=== PATIENT | female | born 1950 | race Caucasian/White ===

== ENCOUNTER → 2017-12-21 08:10 | Outpatient (CLI) | payer MEDICARE, OTHER, SELFPAY ==
[2017-12-21 09:55] LABS: AST(SGOT) 25 U/L (15-37); Alanine Aminotransfer ALT/SGPT 34 U/L (13-56); Albumin, Serum 3.7 g/dL (3.2-5.0); Alkaline Phosphatase 72 U/L (45-117); Bilirubin, Direct 0.11 mg/dL (0.00-0.30); Cholesterol 189 mg/dL (200); Globulin 3.1 g/dL (2.2-4.2); High Density Lipoprotein 68 mg/dL; Protein, Total 6.8 g/dL (6.4-8.2); Triglycerides 77 mg/dL; Very Low Density Lipoprotein 15 mg/dL (5-40)
== END ==
PROVIDERS: Family Provider Nurse Practitioner; PCP Nurse Practitioner; Visit Provider Internal Medicine Cardiovascular Disease
DX: Q23.1 Congenital insufficiency of aortic valve (principal); Z95.2 Presence of prosthetic heart valve; I35.0 Nonrheumatic aortic (valve) stenosis; E78.5 Hyperlipidemia, unspecified
CPT/HCPCS: 36415; 80061; 80076

== ENCOUNTER → 2018-08-23 07:54 | Outpatient (CLI) | payer MEDICARE, OTHER, SELFPAY ==
[2018-08-23 09:09] LABS: AST(SGOT) 26 U/L (15-37); Alanine Aminotransfer ALT/SGPT 40 U/L (13-56); Albumin, Serum 3.7 g/dL (3.2-5.0); Alkaline Phosphatase 84 U/L (45-117); Bilirubin, Direct 0.14 mg/dL (0.00-0.30); Cholesterol 215 mg/dL (200); Globulin 3.4 g/dL (2.2-4.2); High Density Lipoprotein 72 mg/dL; Protein, Total 7.1 g/dL (6.4-8.2); Triglycerides 87 mg/dL; Very Low Density Lipoprotein 17 mg/dL (5-40)
== END ==
PROVIDERS: Family Provider Nurse Practitioner; PCP Nurse Practitioner; Referring Provider Internal Medicine Cardiovascular Disease; Visit Provider Internal Medicine Cardiovascular Disease
DX: I34.0 Nonrheumatic mitral (valve) insufficiency (principal); Z95.3 Presence of xenogenic heart valve; E78.2 Mixed hyperlipidemia
CPT/HCPCS: 36415; 80061; 80076

== ENCOUNTER → 2018-08-28 14:50 | Outpatient (CLI) | payer MEDICARE, OTHER, SELFPAY ==
--- NOTE | 2018-08-28 14:52 | ECHOD_ITS ---
Reason For Study: Aortic valve replacement Procedure This was a 2D Doppler, Color Flow transthoracic echocardiogram. The exam was of adequate technical quality. Exam performed in department. Left Ventricle Normal LV size. Left ventricular systolic function is normal. The estimated ejection fraction is 65 %. Diastolic function is indeterminate. No regional wall motion abnormalities noted. Right Ventricle Normal RV size. Normal systolic function. Atria The left atrium is mildly enlarged. The right atrium is mildly enlarged. No doppler evidence for ASD. Mitral Valve There is mild mitral annular calcification. Mild diffuse mitral valve thickening. Mild focal mitral valve calcification of the anterior leaflet. Mild (1+) mitral valve insufficiency. Tricuspid Valve Normal tricuspid valve. Moderate (2+) tricuspid valve insufficiency. Right ventricular systolic pressure estimated to be 41 mmHg. Aortic Valve Moderate aortic stenosis. Stable appearing bioprosthetic aortic valve apparatus. Trivial transvalvular insufficiency of the aortic valve. Pulmonic Valve The pulmonic valve is not well visualized. Great Vessels Normal sized aortic root. Pericardium/Pleural No pericardial effusion. MMode/2D Measurements & Calculations LVIDd: 3.5 cm IVSd: 1.1 cm LVOT diam: 1.8 cm LVIDs: 1.7 cm LVPWd: 1.2 cm LVOT area: 2.7 cm2 RVDd: 3.5 cm FS: 51.6 % Ao root diam: 3.0 cm LAV(MOD-bp): 51.5 ml LA A4 area: 16.1 cm2 LAV(MOD-bp) Indexed: 32.8 ml/m2 LAV(MOD-sp2): 62.1 ml LAV(MOD-sp4): 40.8 ml LA dimension(2D): 3.4 cm RA A4 area: 20.1 cm2 Time Measurements MV dec time: 0.24 sec Doppler Measurements & Calculations MV E max shailesh: 65.3 cm/sec Lat Peak E' Shailesh: 7.2 cm/sec Med Peak E' Shailesh: 7.4 cm/sec MV A max shailesh: 85.3 cm/sec E/E' lat: 9.0 E/E' med: 8.8 MV E/A: 0.77 Ao V2 max: 343.0 cm/sec LV V1 max: 113.7 cm/sec SV(LVOT): 65.3 ml Ao max P.2 mmHg LV V1 max P.2 mmHg Ao V2 mean: 256.7 cm/sec LV V1 mean P.1 mmHg Ao mean P.9 mmHg LV V1 mean: 83.9 cm/sec Ao V2 VTI: 70.4 cm LV V1 VTI: 24.3 cm TONI(I,D): 0.93 cm2 TONI(V,D): 0.89 cm2 PA V2 max: 101.2 cm/sec TR max shailseh: 286.0 cm/sec TR max P.8 mmHg Interpretation Summary Left ventricular systolic function is normal. The estimated ejection fraction is 65 %. The left atrium is mildly enlarged. The right atrium is mildly enlarged. There is mild mitral annular calcification. Mild diffuse mitral valve thickening. Mild focal mitral valve calcification of the anterior leaflet. Mild (1+) mitral valve insufficiency. Moderate (2+) tricuspid valve insufficiency. Stable appearing bioprosthetic aortic valve apparatus. Moderate aortic stenosis. Trivial transvalvular insufficiency of the aortic valve. Right ventricular systolic pressure estimated to be 41 mmHg. Diastolic function is indeterminate. Ordering Physician: Jose Luis Donahue Referring Physician: Jose Luis Donahue Performed By: Namrata Warner, MC, RVT
== END ==
PROVIDERS: Family Provider Nurse Practitioner; PCP Nurse Practitioner; Referring Provider Internal Medicine Cardiovascular Disease; Visit Provider Internal Medicine Cardiovascular Disease
DX: I34.0 Nonrheumatic mitral (valve) insufficiency (principal); Z95.3 Presence of xenogenic heart valve
CPT/HCPCS: 93306

== ENCOUNTER → 2019-10-31 08:00 | Outpatient (CLI) | payer MEDICARE, OTHER, SELFPAY ==
[2019-08-21 15:45] VITALS: BMI 21.9
[2019-10-31 08:36] LABS: AST(SGOT) 26 U/L (15-37); Alanine Aminotransfer ALT/SGPT 41 U/L (13-56); Albumin, Serum 3.6 g/dL (3.2-5.0); Alkaline Phosphatase 93 U/L (45-117); Bilirubin, Direct 0.15 mg/dL (0.00-0.30); Cholesterol 197 mg/dL (200); Globulin 3.4 g/dL (2.2-4.2); High Density Lipoprotein 59 mg/dL; Triglycerides 106 mg/dL; Very Low Density Lipoprotein 21 mg/dL (5-40)
== END ==
PROVIDERS: PCP Nurse Practitioner; Referring Provider Internal Medicine Cardiovascular Disease; Visit Provider Internal Medicine Cardiovascular Disease
DX: E78.5 Hyperlipidemia, unspecified (principal); E78.00 Pure hypercholesterolemia, unspecified
CPT/HCPCS: 36415; 80061; 80076

== ENCOUNTER → 2020-09-01 13:49 | Outpatient (CLI) | payer MEDICARE, OTHER, SELFPAY ==
[2020-08-19 15:12] VITALS: BMI 21.9
--- NOTE | 2020-09-01 13:50 | ECHOD_ITS ---
Reason For Study: Valve Replacement eval Procedure This was a 2D Doppler, Color Flow transthoracic echocardiogram. The study was technically difficult. Exam performed in department. Left Ventricle Normal LV size. Left ventricular systolic function is normal. The estimated ejection fraction is 65 %. No evidence for diastolic dysfunction. No regional wall motion abnormalities noted. Right Ventricle Normal RV size. Normal systolic function. Atria The left atrium is mildly enlarged. The right atrium is mildly enlarged. No doppler evidence for ASD. Mitral Valve There is mild mitral annular calcification. Mild diffuse mitral valve thickening. Mild (1+) mitral valve insufficiency. Tricuspid Valve Normal tricuspid valve. Moderate (2+) tricuspid valve insufficiency. Right ventricular systolic pressure estimated to be 29 mmHg. Aortic Valve Moderate aortic stenosis. Stable appearing bioprosthetic aortic valve apparatus. Trivial transvalvular insufficiency of the aortic valve. Pulmonic Valve The pulmonic valve is not well visualized. Great Vessels Normal sized aortic root. Pericardium/Pleural No pericardial effusion. MMode/2D Measurements & Calculations LVIDd: 3.2 cm IVSd: 1.1 cm LVOT diam: 1.7 cm LVIDs: 2.0 cm LVPWd: 1.3 cm LVOT area: 2.4 cm2 RVDd: 3.3 cm FS: 38.1 % Ao root diam: 3.8 cm LAV(MOD-bp): 46.9 ml LA A4 area: 14.9 cm2 LA dimension: 3.6 cm LAV(MOD-bp) Indexed: 29.8 ml/m2 LAV(MOD-sp2): 59.8 ml LAV(MOD-sp4): 36.2 ml RA A4 area: 14.9 cm2 Time Measurements MV dec time: 0.31 sec Doppler Measurements & Calculations MV E max shailesh: 61.5 cm/sec Lat Peak E' Shailesh: 7.3 cm/sec Med Peak E' Shailesh: 6.3 cm/sec MV A max shailesh: 80.6 cm/sec E/E' lat: 8.4 E/E' med: 9.8 MV E/A: 0.76 MV V2 max: 104.2 cm/sec MV P1/2t max shailesh: 68.6 cm/sec Ao V2 max: 302.0 cm/sec MV max P.3 mmHg MV P1/2t: 80.1 msec Ao max P.5 mmHg MV V2 mean: 51.3 cm/sec MV dec slope: 250.9 cm/sec2 Ao V2 mean: 190.4 cm/sec MV mean P.2 mmHg Ao mean P.9 mmHg MV V2 VTI: 26.2 cm MVA(P1/2t): 2.7 cm2 Ao V2 VTI: 54.7 cm MVA(VTI): 2.1 cm2 TONI(I,D): 0.99 cm2 TONI(V,D): 0.91 cm2 LV V1 max: 115.9 cm/sec MR max shailesh: 491.1 cm/sec SV(LVOT): 54.0 ml LV V1 max P.4 mmHg MR max P.5 mmHg LV V1 mean P.9 mmHg LV V1 mean: 78.1 cm/sec LV V1 VTI: 22.8 cm PA V2 max: 111.7 cm/sec TR max shailesh: 255.4 cm/sec TR max P.1 mmHg Interpretation Summary The study was technically difficult. Left ventricular systolic function is normal. The estimated ejection fraction is 65 %. The left atrium is mildly enlarged. The right atrium is mildly enlarged. There is mild mitral annular calcification. Mild diffuse mitral valve thickening. Mild (1+) mitral valve insufficiency. Moderate (2+) tricuspid valve insufficiency. Stable appearing bioprosthetic aortic valve apparatus. Moderate aortic stenosis. Trivial transvalvular insufficiency of the aortic valve. Right ventricular systolic pressure estimated to be 29 mmHg. No evidence for diastolic dysfunction. Ordering Physician: Jose Luis Donahue Referring Physician: Nata Welsh Performed By: Maxime Juarez RCS
== END ==
PROVIDERS: PCP Nurse Practitioner; Referring Provider Internal Medicine Cardiovascular Disease; Visit Provider Internal Medicine Cardiovascular Disease
DX: I34.1 Nonrheumatic mitral (valve) prolapse (principal); E78.2 Mixed hyperlipidemia; I34.0 Nonrheumatic mitral (valve) insufficiency; Z95.3 Presence of xenogenic heart valve
CPT/HCPCS: 93306

== ENCOUNTER → 2021-06-28 14:02 | Outpatient (CLI) | payer MEDICARE, OTHER, SELFPAY ==
--- NOTE | 2021-06-28 14:12 | BI_ITS ---
MAMMOGRAPHY - UNILATERAL DIAGNOSTIC: LEFT BREAST REASON FOR EXAM: Female, 70 years old. Abnormal screening mammogram. PERTINENT HISTORY: Architectural distortion as seen on the mediolateral oblique view. TECHNIQUE: Compression spot views of the left breast were obtained in the mediolateral oblique view. CAD: Full Field Digital Mammography with Computer Added Detection was performed. COMPARISON: Comparison is made with prior outside examination dated 05/27/2021. FINDINGS: Breast Composition: There are scattered areas of fibroglandular density. There are no dominant masses or suspicious calcifications. No other significant abnormalities are identified. BI/DIAG MAMM W/CAD, UNILAT IMPRESSION: Negative unilateral diagnostic mammogram. Correlation with ultrasound is recommended. ASSESSMENT CATEGORY: BIRADS Category 0: Incomplete. Need additional imaging evaluation. A letter regarding these results will be sent to the patient by the facility within 30 days. Approximately 10% of breast cancers are not detected by mammography. A normal mammogram should not delay biopsy of a clinically suspicious abnormality. Electronically Signed: Rodger Blount MD at 15:12 EDT , Service support ,
--- NOTE | 2021-06-28 14:12 | US_ITS ---
STUDY: ULTRASOUND BREAST - LEFT REASON FOR EXAM: Female, 70 years old. Abnormal screening mammogram. TECHNIQUE: Axial and longitudinal images of the LEFT breast were performed with a high resolution ultrasound transducer. # OF IMAGES: 36 COMPARISON: Comparison is made with prior diagnostic mammogram done earlier today. FINDINGS: LEFT Breast: The lateral half of the left breast was examined by ultrasound. No sonographic abnormality is seen. US/Breast Limited Unilateral IMPRESSION: No sonographic abnormality is seen. ASSESSMENT CATEGORY: BIRADS Category 1: Negative. A letter regarding these results will be sent to the patient by the facility within 30 days. Electronically Signed: Rodger Blount MD at 15:48 EDT , Service support ,
== END ==
PROVIDERS: PCP Nurse Practitioner; Referring Provider Nurse Practitioner; Visit Provider Nurse Practitioner
DX: R92.8 Other abnormal and inconclusive findings on diagnostic imaging of breast (principal)
CPT/HCPCS: 76642; 77065

== ENCOUNTER → 2021-08-31 13:53 | Outpatient (CLI) | payer MEDICARE, OTHER, SELFPAY ==
--- NOTE | 2021-08-31 13:57 | ECHOD_ITS ---
Reason For Study: AVR Procedure This was a 2D Doppler, Color Flow transthoracic echocardiogram. The exam was of adequate technical quality. Exam performed in department. Left Ventricle Normal LV size. Left ventricular systolic function is normal. The estimated ejection fraction is 65 %. Diastolic function is indeterminate. No regional wall motion abnormalities noted. Right Ventricle Normal RV size. Normal systolic function. Atria Normal left atrium. Normal right atrium. No doppler evidence for ASD. Mitral Valve There is mild to moderate mitral annular calcification. Extension of the mitral annular calcification onto the base of the posterior mitral valve leaflet. Mild (1+) mitral valve insufficiency. Tricuspid Valve Normal tricuspid valve. Moderate (2+) tricuspid valve insufficiency. Right ventricular systolic pressure estimated to be 41 mmHg. Aortic Valve Mild focal aortic valve calcification. Mild to moderate aortic stenosis. Stable appearing bioprosthetic aortic valve apparatus. Trivial transvalvular insufficiency of the aortic valve. Pulmonic Valve The pulmonic valve is not well visualized. Great Vessels Normal sized aortic root. Pericardium/Pleural No pericardial effusion. MMode/2D Measurements & Calculations LVIDd: 3.5 cm IVSd: 1.1 cm LVOT diam: 1.7 cm LVIDs: 2.0 cm LVPWd: 1.1 cm LVOT area: 2.2 cm2 RVDd: 2.8 cm FS: 43.4 % Ao root diam: 3.8 cm LAV(MOD-bp): 45.0 ml LVAd ap4: 22.3 cm2 LAV(MOD-bp) Indexed: 28.8 ml/m2 LVLd ap4: 7.3 cm LAV(MOD-sp2): 48.0 ml EDV(MOD-sp4): 56.1 ml LAV(MOD-sp4): 37.5 ml EDV(sp4-el): 58.0 ml LVAs ap4: 12.1 cm2 LVLs ap4: 6.4 cm ESV(MOD-sp4): 20.1 ml ESV(sp4-el): 19.6 ml EF(MOD-sp4): 64.2 % EF(sp4-el): 66.3 % LVAd ap2: 25.0 cm2 SV(MOD-sp4): 36.0 ml SV(MOD-sp2): 44.3 ml LVLd ap2: 7.6 cm EDV(MOD-sp2): 68.4 ml EDV(sp2-el): 69.7 ml LVAs ap2: 13.8 cm2 LVLs ap2: 6.8 cm ESV(MOD-sp2): 24.1 ml ESV(sp2-el): 23.8 ml EF(MOD-sp2): 64.8 % SV(sp4-el): 38.5 ml LA dimension(2D): 4.0 cm LA A4 area: 15.5 cm2 RA A4 area: 13.5 cm2 Doppler Measurements & Calculations MV E max shailesh: 58.2 cm/sec Lat Peak E' Shailesh: 7.0 cm/sec Med Peak E' Shailesh: 7.0 cm/sec MV A max shailesh: 86.9 cm/sec E/E' lat: 8.3 E/E' med: 8.3 MV E/A: 0.67 Ao V2 max: 304.2 cm/sec AI max shailesh: 472.8 cm/sec LV V1 max: 185.2 cm/sec Ao max P.0 mmHg AI max P.4 mmHg LV V1 max P.7 mmHg Ao V2 mean: 202.3 cm/sec AI dec slope: 247.2 cm/sec2 LV V1 mean P.3 mmHg Ao mean P.5 mmHg AI P1/2t: 560.2 msec LV V1 mean: 127.0 cm/sec Ao V2 VTI: 53.8 cm LV V1 VTI: 34.4 cm TONI(I,D): 1.4 cm2 TONI(V,D): 1.3 cm2 SV(LVOT): 74.7 ml PA V2 max: 122.7 cm/sec TR max shailesh: 306.1 cm/sec TR max P.8 mmHg ECHO/Echo Complete Interpretation Summary Left ventricular systolic function is normal. The estimated ejection fraction is 65 %. There is mild to moderate mitral annular calcification. Extension of the mitral annular calcification onto the base of the posterior mi tral valve leaflet. Mild (1+) mitral valve insufficiency. Moderate (2+) tricuspid valve insufficiency. Stable appearing bioprosthetic aortic valve apparatus. Mild to moderate aortic stenosis. Trivial transvalvular insufficiency of the aortic valve. Right ventricular systolic pressure estimated to be 41 mmHg. Diastolic function is indeterminate. Ordering Physician: Jose Luis Donahue Referring Physician: Nata Welsh Performed By: Luisana iRvas, [facility]
== END ==
PROVIDERS: PCP Nurse Practitioner; Referring Provider Internal Medicine Cardiovascular Disease; Visit Provider Internal Medicine Cardiovascular Disease
DX: R07.9 Chest pain, unspecified (principal); E78.2 Mixed hyperlipidemia; I34.0 Nonrheumatic mitral (valve) insufficiency; I34.1 Nonrheumatic mitral (valve) prolapse; Z95.3 Presence of xenogenic heart valve
CPT/HCPCS: 93306

== ENCOUNTER → 2022-04-12 | Outpatient (CLI) | payer MEDICARE, OTHER, SELFPAY ==
[2022-04-12 10:16] LABS: Erythrocyte Sedimentation Rate 11 mm/hr (0-30)
[2022-04-12 10:18] LABS: Hematocrit 44.6 % (37-47); Hemoglobin 14.7 g/dL (12.0-15.0); Mean Corpuscular Hgb 30.3 pg (27.0-32.0); Mean Platelet Vol. 9.6 fl (6.2-12.0); Platelet Count 325 K/mm3 (150-450); RBC Distribution Width CV 12.6 % (11.6-14.6); RBC Distribution Width SD 42.8 fl (35.1-43.9); Red Blood Count 4.85 M/mm3 (4.2-5.4); White Blood Count 8.2 K/mm3 (4.4-11.0)
[2022-04-12 10:44] LABS: Vitamin B12 523 pg/mL (211-911)
[2022-04-12 11:07] LABS: ALB/GLOB Ratio 1.1 RATIO (0.9-2.4); AST(SGOT) 28 U/L (15-37); Alanine Aminotransfer ALT/SGPT 48 U/L (13-56); Albumin, Serum 3.6 g/dL (3.2-5.0); Alkaline Phosphatase 84 U/L (45-117); Anion Gap 8 (5-15); BUN 16 mg/dL (7-18); BUN/Creat Ratio 22.3 RATIO (10-20); Calcium,Total 9.3 mg/dL (8.5-10.1); Chloride 106 mmol/L (98-107); Creatinine, Serum 0.72 mg/dL (0.55-1.02); EST Glomerular Filtration Rate 85 mL/min (>60); Est Glom Filt Rate - Afr Amer 103 mL/min (>60); Globulin 3.2 g/dL (2.2-4.2); Glucose 91 mg/dL (74-106); Potassium 4.1 mmol/L (3.5-5.1); Protein, Total 6.8 g/dL (6.4-8.2); Sodium Level 141 mmol/L (136-145); Thyroid Stim Hormone (TSH) 2.55 uIU/mL (0.358-3.74)
[2022-04-22 10:11] LABS: Free Kappa Light Chains 14.5 mg/L (3.3-19.4); Free Lambda Light Chains 6.7 mg/L (5.7-26.3)
[2022-04-22 12:06] LABS: Vitamin B1, Thiamine 159.1 nmol/L (66.5-200.0)
== END | disposition home or self-care (01) ==
PROVIDERS: PCP Nurse Practitioner; Referring Provider Psychiatry & Neurology Neurology; Visit Provider Psychiatry & Neurology Neurology
DX: G62.9 Polyneuropathy, unspecified (principal); G95.9 Disease of spinal cord, unspecified; R26.9 Unspecified abnormalities of gait and mobility; E78.2 Mixed hyperlipidemia
CPT/HCPCS: 36415; 80053; 82607; 82746; 83883; 84425; 84443; 85027; 85652

== ENCOUNTER → 2022-04-22 | Outpatient (CLI) | payer MEDICARE, OTHER, SELFPAY ==
--- NOTE | 2022-04-22 13:12 | MRI_ITS ---
EXAM: MR CERVICAL SPINE WITHOUT INTRAVENOUS CONTRAST CLINICAL INDICATION: Abnormality of gait; possible cervical myelopathy -- PATIENT DENIED HAVING CONTRAST Technologist Notes Other, NUMBNESS IN HANDS AND FEET SINCE HAVING COVID IN NOVEMBER 2021. NUMBNESS LEFT HAND AND RIGHT ARM AND HAND. NO PREVIOUS. TECHNIQUE: Multiplanar and multisequence MR images of the cervical spine without intravenous contrast were performed. This report was created using [employer] report generation technology. COMPARISON: None. FINDINGS: VERTEBRAE: See below. SPINAL CORD: Unremarkable in signal and morphology. SOFT TISSUES: Unremarkable. No prevertebral soft tissue swelling. LYMPH NODES: Unremarkable. There is no cervical adenopathy. DISCS/SPINAL CANAL/NEURAL FORAMINA: C2-C3: C2-3: Normal endplates. Normal disc height and morphology. Normal central canal and intervertebral neuroforamina. C3-C4: C3-4: Loss of intervertebral disc height. There is endplate spondylosis of the vertebral body. Normal central canal and intervertebral neuroforamina. There is bilateral facet arthropathy. C4-C5: C4-5: There is bilateral facet arthropathy. Loss of intervertebral disc height. There is endplate spondylosis of the vertebral body. Discogenic endplate changes. Grade 1 anterolisthesis of C4 on C5. Distance measures 2.6 mm. Severe bilateral neural foraminal stenosis. Compression of exiting nerve roots. Severe spinal stenosis. Increased T2 signal in the spinal cord suggesting myelomalacia. C5-C6: C5-6: There is bilateral facet arthropathy. Loss of intervertebral disc height. There is endplate spondylosis of the vertebral body. Discogenic endplate changes. Severe bilateral neural foraminal stenosis. Compression of exiting nerve roots. Moderate spinal stenosis. Posterior disc bulge osteophyte complex. C6-C7: C6-7: There is bilateral facet arthropathy. Loss of intervertebral disc height. There is endplate spondylosis of the vertebral body. Discogenic endplate changes. Severe bilateral neural foraminal stenosis. Compression of exiting nerve roots. Moderate spinal stenosis. Posterior disc bulge osteophyte complex. C7-T1: Loss of intervertebral disc height. There is endplate spondylosis of the vertebral body. Normal central canal and intervertebral neuroforamina. There is bilateral facet arthropathy. MRI/Spine Cervical (Routine) IMPRESSION: 1. C4-5: There is bilateral facet arthropathy. Loss of intervertebral disc height. There is endplate spondylosis of the vertebral body. Discogenic endplate changes. Grade 1 anterolisthesis of C4 on C5. Distance measures 2.6 mm. Severe bilateral neural foraminal stenosis. Compression of exiting nerve roots. Severe spinal stenosis. Increased T2 signal in the spinal cord suggesting myelomalacia. 2. C5-6: There is bilateral facet arthropathy. Loss of intervertebral disc height. There is endplate spondylosis of the vertebral body. Discogenic endplate changes. Severe bilateral neural foraminal stenosis. Compression of exiting nerve roots. Moderate spinal stenosis. Posterior disc bulge osteophyte complex. 3. C6-7: There is bilateral facet arthropathy. Loss of intervertebral disc height. There is endplate spondylosis of the vertebral body. Discogenic endplate changes. Severe bilateral neural foraminal stenosis. Compression of exiting nerve roots. Moderate spinal stenosis. Posterior disc bulge osteophyte complex. 4. Multilevel degenerative changes, as described above. Electronically Signed: Joaquin Cintron MD at 15:48 EDT ,
== END | disposition home or self-care (01) ==
PROVIDERS: PCP Internal Medicine; Referring Provider Psychiatry & Neurology Neurology; Visit Provider Psychiatry & Neurology Neurology
DX: G95.9 Disease of spinal cord, unspecified (principal)
CPT/HCPCS: 72141

== ENCOUNTER → 2022-05-25 | Outpatient (CLI) | payer MEDICARE, OTHER, SELFPAY ==
--- NOTE | 2022-05-25 10:49 | NEURO ---
NCS and/or EMG Patient Report Ordering Doctor: Bigg Culver DATE OF SERVICE: 05/25/22 Jasmin presents for electrodiagnostic testing of the upper limbs. She reports numbness and tingling in both hands, worse over the past several months. Electrodiagnostic findings: Median motor nerve demonstrates prolonged distal latency bilaterally with normal amplitudes and conduction velocities. Normal ulnar motor response, including conduction across the elbow bilaterally. Normal median and ulnar F waves. Prolonged median sensory latency at the wrist bilaterally. Normal ulnar and radial sensory responses. On needle EMG, all muscles tested in the upper limbs showed no evidence of denervation with normal motor unit action potentials. Electrodiagnostic assessment: This is an abnormal study in the upper limbs 1. Electrodiagnostic findings demonstrate bilateral median mononeuropathy. This is consistent with a mild bilateral carpal tunnel syndrome.
== END | disposition home or self-care (01) ==
LOC: PSN 08:38
PROVIDERS: PCP Internal Medicine; Referring Provider Psychiatry & Neurology Neurology; Visit Provider Psychiatry & Neurology Neurology
DX: G62.9 Polyneuropathy, unspecified (principal); R20.2 Paresthesia of skin
CPT/HCPCS: 95886; 95913

== ENCOUNTER → 2022-06-22 | Outpatient (CLI) | payer MEDICARE, OTHER, SELFPAY ==
--- NOTE | 2022-06-22 10:28 | NEURO_ITS ---
NCS and/or EMG Patient Report Ordering Doctor: Bigg Culver DATE OF SERVICE: 06/22/22 Jasmin presents for electrodiagnostic testing of the lower limbs. She reports numbness and tingling in both feet since she contracted COVID in November. She reports symptoms are slowly resolving. She does report walking 2 miles per day. Electrodiagnostic findings: Peroneal motor nerve demonstrates normal distal latency, amplitude and conduction velocity bilaterally. Normal tibial motor response bilaterally. Normal peroneal and tibial F waves. H reflex borderline prolonged bilaterally. Sensory responses are within normal limits. On needle EMG, all muscles tested in the lower limbs showed no evidence of denervation with normal motor unit action potentials. Electrodiagnostic impression: This is a normal electrodiagnostic study in the lower limbs. There is no electrodiagnostic evidence for peripheral polyneuro kimber or lumbosacral radiculopathy.
== END | disposition home or self-care (01) ==
LOC: PSN 08:40
PROVIDERS: PCP Internal Medicine; Referring Provider Psychiatry & Neurology Neurology; Visit Provider Psychiatry & Neurology Neurology
DX: G62.9 Polyneuropathy, unspecified (principal); R26.9 Unspecified abnormalities of gait and mobility; R20.2 Paresthesia of skin
CPT/HCPCS: 95886; 95913

== ENCOUNTER 2022-10-21 06:31 | Emergency (ER) | payer MEDICARE, OTHER, SELFPAY ==
[2022-10-21 06:35] VITALS: BP 150/71; PULSE 71; RESP 18; TEMP 36.2; O2SAT 98; BMI 22.5
--- NOTE | 2022-10-21 06:59 | CT_ITS ---
STUDY: CT BRAIN WITHOUT CONTRAST REASON FOR EXAM: Female, 71 years old. Vertigo. Prior cervical fusion. RADIATION DOSAGE (If Supplied By Facility): CTDIvol = ( 44.99 ) mGy, DLP = ( 829.85 ) mGycm TECHNIQUE: Transaxial CT imaging of the brain was performed without administration of intravenous contrast material. Individualized dose optimization techniques were used for this CT. COMPARISON: No relevant priors. FINDINGS: Normal soft tissue structures. Normal calvarium. There is mild cerebral atrophy with widening of the extra-axial spaces and ventricular dilatation. Normal white matter tracts of the cerebral hemispheres. Normal basal ganglia and thalami. Normal brainstem. Normal cerebellum. There is no intracranial hemorrhage. There are no findings of an acute ischemic infarction. Normal visualized paranasal sinuses. CT/Brain/Head without Contrast IMPRESSION: Chronic involutional changes of the brain. Electronically Signed: Rodger Blount MD at 8:28 EST ,
--- NOTE | 2022-10-21 07:04 | EDS_ITS ---
HPI History of Present Illness Chief Complaint: Dizziness Narrative Narrative: Patient is a 71-year-old female with past medical history of hyperlipidemia and mitral insufficiency as well as cervical myelopathy. She states that she went to bed feeling normal last night and then awoke this morning and when she tried to get out of bed had onset of dizziness which she describes as more of a sense of motion. She states that with the dizziness she feels nauseous. However she denies any vomiting. She states that if she closes her eyes and lies still that the symptoms improved but did not completely resolve. She states each time she tried to move the symptoms returned and as she cannot get out of bed called EMS and she was brought in for evaluation. [facility] Medical History Anemia Aortic stenosis Bicuspid aortic valve Chest pain Headache, migraine History of left heart catheterization Mixed hyperlipidemia Neuropathy Nonrheumatic mitral (valve) insufficiency Nonrheumatic mitral (valve) prolapse Osteopenia Home Medications calcium carb-Ca gluc 500 mg calcium-magnesium ox-Mg gluc 250 mg tablet 1 ea PO BID 04/27/16 [History Last Taken 04/28/16] cholecalciferol (vitamin D3) 25 mcg (1,000 unit) tablet 400 unit PO DAILY 04/27/16 [History Last Taken 04/28/16] coenzyme Q10 100 mg capsule 100 mg PO DAILY 04/27/16 [History Last Taken 04/28/16] multivitamin with folic acid 400 mcg tablet 1 tab PO DAILY 04/27/16 [History Last Taken 04/28/16] omega-3 fatty acids 1,000 mg capsule 1,000 mg PO DAILY 04/27/16 [History Last Taken 04/28/16] aspirin 81 mg tablet,delayed release (Adult Aspirin Regimen) 81 mg PO QDAY 10/04/17 [History Last Taken Unknown] metoprolol tartrate 25 mg tablet 25 mg PO BID #180 tabs 02/22/22 [Rx Last Taken Unknown] atorvastatin 40 mg tablet 40 mg PO QHS #90 tabs 03/08/22 [Rx Last Taken Unknown] magnesium 30 mg tablet 30 mg PO DAILY 03/08/22 [History Last Taken Unknown] Allergy/AdvReac Type Severity Reaction Status Date / Time morphine Allergy Nausea Verified 10/21/22 06:34 Family History Mother CAD (coronary artery disease) Sister History of open heart surgery Surgical History H/O aortic valve replacement (~06/17/16) H/O neck surgery History of aortic valve replacement with bioprosthetic valve (~06/17/16) Social History Smoking Status: Never smoker alcohol intake: never substance use type: does not use caffeine: Yes Type: coffee what type of physical activity do you participate in: walking and aerobics frequency: daily duration: 30-45 minutes/day seatbelt use: sometimes do you feel safe at home: Yes ROS ROS ED Constitutional Constitutional ED: Denies chills or fever(s) Eyes Eyes: Denies change in vision ENT ENT ED: Reports other Details: Negative tinnitus ; Denies sore throat Cardiovascular Cardiovascular: Denies chest pain or palpitations Respiratory/Chest Respiratory/Chest: Denies cough or dyspnea Gastrointestinal Gastrointestinal: Reports nausea; Denies abdominal pain, diarrhea or vomiting Genitourinary Genitourinary ED: Denies dysuria Musculoskeletal Musculoskeletal: Denies myalgias Integumentary Denies rash Neurologic Neurologic: Reports other Details: Positive dizziness ; Denies headache(s) Psychiatric Psychiatric: Denies anxiety Hematologic/Lymphatic Hematologic/Lymphatic: Denies easy bleeding or easy bruising EXAM Physical Exam Const Vital Signs: 10/21/22 06:35 10/21/22 06:37 Temperature 97.1 F L Temperature Source Temporal Pulse Rate 71 Respiratory Rate 18 Respiratory Effort Normal Respiratory Pattern Normal Blood Pressure 150/71 H Blood Pressure Mean 97 Pulse Ox 98 Oxygen Delivery Method Room Air Positive well nourished and well developed General Appearance ED: well developed HEENT Reports dry mucous membranes Mouth ED: Yes dry mucous membranes Mouth: dry mucous membranes Eyes PERRL and EOMs intact bilaterally Neck supple Neck Narrative: No carotid bruit noted Resp normal respiratory effort and clear to auscultation bilaterally Cardio regular rate and regular rhythm Rate: other Other Details: Radial pulses are plus 2 out of 4 bilaterally are equal and symmetric GI normal to inspection, nondistended, normoactive bowel sounds, non-tender and non-distended GI Narrative: Saw not tender nondistended with normoactive bowel sounds no voluntary guarding or rigidity no pulsatile mass Auscultation: normoactive bowel sounds Palpation: soft Extremity normal to inspection Neuro oriented x3 and CN's II-XII intact bilaterally Neuro Narrative: Cranial nerves II through XII are grossly intact there are no focal neurologic deficits. No pronator drift or dysmetria. No truncal ataxia. Patient does have mild nystagmus noted and positive [place] exam on right. NIH stroke scale score of 0 Patient does have chronic weakness of her right arm from her cervical myelopathy this is unchanged from previous. Sensorium / Orientation: alert Psych Psych Narrative: Patient has a nervous/anxious affect Skin no rashes or lesions noted MDM MDM MDM Narrative Medical decision making narrative: Patient presented to the ER with stable vitals and a nonfocal neuro exam that is most consistent with peripheral vertigo. As she is not had this before I will start a basic work-up looking at laboratory values as well as a head CT. Patient be treated with IV fluids and oral Valium. If work-up is negative and she has improvement of symptoms then she will be safe for discharge however if they persist then the day physician Dr. Tito Tafoya can continue work-up as needed Discharge Plan Triage Chief Complaint: Dizziness ED Provider: Amor Eisenberg Dx/Rx/DC Orders Clinical Impression: Peripheral vertigo Prescriptions: No Action aspirin [Adult Aspirin Regimen] 81 mg tablet,delayed release (DR/EC) 81 mg PO QDAY magnesium 30 mg tablet 30 mg PO DAILY atorvastatin 40 mg tablet 40 mg PO QHS Qty: 90 3RF omega-3 fatty acids 1,000 MG capsule 1,000 mg PO DAILY Label Comments: DIETARY SUPPLEMENT coenzyme Q10 100 MG capsule 100 mg PO DAILY Label Comments: DIETARY SUPPLEMENT cholecalciferol (vitamin D3) 1,000 UNIT tablet 400 unit PO DAILY Label Comments: SUPPLEMENT multivitamin with folic acid 1 TABLET tablet 1 tab PO DAILY Label Comments: DIETARY SUPPLEMENT Ca carb-Ca gluc-Mg ox-Mg gluco 1 EACH tablet 1 ea PO BID Label Comments: DIETARY SUPPLEMENT metoprolol tartrate 25 mg tablet 25 mg PO BID Qty: 180 4RF Primary Care Provider: Charla Marroquin Referrals: Charla Marroquin MD [Primary Care Provider] -
[2022-10-21] MEDS: Ondansetron 4 MG/2 ML Vial IV (07:15)
[2022-10-21] MEDS: diazePAM 5 MG Tablet 2.5 MG PO (07:17)
[2022-10-21 07:53] LABS: Absolute Lymphocyte Count 1.78 X10^3/uL (0.83-4.51); Basophil# 0.08 X10^3/uL; Basophil% 0.9 % (0-1); Eosinophil# 0.27 X10^3/uL; Eosinophils% 3.1 % (0-5); Hematocrit 43.3 % (37-47); Hemoglobin 14.1 g/dL (12.0-15.0); Lymphocyte # 1.78 X10^3/ul (0.83-4.51); Lymphocyte % 20.3 % (19-41); Mean Corp Hgb Conc 32.6 g/dL (32-36); Mean Corpuscular Hgb 30.2 pg (27.0-32.0); Mean Corpuscular Volume 92.7 fL (81-99); Mean Platelet Vol. 9.4 fl (6.2-12.0); Monocyte# 0.66 X10^3/uL; Monocyte% 7.5 % (0-10); NRBC Flagged by Analyzer 0 % (0-5); Neutrophil # 5.96 X10^3/uL (2.7-7.7); Neutrophil % 67.9 % (47-70); Platelet Count 293 K/mm3 (150-450); RBC Distribution Width CV 12.5 % (11.6-14.6); RBC Distribution Width SD 42.3 fl (35.1-43.9); Red Blood Count 4.67 M/mm3 (4.2-5.4); White Blood Count 8.8 K/mm3 (4.4-11.0)
[2022-10-21 08:03] LABS: Anion Gap 4 (5-15); BUN 13 mg/dL (7-18); BUN/Creat Ratio 19.2 RATIO (10-20); Calcium,Total 8.9 mg/dL (8.5-10.1); Chloride 112 mmol/L (98-107); Creatinine, Serum 0.68 mg/dL (0.55-1.02); EST Glomerular Filtration Rate 91 mL/min (>60); Est Glom Filt Rate - Afr Amer 110 mL/min (>60); Estimated Creatinine Clearance 43.92 ml/min; Glucose 92 mg/dL (74-106); Magnesium 2.3 mg/dL (1.6-2.6); Potassium 3.8 mmol/L (3.5-5.1); Sodium Level 142 mmol/L (136-145)
[2022-10-21 08:31] VITALS: BP 139/72; PULSE 82; RESP 18; O2SAT 100
[2022-10-21 10:00] VITALS: BP 122/59; PULSE 80; RESP 16; O2SAT 98
[2022-10-21 11:20] VITALS: BP 125/65
== END 2022-10-21 11:21 | disposition home or self-care (01) ==
PROVIDERS: Emergency Medicine; Emergency Provider Emergency Medicine; PCP Internal Medicine; Visit Provider Emergency Medicine
DX: H81.399 Other peripheral vertigo, unspecified ear (principal)
CPT/HCPCS: 70450; 80048; 83735; 85025; 96374; 99284; J7040; A4216; J2405

== ENCOUNTER → 2023-03-21 | Outpatient (CLI) | payer MEDICARE, OTHER, SELFPAY ==
--- NOTE | 2023-03-21 13:54 | ECHOD_ITS ---
Reason For Study: Chest pain, new AI murmur Procedure This was a 2D Doppler, Color Flow transthoracic echocardiogram. Exam performed in department. Left Ventricle Normal LV size. Left ventricular systolic function is normal. The estimated ejection fraction is 65 %. Stage 1 diastolic dysfunction. No regional wall motion abnormalities noted. Right Ventricle Normal RV size. Normal systolic function. Atria Normal left atrium. Normal right atrium. Mitral Valve There is mild mitral annular calcification. Mild (1+) eccentric mitral valve insufficiency. Tricuspid Valve Normal tricuspid valve. Mild (1+) tricuspid valve insufficiency. Pulmonary artery systolic pressure is 30 mmHg. Aortic Valve Peak aortic valve gradient 37 mmHg. Mean aortic valve gradient 20 mmHg. Mild (1+) aortic valve insufficiency. Bioprosthetic aortic valve. Pulmonic Valve Normal pulmonic valve. Great Vessels Normal aortic root. The pulmonary artery is normal size. Normal inferior vena cava. Pericardium/Pleural No pericardial effusion. MMode/2D Measurements & Calculations LVIDd: 4.1 cm IVSd: 1.3 cm LVOT diam: 1.7 cm LVIDs: 2.9 cm LVPWd: 0.81 cm LVOT area: 2.2 cm2 RVDd: 3.2 cm FS: 29.0 % Ao root diam: 3.8 cm LAV(MOD-bp): 48.7 ml LVAd ap4: 25.2 cm2 LAV(MOD-bp) Indexed: 31.1 ml/m2 LVLd ap4: 7.4 cm LAV(MOD-sp2): 52.6 ml EDV(MOD-sp4): 69.6 ml LAV(MOD-sp4): 44.8 ml EDV(sp4-el): 72.9 ml LVAs ap4: 14.1 cm2 LVLs ap4: 6.2 cm ESV(MOD-sp4): 26.6 ml ESV(sp4-el): 27.0 ml EF(MOD-sp4): 61.8 % EF(sp4-el): 63.0 % LVAd ap2: 21.1 cm2 SV(MOD-sp4): 43.0 ml SV(MOD-sp2): 27.9 ml LVLd ap2: 7.4 cm EDV(MOD-sp2): 49.7 ml EDV(sp2-el): 51.1 ml LVAs ap2: 13.0 cm2 LVLs ap2: 6.5 cm ESV(MOD-sp2): 21.7 ml ESV(sp2-el): 22.0 ml EF(MOD-sp2): 56.2 % SV(sp4-el): 45.9 ml LA dimension(2D): 3.9 cm LA A4 area: 16.8 cm2 RA A4 area: 17.4 cm2 TAPSE: 2.1 cm Time Measurements MV dec time: 0.19 sec Doppler Measurements & Calculations MV E max shailesh: 66.7 cm/sec Lat Peak E' Shailesh: 7.5 cm/sec Med Peak E' Shailesh: 8.6 cm/sec MV A max shailesh: 79.7 cm/sec E/E' lat: 8.9 E/E' med: 7.7 MV E/A: 0.84 Ao V2 max: 304.7 cm/sec AI max shailesh: 476.1 cm/sec MV dec slope: 349.0 cm/sec2 Ao max P.2 mmHg AI max P.7 mmHg Ao V2 mean: 208.4 cm/sec Ao mean P.0 mmHg AI dec slope: 277.1 cm/sec2 Ao V2 VTI: 64.5 cm AI P1/2t: 503.2 msec AV (velocity ratio): 0.56 TONI(I,D): 1.3 cm2 TONI(V,D): 1.3 cm2 LV V1 max: 178.5 cm/sec SV(LVOT): 80.7 ml PA V2 max: 93.3 cm/sec LV V1 max P.7 mmHg PA V2 mean: 65.8 cm/sec LV V1 mean P.7 mmHg LV V1 mean: 121.8 cm/sec LV V1 VTI: 36.1 cm TR max shailesh: 259.9 cm/sec TR max P.0 mmHg ECHO/Echo Complete Interpretation Summary Normal LV size. Left ventricular systolic function is normal. The estimated ejection fraction is 65 %. Bioprosthetic aortic valve. Mean aortic valve gradient 20 mmHg. Mild (1+) aortic valve insufficiency. Stage 1 diastolic dysfunction. Ordering Physician: Charla Marroquin Referring Physician: Charla Marroquin Performed By: Luisana Rivas RDCS
[2023-03-21 14:18] LABS: Absolute Lymphocyte Count 2.62 X10^3/uL (0.83-4.51); Absolute Neutrophil Count 5.7 X10^3/uL (2.0-7.7); Basophil# 0.08 X10^3/uL; Basophil% 0.8 % (0-1); Eosinophil# 0.27 X10^3/uL; Eosinophils% 2.9 % (0-5); Hematocrit 43.8 % (37-47); Hemoglobin 14.1 g/dL (12.0-15.0); Lymphocyte # 2.62 X10^3/ul (0.83-4.51); Lymphocyte % 27.7 % (19-41); Mean Corp Hgb Conc 32.2 g/dL (32-36); Mean Corpuscular Hgb 29.6 pg (27.0-32.0); Mean Corpuscular Volume 91.8 fL (81-99); Mean Platelet Vol. 9.4 fl (6.2-12.0); Monocyte# 0.77 X10^3/uL; Monocyte% 8.1 % (0-10); NRBC Flagged by Analyzer 0 % (0-5); Neutrophil % 60.3 % (47-70); Platelet Count 324 K/mm3 (150-450); RBC Distribution Width CV 12.9 % (11.6-14.6); RBC Distribution Width SD 42.8 fl (35.1-43.9); Red Blood Count 4.77 M/mm3 (4.2-5.4); White Blood Count 9.5 K/mm3 (4.4-11.0)
[2023-03-21 14:49] LABS: Vitamin D,25 Hydroxy 51.8 ng/mL
[2023-03-21 14:57] LABS: ALB/GLOB Ratio 1.2 RATIO (0.9-2.4); AST(SGOT) 26 U/L (15-37); Alanine Aminotransfer ALT/SGPT 34 U/L (13-56); Albumin, Serum 3.9 g/dL (3.2-5.0); Alkaline Phosphatase 86 U/L (45-117); Anion Gap 5 (5-15); BUN 17 mg/dL (7-18); BUN/Creat Ratio 23.2 RATIO (10-20); Calcium,Total 9.1 mg/dL (8.5-10.1); Chloride 108 mmol/L (98-107); Creatinine, Serum 0.73 mg/dL (0.55-1.02); EST Glomerular Filtration Rate 83 mL/min (>60); Est Glom Filt Rate - Afr Amer 101 mL/min (>60); Globulin 3.3 g/dL (2.2-4.2); Glucose 85 mg/dL (74-106); Potassium 3.8 mmol/L (3.5-5.1); Protein, Total 7.2 g/dL (6.4-8.2); Sodium Level 138 mmol/L (136-145); Thyroid Stim Hormone (TSH) 3.36 uIU/mL (0.358-3.74)
--- NOTE | 2023-03-21 15:00 | BI_ITS ---
MAMMOGRAPHY - BILATERAL SCREENING REASON FOR EXAM: Female, 72 years old. Routine annual screening examination. PERTINENT HISTORY: Non-contributory. TECHNIQUE: Digital bilateral breast delma (3D mammographic acquisition) in the CC and MLO projections. 2-D mediolateral oblique (MLO) and craniocaudad (CC) views of both breasts were obtained. CAD: Full Field Digital Mammography with Computer Added Detection was performed. COMPARISON: Comparison is made with prior study dated June 28, 2021. FINDINGS: Breast Composition: The breasts are heterogeneously dense, which may obscure small masses. There are no dominant masses or suspicious calcifications. No other significant abnormalities are identified. There has been no significant change since the prior study. BI/SCRN MAMM (CAD)W/DELMA BILAT IMPRESSION: Stable bilateral screening mammogram. Yearly follow-up mammogram recommended. (A) ASSESSMENT CATEGORY: BIRADS Category 1: Negative. A letter regarding these results will be sent to the patient by the facility within 30 days. Approximately 10% of breast cancers are not detected by mammography. A normal mammogram should not delay biopsy of a clinically suspicious abnormality. [id number] Electronically Signed: Rodger Blount MD at 15:40 EDT ,
== END | disposition home or self-care (01) ==
LOC: OPBI 13:40
PROVIDERS: PCP Internal Medicine; Referring Provider Internal Medicine; Visit Provider Internal Medicine
DX: Z12.31 Encounter for screening mammogram for malignant neoplasm of breast (principal); R07.9 Chest pain, unspecified; E55.9 Vitamin D deficiency, unspecified; D64.9 Anemia, unspecified; I35.0 Nonrheumatic aortic (valve) stenosis; E78.2 Mixed hyperlipidemia; G62.9 Polyneuropathy, unspecified
CPT/HCPCS: 36415; 77063; 77067; 80053; 82306; 84443; 85025; 93306

== ENCOUNTER → 2023-05-22 | Outpatient (CLI) | payer MEDICARE, OTHER, SELFPAY ==
--- NOTE | 2023-05-22 13:56 | RAD_ITS ---
INDICATION: Right knee pain, OA bilateral knees EXAMINATION/TECHNIQUE: X-RAY - RIGHT XR Knee 3 Views COMPARISON: None. FINDINGS: SOFT TISSUES: Unremarkable. BONES/JOINTS: No fracture or dislocation. Moderate degenerative changes of the medial compartment. Mild degenerative changes of the patellofemoral joint. 9 mm ossific density posterior to the tibial plateau. No erosive changes. RAD/Knee 3 Views IMPRESSION: 1. Degenerative changes. 2. 9 mm ossific density posterior to the tibial plateau possibly representing a loose body. Electronically Signed: Flako Clark DO at 5:07 EDT ,
--- NOTE | 2023-05-22 14:03 | RAD_ITS ---
EXAM: XR BILATERAL KNEES, 1 OR 2 VIEWS CLINICAL INDICATION: Bilateral knee OA TECHNIQUE: Frontal and/or lateral views of the bilateral knees. COMPARISON: No relevant prior studies available. FINDINGS: BONES/JOINTS: Mild narrowing of the medial knee joint compartment noted bilaterally associated with minor osteophytosis. No acute fracture or subluxation. SOFT TISSUES: Normal. No soft tissue swelling or gas. No radiopaque foreign body. RAD/Knees Standing AP Bilateral IMPRESSION: Mild DJD. Electronically Signed: Tony Macedo MD at 8:21 EDT ,
== END | disposition home or self-care (01) ==
LOC: RAD 13:54
PROVIDERS: PCP Internal Medicine; Referring Provider Internal Medicine; Visit Provider Internal Medicine
DX: M17.0 Bilateral primary osteoarthritis of knee (principal); M25.561 Pain in right knee
CPT/HCPCS: 73562; 73565

== ENCOUNTER → 2023-08-24 | Outpatient (CLI) | payer MEDICARE, OTHER, SELFPAY ==
[2023-08-24 10:30] LABS: Mucous, Urine 0 SEEN /hpf (<or=2+); Red Blood Cells-Urine 0 SEEN /hpf (0-5); Squamous Epithelial Cells - UA 0 SEEN /hpf (5-10)
[2023-08-24 10:59] LABS: Color, Urine Yellow (Yellow); Glucose, Dipstick Normal (Normal); Ketone-Dipstick Negative (Negative); Leukocyte Esterase-Dipstick 500 /ul (Negative); Nitrite-Dipstick Negative (Negative); Occult Blood-Urine 10 /ul (Negative); Protein-Dipstick 15 mg/dl (Negative); Specific Gravity, Urine 1.015 (1.002-1.030); Urine Bilirubin Dipstick Negative (Negative); Urine Clarity Clear (Clear); Urine Urobilinogen Normal (Normal)
[2023-08-24 11:12] LABS: Bacteria 1+ /hpf (None Seen); White Blood Cells 50-100 SEEN /hpf (0-5)
== END | disposition home or self-care (01) ==
PROVIDERS: PCP Internal Medicine; Referring Provider Internal Medicine; Visit Provider Internal Medicine
DX: R30.0 Dysuria (principal)
CPT/HCPCS: 81001; 87086; 87088; 87186

== ENCOUNTER → 2023-11-30 | Outpatient (CLI) | payer MEDICARE, SELFPAY ==
--- NOTE | 2023-11-30 09:46 | ECHOD_ITS ---
Reason For Study: Chest Pain Procedure This was a 2D Doppler, Color Flow transthoracic echocardiogram. Exam performed in department. Left Ventricle Normal LV size. Left ventricular systolic function is normal. The estimated ejection fraction is 65 %. Stage 1 diastolic dysfunction. No regional wall motion abnormalities noted. Right Ventricle Normal RV size. Normal systolic function. Atria Normal left atrium. Normal right atrium. Mitral Valve Bileaflet diffuse mitral valve thickening. Mild (1+) eccentric mitral valve insufficiency. Tricuspid Valve Normal tricuspid valve. Mild (1+) tricuspid valve insufficiency. Pulmonary artery systolic pressure is 34 mmHg. Aortic Valve Peak aortic valve gradient 40 mmHg. Mean aortic valve gradient 19 mmHg. Mild (1+) eccentric aortic valve insufficiency. Bioprosthetic aortic valve. Pulmonic Valve Normal pulmonic valve. Mild (1+) pulmonic valve insufficiency. Great Vessels The aortic root is not well visualized. The pulmonary artery is normal size. Normal inferior vena cava. Pericardium/Pleural No pericardial effusion. MMode/2D Measurements & Calculations LVIDd: 4.2 cm IVSd: 1.5 cm LVOT diam: 1.7 cm LVIDs: 3.1 cm LVPWd: 0.89 cm LVOT area: 2.3 cm2 FS: 24.9 % Ao root diam: 3.5 cm LAV(MOD-bp): 63.8 ml LVAd ap4: 28.4 cm2 ACS: 1.4 cm LAV(MOD-bp) Indexed: 40.7 ml/m2 LVLd ap4: 7.4 cm LA dimension: 4.4 cm LAV(MOD-sp2): 69.8 ml EDV(MOD-sp4): 88.0 ml LAV(MOD-sp4): 54.1 ml EDV(sp4-el): 92.9 ml LVAs ap4: 15.5 cm2 LVLs ap4: 6.3 cm ESV(MOD-sp4): 31.7 ml ESV(sp4-el): 32.5 ml EF(MOD-sp4): 64.0 % EF(sp4-el): 65.0 % SV(MOD-sp4): 56.3 ml SV(sp4-el): 60.4 ml LA A4 area: 19.0 cm2 RA A4 area: 19.9 cm2 TAPSE: 1.9 cm Time Measurements MV dec time: 0.17 sec Doppler Measurements & Calculations MV E max shailesh: 60.3 cm/sec Lat Peak E' Shailesh: 9.4 cm/sec Med Peak E' Shailesh: 8.8 cm/sec MV A max shailesh: 79.3 cm/sec E/E' lat: 6.4 E/E' med: 6.9 MV E/A: 0.76 MV V2 max: 90.5 cm/sec MV P1/2t max shailesh: 79.0 cm/sec Ao V2 max: 317.6 cm/sec MV max P.3 mmHg MV P1/2t: 72.3 msec Ao max P.5 mmHg MV V2 mean: 48.7 cm/sec Ao V2 mean: 196.4 cm/sec MV mean P.1 mmHg MV dec slope: 320.0 cm/sec2 Ao mean P.5 mmHg MV V2 VTI: 32.1 cm MVA(P1/2t): 3.0 cm2 Ao V2 VTI: 69.1 cm AV (velocity ratio): 0.36 MVA(VTI): 1.8 cm2 TONI(I,D): 0.82 cm2 TONI(V,D): 0.78 cm2 AI max shailesh: 516.4 cm/sec LV V1 max: 109.7 cm/sec MR max shailesh: 534.6 cm/sec AI max P.0 mmHg LV V1 max P.8 mmHg MR max P.3 mmHg LV V1 mean P.7 mmHg AI dec slope: 401.7 cm/sec2 LV V1 mean: 76.9 cm/sec AI P1/2t: 376.6 msec LV V1 VTI: 25.1 cm SV(LVOT): 56.6 ml PA V2 max: 78.7 cm/sec TR max shailesh: 276.9 cm/sec TR max P.7 mmHg ECHO/Echo Complete Interpretation Summary Normal LV size. Left ventricular systolic function is normal. The estimated ejection fraction is 65 %. Bioprosthetic aortic valve. Mean aortic valve gradient 19 mmHg. Mild (1+) eccentric aortic valve insufficiency. Stage 1 diastolic dysfunction. Compared to previous study, the left ventricular systolic function is the same. . Ordering Physician: Yonas Woods Referring Physician: Charla Marroquin M.D. Performed By: Maxime Juarez RCS
== END | disposition home or self-care (01) ==
PROVIDERS: PCP Internal Medicine; Referring Provider Internal Medicine Cardiovascular Disease; Visit Provider Internal Medicine Cardiovascular Disease
DX: R07.9 Chest pain, unspecified (principal)
CPT/HCPCS: 93306

== ENCOUNTER → 2024-04-09 | Outpatient (CLI) | payer MEDICARE, OTHER, SELFPAY ==
--- NOTE | 2024-04-09 13:16 | BI_ITS ---
MAMMOGRAPHY - BILATERAL SCREENING REASON FOR EXAM: Female, 73 years old. Routine annual screening examination. PERTINENT HISTORY: Non-contributory. TECHNIQUE: Digital bilateral breast delma (3D mammographic acquisition) in the CC and MLO projections. 2-D mediolateral oblique (MLO) and craniocaudad (CC) views of both breasts were obtained. CAD: Full Field Digital Mammography with Computer Added Detection was performed. COMPARISON: Comparison is made with prior study dated March 21, 2023 and June 28, 2021. FINDINGS: Breast Composition: The breasts are heterogeneously dense, which may obscure small masses. There are no dominant masses or suspicious calcifications. No other significant abnormalities are identified. There has been no significant change since the prior study. BI/SCRN MAMM (CAD)W/DELMA BILAT IMPRESSION: Stable bilateral screening mammogram. Yearly follow-up mammogram recommended. (A) ASSESSMENT CATEGORY: BIRADS Category 1: Negative. A letter regarding these results will be sent to the patient by the facility within 30 days. Approximately 10% of breast cancers are not detected by mammography. A normal mammogram should not delay biopsy of a clinically suspicious abnormality. [id number] Electronically Signed: Rodger Blount MD at 8:11 EDT ,
== END | disposition home or self-care (01) ==
LOC: OPBI 13:16
PROVIDERS: PCP Internal Medicine; Referring Provider Internal Medicine; Visit Provider Internal Medicine
DX: Z12.31 Encounter for screening mammogram for malignant neoplasm of breast (principal)
CPT/HCPCS: 77063; 77067

== ENCOUNTER → 2025-01-03 | Outpatient (CLI) | payer MEDICARE, OTHER, SELFPAY ==
[2025-01-03 08:38] LABS: Absolute Lymphocyte Count 2.39 X10^3/uL (0.83-4.51); Absolute Neutrophil Count 4.9 X10^3/uL (2.0-7.7); Basophil# 0.07 X10^3/uL; Basophil% 0.8 % (0-1); Eosinophil# 0.47 X10^3/uL; Eosinophils% 5.5 % (0-5); Hematocrit 42.2 % (37-47); Hemoglobin 14.2 g/dL (12.0-15.0); Lymphocyte # 2.39 X10^3/ul (0.83-4.51); Lymphocyte % 28.1 % (19-41); Mean Corp Hgb Conc 33.6 g/dL (32-36); Mean Corpuscular Hgb 30.7 pg (27.0-32.0); Mean Corpuscular Volume 91.3 fL (81-99); Mean Platelet Vol. 9.6 fl (6.2-12.0); Monocyte% 8.2 % (0-10); NRBC Flagged by Analyzer 0 % (0-5); Neutrophil # 4.87 X10^3/uL (2.7-7.7); Neutrophil % 57.2 % (47-70); Platelet Count 286 K/mm3 (150-450); RBC Distribution Width CV 12.7 % (11.6-14.6); RBC Distribution Width SD 41.8 fl (35.1-43.9); Red Blood Count 4.62 M/mm3 (4.2-5.4); White Blood Count 8.5 K/mm3 (4.4-11.0)
[2025-01-03 09:11] LABS: ALB/GLOB Ratio 1.7 RATIO (0.9-2.4); AST(SGOT) 27 U/L (<=31); Alanine Aminotransfer ALT/SGPT 24 U/L (<=34); Albumin, Serum 4.3 g/dL (3.4-4.8); Alkaline Phosphatase 76 U/L (35-104); Anion Gap 11 (5-15); BUN 18 mg/dL (4-19); Calcium,Total 9.5 mg/dL (7.6-11.0); Carbon Dioxide 24.2 mmol/L (21.0-32.0); Chloride 104 mmol/L (98-108); Cholesterol 283 mg/dL (<=200); Creatinine, Serum 0.75 mg/dL (0.70-1.20); EST Glomerular Filtration Rate 85 (>60); Globulin 2.5 g/dL (2.2-4.2); Glucose 91 mg/dL (70-99); High Density Lipoprotein 62 mg/dL; Low Density Lipoprotein Calc. 196 mg/dL; Potassium 4.3 mmol/L (3.3-5.1); Protein, Total 6.8 g/dL (5.9-8.4); Sodium Level 139 mmol/L (133-145); Total Bilirubin 0.51 mg/dL (0.00-1.30); Triglycerides 128 mg/dL; Very Low Density Lipoprotein 26 mg/dL (5-40); cholesterol:hdl ratio screen 4.57
== END | disposition home or self-care (01) ==
LOC: LAB 08:09
PROVIDERS: PCP Internal Medicine; Referring Provider Nurse Practitioner Family; Visit Provider Nurse Practitioner Family
DX: Z95.3 Presence of xenogenic heart valve (principal); E78.2 Mixed hyperlipidemia; I34.1 Nonrheumatic mitral (valve) prolapse
CPT/HCPCS: 36415; 80053; 80061; 85025

== ENCOUNTER → 2025-01-13 | Outpatient (CLI) | payer MEDICARE, OTHER, SELFPAY ==
--- NOTE | 2025-01-13 13:46 | ECHOD_ITS ---
Reason For Study Reason For Study: EVALUATE AORTIC VALVE REPLACEMENT Procedure This was a 2D Doppler, Color Flow transthoracic echocardiogram. Exam performed in department. Left Ventricle Normal LV size. Left ventricular systolic function is normal. The left ventricular ejection fraction is 65 %. No regional wall motion abnormalities noted. Right Ventricle Normal RV size. Normal systolic function. Atria Normal left atrium. Normal right atrium. Mitral Valve Normal mitral valve. Tricuspid Valve Normal tricuspid valve. Mild (1+) tricuspid valve insufficiency. Pulmonary artery systolic pressure is 38 mmHg. Aortic Valve Peak aortic valve gradient 56 mmHg. Mean aortic valve gradient 30 mmHg. Mild (1+) aortic valve insufficiency. Bioprosthetic aortic valve. Pulmonic Valve Normal pulmonic valve. Great Vessels Normal aortic root. The pulmonary artery is normal size. Inferior vena cava collapse with respiration. Pericardium/Pleural No pericardial effusion. MMode/2D Measurements & Calculations LVIDd: 5.0 cm IVSd: 0.92 cm LVOT diam: 1.7 cm LVIDs: 3.2 cm LVPWd: 0.91 cm LVOT area: 2.4 cm2 RVDd: 3.6 cm FS: 36.7 % Ao root diam: 2.8 cm LAV(MOD-bp): 51.8 ml LVAd ap4: 31.0 cm2 LAV(MOD-bp) Indexed: 32.8 ml/m2 LVLd ap4: 7.9 cm LAV(MOD-sp2): 51.1 ml EDV(MOD-sp4): 97.5 ml LAV(MOD-sp4): 50.9 ml EDV(sp4-el): 102.8 ml LVAs ap4: 16.8 cm2 LVLs ap4: 6.6 cm ESV(MOD-sp4): 35.5 ml ESV(sp4-el): 36.2 ml EF(MOD-sp4): 63.6 % EF(sp4-el): 64.8 % SV(MOD-sp4): 62.0 ml SV(sp4-el): 66.6 ml LA A4 area: 17.6 cm2 SI(MOD-sp4): 39.3 ml/m2 LA dimension(2D): 3.6 cm RA A4 area: 17.0 cm2 TAPSE: 1.7 cm Time Measurements MV dec time: 0.25 sec Doppler Measurements & Calculations MV E max shailesh: 69.9 cm/sec Lat Peak E' Shailesh: 9.9 cm/sec Med Peak E' Shailesh: 8.4 cm/sec MV A max shailesh: 96.0 cm/sec E/E' lat: 7.1 E/E' med: 8.4 MV E/A: 0.73 Ao V2 max: 374.4 cm/sec AI max shailesh: 457.9 cm/sec LV V1 max: 185.2 cm/sec Ao max P.1 mmHg AI max P.9 mmHg LV V1 max P.8 mmHg Ao V2 mean: 256.8 cm/sec LV V1 mean P.1 mmHg Ao mean P.6 mmHg AI dec slope: 414.5 cm/sec2 LV V1 mean: 136.0 cm/sec Ao V2 VTI: 76.2 cm AI P1/2t: 323.5 msec LV V1 VTI: 41.8 cm AV (velocity ratio): 0.55 TONI(I,D): 1.3 cm2 TONI(V,D): 1.2 cm2 SV(LVOT): 99.6 ml PA V2 max: 93.3 cm/sec TR max shailesh: 293.2 cm/sec TR max P.4 mmHg ECHO/Echo Complete Interpretation Summary Normal LV size. Left ventricular systolic function is normal. The left ventricular ejection fraction is 65 %. Bioprosthetic aortic valve. Mean aortic valve gradient 30 mmHg. Compared to the previous the gradients are increased. However it is still not i n the severe range. Ordering Physician: Sal Orellana Referring Physician: NINA RAMOS Performed By: Flora Slater RDCS
== END | disposition home or self-care (01) ==
LOC: CVS 13:46
PROVIDERS: PCP Internal Medicine; Referring Provider Nurse Practitioner Family; Visit Provider Nurse Practitioner Family
DX: Z95.3 Presence of xenogenic heart valve (principal)
CPT/HCPCS: 93306

== ENCOUNTER → 2025-05-12 | Outpatient (CLI) | payer MEDICARE, OTHER, SELFPAY ==
--- NOTE | 2025-05-12 16:00 | BI_ITS ---
EXAM: SCRN MAMM (CAD)W/DELMA BILAT DATE: 05/12/2025 CLINICAL HISTORY: F, Age 74 y/o , BREAST CANCER SCREENING No family history. TECHNIQUE: SCRN MAMM (CAD)W/DELMA BILAT COMPARISON: Prior exam(s) dated April 09, 2024.. FINDINGS: TISSUE DENSITY: The breasts are heterogeneously dense, which may obscure small masses. Bilateral Breast Mammographic Findings: No significant masses, calcifications or other abnormalities are identified. No suspicious masses, areas of developing architectural distortion, or suspicious calcifications. There has been no significant interval change. BI/SCRN MAMM (CAD)W/DELMA BILAT IMPRESSION: Stable examination. OVERALL FINAL ASSESSMENT BI-RADS 1: NEGATIVE. RECOMMENDATION: Routine annual follow-up in 1 Year A letter with findings and recommendations will be mailed to the patient. Reading Location: [id number]
--- OUTSIDE RECORDS SUMMARY | 2025-05-12 23:17 | XMS RPT_ITS | CCD ---
Author Organization [facility] CliniSyfl Care Team Providers Care Manager Money Name Role Phone Mariah Anthony RN Unavailable Unavailable Anitha Nata Unavailable Chuck YUAN, Yonas Lloyd Unavailable Dr. Ted Sage Unavailable Esperanza Moulton LPN Unavailable Unavailable Tomas Gayle LPN Unavailable Unavailable Unavailable Unavailable Ciesa COMMISSARY ASSISTANT, COMMISSARY ASSISTANT-C [facility] Primary Care Provider Ciesa COMMISSARY ASSISTANT, COMMISSARY ASSISTANT-C [facility] Referring Provider [phone] Dr. Nina Marroquin Attending Provider Dr. Bigg Culver Attending Provider Dr. Nina Marroquin Attending Provider [phone] Nata Welsh CNP Primary Care Provider Anitha Nata Unavailable Jose Luis Donahue Unavailable Nata Welsh Attending Unavailable Anitha Nata Referring Unavailable Bhargavisterling [employer]ata Consulting Unavailable Claudette Peña CNP Unavailable Nina Marroquin MD Primary Care Provider [phone] Pat YUAN, Vaa Unavailable Jose Luis Donahue Unavailable Nina Marroquin MD Primary Care Provider [phone] Pat YUAN, Enyinna Unavailable Dr. Nina Marroquin Primary Care Provider Dr. Nina Marroquin Attending Provider [phone] Ciroro COMMISSARY ASSISTANT, COMMISSARY ASSISTANT-C Nata Referring Provider Noble COMMISSARY ASSISTANT, COMMISSARY ASSISTANT-C Helen Attending Provider NWACHUKU, ENYINNA Attending Unavailable NWACHUKU, ENYINNA Referring Unavailable NINA MARROQUIN M Primary Care Unavailable LUGO, MALENA Referring Unavailable LOPEZ, NINA M Primary Care Unavailable NWACHUKU, ENYINNA Referring Unavailable NINA MARROQUIN M Primary Care Unavailable NWACHUKU, ENYINNA Referring Unavailable LOPEZ, NINA M Primary Care Unavailable NWACHUKU, ENYINNA Referring Unavailable LOPEZ, NINA M Primary Care Unavailable NWACHUKU, ENYINNA Referring Unavailable LOPEZ, NINA M Primary Care Unavailable NWACHUKU, ENYINNA Attending Unavailable CIESA, GUNNER Primary Care Unavailable NWACHUKU, ENYINNA Attending Unavailable NWACHUKU, ENYINNA Referring Unavailable LOPEZ NINA M Primary Care Unavailable NWACHUKU, ENYINNA Admitting Unavailable NWACHUKU, ENYINNA Attending Unavailable NWACHUKU, ENYINNA Referring Unavailable CIESA, GUNNER Primary Care Unavailable Ciesa COMMISSARY ASSISTANT, COMMISSARY ASSISTANT-C [facility] Referring Provider [phone] Dr. Nina Marroquin Primary Care Provider Dr. Nina Marroquin Attending Provider [phone] Yonas Woods Attending Provider Jose Luis Donahue Unavailable Dr. Nina Marroquin Primary Care Provider Dr. Nina Marroquin Attending Provider [phone] Jose Luis Donahue MD Unavailable [phone] Dr. Nina Marroquin Primary Care Provider Dr. Nina Marroquin Referring Provider Dr. Yonas Woods Attending Provider Dr. Nina Marroquin MD Primary Care Provider [phone] Dr. Nina Marroquin MD Referring Provider Roof COMMISSARY ASSISTANT-C, Sal H Attending Provider Roof COMMISSARY ASSISTANT-C, Sal H Referring Provider [phone] Chuck YUAN, Dr. Branham Attending Provider Roof COMMISSARY ASSISTANT, Sal H Attending Unavailable Roof COMMISSARY ASSISTANT, Sal H Referring Unavailable Lopez, Nina Primary Care Unavailable Roof COMMISSARY ASSISTANT, Sal H Attending Unavailable Roof COMMISSARY ASSISTANT, Sal H Referring Unavailable Lopez, Nina Primary Care Unavailable Lopez, Nina Referring Unavailable Lopez, Nina Primary Care Unavailable Lopez, Nina Attending Unavailable Roof COMMISSARY ASSISTANT, Sal H Attending Unavailable Lopez, Nina Primary Care Unavailable Lopez, Nina Referring Unavailable Lopez, Nina Primary Care Unavailable Yonas Woods Attending Unavailable Godfrey YUAN, Jose Luis Ordaz Unavailable Nina Marroquin MD Primary Care Provider NINA MARROQUIN Primary Care Unavailable ALESIA DUONG Attending Unavailable Allergies Allergy Classification Reported Allergen(s) Allergy Type Date of Onset Reaction(s) Facility (20 sources) morphine; Translations: [MORPHINE] Drug Allergy 6 Vomiting, Unknown [facility] Work Phone: (2 sources) NKDA; Translations: [NKDA] allergy to substance 6 [facility] Work Phone: (20 sources) predniSONE; Translations: [PREDNISONE] Drug Allergy 3 GI Upset [facility] Work Phone: Medications Current Medications Medication Drug Class(es) Dates Sig (Normalized) Sig (Original) acetaminophen 325 mg / oxyCODONE hydrochloride 5 mg oral tablet (2 sources) Opioid Agonist Start: 08-23-2022 End: 08-26-2022 take 1 tablet by mouth every six hours as needed for pain oxyCODONE-acetam inophen (PERCOCET) 5-325 mg tablet Indications: Cervical stenosis of spinal canal , Acute post-operative pain Take 1 tablet by mouth every 6 hours as needed (acute post operative pain) for up to 3 days. 12 tablet 0 08/23/2022 08/26/2022 Active Comment on above: Take 1 tablet by amy th every 6 hours as needed (acute post operative pain) for up to 3 days. aspirin 81 mg delayed release oral tablet (20 sources) Nonsteroidal Anti-inflammatory Drug Start: 10-04-2017 take 1 tablet by mouth once daily Aspirin (Adult Aspirin Regimen) 81 mg tablet,delayed release (DR/EC) Active 81 mg PO daily October 04, 2017 1:00am Start: 07-11-2016 take 1 tablet by amy th once daily ASPIRIN EC 81 MG TBEC One tablet by mouth daily ASPIRIN [id number] Jose Luis Donahue MD take 1 tablet by amy th once daily aspirin 81 mg chewable tablet Take 81 mg by mouth once daily. 0 Suspended Comment on above: Take 81 mg by mouth once daily. bisacodyl 10 mg rectal suppository (3 sources) Stimulant Laxative Start: 2 End: 2 bisacodyl (DULCOLAX) 10 mg supp 1 Suppository by RECTAL route as needed for constipation for up to 7 days. 7 Suppository 0 08/23/2022 08/30/2022 Active Comment on above: 1 Suppository by REC SIA route as needed for constipation for up to 7 days. Ca Carb-Ca Gluc-Mg Ox-Mg Gluco (7 sources) Start: 6 take 1 mg by mouth twice daily Ca Carb-Ca Gluc-Mg Ox-Mg Gluco Active 1 EACH PO TWICE A DAY April 26, 2016 11:00pm Start: 04-27-2016 take 1 mg by mouth twice daily Ca Carb-Ca Gluc-Mg Ox-Mg Gluco Active 1 EACH PO TWICE A DAY April 27, 2016 12:00am Calcium Carb,Gluc-Mag Gluc,Ox 1 EACH tablet (2 sources) Start: 04-27-2016 take 1 tablet by mouth twice daily Calcium Carb,Gluc-Mag Gluc,Ox 1 EACH tablet Active 1 NMA PO TWICE A DAY April 27, 2016 12:00am calcium carbonate 1500 mg oral tablet (20 sources) Start: 12-29-2005 CALCIUM 600 1,500 MG TAB Take one(1) tablet two(2) times daily. 0 12/29/2005 Active Comment on above: Take one(1) tablet t wo(2) times daily. cholecalciferol 0.025 mg oral tablet (14 sources) Vitamin D Start: 04-27-2016 Cholecalciferol (Vitamin D3) 1,000 UNIT tablet Active 400 U PO DAILY April 27, 2016 12:00am Start: 04-27-2016 take 400 [IU] by amy th once daily Cholecalciferol (Vitamin D3) Active 400 UNIT PO DAILY April 26, 2016 11:00pm Start: 03-10-2016 take 1 tablet by amy once daily Vitamin D-400 400 UNIT Oral Tablet 1 (one) Tablet Tablet daily for 0 days Quantity: 30 {Tablet} Refills: 0 Ordered: 09-Aug-2016 Ntaa Weslh Mary Start : 09-Aug-2016 Active ubidecarenone 100 mg oral capsule (20 sources) Start: 04-27-2016 take 10 capsules by mouth once daily Coenzyme Q10 100 MG capsule Active 100 mg PO DAILY April 27, 2016 12:00am Start: 03-10-2016 take 1 capsule by mo ut once daily CO Q-10 100 MG CAPS One capsule by mouth daily COENZYME Q10 [id number] Radha Vera RN Start: 02-12-2016 End: 06-01-2021 take 1 capsule by mouth once daily CoQ10 100 MG Oral Capsule 1 (one) Capsule Capsule daily for 30 days Quantity: 30 {Capsule} Refills: 0 Ordered: 01-Jun-2021 Heather Frederick CMA Start : 12-Feb-2016 End : 01-Jun-2021 Inactive take 1 capsule by mo uth twice daily ubidecarenone Q-10 10 mg cap Take by mouth twice daily. Active take 1 mg by mouth once daily Co Q10 10 MG Oral Capsule daily (10 MG) Active Comment on above: Take by mouth twice daily. docusate sodium 100 mg oral capsule (3 sources) Start: 2 End: 2 take 1 capsule by mouth twice daily docusate sodium (COLACE) 100 mg capsule Take 1 capsule by mouth twice daily for 7 days. 14 capsule 0 08/23/2022 08/30/2022 Active Comment on above: Take 1 capsule by mo uth twice daily for 7 days. Ergocalciferol (20 sources) Provitamin D2 Compound Start: 9 ergocalciferol(VIT BUITRAGO D 400 UNIT CAP) 2000iu per day 0 02/03/2009 Suspended Start: 02-03-2009 ergocalciferol (VITAMIN D 400 UNIT CAP) 2000iu per day 0 02/03/2009 Active Comment on above: 2000iu per day magnesium gluconate 550 mg oral tablet (9 sources) Start: 2 take 1 tablet by mouth once daily Magnesium 30 mg tablet Active 30 mg PO DAILY March 08, 2022 12:00am methocarbamol 750 mg oral tablet (3 sources) Muscle Relaxant Start: 2 End: 2 take 1 tablet by mouth three times daily methocarbamol (ROBAXIN) 750 mg tablet Take 1 tablet by mouth three times daily for 7 days. 21 tablet 0 08/23/2022 08/30/2022 Active Comment on above: Take 1 tablet by amy three times daily for 7 days. 24 hr metoprolol succinate 50 mg extended release oral tablet (20 sources) beta-Adrenergic Beti Start: 2 End: 2 take 1 tablet by mouth twice daily metoprolol succinate ER (TOPROL XL) 50 mg 24 hr tablet Take 1 tablet by mouth twice daily. 60 tablet 08/23/2022 Active Start: 08-09-2016 End: 08-15-2024 take 1 tablet by mouth twice daily Metoprolol Tartrate 25 mg tablet Discontinued 25 mg PO TWICE A DAY 180 February 28, 2023 10:26am August 15, 2024 12:58pm Start: 07-11-2016 take 0.5 tablet by [facility] twice daily LOPRESSOR 50 MG TABS 1/2 tablet by mouth twice daily METOPROLOL TARTRATE [id number] Jose Luis Donahue MD Start: 07-11-2016 take 1 tablet by amy th once daily LOPRESSOR 50 MG TABS One half tablet by mouth daily METOPROLOL TARTRATE [id number] Jennifer Tenorio RN Start: 07-11-2016 take 1 tablet by amy th twice daily LOPRESSOR 50 MG TABS One tablet by mouth twice daily METOPROLOL TARTRATE [id number] Jose Luis Donahue MD Start: 07-11-2016 take 2 tablets by mo [facility] twice daily LOPRESSOR 50 MG TABS Two tablets by mouth twice daily METOPROLOL TARTRATE [id number] Jennifer Tenorio RN take 1 tablet by amy th twice daily metoprolol succinate ER (TOPROL XL) 25 mg 24 hr tablet Take 25 mg by mouth twice daily. 0 Suspended Comment on above: Take 25 mg by mouth twice daily. Take 1 tablet by amy th twice daily. MULTIVITAMIN TAB (20 sources) Start: 12-29-2005 MULTIVITAMIN TAB Take one(1) tablet daily. 0 12/29/2005 Suspended Start: 12-29-2005 MULTIVITAMIN T AB Take one(1) tablet daily. 0 12/29/2005 Active Comment on above: Take one(1) tablet d aily. Multivitamin With Folic Acid (7 sources) Start: 04-27-2016 take 1 tablet by mouth once daily Multivitamin With Folic Acid Active 1 TABLET PO DAILY April 26, 2016 11:00pm Start: 04-27-2016 take 1 tablet by amy th once daily Multivitamin With Folic Acid Active 1 TABLET PO DAILY April 27, 2016 12:00am Multivitamin With Folic Acid 1 TABLET tablet (2 sources) Start: 04-27-2016 take 1 tablet by mouth once daily Multivitamin With Folic Acid 1 TABLET tablet Active 1 {tbl} PO DAILY April 27, 2016 12:00am Anthony-3 Fatty Acids (7 sources) Start: 04-27-2016 take 1000 mg by mouth once daily Anthony-3 Fatty Acids Active 1000 MG PO DAILY April 26, 2016 11:00pm Start: 04-27-2016 take 1000 mg by mouth once joselito ly Anthony-3 Fatty Acids Active 1000 MG PO DAILY April 27, 2016 12:00am Anthony-3 Fatty Acids 1,000 MG capsule (2 sources) Start: 04-27-2016 take 1 capsule by mouth once daily Anthony-3 Fatty Acids 1,000 MG capsule Active 1000 mg PO DAILY April 27, 2016 12:00am ondansetron 4 mg oral tablet (2 sources) Serotonin-3 Receptor Antagonist Start: 08-23-2022 End: 08-26-2022 take 1 tablet by mouth every eight hours as needed ondansetron (ZOFRAN) 4 mg tablet Take 1 tablet by mouth every 8 hours as needed for nausea/vomiting for up to 3 days. 9 tablet 0 08/23/2022 08/26/2022 Active Comment on above: Take 1 tablet by amy th every 8 hours as needed for nausea/vomiting for up to 3 days. polyethylene glycol 3350 41414 mg powder for oral solution (3 sources) Osmotic Laxative Start: 08-24-2022 End: 08-31-2022 polyethylene glycol 3350 (MIRALAX, GLYCOLAX) 17 gram packet Take 1 Packet by mouth once daily for 7 days. Dissolve dose in 4 - 8 ounces of liquid and take as directed. 7 Packet 0 08/24/2022 08/31/2022 Active Comment on above: Take 1 Packet by amy th once daily for 7 days. Dissolve dose in 4 - 8 ounces of liquid and take as directed. Completed/Discontinued Medications Medication Drug Class(es) Dates Sig (Normalized) Sig (Original) amoxicillin 500 mg oral tablet (20 sources) Penicillin-class Antibacterial Start: 08-14-2018 End: 09-16-2021 take 4 tablets by mouth every hour Amoxicillin 500 mg tablet Discontinued 2000 mg PO .COMPLEX 4 June 25, 2019 3:18pm September 16, 2021 9:43am 2,000 mg PO 1HR prior to dental procedure; Start: 08-14-2018 End: 09-16-2021 take 2000 mg by mouth every hour Amoxicillin Discontin ued 2000 MG PO .COMPLEX 4 June 25, 2019 2:18pm September 16, 2021 8:43am 2,000 mg PO 1HR prior to dental procedure; Start: 10-04-2017 End: 08-14-2018 take 4 capsules by mouth every hour Amoxicillin 500 mg capsule Discontinued 500 mg PO ONCE 4 October 04, 2017 1:00am August 14, 2018 11:07am 4 capsules one hour prior to dental procedure atorvastatin 40 mg oral tablet (20 sources) HMG-CoA Reductase Inhibitor Start: 09-16-2021 End: 10-27-2023 take 1 tablet by mouth at bedtime Atorvastatin 40 mg tablet Discontinued 40 mg PO AT BEDTIME February 22, 2022 4:19pm March 08, 2022 2:21pm Start: 06-01-2021 take 1 tablet by amy once daily Atorvastatin Calcium 10 MG Oral Tablet 1 (one) Tablet daily for 0 days Quantity: 90 {Tablet} Refills: 3 Ordered: 01-Jun-2021 Nata Welsh Mary Start : 01-Jun-2021 Active Start: 12-19-2017 End: 09-16-2021 take 1 tablet by mouth once daily Atorvastatin 20 mg tablet Discontinued 20 mg PO daily December 24, 2018 10:10am August 19, 2020 4:14pm Start: 04-27-2016 End: 12-19-2017 take 1 tablet by mouth at bedtime Atorvastatin 40 MG tablet Discontinued 40 mg PO AT BEDTIME April 27, 2016 12:00am December 19, 2017 4:52pm Start: 04-19-2016 End: 06-01-2021 take 1 tablet by mouth once daily at bedtime Atorvastatin Calcium 40 MG Oral Tablet 1 (one) Tablet Tablet qhs for 0 days Quantity: 30 {QS} Refills: 6 Ordered: 01-Jun-2021 Heather Frederick CMA Start : 19-Apr-2016 End : 01-Jun-2021 Inactive Comment on above: Take 20 mg by mouth once daily. biotin (2 sources) Start: 07-11-2016 End: 09-15-2016 take 1 tablet by mouth once daily BIOTIN FORTE TABS One tablet by mouth daily BIOTIN TABS [id number] Jennifer Garcia PA-C Start: 07-11-2016 take 1 tablet by amy once daily BIOTIN FORTE TABS One tablet by mouth daily BIOTIN TABS [id number] Jennifer Tenorio RN Calcium Magnesium 750 300-300 MG Oral Tablet (3 sources) Start: 02-12-2016 End: 06-01-2021 take 1 tablet by mouth twice daily Calcium Magnesium 750 300-300 MG Oral Tablet 1 (one) Tablet Tablet bid for 0 days Quantity: 60 {Tablet} Refills: 0 Ordered: 01-Jun-2021 Heather Frederick CMA Start : 12-Feb-2016 End : 01-Jun-2021 Inactive Comments: Srinivas robles Comment on above: Srinivas robles CALCIUM-MAGNESIUM TABS (1 source) Start: 03-10-2016 take 750-300 mg by mouth twice daily CALCIUM-MAGNESIUM TABS 750-300 mg One tablet by mouth twice daily CALCIUM-MAGNESIUM TABS Radha Vera RN Cholesterol Care (1 source) Cholesterol Care Active ciprofloxacin 250 mg oral tablet (3 sources) Quinolone Antimicrobial Start: 06-24-2016 End: 08-09-2016 take 1 tablet by mouth twice daily Cipro 250 MG Oral Tablet 1 (one) Tablet bid for 0 days Quantity: 20 {Tablet} Refills: 0 Ordered: 09-Aug-2016 Mara Pace LPN Start : 24-Jun-2016 End : 09-Aug-2016 Discontinued diazePAM 2 mg oral tablet (6 sources) Benzodiazepine Start: 10-21-2022 End: 12-13-2024 take 1 tablet by mouth three times daily as needed for dizziness Diazepam (Valium) 2 mg tablet Discontinued 2 mg PO THREE TIMES A DAY as needed for dizziness or vertigo October 21, 2022 1:00am December 13, 2024 2:22pm ibuprofen 400 mg oral tablet (14 sources) Nonsteroidal Anti-inflammatory Drug Start: 04-29-2016 End: 08-18-2021 take 1 tablet by mouth every eight hours as needed for pain Ibuprofen 400 MG tablet Discontinued 400 mg PO EVERY 8 HOURS NEEDED as needed for headache, chest pain April 29, 2016 1:01pm August 18, 2021 2:29pm MULTIPLE VITAMIN (1 source) Start: 03-10-2016 take 1 tablet by mouth once daily MULTIVITAMINS TABS One tablet by mouth daily MULTIPLE VITAMIN Jose Luis Donahue MD Multivitamin Adults 50+ Oral Tablet (3 sources) Start: 05-04-2016 End: 06-03-2016 take 1 tablet by mouth once daily Multivitamin Adults 50+ Oral Tablet 1 (one) Tablet daily for 30 days Refills: 0 Ordered: 04-May-2016 Nata Welsh Mary Start : 04-May-2016 End : 03-Jun-2016 Inactive OMEGA 3 550 MG CAP (10 sources) Start: 01-09-2007 OMEGA 3 550 MG CAP Take one(1) tablet daily. 0 01/09/2007 Suspended Start: 01-09-2007 OMEGA 3 550 MG CAP Take one(1) tablet daily. 0 01/09/2007 Active Comment on above: Take one(1) tablet d aily. OMEGA 3, 1200MG (Oral Capsule) (3 sources) Start: 016 End: 016 take 1 capsule by mouth once daily OMEGA 3, 1200MG (Oral Capsule) 1 (one) Capsule daily for 30 days Refills: 0 Ordered: 19-Apr-2016 Nata Welsh Mary Start : 02-Mar-2016 End : 01-Apr-2016 Inactive OMEGA-3 FATTY ACIDS CPDR (1 source) Start: take 1 tablet by mouth once daily OMEGA 3 CPDR One tablet by mouth daily OMEGA-3 FATTY ACIDS CPDR [id number] Jose Luis Donahue MD sulfamethoxazole 800 mg / trimethoprim 160 mg oral tablet (4 sources) Dihydrofolate Reductase Inhibitor Antibacterial, Sulfonamide Antimicrobial Start: 023 End: 024 Sulfamethoxazole-Tr imethoprim (Bactrim Ds) 800-160 mg tablet Discontinued 1 {tbl} PO TWICE A DAY August 24, 2023 1:00am October 27, 2023 2:40pm vitamin k 0.1 mg oral tablet (9 sources) Start: 016 End: Phytonadione (Vitamin K1) 100 MCG tablet Discontinued 100 ug PO DAILY April 27, 2016 12:00am October 04, 2017 3:32pm vitamin k2 0.1 mg oral capsule (5 sources) Start: 016 End: take 1 capsule by mouth once daily Vitamin K2 100 MCG Oral Capsule 1 (one) Capsule daily for 0 days Quantity: 30 {Capsule} Refills: 0 Ordered: 09-Aug-2016 Mara Pace LPN Start : 04-May-2016 End : 09-Aug-2016 Discontinued Start: 03-10-2016 End: 07-11-2016 take 1 tablet by mouth once daily VITAMIN K2 100 MCG CAPS One tablet by mouth daily MENAQUINONE-7 [id number] Jsoe Luis Donahue MD Start: 03-10-2016 take 1 tablet by amy th once daily VITAMIN K2 100 MCG CAPS One tablet by mouth daily MENAQUINONE-7 [id number] Jose Luis Donahue MD Problems Active Problems Problem Classification Problem Date Documented Da te Episodic/Chronic Administrative/social admission (3 sources) Persons encountering health services in other specified circumstances; Translations: [Other reasons for seeking consultation] Episodic Cardiac and circulatory congenital anomalies (20 sources) Bicuspid aortic valve; Translations: [Congenital insufficiency of aortic valve] Onset: 06-06-2013 06-10-2016 Chronic Conditions associated with dizziness or vertigo (15 sources) Lightheadedness; Translations: [Dizziness and giddiness] 10-04-2017 Episodic Deficiency and other anemia (9 sources) Anemia; Translations: [Anemia, unspecified] 03-08-2022 Episodic Disorders of lipid metabolism (20 sources) Hyperlipidemia; Translations: [Hypercholesterolemi a] Onset: 01-25-2006 03-10-2016 Chronic Comment on above: will start statin fo llow up 6 weeks, add liver and repeat lipid repeat lipidson ator vastatin 10mg since 05/2021 Essential hypertension (1 source) Essential (primary) hypertension; Translations: [Primary hypertension] Onset: 08-19-2022 Chronic Genitourinary symptoms and ill-defined conditions (12 sources) Dysuria; Translations: [Dysuria] Onset: 08-10-2022 09-06-2021 Episodic Headache; including migraine (9 sources) Migraine; Translations: [Migraine, unspecified, not intractable, without status migrainosus] 03-08-2022 Chronic Heart valve disorders (20 sources) Nonrheumatic aortic (valve) stenosis; Translations: [History of aortic valve replacement] Onset: 03-07-2016 Resolved: 06-24-2016 03-07-2016 Chronic Comment on above: pig valveOn 06-17-[address] [place] [address] De La Garza, following by Dr. 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] 05-18-2023 Chronic Other bone disease and musculoskeletal deformities (20 sources) Osteopenia; Translations: [Disorder of skeletal system] 09-06-2021 Episodic Other circulatory disease (1 source) History of aortic valve stenosis; Translations: [Personal history of other diseases of the circulatory system] Episodic Other connective tissue disease (1 source) H/O: arthrodesis; Translations: [Arthrodesis status] 08-24-2023 Episodic Other ear and sense organ disorders (6 sources) Bilateral hearing loss; Translations: [Bilateral hearing loss] 09-06-2021 Chronic Comment on above: suggest hearing test ing at some point Other ear and sense organ disorders (1 source) Impacted cerumen in right ear; Translations: [Impacted cerumen, right ear] 02-25-2025 Episodic Other ear and sense organ disorders (1 source) Impacted cerumen, right ear; Translations: [Impacted cerumen of right ear] Onset: 02-25-2025 Episodic Other injuries and conditions due to external causes (1 source) Traumatic AND/OR non-traumatic injury; Translations: [Injury, unspecified, initial encounter] Episodic Other liver diseases (8 sources) Elevated liver enzymes level; Translations: [Elevated liver enzymes] 09-06-2021 Episodic Other nervous system disorders (9 sources) Spinal cord disease; Translations: [Disease of spinal cord, unspecified] 04-11-2022 Chronic Other nervous system disorders (9 sources) Neuropathy; Translations: [Polyneuropathy, unspecified] 03-08-2022 Chronic Other nervous system disorders (9 sources) Polyneuropathy; Translations: [Polyneuropathy, unspecified] 04-11-2022 Chronic Other nervous system disorders (9 sources) Polyneuropathy, unspecified; Translations: [Mononeuritis of unspecified site] Chronic Other nervous system disorders (6 sources) Disease of spinal cord, unspecified; Translations: [Unspecified disease of spinal cord] Chronic Other nervous system disorders (9 sources) Cervical myelopathy; Translations: [Disease of spinal cord, unspecified] Onset: 03-02-2023 07-29-2022 Chronic Other nervous system disorders (2 sources) Carpal tunnel syndrome; Translations: [Carpal tunnel syndrome, bilateral upper limbs] 07-29-2022 Chronic Other nervous system disorders (6 sources) H/O: migraine; Translations: [History of migraine] 09-06-2021 Episodic Other nervous system disorders (9 sources) Abnormal gait; Translations: [Unspecified abnormalities of gait and mobility] 04-11-2022 Episodic Other nervous system disorders (3 sources) Unspecified abnormalities of gait and mobility; Translations: [Abnormality of gait] Episodic Other nervous system disorders (1 source) Postoperative pain ; Translations: [Other acute postprocedural pain] Episodic Other non-traumatic joint disorders (7 sources) Pain in right knee; Translations: [Right knee pain] 05-18-2023 Episodic Residual codes; unclassified (7 sources) Body mass index 20-24 - normal; Translations: [BMI 20.0-20.9, adult] 09-06-2021 Episodic Residual codes; unclassified (5 sources) Finding of body mass index; Translations: [BMI between 19-24,adult] 11-01-2019 Episodic Residual codes; unclassified (15 sources) Current non-smoker ; Translations: [Current non-smoker] 09-06-2021 Episodic Residual codes; unclassified (9 sources) Postmenopausal state; Translations: [Postmenopausal (Renamed from Post-menopausal)] 09-06-2021 Episodic Comment on above: suggest bone density in future takes D and calcium and exercises Residual codes; unclassified (1 source) Edema; Translations: [Edema, unspecified] Episodic Residual codes; unclassified (6 sources) Difficulty sleeping ; Translations: [Sleep disorder, unspecified] 08-31-2022 Episodic Residual codes; unclassified (1 source) Sleep disorder, unspecified; Translations: [Sleep disturbance, unspecified] Episodic Spondylosis; intervertebral disc disorders; other back problems (4 sources) Cervical spondylosis; Translations: [Spondylosis without myelopathy or radiculopathy, cervical region] Onset: 08-04-2022 Chronic Unclassified (1 source) Replacement of aortic valve ; Translations: [Presence of prosthetic heart valve] Onset: 07-11-2016 07-11-2016 Unclassified (20 sources) Unclassified (6 sources) Current non-smoker Unclassified (2 sources) BMI 20.0-20.9, adult Unclassified (2 sources) Elevated liver enzymes Unclassified (3 sources) S/P aortic valve replacement Unclassified (3 sources) Postmenopausal (Renamed from Post-menopausal) Unclassified (4 sources) Carpal tunnel syndrome, bilateral upper limbs 07-29-2022 Past or Other Problems Problem Classification Problem Date Documented Date Episodic/Chronic Cardiac and circulatory congenital anomalies (2 sources) H/O: cardiac anomaly; Translations: [Personal history of (corrected) congenital malformations of heart and circulatory system] Onset: 08-10-2022 Episodic Other circulatory disease (1 source) Personal history of other diseases of the circulatory system; Translations: [History of aortic stenosis] Onset: 08-10-2022 Episodic Other injuries and conditions due to external causes (1 source) Injury, unspecified, initial encounter; Translations: [Injury, unspecified, initial encounter] Onset: 08-10-2022 Episodic Other nervous system disorders (2 sources) Other acute postprocedural pain; Translations: [Post-operative pain] Onset: 08-19-2022 Episodic Other screening for suspected conditions (not mental disorders or infectious disease) (16 sources) Mammography abnormal; Translations: [Abnormal mammogram] Onset: 04-15-2024 09-06-2021 Episodic Residual codes; unclassified (1 source) Edema, unspecified; Translations: [Edema, unspecified type] Onset: 08-10-2022 Episodic Spondylosis; intervertebral disc disorders; other back problems (20 sources) Spinal stenosis in cervical region; Translations: [Spinal stenosis, cervical region] Onset: 08-04-2022 Resolved: 12-27-2022 Episodic Unclassified (1 source) Abnormal mammogram Unclassified (1 source) Breast cancer screening Unclassified (1 source) Encounter for gynecological examination without abnormal finding Unclassified (1 source) BMI between 19-24,adult Unclassified (1 source) Encounter for screening for malignant neoplasm of colon (Renamed from Special screening for malignant neoplasms, colon) Unclassified (3 sources) Severe aortic valve stenosis Unclassified (1 source) Encounter for routine adult medical exam with abnormal findings Results Test Name Value Interpretation Reference Range Facility [facility] 02-25-2025 [facility] Office Visit ([facility] ) JASMIN HUTCHINSON ([id number]) 1950 F Date Time Provider Department 02/25/25 1:45 PM ALESIA DUONG [facility] During your visit today, we recorded the following information about you: Temperature Pulse Respiration Blood pressure 97.2 degrees 82/minute 16/minute 106/62 Weight 54.8 kg Danika Tomas MA 02/25/2025 2:09 PM Signed Ambulatory Ear Lavage Pre-treatment: Warm water Treatment: Right ear Equipment and Irrigation solution and Volume used: Single use syringe with single use irrigation tip Water Return flow appearance: Brown Yellow Patient tolerated procedure: yes Tympanic membrane assessment: Tympanic membrane assessed by LIP pre and post procedure PRACHI Gusman Jessica, APRN.ECONOMIC RESEARCH ASSISTANT 02/25/2025 2:09 PM Signed [facility] Subjective Jasmin Hutchinson is a 74 year old female. Patient presents with: Ear Problem: right ear feels plugged x 1 day 74 year old female with PMH hyperlipidemia presents for ear complaints. Acute onset X 1 day Right ear +feeling of fullness Reduced hearing Denies accompanying URI sx Denies cough Denies SOB Denies abdominal pain Denies N/V/D She wears hearing aids Denies using homeopathic or OTC The history is provided by the patient. No language arts teacher was used. Ear Problem There is pain in the right ear. This is a new problem. The current episode started yesterday. The problem occurs constantly. The problem has been gradually worsening. There has been no fever. The pain is at a severity of 4/10. The pain is moderate. Pertinent negatives include no abdominal pain, coughing, diarrhea, ear discharge, headaches, hearing loss, neck pain, rash, rhinorrhea, sore throat or vomiting. She has tried nothing for the symptoms. The treatment provided no relief. There is no history of a chronic ear infection, hearing loss or a tympanostomy tube. PAST MEDICAL HISTORY Diagnosis Date Bicuspid aortic valve s/p aortic valve replacement 2015 Cervical spondylosis without myelopathy Disorder of thyroid pt denies Heart murmur Mixed hyperlipidemia Osteopenia PAST SURGICAL HISTORY Procedure Laterality Date COLONOSCOPY FLX DX W/COLLJ SPEC WHEN PFRMD 06/25/2018 Colonoscopy HEART VALVE REPLACEMENT 09/16/2016 aortic valve replacement- pig valve ALLERGIES Morphine and Prednisone MEDICATIONS metoprolol succinate ER (TOPROL XL) 50 mg 24 hr tablet Take 1 tablet by mouth twice daily. atorvastatin (LIPITOR) 20 mg tablet Take 20 mg by mouth once daily. ubidecarenone Q-10 10 mg cap Take by mouth twice daily. ergocalciferol(VITAMI N D 400 UNIT CAP) 2000iu per day MULTIVITAMIN TAB Take one(1) tablet daily. CALCIUM 600 1,500 MG TAB Take one(1) tablet two(2) times daily. FAMILY HISTORY Problem Relation Age of Onset Heart Mother IA Hypertension Mother Obese other (Lung Cancer) Father Heart Sister Open Heart Surgery Social History Tobacco Use Smoking status: Never Smokeless tobacco: Never Vaping Use Vaping status: Never Used Substance Use Topics Alcohol use: No Drug use: No Review of Systems Constitutional: Negative for activity change, appetite change, chills, fatigue and fever. HENT: Positive for ear pain. Negative for ear discharge, hearing loss, rhinorrhea and sore throat. Respiratory: Negative for cough. Cardiovascular: Negative for chest pain, palpitations and leg swelling. Gastrointestinal: Negative for abdominal pain, diarrhea and vomiting. Musculoskeletal: Negative for arthralgias, back pain, gait problem and neck pain. Skin: Negative for color change, pallor and rash. Allergic/Immunologic: Negative for environmental allergies, food allergies and immunocompromised state. Neurological: Negative for headaches. Hematological: Negative for adenopathy. Does not bruise/bleed easily. Psychiatric/Behaviora l: Negative for agitation and behavioral problems. Objective BP 106/62 Pulse 82 Temp 36.2 ?C (97.2 ?F) Resp 16 Wt 54.8 kg (120 lb 13 oz) SpO2 97% BMI 21.40 kg/m? Physical Exam Vitals and nursing note reviewed. Constitutional: General: She is not in acute distress. Appearance: Normal appearance. She is normal weight. She is not ill-appearing, toxic-appearing or diaphoretic. HENT: Head: Normocephalic and atraumatic. Right Ear: Ear canal and external ear normal. Ears: Comments: Bilateral hearing aids Right EAC with impacted cerumen Nursing staff irrigates , (See their note) Cerumen impaction resolved Declines examination of left EAC (declines removing hearing aid) Nose: Nose normal. No congestion or rhinorrhea. Mouth/Throat: Mouth: Mucous membranes are moist. Pharynx: No oropharyngeal exudate or posterior oropharyngeal erythema. Eyes: General: Right eye: No discharge. Left eye: No discharge. Extraocular Movements: Extraoc (more content not included)... Normal [facility] Complete 01-13-2025 [facility] Cardiovascular Services [address] [place] [address] Echo Complete 01/13/25 1412 MR#: [id number] Acct: [id number] Name: JASMIN HUTCHINSON Rep #: [id number] : 1950 74 From: Yonas Woods MD Attending Dr: Sal Orellana NP-C Status: REG CLI Ordering Dr: Sal Orellana NP COMMISSARY ASSISTANT-C Date: 01/13/25 Location: CVS Sex: F C Admitted: Reason For Study Reason For Study: EVALUATE AORTIC VALVE REPLACEMENT Procedure This was a 2D Doppler, Color Flow transthoracic echocardiogram. Exam performed in department. Left Ventricle Normal LV size. Left ventricular systolic function is normal. The left ventricular ejection fraction is 65 %. No regional wall motion abnormalities noted. Right Ventricle Normal RV size. Normal systolic function. Atria Normal left atrium. Normal right atrium. Mitral Valve Normal mitral valve. Tricuspid Valve Normal tricuspid valve. Mild (1+) tricuspid valve insufficiency. Pulmonary artery systolic pressure is 38 mmHg. Aortic Valve Peak aortic valve gradient 56 mmHg. Mean aortic valve gradient 30 mmHg. Mild (1+) aortic valve insufficiency. Bioprosthetic aortic valve. Pulmonic Valve Normal pulmonic valve. Great Vessels Normal aortic root. The pulmonary artery is normal size. Inferior vena cava collapse with respiration. Pericardium/Pleural No pericardial effusion. MMode/2D Measurements Calculations LVIDd: 5.0 cm IVSd: 0.92 cm LVOT diam: 1.7 cm LVIDs: 3.2 cm LVPWd: 0.91 cm LVOT area: 2.4 cm2 RVDd: 3.6 cm FS: 36.7 % Ao root diam: 2.8 cm LAV(MOD-bp): 51.8 ml LVAd ap4: 31.0 cm2 LAV(MOD-bp) Indexed: 32.8 ml/m2 LVLd ap4: 7.9 cm LAV(MOD-sp2): 51.1 ml EDV(MOD-sp4): 97.5 ml LAV(MOD-sp4): 50.9 ml EDV(sp4-el): 102.8 ml LVAs ap4: 16.8 cm2 LVLs ap4: 6.6 cm ESV(MOD-sp4): 35.5 ml ESV(sp4-el): 36.2 ml EF(MOD-sp4): 63.6 % EF(sp4-el): 64.8 % SV(MOD-sp4): 62.0 ml SV(sp4-el): 66.6 ml LA A4 area: 17.6 cm2 SI(MOD-sp4): 39.3 ml/m2 LA dimension(2D): 3.6 cm RA A4 area: 17.0 cm2 TAPSE: 1.7 cm Time Measurements MV dec time: 0.25 sec Doppler Measurements Calculations MV E max terry: 69.9 cm/sec Lat Peak E' Terry: 9.9 cm/sec Med Peak E' Terry: 8.4 cm/sec MV A max terry: 96.0 cm/sec E/E' lat: 7.1 E/E' med: 8.4 MV E/A: 0.73 Ao V2 max: 374.4 cm/sec AI max terry: 457.9 cm/sec LV V1 max: 185.2 cm/sec Ao max P.1 mmHg AI max P.9 mmHg LV V1 max P.8 mmHg Ao V2 mean: 256.8 cm/sec LV V1 mean P.1 mmHg Ao mean P.6 mmHg AI dec slope: 414.5 cm/sec2 LV V1 mean: 136.0 cm/sec Ao V2 VTI: 76.2 cm AI P1/2t: 323.5 msec LV V1 VTI: 41.8 cm AV (velocity ratio): 0.55 TONI(I,D): 1.3 cm2 TONI(V,D): 1.2 cm2 SV(LVOT): 99.6 ml PA V2 max: 93.3 cm/sec TR max terry: 293.2 cm/sec TR max P.4 mmHg ECHO/Echo Complete Interpretation Summary Normal LV size. Left ventricular systolic function is normal. The left ventricular ejection fraction is 65 %. Bioprosthetic aortic valve. Mean aortic valve gradient 30 mmHg. Compared to the previous the gradients are increased. However it is still not in the severe range. Ordering Physician: Sal Orellana Referring Physician: NINA MARROQUIN Performed By: Flora Slater RDCS 01/13/25 173 Date Yonas Woods MD CC: COMMISSARY ASSISTANT-C Sal Orellana; Dr. Nina Marroquin MD Date Dictated: 01/13/25 141 Date Transcribed: 01/13/251734 Case Monitor: Signed Normal [facility] Echocardiogram study reportO rdered By: Yonas Woods on 01-13-2025 Study report [facility] Cardi[facility] [address] [place] [address] Echo Complete 01/13/251411 MR#: [id number] Acct: [id number] Name: JASMIN HUTCHINSON Rep #:[id number] : 1950 74 From: Yonas Herrera Attending Dr: ILAN Pratt [facility] tus: REG CLI Ordering Dr: Sal Orellana NP Date: 01/13/25 Location: [facility] Sex: F C Admitted: Reason For Study Reason For Study: EVALUATE AORTIC VALVE REPLACEMENT Procedure This was a 2D Doppler, Color Flow transthoracic echocardiogram. Exam performed in department. Left Ventricle Normal LV size. Left ventricular systolic function is normal. The left ventricular ejection fraction is 65 %. No regional wall motion abnormalities noted. Right Ventricle Normal RV size. Normal systolic function. Atria Normal left atrium. Normal right atrium. Mitral Valve Normal mitral valve. Tricuspid Valve Normal tricuspid valve. Mild (1+) tricuspid valve insufficiency. Pulmonary artery systolic pressure is 38 mmHg. Aortic Valve Peak aortic valve gradient 56 mmHg. Mean aortic valve gradient 30 mmHg. Mild (1+) aortic valve insufficiency. Bioprosthetic aortic valve. Pulmonic Valve Normal pulmonic valve. Great Vessels Normal aortic root. The pulmonary artery is normal size. Inferior vena cava collapse with respiration. Pericardium/Pleural No pericardial effusion. MMode/2D Measurements & Calculations LVIDd: 5.0 cm IVSd: 0.92 cm LVOT diam: 1.7 cm LVIDs: 3.2 cm LVPWd: 0.91 cm LVOT area: 2.4 cm2 RVDd: 3.6 cm FS: 36.7 % Ao root diam: 2.8 cm LAV(MOD-bp): 51.8 ml LVAd ap4: 31.0 cm2 LAV(MOD-bp) Indexed: 32.8 ml/m2 LVLd ap4: 7.9 cm LAV(MOD-sp2): 51.1 ml EDV(MOD-sp4): 97.5 ml LAV(MOD-sp4): 50.9 ml EDV(sp4-el): 102.8 ml LVAs ap4: 16.8 cm2 LVLs ap4: 6.6 cm ESV(MOD-sp4): 35.5 ml ESV(sp4-el): 36.2 ml EF(MOD-sp4): 63.6 % EF(sp4-el): 64.8 % SV(MOD-sp4): 62.0 ml SV(sp4-el): 66.6 ml LA A4 area: 17.6 cm2 SI(MOD-sp4): 39.3 ml/m2 LA dimension(2D): 3.6 cm RA A4 area: 17.0 cm2 TAPSE: 1.7 cm Time Measurements MV dec time: 0.25 sec Doppler Measurements & Calculations MV E max terry: 69.9 cm/sec Lat Peak E' Terry: 9.9 cm/sec Med Peak E' Terry: 8.4 cm/sec MV A max terry: 96.0 cm/sec E/E' lat: 7.1 E/E' med: 8.4 MV E/A: 0.73 Ao V2 max: 374.4 cm/sec AI max terry: 457.9 cm/sec LV V1 max: 185.2 cm/sec Ao max P.1 mmHg AI max P.9 mmHg LV V1 max P.8 mmHg Ao V2 mean: 256.8 cm/sec LV V1 mean P.1 mmHg Ao mean P.6 mmHg AI dec slope: 414.5 cm/sec2 LV V1 mean: 136.0 cm/sec Ao V2 VTI: 76.2 cm AI P1/2t: 323.5 msec LV V1 VTI: 41.8 cm AV (velocity ratio): 0.55 TONI(I,D): 1.3 cm2 TONI(V,D): 1.2 cm2 SV(LVOT): 99.6 ml PA V2 max: 93.3 cm/sec TR max terry: 293.2 cm/sec TR max P.4 mmHg ECHO/Echo Complete Interpretation Summary Normal LV size. Left ventricular systolic function is normal. The left ventricular ejection fraction is 65 %. Bioprosthetic aortic valve. Mean aortic valve gradient 30 mmHg. Compared to the previous the gradients are increased. However it is still not inthe severe range. Ordering Physician: Sal Orellana Referring Physician: NINA MARROQUIN Performed By: Flora Slater RDCS 01/13/251734 Date _ Yonas Woods MD CC: COMMISSARY ASSISTANT-C Sal Orellana; Dr. Nina Marroquin MD ~ Date Dictated: 01/13/25 1412 Date Transcribed: 01/13/251734 Case Monitor: Signed [facility] Work Phone: Absolute neutrophil countOrd ered By: Sal Orellana on 01-03-2025 Neutrophils (Bld) [#/Vol] 4.9 10*3/uL 2.0-7.7 [facility] Anion gap in Serum or Plasma Ordered By: Sal Orellana on 01-03-2025 Anion gap [Moles/Vol] 11 mmol/L 5-15 [facility] BUN/creatinine ratioOrdered By: Sal Orellana on 01-03-2025 Urea nitrogen/Creatinine [Mass ratio] 24.0 mg/mg High 10-20 [facility] Basophil percentageOrdered B y: Sal Orellana on 01-03-2025 Basophils/100 WBC (Bld) 0.8 % 0-1 [facility] Bilirubin, totalOrdered By: Sal Orellana on 01-03-2025 Bilirubin [Mass/Vol] 0.51 mg/dL 0.00-1.30 [facility] CBC W/Diff, Automatedon 12-15 Absolute Lymph 2.39 X10 3/uL Normal 0.83-4.51 [facility] Comment on above: Performed By: #### L 500.4100, L500.4050, L100.0100 #### [facility] [address] [place], [address] Absolute Neut 4.9 X10 3/uL Normal 2.0-7.7 [facility] Comment on above: Performed By: #### L 500.4100, L500.4050, L100.0100 #### [facility] [address] [place], [address] Basophils/100 WBC (Bld) 0.8 % Normal 0-1 [facility] Comment on above: Performed By: #### L 500.4100, L500.4050, L100.0100 #### [facility] [address] [place], [address] Eosinophils/100 WBC (Bld) 5.5 % High 0-5 [facility] Comment on above: Performed By: #### L 500.4100, L500.4050, L100.0100 #### [facility] [address] [place], [address] Erythrocyte distribution width (RBC) [Ratio] 12.7 % Normal 11.6-14.6 [facility] Comment on above: Performed By: #### L 500.4100, L500.4050, L100.0100 #### [facility] [address] [place], [address] Hematocrit (Bld) [Volume fraction] 42.2 % Normal 37-47 [facility] Comment on above: Performed By: #### L 500.4100, L500.4050, L100.0100 #### [facility] [address] [place], [address] Hemoglobin (Bld) [Mass/Vol] 14.2 g/dL Normal 12.0-15.0 [facility] Comment on above: Performed By: #### L 500.4100, L500.4050, L100.0100 #### [facility] [address] [place], [address] IG% 0.200 Normal 0.0-0.9 [facility] Comment on above: Result Comment: IG% - Immature Granulocytes (promyelocytes, myelocytes and metamyelocytes) > 1% indicates that a LEFT SHIFT is Present. Performed By: #### L 500.4100, L500.4050, L100.0100 #### [facility] [address] [place], [address] Lymphocytes/100 WBC (Bld) 28.1 % Normal 19-41 [facility] Comment on above: Performed By: #### L 500.4100, L500.4050, L100.0100 #### [facility] [address] [place], [address] MCH (RBC) [Entitic mass] 30.7 pg Normal 27.0-32.0 [facility] Comment on above: Performed By: #### L 500.4100, L500.4050, L100.0100 #### [facility] [address] [place], [address] MCHC (RBC) [Mass/Vol] 33.6 g/dL Normal 32-36 [facility] Comment on above: Performed By: #### L 500.4100, L500.4050, L100.0100 #### [facility] [address] [place], [address] MCV (RBC) [Entitic vol] 91.3 fL Normal 81-99 [facility] Comment on above: Performed By: #### L 500.4100, L500.4050, L100.0100 #### [facility] [address] [place], [address] Monocytes/100 WBC (Bld) 8.2 % Normal 0-10 [facility] Comment on above: Performed By: #### L 500.4100, L500.4050, L100.0100 #### [facility] [address] [place], [address] Neutrophils/100 WBC (Bld) 57.2 % Normal 47-70 [facility] Comment on above: Performed By: #### L 500.4100, L500.4050, L100.0100 #### [facility] [address] [place], [address] Nucleated RBC (Bld) [#/Vol] 0 10*3/uL Normal 0-5 [facility] Comment on above: Performed By: #### L 500.4100, L500.4050, L100.0100 #### [facility] [address] [place], [address] Platelet mean volume (Bld) [Entitic vol] 9.6 fL Normal 6.2-12.0 [facility] Comment on above: Performed By: #### L 500.4100, L500.4050, L100.0100 #### [facility] [address] [place], [address] Platelets (Bld) [#/Vol] 286 10*3/uL Normal 150-450 [facility] Comment on above: Performed By: #### L 500.4100, L500.4050, L100.0100 #### [facility] [address] [place], [address] RBC (Bld) [#/Vol] 4.62 10*6/uL Normal 4.2-5.4 [facility] Comment on above: Performed By: #### L 500.4100, L500.4050, L100.0100 #### [facility] [address] [place], [address] RDW SD 41.8 fl Normal 35.1-43.9 [facility] Comment on above: Performed By: #### L 500.4100, L500.4050, L100.0100 #### [facility] [address] [place], [address] WBC (Bld) [#/Vol] 8.5 10*3/uL Normal 4.4-11.0 [facility] Comment on above: Performed By: #### L 500.4100, L500.4050, L100.0100 #### [facility] [address] [place], [address] Calculated very low density lipoprotein (VLDL) cholesterol measurementOrdered By: Sal Orellana on 01-03-2025 VLDL Cholesterol 26 mg/dL 5-40 [facility] Carbon dioxide, total [Moles /volume] in Central venous bloodOrdered By: Sal Orellana on 01-03-2025 CO2 [Moles/Vol] 24.2 mmol/L 21.0-32.0 [facility] Chloride assayOrdered By: Jerilyn Orellana on 01-03-2025 Chloride [Moles/Vol] 104 mmol/L 98-108 [facility] Comprehensive Metabolic Prof ilon 01-03-2025 Albumin [Mass/Vol] 4.3 g/dL Normal 3.4-4.8 [facility] Comment on above: Performed By: #### L 500.4100, L500.4050, L100.0100 #### [facility] [address] [place], [address] Albumin/Globulin [Mass ratio] 1.7 {ratio} Normal 0.9-2.4 [facility] Comment on above: Performed By: #### L 500.4100, L500.4050, L100.0100 #### [facility] [address] [place], [address] ALK PHOS 76 U/L Normal 35-104 [facility] Comment on above: Performed By: #### L 500.4100, L500.4050, L100.0100 #### [facility] [address] [place], [address] ALT [Catalytic activity/Vol] 24 U/L Normal <=34 [facility] Comment on above: Performed By: #### L 500.4100, L500.4050, L100.0100 #### [facility] [address] [place], [address] AST [Catalytic activity/Vol] 27 U/L Normal <=31 [facility] Comment on above: Performed By: #### L 500.4100, L500.4050, L100.0100 #### [facility] [address] [place], [address] Bilirubin [Mass/Vol] 0.51 mg/dL Normal 0.00-1.30 [facility] Comment on above: Performed By: #### L 500.4100, L500.4050, L100.0100 #### [facility] [address] [place], [address] BUN/CRE 24.0 RATIO High 10-20 [facility] Comment on above: Performed By: #### L 500.4100, L500.4050, L100.0100 #### [facility] [address] [place], [address] Calcium [Mass/Vol] 9.5 mg/dL Normal 7.6-11.0 [facility] Comment on above: Performed By: #### L 500.4100, L500.4050, L100.0100 #### [facility] [address] [place], [address] Chloride [Moles/Vol] 104 mmol/L Normal 98-108 [facility] Comment on above: Performed By: #### L 500.4100, L500.4050, L100.0100 #### [facility] [address] [place], [address] CO2 [Moles/Vol] 24.2 mmol/L Normal 21.0-32.0 [facility] Comment on above: Performed By: #### L 500.4100, L500.4050, L100.0100 #### [facility] [address] [place], [address] Creatinine [Mass/Vol] 0.75 mg/dL Normal 0.70-1.20 [facility] Comment on above: Performed By: #### L 500.4100, L500.4050, L100.0100 #### [facility] [address] [place], [address] GAP 11 Normal 5-15 [facility] Comment on above: Performed By: #### L 500.4100, L500.4050, L100.0100 #### [facility] [address] [place], [address] GFR/1.73 sq M.predicted among non-blacks MDRD (S/P/Bld) [Vol rate/Area] 85 mL/min/{1.73_m2} Normal >60 [facility] Comment on above: Result Comment: mL/m in/1.73m2 CKD-EPI Creatinine Equation (2020) Performed By: #### L 500.4100, L500.4050, L100.0100 #### [facility] [address] [place], [address] Globulin (S) [Mass/Vol] 2.5 g/dL Normal 2.2-4.2 [facility] Comment on above: Performed By: #### L 500.4100, L500.4050, L100.0100 #### [facility] [address] [place], [address] Glucose [Mass/Vol] 91 mg/dL Normal 70-99 [facility] Comment on above: Performed By: #### L 500.4100, L500.4050, L100.0100 #### [facility] [address] [place], [address] Potassium [Moles/Vol] 4.3 mmol/L Normal 3.3-5.1 [facility] Comment on above: Performed By: #### L 500.4100, L500.4050, L100.0100 #### [facility] [address] [place], [address] Sodium [Moles/Vol] 139 mmol/L Normal 133-145 [facility] Comment on above: Performed By: #### L 500.4100, L500.4050, L100.0100 #### [facility] [address] [place], [address] T PROT 6.8 g/dL Normal 5.9-8.4 [facility] Comment on above: Performed By: #### L 500.4100, L500.4050, L100.0100 #### [facility] [address] [place], [address] Urea nitrogen [Mass/Vol] 18 mg/dL Normal 4-19 [facility] Comment on above: Performed By: #### L 500.4100, L500.4050, L100.0100 #### [facility] [address] [place], [address] Eosinophil percentageOrdered By: Sal Orellana on 01-03-2025 Eosinophils/100 WBC (Bld) 5.5 % High 0-5 [facility] [facility] Erythrocyte distribution wid th ratioOrdered By: Sal Orellana on 01-03-2025 Erythrocyte distribution width (RBC) [Ratio] 12.7 % 11.6-14.6 [facility] Erythrocyte distribution wid th standard deviationOrdered By: Sal Orellana on 01-03-2025 Erythrocyte distribution width (RBC) [Entitic vol] 41.8 fL 35.1-43.9 [facility] GFR/1.73 sq M.predicted malvin g non-blacks MDRD (S/P/Bld) [Vol rate/Area]Ordered By: Sal Orellana on 01-03-2025 Estimated GFR (MDRD) Non-Af Amer 85 >60 [facility] Comment on above: mL/min/1.73m2 CKD-EP I Creatinine Equation (2020) Hematocrit Auto (Bld) [Volum e fraction]Ordered By: Sal Orellana on 01-03-2025 Hematocrit (Bld) [Volume fraction] 42.2 % 37-47 [facility] Hemoglobin measurementOrdere d By: Sal Orellana on 01-03-2025 Hemoglobin (Bld) [Mass/Vol] 14.2 g/dL 12.0-15.0 [facility] Immature granulocytes/100 WB C Auto (Bld)Ordered By: Sal Orellana on 01-03-2025 Immature granulocytes/100 WBC (Bld) 0.200 % 0.0-0.9 [facility] Comment on above: IG% - Immature Granu locytes (promyelocytes, myelocytes and metamyelocytes) > 1% indicates that a LEFT SHIFT is Present. LDL calc ser/plasOrdered By: Sal Orellana on 01-03-2025 LDL Cholesterol, Calculated 196 mg/dL [facility] Comment on above: Jxwcyfpqnt=726-119 m g/dL & Higher Huaj=516 mg/dL or greater Laboratory - Chemistry and C hemistry - challengeOrdered By: Sal Orellana on 01-03-2025 AST [Catalytic activity/Vol] 27 U/L <32 [facility] Lipid Profileon 01-03-2025 CHOL:HDL 4.57 Normal [facility] Comment on above: Performed By: #### L 500.4100, L500.4050, L100.0100 #### [facility] [address] [place], [address] Cholesterol [Mass/Vol] 283 mg/dL High <=200 [facility] Comment on above: Result Comment: Chol esterol level, Desirable <200 mg/dL Borderline high cholesterol 200-239 mg/dL High cholesterol >=240 mg/dL Recommendations of the NCEP Adult Treatment Panel for the following risk-cutoff thresholds for the [place] population. Performed By: #### L 500.4100, L500.4050, L100.0100 #### [facility] [address] [place], [address] Cholesterol in HDL [Mass/Vol] 62 mg/dL Normal [facility] Comment on above: Result Comment: Kathy onal Cholesterol Education Program (NCEP) guidelines: <40 mg/dL: Low HDL-cholesterol (major risk factor for CHD) >= 60 mg/dL: High HDL-cholesterol (negative risk factor for CHD) HDL-cholesterol is affected by a number of factors, e.g. smoking, exercise, hormones, sex and age. Performed By: #### L 500.4100, L500.4050, L100.0100 #### [facility] [address] [place], [address] Cholesterol in LDL [Mass/Vol] 196 mg/dL Normal [facility] Comment on above: Result Comment: Bord lyzncr=415-484 mg/dL Higher Oxsf=721 mg/dL or greater Performed By: #### L 500.4100, L500.4050, L100.0100 #### [facility] [address] [place], [address] Cholesterol in VLDL [Mass/Vol] 26 mg/dL Normal 5-40 [facility] Comment on above: Performed By: #### L 500.4100, L500.4050, L100.0100 #### [facility] [address] [place], [address] Triglyceride [Mass/Vol] 128 mg/dL Normal [facility] Comment on above: Result Comment: The drugs N-Acetylcysteine and Metamizole may falsely depress this assay. Normal range: <150 mg/dL Borderline High: 150-199 mg/dL High: 200-499 mg/dL Very High: >500 mg/dL Performed By: #### L 500.4100, L500.4050, L100.0100 #### [facility] [address] [place], [address] Lymphocytes Auto (Unsp spec) [#/Vol]Ordered By: Sal Orellana on 01-03-2025 Lymphocytes (Bld) [#/Vol] 2.39 10*3/uL 0.83-4.51 [facility] Lymphocytes/100 WBC Auto (Un sp spec)Ordered By: Sal Orellana on 01-03-2025 Lymphocytes/100 WBC (Bld) 28.1 % 19-41 [facility] MCV (mean corpuscular volume ) determinationOrdered By: Sal Orellana on 01-03-2025 MCV (RBC) [Entitic vol] 91.3 fL 81-99 [facility] Mean corpuscular hemoglobin (MCH) determinationOrdered By: Sal Orellana on 01-03-2025 MCH (RBC) [Entitic mass] 30.7 pg 27.0-32.0 [facility] Mean corpuscular hemoglobin concentration (MCHC) determinationOrdered By: Sal Orellana on 01-03-2025 MCHC (RBC) [Mass/Vol] 33.6 g/dL 32-36 [facility] Mean platelet volume determi nationOrdered By: Sal Orellana on 01-03-2025 Platelet mean volume (Bld) [Entitic vol] 9.6 fL 6.2-12.0 [facility] Monocyte percentageOrdered B y: Sal Orellana on 01-03-2025 Monocytes/100 WBC (Bld) 8.2 % 0-10 [facility] Neutrophil percentageOrdered By: Sal Orellana on 01-03-2025 Neutrophils/100 WBC (Bld) 57.2 % 47-70 [facility] Nucleated red blood cell per centageOrdered By: Sal Orellana on 01-03-2025 Nucleated RBC/100 WBC (Bld) [Ratio] 0 % 0-5 [facility] Platelet countOrdered By: Jerilyn Orellana on 01-03-2025 Platelets (Bld) [#/Vol] 286 10*3/uL 150-450 [facility] Potassium (Unsp spec) [Mass/ Vol]Ordered By: Sal Orellana on 01-03-2025 Potassium [Moles/Vol] 4.3 mmol/L 3.3-5.1 [facility] RBC Auto (Bld) [#/Vol]Ordere d By: Sal Orellana on 01-03-2025 RBC (Bld) [#/Vol] 4.62 10*6/uL 4.2-5.4 [facility] Screening total cholesterol/ high density lipoprotein (HDL) cholesterol ratioOrdered By: Sal Orellana on 01-03-2025 Cholesterol.total/Chol esterol in HDL [Mass ratio] 4.57 {ratio} [facility] Serum creatinine measurement (mass/volume)Ordered By: Sal Orellana on 01-03-2025 Creatinine [Mass/Vol] 0.75 mg/dL 0.70-1.20 [facility] Serum globulin measurementOr dered By: Sal Orellana on 01-03-2025 Globulin (S) [Mass/Vol] 2.5 g/dL 2.2-4.2 [facility] Serum glucose measurement (m ass/volume)Ordered By: Sal Orellana on 01-03-2025 Glucose [Mass/Vol] 91 mg/dL 70-99 [facility] Serum or plasma alanine buitrago otransferase (ALT) measurementOrdered By: Sal Orellana on 01-03-2025 ALT [Catalytic activity/Vol] 24 U/L <35 [facility] Serum or plasma albumin cathi urement (mass/volume)Ordered By: Sal Orellana on 01-03-2025 Albumin [Mass/Vol] 4.3 g/dL 3.4-4.8 [facility] Serum or plasma albumin/glob ulin mass ratioOrdered By: Sal Orellana on 01-03-2025 Albumin/Globulin [Mass ratio] 1.7 {ratio} 0.9-2.4 [facility] Serum or plasma alkaline pallavi sphatase measurementOrdered By: Sal Orellana on 01-03-2025 ALP [Catalytic activity/Vol] 76 U/L 35-104 [facility] Serum or plasma calcium cathi urement (mass/volume)Ordered By: Sal Orellana on 01-03-2025 Calcium [Mass/Vol] 9.5 mg/dL 7.6-11.0 [facility] Serum or plasma cholesterol in HDL measurement (mass/volume)Ordered By: Sal Orellana on 01-03-2025 Cholesterol in HDL [Mass/Vol] 62 mg/dL >40 [facility] Comment on above: National Cholesterol Education Program (NCEP) guidelines:<40 mg/dL: Low HDL-cholesterol (major risk factor for CHD)>= 60 mg/dL: High HDL-cholesterol (negative risk factor for CHD)HDL-cholesterol is affected by a number of factors, e.g. smoking, exercise, hormones, sex and age. Serum or plasma cholesterol measurement (mass/volume)Ordered By: Sal Orellana on 01-03-2025 Cholesterol [Mass/Vol] 283 mg/dL High <201 [facility] Comment on above: Cholesterol level, D esirable <200 mg/dLBorderline high cholesterol 200-239 mg/dLHigh cholesterol >=240 mg/dLRecommendations of the NCEP Adult Treatment Panel for the following risk-cutoff thresholds for the [place] population. Serum or plasma urea nitroge n measurement (mass/volume)Ordered By: Sal Orellana on 01-03-2025 Urea nitrogen [Mass/Vol] 18 mg/dL 4-19 [facility] Sodium levelOrdered By: Sal Orellana on 01-03-2025 Sodium [Moles/Vol] 139 mmol/L 133-145 [facility] Total proteinOrdered By: Garrett Orellana on 01-03-2025 Protein [Mass/Vol] 6.8 g/dL 5.9-8.4 [facility] Triglycerides measurementOrd ered By: Sal Orellana on 01-03-2025 Triglyceride [Mass/Vol] 128 mg/dL <199 [facility] Comment on above: The drugs N-Acetylcy steine and Metamizole may falsely depress this assay. Normal range: <150 mg/dLBorderline High: 150-199 mg/dLHigh: 200-499 mg/dLVery High: >500 mg/dL White blood cell (WBC) count Ordered By: Sal Orellana on 01-03-2025 WBC (Bld) [#/Vol] 8.5 10*3/uL 4.4-11.0 [facility] Cardiology Visit Reporton Cardiology Visit Report [facility] [address] [place] [address] OFFICE VISIT Date of Service: 12/13/24 MR#: [id number] Acct: [id number] Name: JASMIN HUTCHINSON Rep #: [id number] : 1950 Provider: ILAN ordaz Age/Sex: 74/F Location: [facility] Status: Signed HPI HPI History of Present Illness Details: This is a 74-year-old white female who presents today for preoperative clearance visit. She has a history of underlying aortic valve disorder with bicuspid aortic valve with aortic valve stenosis status post aortic valve replacement with a 21 mm Mitroflow pericardial valve (06-17-2016 at [place], [place]) mitral valve prolapse/MR, and hyperlipidemia. Since her visit of approximately 1 year ago she states overall she feels she is doing well. She denies chest, arm, jaw, or neck discomfort. She denies palpitations. She denies bilateral lower extremity edema. She denies claudication. She denies shortness of breath with activity, shortness of breath at rest, orthopnea, or PND. She denies chronic cough. She denies significant, sudden weight gain. She denies lightheadedness, dizziness, near-syncope, or syncope. She denies blood in urine, blood in stool, or epistaxis. He denies fever with chills. She denies myalgia. She denies fatigue. Her exercise level has remained stable. 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 [employer] Required: No Accompanied by: Self Is patient in pain?: No Allergies morphine Allergy (Verified 12/13/24 13:22) Nausea Medications ???Medication ???Instructions ???Recorded ???Confirmed ???Type calcium 500 mg 1 ea PO BID 04/27/16 12/13/24 Hist ory (carb,gluconate)-magn esium 250 mg (gluc,oxide) tablet cholecalciferol (vitamin D3) 25 400 unit PO DAILY 04/27/16 5 History mcg (1,000 unit) tablet coenzyme Q10 100 mg capsule 100 mg PO DAILY 04/27/16 12/13/24 History multivitamin with folic acid 400 1 tab PO DAILY 04/27/16 12/13/24 H istory mcg tablet omega-3 fatty acids 1,000 mg 1,000 mg PO DAILY 04/27/16 5 History capsule aspirin 81 mg tablet,delayed 81 mg PO QDAY 10/04/17 12/13/24 Hi story release (Adult Aspirin Regimen) magnesium 30 mg tablet 30 mg PO DAILY 03/08/22 12/13/24 H istory metoprolol tartrate 25 mg tablet 25 mg PO BID #180 TABLETS 08/15/24 12/13/24 Rx Have you fallen in the past year?: No PFSH Medical History Anemia Aortic stenosis Arthritis Bicuspid aortic valve Chest pain Headache, migraine History of left heart catheterization Mixed hyperlipidemia Neuropathy Nonrheumatic mitral (valve) insufficiency Nonrheumatic mitral (valve) prolapse Osteopenia Surgical History H/O aortic valve replacement ( 06/17/16) H/O neck surgery History of aortic valve replacement with bioprosthetic valve ( 06/17/16) Family History Mother CAD (coronary artery disease) Sister History of open heart surgery Social History Smoking Status: Never smoker alcohol intake: never substance use type: does not use caffeine: Yes Type: coffee what type of physical activity do you participate in: walking and aerobics frequency: daily duration: 30-45 minutes/day seatbelt use: sometimes do you feel safe at home: Yes ROS Const Const: Negative for fatigue, weakness, headache(s), daytime sleepiness or difficulty sleeping ENT ENT: Negative for headache(s), dizziness or Nosebleed/epistaxis Cardio Chest Pain: No Palpitations: No Edema: None Muscle aches with walking: None Resp Respiratory: Negative for SOB with activity, SOB at rest, SOB orthopnea SOB lying down or Cough GI GI: Negative nausea, vomiting or heartburn : Negative for hematuria or frequent nighttime urination/ nocturia Musc Musc: Negative for muscle aches/ myalgia Skin Skin: Negative non-healing lesions or rash Neuro Neuro: Negative for dizziness, lightheadedness, near syncope, headache(s) or weakness Endo Endo: Negative for fatigue Allergy Allergy/Immunology: Negative for rash Cardiology Exam Const Appearance: cooperative, healthy appearing, comfortable and no acute distress Nutritional Appearance: average body habitus and well nourished Orientation: alert, awake and oriented x3 Head Head: normal to inspection Ears: hearing grossly normal bilaterally Nose: external nose normal Face and (more content not included)... Normal [facility] SCRN MAMM (CAD)W/DELMA BILATo n 04-09-2024 SCRN MAMM (CAD)W/DELMA BILAT [facility] Imaging Services [address] [place] [id number] SCRN MAMM (CAD)W/DELMA BILAT MR#: [id number] Acct: [id number] Name: JASMIN HUTCHINSON Rep #: [id number] : 1950 F 73 From: Rodger patricio MD PCP: Dr. Nina Marroquin MD Status: [facility] Study: SCRN MAMM (CAD)W/DELMA BILAT Date of Exam: 03/17 03/08 Exam# [id number] Ordering Dr: Nina Marroquin MD [id number] MAMMOGRAPHY - BILATERAL SCREENING REASON FOR EXAM: Female, 73 years old. Routine annual screening examination. PERTINENT HISTORY: Non-contributory. TECHNIQUE: Digital bilateral breast delma (3D mammographic acquisition) in the CC and MLO projections. 2-D mediolateral oblique (MLO) and craniocaudad (CC) views of both breasts were obtained. CAD: Full Field Digital Mammography with Computer Added Detection was performed. COMPARISON: Comparison is made with prior study dated March 21, 2023 and June 28, 2021. FINDINGS: Breast Composition: The breasts are heterogeneously dense, which may obscure small masses. There are no dominant masses or suspicious calcifications. No other significant abnormalities are identified. There has been no significant change since the prior study. BI/SCRN MAMM (CAD)W/DELMA BILAT IMPRESSION: Stable bilateral screening mammogram. Yearly follow-up mammogram recommended. (A) ASSESSMENT CATEGORY: BIRADS Category 1: Negative. A letter regarding these results will be sent to the patient by the facility within 30 days. Approximately 10% of breast cancers are not detected by mammography. A normal mammogram should not delay biopsy of a clinically suspicious abnormality. [id number] Electronically Signed: Rodger Blount MD at 8:11 EDT , CC: Dr. Nina Marroquin MD Case Monitor: Signed Normal [facility] CT CERVICAL SPINE WO IVCONon 08-29-2023 [facility] XR CERV GENERAL 2V AP/LATon 08-29-2023 [facility] Basophil percentageOrdered B y: Nina Marroquin on 08-24-2023 Basophil percentage 50-100 SEEN /hpf 0-5 [facility] Bilirubin Test strip Ql (U)O rdered By: Nina Marroquin on 08-24-2023 Bilirubin Ql (U) Negative Negative [facility] Culture, urineOrdered By: Rebekah Marroquin on 08-24-2023 Bacteria identified Cx Nom (U) Presumptive E. coli [facility] Ketones Test strip Ql (U)Ord ered By: Nina Marroquin on 08-24-2023 Ketones Ql (U) Negative Negative [facility] Mucus LM Ql (Urine sed)Order ed By: Nina Marroquin on 08-24-2023 Mucus Ql (Urine sed) 0 SEEN /hpf [facility] Nitrite Test strip Ql (U)Ord ered By: Nina Marroquin on 08-24-2023 Nitrite Ql (U) Negative Negative [facility] Protein Test strip Ql (U)Ord ered By: Nina Marroquin on 08-24-2023 Protein Ql (U) 15 mg/dl Negative [facility] Squamous epithelial cells de tection in urine sediment by light microscopyOrdered By: iNna Marroquin on 08-24-2023 Epithelial cells.squamous LM Ql (Urine sed) 0 SEEN /hpf 5-10 [facility] Urine blood detectionOrdered By: Nina Marroquin on 08-24-2023 RBC Ql (U) 10 /ul Negative [facility] RBC Ql (U) 0 SEEN /hpf 0-5 [facility] Urine clarityOrdered By: Jaycee Marroquin on 08-24-2023 Clarity (U) Clear Clear [facility] Urine color determinationOrd ered By: Nina Marroquin on 08-24-2023 Color (U) Yellow Yellow [facility] Urine glucose detectionOrder ed By: Nina Marroquin on 08-24-2023 Glucose Ql (U) Normal mg/dl Normal [facility] Urine leukocyte esterase det ection by dipstickOrdered By: Nina Marroquin on 08-24-2023 Leukocyte esterase Test strip Ql (U) 500 /ul Negative [facility] Urine pHOrdered By: Nina sen on 08-24-2023 pH (U) 5.0 [pH] 5.0 - 8.0 [facility] Urine sediment bacteria coun t by microscopy (number/high power field)Ordered By: Nina Marroquin on 08-24-2023 Bacteria LM.HPF (Urine sed) [#/Area] 1 /[HPF] None Seen [facility] Urine specific gravity measu rementOrdered By: Nina Marroquin on 08-24-2023 Specific gravity (U) [Rel density] 1.015 1.002-1.030 [facility] Urobilinogen Auto test strip Ql (U)Ordered By: Nina Marroquin on 08-24-2023 Urobilinogen Ql (U) Normal mg/dl Normal [facility] Absolute lymphocyte countOrd ered By: Nina Marroquin on 03-21-2023 Lymphocytes Auto (Unsp spec) [#/Vol] 2.62 10*3/uL 0.83-4.51 [facility] Basophil percentageOrdered B y: Nina Marroquin on 03-21-2023 Basophils/100 WBC (Bld) 0.8 % 0-1 [facility] Bilirubin [Mass/Vol] 0.30 mg/dL 0.20-1.00 [facility] Comment on above: For patients on eltr ombopag therapy, use of Dimension [place] TBIL is not recommended. Chloride [Moles/Vol] 108 mmol/L 98-107 [facility] Eosinophils/100 WBC (Bld) 2.9 % 0-5 [facility] Glucose [Mass/Vol] 85 mg/dL 74-106 [facility] Neutrophils (Bld) [#/Vol] 5.7 10*3/uL 2.0-7.7 [facility] Neutrophils/100 WBC (Bld) 60.3 % 47-70 [facility] Potassium [Moles/Vol] 3.8 mmol/L 3.5-5.1 [facility] Protein [Mass/Vol] 7.2 g/dL 6.4-8.2 [facility] Sodium [Moles/Vol] 138 mmol/L 136-145 [facility] WBC (Bld) [#/Vol] 9.5 10*3/uL 4.4-11.0 [facility] Blood erythrocytes count (nu mber/volume)Ordered By: Nina Marroquin on 03-21-2023 RBC (Bld) [#/Vol] 4.77 10*6/uL 4.2-5.4 [facility] Blood hemoglobin measurement (mass/volume)Ordered By: Nina Marroquin on 03-21-2023 Hemoglobin (Bld) [Mass/Vol] 14.1 g/dL 12.0-15.0 [facility] Blood lymphocytes/100 leukoc ytesOrdered By: Nina Marroquin on 03-21-2023 Lymphocytes/100 WBC (Bld) 27.7 % 19-41 [facility] Blood monocytes/100 leukocyt esOrdered By: Nina Marroquin on 03-21-2023 Monocytes/100 WBC (Bld) 8.1 % 0-10 [facility] Blood platelet mean volumeOr dered By: Nina Marroquin on 03-21-2023 Platelet mean volume (Bld) [Entitic vol] 9.4 fL 6.2-12.0 [facility] Determination of erythrocyte mean corpuscular volume (MCV)Ordered By: Nina Marroquin on 03-21-2023 MCV (RBC) [Entitic vol] 91.8 fL 81-99 [facility] Hematocrit Auto (Bld) [Volum e fraction]Ordered By: Nina Marroquin on 03-21-2023 Hematocrit (Bld) [Volume fraction] 43.8 % 37-47 [facility] Laboratory - Chemistry and C hemistry - challengeOrdered By: Nina Marroquin on 03-21-2023 ALP [Catalytic activity/Vol] 86 U/L 45-117 [facility] ALT [Catalytic activity/Vol] 34 U/L 13-56 [facility] CO2 [Moles/Vol] 25.0 mmol/L 21.0-32.0 [facility] Globulin (S) [Mass/Vol] 3.3 g/dL 2.2-4.2 [facility] Urea nitrogen/Creatinine [Mass ratio] 23.2 mg/mg 10-20 [facility] - Hematology and Cell countsOrdered By: Nina Marroquin on 03-21-2023 Erythrocyte distribution width (RBC) [Entitic vol] 42.8 fL 35.1-43.9 [facility] Erythrocyte distribution width (RBC) [Ratio] 12.9 % 11.6-14.6 [facility] Immature granulocytes/100 WBC (Bld) 0.200 % 0.0-0.9 [facility] Comment on above: IG% - Immature Granu locytes (promyelocytes, myelocytes and metamyelocytes) > 1% indicates that a LEFT SHIFT is Present. MCH (RBC) [Entitic mass] 29.6 pg 27.0-32.0 [facility] Nucleated RBC/100 WBC (Bld) [Ratio] 0 % 0-5 [facility] Auto (RBC) [Mass/Vol]Or dered By: Nina Marroquin on 03-21-2023 MCHC (RBC) [Mass/Vol] 32.2 g/dL 32-36 [facility] No Panel InformationOrdered By: Nina Marroquin on 03-21-2023 Estimated GFR (MDRD) Amer 101 mL/min >60 [facility] Comment on above: GFR Calc Estimated GFR (MDRD) Non-Af Amer 83 mL/min >60 [facility] Comment on above: Non- GFR Calc Thyroid Stimulating Hormone (TSH) 3.36 uIU/mL 0.358-3.74 [facility] Vitamin D 25-Hydroxy 51.8 ng/mL [facility] Comment on above: Vitamin D 25(OH) Sta tus Range Deficiency <20 ng/mL (50nmol/L) Insufficiency 20 - 30 ng/mL (50 - 75 nmol/L) Sufficiency 30 - 100 ng/mL (75 - 250 nmol/L) Toxicity >100 ng/mL (>250 nmol/L) Platelets bldOrdered By: Jaycee Marroquin on 03-21-2023 Platelets (Bld) [#/Vol] 324 10*3/uL 150-450 [facility] Serum or plasma albumin cathi urement (mass/volume)Ordered By: Nina Marroquin on 03-21-2023 Albumin [Mass/Vol] 3.9 g/dL 3.2-5.0 [facility] Serum or plasma albumin/glob ulin mass ratioOrdered By: Nina Marroquin on 03-21-2023 Albumin/Globulin [Mass ratio] 1.2 {ratio} 0.9-2.4 [facility] Serum or plasma calcium cathi urement (mass/volume)Ordered By: Nina Marroquin on 03-21-2023 Calcium [Mass/Vol] 9.1 mg/dL 8.5-10.1 [facility] Serum or plasma creatinine m easurement (mass/volume)Ordered By: Nina Marroquin on 03-21-2023 Creatinine [Mass/Vol] 0.73 mg/dL 0.55-1.02 [facility] Comment on above: The validity of the calculated GFR & GFRAA in patients over 70 years has not been determined. Clinical correlation is essential. Serum or plasma urea nitroge n measurement (mass/volume)Ordered By: Nina Marroquin on 03-21-2023 Urea nitrogen [Mass/Vol] 17 mg/dL 7-18 [facility] Thin prep Papanicolaou smear with manual screeningOrdered By: Nina Marroquin on 03-21-2023 Thin prep Papanicolaou smear with manual screening 26 U/L 15 [facility] Thin prep Papanicolaou smear with manual screening 5 5- [facility] CNPNon 02-28-2023 CNPN Telephone (NEAGCLM) JASMIN HUTCHINSON ([id number]) 1950 F Date Time Provider Department 02/28/23 GURPREET STEWART NEAGCLM During your visit today, we recorded the following information about you: Linnea Martinez RN 02/28/2023 10:05 AM Signed Called patient and left VM to notify her that Dr. Stewart would like for her to have x-rays completed before her next office visit. Provided specific directions on where to have these done. Let them know that these could be done as a walk in appointment anytime between now and their appointment. Linnea Martinez RN Allergies As of Date: 02/28/2023 Noted Allergy Reaction MORPHINE 07/11/2016 11 - Vomiting 16 - Unknown PREDNISONE 06/04/2013 8 - GI Upset Date Reviewed: 10/27/2022 Reviewed by: Raine Daniels LPN - Fully Assessed Reason for Visit: Appointment [186] Orders [681] Prescriptions as of 02/28/2023 - metoprolol succinate ER (TOPROL XL) 50 mg 24 hr tablet Take 1 tablet by mouth twice daily. - atorvastatin (LIPITOR) 20 mg tablet Take 20 mg by mouth once daily. - ubidecarenone Q-10 10 mg cap Take by mouth twice daily. - ergocalciferol(VITAMI N D 400 UNIT CAP) 2000iu per day - MULTIVITAMIN TAB Take one(1) tablet daily. - CALCIUM 600 1,500 MG TAB Take one(1) tablet two(2) times daily. Problem List As Of Date 02/28/2023 Noted Resolved OSTEOPENIA [M89.9, M94.9] Other and unspecified hyperlipidemia [E78.5] 01/25/2006 Bicuspid aortic valve [Q23.1] 06/06/2013 Cervical stenosis of spinal canal [M48.02] 08/19/2022 Spinal stenosis of cervical region [M48.02] 09/12/2022 12/27/2022 Encounter Status:Closed by LINNEA MARTINEZ on 02/28/23 Normal [facility] CT CERVICAL SPINE WO IVCONon 02-27-2023 [facility] Absolute lymphocyte counton 10-21-2022 Lymphocytes Auto (Unsp spec) [#/Vol] 1.78 10*3/uL 0.83-4.51 [facility] Work Phone: Basophil percentageon 2022 Basophils/100 WBC (Bld) 0.9 % 0-1 [facility] Work Phone: Chloride [Moles/Vol] 112 mmol/L 98-107 [facility] Work Phone: Eosinophils/100 WBC (Bld) 3.1 % 0-5 [facility] Work Phone: Glucose [Mass/Vol] 92 mg/dL 74-106 [facility] Work Phone: Neutrophils (Bld) [#/Vol] 6.0 10*3/uL 2.0-7.7 [facility] Work Phone: Neutrophils/100 WBC (Bld) 67.9 % 47-70 [facility] Work Phone: Potassium [Moles/Vol] 3.8 mmol/L 3.5-5.1 [facility] Work Phone: Sodium [Moles/Vol] 142 mmol/L 136-145 [facility] Work Phone: WBC (Bld) [#/Vol] 8.8 10*3/uL 4.4-11.0 [facility] Work Phone: Blood erythrocytes count (nu mber/volume)on 10-21-2022 RBC (Bld) [#/Vol] 4.67 10*6/uL 4.2-5.4 [facility]: Blood hemoglobin measurement (mass/volume)on 10-21-2022 Hemoglobin (Bld) [Mass/Vol] 14.1 g/dL 12.0-15.0 [facility] Work Phone: Blood lymphocytes/100 leukoc yteson 10-21-2022 Lymphocytes/100 WBC (Bld) 20.3 % 19-41 [facility] Work Phone: Blood monocytes/100 leukocyt eson 10-21-2022 Monocytes/100 WBC (Bld) 7.5 % 0-10 [facility] Work Phone: Blood platelet mean volumeon 10-21-2022 Platelet mean volume (Bld) [Entitic vol] 9.4 fL 6.2-12.0 [facility] Work Phone: Determination of erythrocyte mean corpuscular volume (MCV)on 10-21-2022 MCV (RBC) [Entitic vol] 92.7 fL 81-99 [facility] Work Phone: Hematocrit Auto (Bld) [Volum e fraction]on 10-21-2022 Hematocrit (Bld) [Volume fraction] 43.3 % 37-47 [facility] Work Phone: Laboratory - Chemistry and C hemistry - challengeon 10-21-2022 CO2 [Moles/Vol] 26.0 mmol/L 21.0-32.0 [facility] Work Phone: Magnesium [Mass/Vol] 2.3 mg/dL 1.6-2.6 [facility] Work Phone: Urea nitrogen/Creatinine [Mass ratio] 19.2 mg/mg 10-20 [facility] Work Phone: Laboratory - Hematology and Cell countson 10-21-2022 Erythrocyte distribution width (RBC) [Entitic vol] 42.3 fL 35.1-43.9 [facility] Work Phone: Erythrocyte distribution width (RBC) [Ratio] 12.5 % 11.6-14.6 [facility] Work Phone: Immature granulocytes/100 WBC (Bld) 0.300 % 0.0-0.9 [facility] Work Phone: Comment on above: IG% - Immature Granu locytes (promyelocytes, myelocytes and metamyelocytes) > 1% indicates that a LEFT SHIFT is Present. MCH (RBC) [Entitic mass] 30.2 pg 27.0-32.0 [facility] Work Phone: Nucleated RBC/100 WBC (Bld) [Ratio] 0 % 0-5 [facility] Work Phone: MCHC Auto (RBC) [Mass/Vol]on 10-21-2022 MCHC (RBC) [Mass/Vol] 32.6 g/dL 32-36 [facility] Work Phone: No Panel Informationon 10-21 Estimated Creatinine Clearance Calc 43.92 ml/min [facility] Work Phone: Estimated GFR (MDRD) Amer 110 mL/min >60 [facility] Work Phone: Comment on above: GFR Calc Estimated GFR (MDRD) Non-Af Amer 91 mL/min >60 [facility] Work Phone: Comment on above: Non- GFR Calc Platelets bldon 10-21-2022 Platelets (Bld) [#/Vol] 293 10*3/uL 150-450 [facility] Work Phone: Serum or plasma calcium cathi urement (mass/volume)on 10-21-2022 Calcium [Mass/Vol] 8.9 mg/dL 8.5-10.1 [facility] Work Phone: Serum or plasma creatinine m easurement (mass/volume)on 10-21-2022 Creatinine [Mass/Vol] 0.68 mg/dL 0.55-1.02 [facility] Work Phone: Comment on above: The validity of the calculated GFR & GFRAA in patients over 70 years has not been determined. Clinical correlation is essential. Serum or plasma urea nitroge n measurement (mass/volume)on 10-21-2022 Urea nitrogen [Mass/Vol] 13 mg/dL 7-18 [facility] Work Phone: Thin prep Papanicolaou smear with manual screeningon 10-21-2022 Thin prep Papanicolaou smear with manual screening 4 - [facility] Work Phone: CNOVon 10-20-2022 CNOV Office Visit (NSAGAP ) JASPERJASMIN J ([id number]) 1950 F Date Time Provider Department 10/20/22 1:30 PM GURPREET STEWART During your visit today, we recorded the following information about you: Temperature Pulse Respiration Blood pressure 98.1 degrees 82/minute 20/minute 116/49 Gurpreet Stewart MD 10/20/2022 1:24 PM Signed NEUROSURGERY POST-OP NOTE Gurpreet Stewart MD Date of visit: October 20, 2021 Patient Name: Ms.Myra Elvie Hutchinson Date of : 1950 Current Age: [age] year old Sex: female MRN/E# [id number] Last Office Visit: 09/01/2022 Postoperative follow up: Chief Complaint: Patient presents with: Established Patient; 8 week PO from C2-T2 PCDF ASSESSMENT: Surgery Date: 08/19/2022 Surgery Type: C2-T2 PCDF Pre-operative symptoms: bilateral neck pain and weakness and numbness in her right deltoid and biceps HPI: Progress: The patient presented to the office 09/01/2022 with x-ray imaging. She stated she had been doing well since surgery. She stated that her pain was well controlled. She was taking Tylenol for pain control. She complained of general feelings of weakness, especially in her upper extremities. She stated that she still had numbness and tingling in her hands. She stated that, in general, she did not feel she was having issues with her balance. She did have one fall since surgery. Her incision was dry and intact. Some incisional redness was present. Her miguelito were removed at this visit. The patient was ordered physical therapy for range of motion, balance, and core body strengthening. She was asked to follow up in [address] imaging of her cervical spine. The patient presents today with CT imaging. She states that she has been doing well since her last visit. She has been working with physical therapy and feels that it has helped her weakness in her arms. She plans to continue working with them and doing home exercises to improve strength and ROM. She continues to have numbness and tingling in both hands. She denies issues with balance, incontinence, or recent falls. She states that she is no longer in any pain. Her incision looks clean dry and intact without redness. She presents today for image review, evaluation, and plan of care. Brace type: None. None Postop pain control?: Controlled Postop pain control medications?: Acetaminophen REVIEW OF SYSTEMS Review of Systems Constitutional: Negative for chills, diaphoresis and fever. HENT: Negative for sinus pressure, sinus pain and trouble swallowing. Eyes: Negative for pain, redness and visual disturbance. Respiratory: Negative for cough, shortness of breath and wheezing. Cardiovascular: Negative for chest pain, palpitations and leg swelling. Gastrointestinal: Negative for constipation, diarrhea and nausea. Endocrine: Negative for cold intolerance and heat intolerance. Genitourinary: Negative for difficulty urinating, frequency and urgency. Musculoskeletal: Negative for back pain, gait problem and neck pain. Skin: Negative for color change, pallor and rash. Allergic/Immunologic: Negative for environmental allergies, food allergies and immunocompromised state. Neurological: Positive for weakness and numbness. Negative for headaches. Hematological: Does not bruise/bleed easily. Psychiatric/Behaviora l: Negative for agitation, behavioral problems and confusion. PHYSICAL EXAM: Awake, Alert, Oriented x3 Cranial nerves grossly intact Follows commands in all extremities No drift Right-sided upper extremity proximal weakness 2 out of 5, distal right upper extremity full strength. The rest of her extremities is full strength Sensation intact to light touch Normal ambulation without assistance Incision: Dry and intact, without redness TESTING/IMAGING: CT CERVICAL SPINE performed on 10/11/2022. Findings were noted as: IMPRESSION: Extensive posterior decompression and instrumentation without complication. Now patent spinal canal and essentially patent neural foramina. PLAN: 1.) Activity: As tolerated 2.) Brace: None 3.) Scripts: Cervical CT and x-rays AP lateral Proper use and precautions discussed for prescribed medications. 4.) Follow up: 6 months 5.) Comments: Patient is doing quite well from her surgery. She still has residual proximal right arm weakness which is to be expected. It continues to slightly improved with physical therapy which she is going to continue. Her CT scan of her cervical spine shows no hardware abdomen abnormality and there is early signs of arthrodesis. I will see the patient back in 6 months with repeat x-rays and CT of the cervical spine. Attribution The following portions of the patient's history were reviewed, confirmed, and updated as necessary: allergies, current medications, past family history, past medical history, past social history, past (more content not included)... Normal [facility] CT CERVICAL SPINE WO IVCONon 10-11-2022 [facility] CNOVon 09-01-2022 CNOV Office Visit (NSAGAP ) JASMIN HUTCHINSON ([id number]) 1950 F Date Time Provider Department 09/01/22 1:30 PM GURPREET STEWART During your visit today, we recorded the following information about you: Temperature Pulse Respiration Blood pressure 98.4 degrees 80/minute 18/minute 108/86 Gurpreet Stewart MD 09/01/2022 1:54 PM Signed NEUROSURGERY POST-OP NOTE Gurpreet Stewart MD Date of visit: September 01, 2022 Patient Name: Ms.Myra Elvie Hutchinson Date of : 1950 Current Age: [age] year old Sex: female MRN/E# [id number] Last Office Visit: 08/04/2022 Postoperative follow up: Chief Complaint: Patient presents with: Established Patient; PO C2-T2 PCDF ASSESSMENT: Surgery Date: 08/19/2022 Surgery Type: C2-T2 PCDF Pre-operative symptoms: bilateral neck pain and weakness and numbness in her right deltoid and biceps HPI: Progress: The patient presents today with x-ray imaging. She states she has been doing well since surgery. She states that her pain is well controlled. She takes Tylenol for pain control. She did complain of general feelings of weakness, especially in her upper extremities. She stated that she still had numbness and tingling in her hands. She stated that, in general, she did not feel she was having issues with her balance. She did have one fall since surgery. Her incision was dry and intact. Some incisional redness was present. Her miguelito were removed at this visit. She presents today for image review, evaluation, and plan of care. Brace type: None. None Postop pain control?: Controlled Postop pain control medications?: Acetaminophen REVIEW OF SYSTEMS Review of Systems Constitutional: Negative for chills, diaphoresis and fever. HENT: Negative for sinus pressure, sinus pain and trouble swallowing. Eyes: Negative for pain, redness and visual disturbance. Respiratory: Negative for cough, shortness of breath and wheezing. Cardiovascular: Negative for chest pain, palpitations and leg swelling. Gastrointestinal: Negative for constipation, diarrhea and nausea. Endocrine: Negative for cold intolerance and heat intolerance. Genitourinary: Negative for difficulty urinating, frequency and urgency. Musculoskeletal: Positive for neck pain. Negative for back pain and gait problem. Skin: Negative for color change, pallor and rash. Allergic/Immunologic: Negative for environmental allergies, food allergies and immunocompromised state. Neurological: Positive for weakness and numbness. Negative for headaches. Hematological: Does not bruise/bleed easily. Psychiatric/Behaviora l: Negative for agitation, behavioral problems and confusion. PHYSICAL EXAM: The patient is at the bedside with her significant other She is awake alert oriented x3 She is able to follow commands in all extremities She still has right-sided deltoid and bicep weakness which was preoperatively around 3 out of 5 the rest of her motor groups are full strength Her sensation appears to be grossly intact Gait is normal Incision: Dry and intact, some erythema noted around incision TESTING/IMAGING: XR CERVICAL Lateral and AP Alignment: Stable. Hardware: Intact. No gross failure. Fusion status: No lali pseudoarthrosis PLAN: 1.) Activity: As tolerated and Avoid bending, lifting > 10 lbs 2.) None 3.) Scripts: None Proper use and precautions discussed for prescribed medications. 4.) Follow up: [address] of the cervical spine 5.) Comments: I would love the patient is to start engaging in physical therapy at this point in time for upper extremity range of motion, balance, and core body strengthening. Attribution The following portions of the patient's history were reviewed, confirmed, and updated as necessary: allergies, current medications, past family history, past medical history, past social history, past surgical history, problem list, HPI, and ROS obtained by others. Some elements may be copied from a previous office note and have been reviewed/updated where appropriate. All portions reflect current medical decision making from today. The clinical and radiographic findings as well as the risks, benefits and alternatives of treatment have been reviewed in detail with the patient. Advised to call the office if symptoms worsen or new symptoms develop.Patient expressed understanding and is in agreement with plan. Gurpreet Stewart MD Department of Neurosurgery [facility] This note was partially generated using [employer] voice recognition system, and there may be some incorrect words, spellings, and punctuation that were not noted in checking the note before saving. Referring Provider: GURPREET STEWART [[id number]] Allergies As of Date: 09/01/2022 Noted Allergy Reaction MORPHINE 07/11/2016 11 - Vomiting 16 - Unknown PREDNISONE 06/04/2013 8 - GI Upset Tayo (more content not included)... Normal [facility] XR CERVICAL 2V AP/LATon 11- XR CERVICAL 2V AP/LAT * * *Final Report* * * DATE OF EXAM: Sep 01 2022 12:31PM AKX [id number] - XR CERVICAL 2V AP/LAT / PROCEDURE REASON: Post-operative pain * * * * Physician Interpretation * * * * EXAM: CERVICAL SPINE, 2 VIEWS CLINICAL: 71-year-old female postfusion TECHNIQUE: AP, lateral, COMPARISON: 08/20/2022 RESULTS: Counting reference: Craniocervical junction.. Status post C2-T2 posterior fusion with pedicle screw and deb. Laminectomy at C3-C7. Skin miguelito are present IMPRESSION: C2-T2 POSTERIOR FUSION WITH LAMINECTOMY AT C3-C7 UNCHANGED COMPARED TO PREVIOUS EXAM Case Monitor: PSCB Transcribe Date/Time: Sep 03 2022 2:22P Dictated by : VIKTOR CASTREJON MD This examination was interpreted and the report reviewed and electronically signed by: VIKTOR CASTREJON MD on Sep 03 2022 2:23PM EST [id number] N [facility] JAS[facility] HUTCHINSON ([id number]) 1950 F Date Time Provider Department 08/24/22 GURPREET STEWART NEAGCLM During your visit today, we recorded the following information about you: Linnea Martinez RN 08/24/2022 10:26 AM Signed Left patient a VM regarding her upcoming appointment with Dr. Stewart. Patient will need to have her x-rays done prior to appointment 09/01/2022. Gave patient a number to reach back out to our office. Will attempt to contact patient again at a later time. Linnea Martinez RN Allergies As of Date: 08/24/2022 Noted Allergy Reaction MORPHINE 07/11/2016 11 - Vomiting 16 - Unknown PREDNISONE 06/04/2013 8 - GI Upset Date Reviewed: 08/22/2022 Reviewed by: Sara Hinkle RN - Fully Assessed Reason for Visit: Orders [681] Appointment [186] Prescriptions as of 08/24/2022 - oxyCODONE-acetaminoph en (PERCOCET) 5-325 mg tablet Take 1 tablet by mouth every 6 hours as needed (acute post operative pain) for up to 3 days. - methocarbamol (ROBAXIN) 750 mg tablet Take 1 tablet by mouth three times daily for 7 days. - ondansetron (ZOFRAN) 4 mg tablet Take 1 tablet by mouth every 8 hours as needed for nausea/vomiting for up to 3 days. - docusate sodium (COLACE) 100 mg capsule Take 1 capsule by mouth twice daily for 7 days. - polyethylene glycol 3350 (MIRALAX, GLYCOLAX) 17 gram packet Take 1 Packet by mouth once daily for 7 days. Dissolve dose in 4 - 8 ounces of liquid and take as directed. - bisacodyl (DULCOLAX) 10 mg supp 1 Suppository by RECTAL route as needed for constipation for up to 7 days. - metoprolol succinate ER (TOPROL XL) 50 mg 24 hr tablet Take 1 tablet by mouth twice daily. - atorvastatin (LIPITOR) 20 mg tablet Take 20 mg by mouth once daily. - ubidecarenone Q-10 10 mg cap Take by mouth twice daily. - ergocalciferol(VITAMI N D 400 UNIT CAP) 2000iu per day - MULTIVITAMIN TAB Take one(1) tablet daily. - CALCIUM 600 1,500 MG TAB Take one(1) tablet two(2) times daily. Problem List As Of Date 08/24/2022 Noted Resolved OSTEOPENIA [M89.9, M94.9] Other and unspecified hyperlipidemia [E78.5] 01/25/2006 Bicuspid aortic valve [Q23.1] 06/06/2013 Cervical stenosis of spinal canal [M48.02] 08/19/2022 Encounter Status:Closed by LINNEA MARTINEZ on 08/24/22 [facility] CNPN Telephone (NEAGCLM) JASMIN HUTCHINSON ([id number]) 1950 F Date Time Provider Department 08/24/22 GURPREET STEWART NEAGCLM During your visit today, we recorded the following information about you: Linnea Martinez RN 08/24/2022 4:18 PM Signed Spoke with patient's regarding xray orders to be completed prior to her upcoming appt. He stated that they could have these done before her appt. Let him know that these could be done at any outpatient [facility] Radiology center. Offered to give him the address to a [facility] radiology department close to their house. He asked if they could have the scans done the same day before her appointment at the hospital. Let him know that the x-rays could be completed with [facility] Radiology Department prior to the patient's appointment, but they would have to arrive 30-40 minutes before her appointment to have them done. Let him know that the information desk could direct them to radiology where these xrays could be completed. Patient's verbalized understanding. Encouraged him to call our office with any further questions or concerns. Linnea Martinez RN Allergies As of Date: 08/24/2022 Noted Allergy Reaction MORPHINE 07/11/2016 11 - Vomiting 16 - Unknown PREDNISONE 06/04/2013 8 - GI Upset Date Reviewed: 08/22/2022 Reviewed by: Sara Hinkle RN - Fully Assessed Reason for Visit: Orders [681] Appointment [186] Prescriptions as of 08/24/2022 - oxyCODONE-acetaminoph en (PERCOCET) 5-325 mg tablet Take 1 tablet by mouth every 6 hours as needed (acute post operative pain) for up to 3 days. - methocarbamol (ROBAXIN) 750 mg tablet Take 1 tablet by mouth three times daily for 7 days. - ondansetron (ZOFRAN) 4 mg tablet Take 1 tablet by mouth every 8 hours as needed for nausea/vomiting for up to 3 days. - docusate sodium (COLACE) 100 mg capsule Take 1 capsule by mouth twice daily for 7 days. - polyethylene glycol 3350 (MIRALAX, GLYCOLAX) 17 gram packet Take 1 Packet by mouth once daily for 7 days. Dissolve dose in 4 - 8 ounces of liquid and take as directed. - bisacodyl (DULCOLAX) 10 mg supp 1 Suppository by RECTAL route as needed for constipation for up to 7 days. - metoprolol succinate ER (TOPROL XL) 50 mg 24 hr tablet Take 1 tablet by mouth twice daily. - atorvastatin (LIPITOR) 20 mg tablet Take 20 mg by mouth once daily. - ubidecarenone Q-10 10 mg cap Take by mouth twice daily. - ergocalciferol(VITAMI N D 400 UNIT CAP) 2000iu per day - MULTIVITAMIN TAB Take one(1) tablet daily. - CALCIUM 600 1,500 MG TAB Take one(1) tablet two(2) times daily. Problem List As Of Date 08/24/2022 Noted Resolved OSTEOPENIA [M89.9, M94.9] Other and unspecified hyperlipidemia [E78.5] 01/25/2006 Bicuspid aortic valve [Q23.1] 06/06/2013 Cervical stenosis of spinal canal [M48.02] 08/19/2022 Encounter Status:Closed by LINNEA MARTINEZ on 08/24/22 [facility] 08-23-2022 [facility] HNO ID: [id number] Author: Malena Lugo PA-C Service: Neurosurgery Author Type: Physician Business Services Specialist Sales Type: Discharge Summary Filed: 08/23/2022 12:47 PM Note Text: Attestation signed by Gurpreet Stewart MD at 08/23/2022 5:06 PM I agree with the documentation below. DISCHARGE SUMMARY PATIENT NAME: Jasmin Hutchinson Code Status: Not on file ADMISSION DATE: 08/19/2022 DISCHARGE DATE: August 23, 2022 Highest Readmission Risk Score: 6 The 30 day readmissions risk score is derived from an internally validated risk model which evaluates patient level characteristics, utilization history, medication orders and lab results up until the day of discharge. Patients with a score of 40 or above are considered highest risk for readmission. Specific patient level drivers will be listed at the bottom of the summary. REASON FOR HOSPITALIZATION: elective spine surgery DIAGNOSIS: Principal Problem: Cervical stenosis of spinal canal POA: Yes Resolved Problems: * No resolved hospital problems. * HOSPITAL COURSE: you had surgery as planned without complication. You were then taken to recovery and ultimately to 9100 for excellent nursing care, pain control and therapy. You did very well with your recovery. Prior to discharge you were ambulating with therapy, voiding without issue and tolerating your diet. Your pain was well controlled and you were found to be stable for discharge home. CONSULTING TEAMS DURING HOSPITALIZATION: Anesthesia, hospital medicine, PT/OT PATIENT CONDITION AT DISCHARGE: Stable DISCHARGE DISPOSITION: Home with Relative PHYSICAL EXAM: GENERAL: No distress, Alert NEURO: oriented x 3, EOMI, makes eye contact, speech is fluent and clear, JENKINS, 5/5 in LUE, 4/5 in RUE, 5/5 in BLE. improved sensation in hands b/l HEENT: face symmetric, normocephalic, atraumatic NECK/BACK: wound is clean, dry, and intact. +miguelito present LUNGS: Unlabored breathing CARDIAC: Regular rate and rhythm as above EXTREMITIES: JENKINS, No deformities, No edema INFORMATION PROVIDED TO PATIENT: see D/C instructions ALLERGIES No Known Allergies DISCHARGE MEDICATION: Current Discharge Medication List START taking these medications oxyCODONE-acetaminoph en (PERCOCET) 1 tablet Take 1 tablet by mouth every 6 hours as needed (acute post operative pain). Qty: 12 tablet Refills: 0 Associated Diagnoses:Cervical stenosis of spinal canal; Acute post-operative pain methocarbamol (ROBAXIN) 750 mg Take 750 mg by mouth three times daily. Qty: 21 tablet Refills: 0 ondansetron (ZOFRAN) 4 mg Take 4 mg by mouth every 8 hours as needed for nausea/vomiting. Qty: 9 tablet Refills: 0 docusate sodium (COLACE) 100 mg Take 100 mg by mouth twice daily. Qty: 14 capsule Refills: 0 polyethylene glycol 3350 (MIRALAX, GLYCOLAX) 17 g Take 17 g by mouth once daily. class=HTML_[id number]> Dissolve dose in 4 - 8 ounces of liquid and take as directed. Qty: 7 Packet Refills: 0 bisacodyl (DULCOLAX) 10 mg 10 mg by RECTAL route as needed for constipation. Qty: 7 Suppository Refills: 0 CONTINUE these medications which have CHANGED metoprolol succinate ER (TOPROL XL) 50 mg Take 50 mg by mouth twice daily. Qty: 60 tablet Refills: 0 CONTINUE these medications which have NOT CHANGED atorvastatin (LIPITOR) 20 mg Take 20 mg by mouth once daily. ubidecarenone Q-10 10 mg cap Take by mouth twice daily. ergocalciferol(VITAMI N D 400 UNIT CAP) 2000iu per day Refills: 0 MULTIVITAMIN TAB Take one(1) tablet daily. Refills: 0 CALCIUM 600 1,500 MG TAB Take one(1) tablet two(2) times daily. Refills: 0 STOP taking these medications aspirin 81 mg Comments: Reason for Stopping: OMEGA 3 550 MG CAP Comments: Reason for Stopping: I evaluated the patient, and have reviewed their diagnosis and clinical course. They were evaluated for non-narcotic pain medications as the sole course of therapy, and were not a candidate. I find the opiate prescribed upon discharge, although greater than a 30 morphine equivalent dose and/or greater than a one week duration, is an appropriate dose for this patient. FUTURE APPOINTMENTS: Dr Stewart in 2 weeks at Physician Office Building (located at [facility]) [place] [address] [facility] [place] You can call to confirm appointment time or location at [phone] Follow-up with your PCP in 7 days to check your blood pressure TIME OF CARE: Discharge Management: I personally spent greater than 30 minutes involved in the discharge management of this patient. SIGNATURE: Malena Lugo PA-C PAGER/CONTACT #: [phone] DATE: August 23, 2022 TIME: 10:57 AM Normal [facility] THERAPY NTon 08-23-2022 THERAPY NT HNO ID: [id number] Author: Phil Arevalo PTA Service: Physical Therapy Author Type: Door To Door Selling Agent Type: Therapy (PT/OT/Speech/Resp) Filed: 08/23/2022 9:58 AM Note Text: Attestation signed by Edilson Francis PT at 08/23/2022 3:36 PM I reviewed and agree with the documentation corresponding to this therapy visit. SIGNATURE: Edilson Francis, PT DATE: August 23, 2022 TIME: 3:36 PM Physical Therapy Treatment SERVICE DATE: 08/23/2022 SERVICE TIME: 924 to 949 ROOM: [id number] Recommended Discharge Disposition: Home PT Recommended Discharge Disposition Comments: Anticipate with improved pain control patient will progress mobility to be able to return to home with family assistance as needed. Will continue to follow and update discharge recommendations as appropriate. Anticipated Discharge Needs: Physical Assist at Home Physical Assist at Home for: Laundry;Cleaning;Stai rs;Self Care;Shopping;Transpo rtation PT 6 Clicks Score: 20 Patient with improved gait distances this session, able to negotiate 4 steps with rails. Continues to require contact to minimal assist for safe mobility. Recommend 24 hour assist at home. continue to recommend home PT to improve strength, ROM, balance,endurance, normalize gait pattern and improved safety and performance in the home back to prior level of function. Precautions/Activity Restrictions: Bed/Chair Alarm;Spine Precaution/Activity Restriction Comments: does not require cervical collar due to posterior fusion, per [facility] Current Hospital Course: s/p C3-T1 Posterior Cervical Decompression and Fusion on 08/19 Reason for Hospital Admission: cervical spine surgery Relevant Past Medical History: cervical spondylosis, heart valve replacement 2015 Response to Therapy Interventions: Good participation in activities, Improved tolerance for activity, Notable progression with functional activities/skills, On-track to achieve discharge goals Continue skilled needs due to: Functional mobility/skill impairments, Safety concerns Physical Therapy Problem List: Education Deficit;Pain;Safety Deficits;Impaired Self Care;Decreased Activity Tolerance;Functional Mobility Impairment;Balance Impaired Treatment Interventions: Education;Self Care / Home Management;Strengthen ing;Functional Mobility Training;Balance Training;Neuromuscula r Re-education Plan for next visit: Bed mobility, Chair transfer training, Fall prevention, Gait training, Exercise instruction/handout, Sit to Stand Transfers, Stairs training, Standing Balance, Standing Tolerance Home Environment Patient Lives With: Spouse Assistance Available: 24-Hour Entry To Home: Stairs;With Rail Number Of Stairs Into Home: 3 Number Of Stairs To Bed/Bath: 0 Tub/Shower Type: tub shower and walk in shower Laundry: spouse can complete Equipment Owned: [place]-Shower;Wheeled Walker Prior Functional Level: Within Functional Limits Prior Functional Level Comments: patient reports independent without devices at home, denied recent falls Baseline Cognition: Oriented to place;Oriented to self;Oriented to time Patient Report: agreeable to PT session, slight dizziness/nausea CURRENT FUNCTIONAL STATUS: Most recent performance mobility performed during session in bold, other mobility completed during prior session and may no longer be correct or appropriate to complete. Current Functional Mobility Assist Level Additional Information Rolling Supervision Supine to Sit Verbal Cues Only Sit to Supine Contact Guard Assistance Scooting Sit to Stand Contact Guard Assistance Stand to Sit Contact Guard Assistance Bed to Chair Minimal Assistance Toilet/Commode Gait Minimal Assistance Gait Device: Wheeled Walker Gait Distance (feet): 60'x2 Stairs Minimal Assistance;Additional Information Stairs Device: Rail (bilateral) Number of Stairs: 4 cuing for step to pattern, proper foot placement, patient however performed with reciprocal pattern Curb Step Car Transfer Blank young indicate activity not attempted General Deviations/Observatio ns: Yazmin decreased;Non-functio nal gait speed;Step length decreased Balance: Static Sitting;Dynamic Sitting;Static Standing;Dynamic Standing Static Sitting Balance: Good Patient able to maintain balance without handhold support, limited postural sway Dynamic Sitting Balance: Good Patient accepts moderate challenge, able to maintain balance while picking up object off floor Static Standing Balance: Fair Patient able to maintain balance with handhold support, may require occasional minimal assistance Dynamic Standing Balance: Fair Patient accepts minimal challenge, able to maintain balance while turning head/trunk -HLM: 7: Walk 25 feet or more Learning/Education (more content not included)... Normal [facility] Basic metabolic 2000 panelon 08-22-2022 Anion gap [Moles/Vol] 12 mmol/L Normal 9-18 [facility] Comment on above: Order Comment: Speci men Type: BLOOD SPECIMENOrdering Facility: [facility] Address: [address] [place] [address] Performed By: #### 2 4321-2 ####[facility] LABORATORYCLIA [id number] [place] [address] [place] Calcium [Mass/Vol] 9.1 mg/dL Normal 8.5-10.2 [facility] Comment on above: Order Comment: Speci men Type: BLOOD SPECIMENOrdering Facility: [facility] Address: [address] [place] [address] Performed By: #### 2 4321-2 ####[facility] LABORATORYCLIA [id number] [place] [address] [place] Chloride [Moles/Vol] 101 mmol/L Normal 97-105 [facility] Comment on above: Order Comment: Speci men Type: BLOOD SPECIMENOrdering Facility: [facility] Address: [address] [place] [address] Performed By: #### 2 4321-2 ####[facility] LABORATORYCLIA [id number] [place] [address] [place] CO2 [Moles/Vol] 25 mmol/L Normal 22-30 [facility] Comment on above: Order Comment: Speci men Type: BLOOD SPECIMENOrdering Facility: [facility] Address: [address] [place] [address] Performed By: #### 2 4321-2 ####[facility] LABORATORYCLIA [id number] [place] [address] [place] Creatinine [Mass/Vol] 0.53 mg/dL Low 0.58-0.96 [facility] Comment on above: Order Comment: Speci men Type: BLOOD SPECIMENOrdering Facility: [facility] Address: [address] [place] [address] Performed By: #### 2 4321-2 ####[facility] [id number] [place] [id number] [place] ESTIMATED GLOMERULAR FILTRATION RATE 100 mL/min/1.73m??? Normal >=60 [facility] Comment on above: Order Comment: Kevyn basurto Type: BLOOD SPECIMENOrdering Facility: [facility] Address: [address] [place] [address] Result Comment: Ramila mated Glomerular Filtration Rate (eGFR) is calculated using the 2020 CKD-EPI creatinine equation. This equation utilizes serum creatinine, sex, and age as parameters. The creatinine assay has traceable calibration to isotope dilution-mass spectrometry. Refer to KDIGO guidelines for clinical interpretation. In patients with unstable renal function, e.g. those with acute kidney injury, the eGFR may not accurately reflect actual GFR. Performed By: #### 2 4321-2 ####[facility] [id number] [place] [address] [place] Glucose [Mass/Vol] 95 mg/dL Normal 74-99 [facility] Comment on above: Order Comment: Kevyn basurto Type: BLOOD SPECIMENOrdering Facility: [facility] Address: [address] [place] [address] Result Comment: The [place] [employer] (ADA) provides guidance for cutoff values for fasting glucose and random glucose. The ADA defines fasting as no caloric intake for at least 8 hours. Fasting plasma glucose results between 100 to 125 mg/dL indicate increased risk for diabetes (prediabetes). Fasting plasma glucose results greater than or equal to 126 mg/dL meet the criteria for diagnosis of diabetes. In the absence of unequivocal hyperglycemia, results should be confirmed by repeat testing. In a patient with classic symptoms of hyperglycemia or hyperglycemic crisis, random plasma glucose results greater than or equal to 200 mg/dL meet the criteria for diagnosis of diabetes. Reference: Standards of Medical Care in Diabetes 2016, [place] [employer]. Diabetes Care. 2016.39(Suppl 1). Performed By: #### 2 4321-2 ####[facility] LABORATORYCLIA [id number] [place] [address] [place] Potassium [Moles/Vol] 3.7 mmol/L Normal 3.7-5.1 [facility] Comment on above: Order Comment: Speci men Type: BLOOD SPECIMENOrdering Facility: [facility] Address: [address] [place] [place] [address] Performed By: #### 2 4321-2 ####[facility] LABORATORYCLIA [id number] [place] [address] [place] Sodium [Moles/Vol] 138 mmol/L Normal 136-144 [facility] Comment on above: Order Comment: Speci men Type: BLOOD SPECIMENOrdering Facility: [facility] Address: [address] [place] [address] Performed By: #### 2 4321-2 ####[facility] LABORATORYCLIA [id number] [place] [address] [place] Urea nitrogen [Mass/Vol] 7 mg/dL Normal 7-21 [facility] Comment on above: Order Comment: Speci men Type: BLOOD SPECIMENOrdering Facility: [facility] Address: [address] [place] [address] Performed By: #### 2 4321-2 ####[facility] LABORATORYCLIA [id number] [place] [address] [place] CBC W Auto Differential pane l (Bld)on 08-22-2022 Basophils (Bld) [#/Vol] 0.05 10*3/uL Normal <0.11 [facility] Comment on above: Order Comment: Speci men Type: BLOOD SPECIMENOrdering Facility: [facility] Address: [address] [place] [address] Performed By: #### 5 7021-8 ####[facility] LABORATORYCLIA [id number] [address] [place] Basophils/100 WBC (Bld) 0.4 % Normal [facility] Comment on above: Order Comment: Speci men Type: BLOOD SPECIMENOrdering Facility: [facility] Address: [address] [place], [place] [id number] Performed By: #### 5 7021-8 ####[facility]ATORYCLIA [id number] [address] Differential cell count method Nom (Bld) Auto Normal [facility] Comment on above: Order Comment: Speci men Type: BLOOD SPECIMENOrdering Facility: [facility] Address: [address] [place] [address] Performed By: #### 5 7021-8 ####[facility]ORATORYCLIA [id number] [address] Eosinophils (Bld) [#/Vol] 0.22 10*3/uL Normal <0.46 [facility] Comment on above: Order Comment: Speci men Type: BLOOD SPECIMENOrdering Facility: [facility] Address: [address] [place] [address] Performed By: #### 5 7021-8 ####[facility] LABORATORYCLIA [id number] [address] Eosinophils/100 WBC (Bld) 2.0 % Normal [facility] Comment on above: Order Comment: Speci men Type: BLOOD SPECIMENOrdering Facility: [facility] Address: [address] [place] [address] Performed By: #### 5 7021-8 ####[facility] LABORATORYCLIA [id number] [address] Erythrocyte distribution width (RBC) [Ratio] 12.7 % Normal 11.5-15.0 [facility] Comment on above: Order Comment: Speci men Type: BLOOD SPECIMENOrdering Facility: [facility] Address: [address] [place] [address] Performed By: #### 5 7021-8 ####[facility]ORATORYCLIA [id number] [address] [place] Hematocrit (Bld) [Volume fraction] 37.3 % Normal 36.0-46.0 [facility] Comment on above: Order Comment: Speci men Type: BLOOD SPECIMENOrdering Facility: [facility] Address: [address] [place] [address] Performed By: #### 5 7021-8 ####[facility] LABORATORYCLIA [id number] [address] [place] Hemoglobin (Bld) [Mass/Vol] 12.5 g/dL Normal 11.5-15.5 [facility] Comment on above: Order Comment: Speci men Type: BLOOD SPECIMENOrdering Facility: [facility] Address: [address] [place] [address] Performed By: #### 5 7021-8 ####[facility] LABORATORYCLIA [id number] [address] [place] Immature granulocytes (Bld) [#/Vol] 0.06 10*3/uL Normal <0.10 [facility] Comment on above: Order Comment: Speci men Type: BLOOD SPECIMENOrdering Facility: [facility] Address: [address] [place] [address] Performed By: #### 5 7021-8 ####[facility] LABORATORYCLIA [id number] [address] Immature granulocytes/100 WBC (Bld) 0.5 % Normal [facility] Comment on above: Order Comment: Speci men Type: BLOOD SPECIMENOrdering Facility: [facility] Address: [address] [place] [address] Performed By: #### 5 7021-8 ####[facility] LABORATORYCLIA [id number] [address] [place] Lymphocytes (Bld) [#/Vol] 1.52 10*3/uL Normal 1.00-4.00 [facility] Comment on above: Order Comment: Speci men Type: BLOOD SPECIMENOrdering Facility: [facility] Address: [address] [place] [address] Performed By: #### 5 7021-8 ####[facility]ORATORYCLIA [id number] [address] [place] Lymphocytes/100 WBC (Bld) 13.7 % Normal [facility] Comment on above: Order Comment: Speci men Type: BLOOD SPECIMENOrdering Facility: [facility] Address: [address] [place] [address] Performed By: #### 5 7021-8 ####[facility] LABORATORYCLIA [id number] [address] STATES [facility] MCH (RBC) [Entitic mass] 30.0 pg Normal 26.0-34.0 [facility] Comment on above: Order Comment: Speci men Type: BLOOD SPECIMENOrdering Facility: [facility] Address: [address] [place] [address] Performed By: #### 5 7021-8 ####[facility] LABORATORYCLIA [id number] [address] STATES OF [facility] MCHC (RBC) [Mass/Vol] 33.5 g/dL Normal 30.5-36.0 [facility] Comment on above: Order Comment: Speci men Type: BLOOD SPECIMENOrdering Facility: [facility] Address: [address] [place] [address] Performed By: #### 5 7021-8 ####[facility]ORATORYCLIA [id number] [address] MCV (RBC) [Entitic vol] 89.7 fL Normal 80.0-100.0 [facility] Comment on above: Order Comment: Speci men Type: BLOOD SPECIMENOrdering Facility: [facility] Address: [address] [place] [address] Performed By: #### 5 7021-8 ####[facility]ORATORYCLIA [id number] [address] Monocytes (Bld) [#/Vol] 1.01 10*3/uL High <0.87 [facility] Comment on above: Order Comment: Speci men Type: BLOOD SPECIMENOrdering Facility: [facility] Address: [address] [place] [address] Performed By: #### 5 7021-8 ####[facility]ORATORYCLIA [id number] [address] [place] Monocytes/100 WBC (Bld) 9.1 % Normal [facility] Comment on above: Order Comment: Speci men Type: BLOOD SPECIMENOrdering Facility: [facility] Address: [address] [place] [address] Performed By: #### 5 7021-8 ####[facility]ATORYCLIA [id number] [address] [place] Neutrophils (Bld) [#/Vol] 8.27 10*3/uL High 1.45-7.50 [facility] Comment on above: Order Comment: Speci men Type: BLOOD SPECIMENOrdering Facility: [facility] Address: [address] [place] [address] Performed By: #### 5 7021-8 ####[facility]ORYCLIA [id number] [address] Neutrophils/100 WBC (Bld) 74.3 % Normal [facility] Comment on above: Order Comment: Speci men Type: BLOOD SPECIMENOrdering Facility: [facility] Address: [address] [place] [address] Performed By: #### 5 7021-8 ####[facility]ORATORYCLIA [id number] [address] [place] Nucleated RBC (Bld) [#/Vol] 10*3/uL Normal <0.01 [facility] Comment on above: Order Comment: Speci men Type: BLOOD SPECIMENOrdering Facility: [facility] Address: [address] [place] [address] Performed By: #### 5 7021-8 ####[facility]ATORYCLIA [id number] [address] [place] Nucleated RBC/100 WBC (Bld) [Ratio] 0.0 /100 WBC Normal [facility] Comment on above: Order Comment: Speci men Type: BLOOD SPECIMENOrdering Facility: [facility] Address: [address] Performed By: #### 5 7021-8 ####[facility] LABORATORYCLIA [id number] [address] STATES [facility] Platelet mean volume (Bld) [Entitic vol] 9.4 fL Normal 9.0-12.7 [facility] Comment on above: Order Comment: Speci men Type: BLOOD SPECIMENOrdering Facility: [facility] Address: [address] [place] [address] Performed By: #### 5 7021-8 ####[facility]ORATORYCLIA [id number] [address] OF [facility] Platelets (Bld) [#/Vol] 213 10*3/uL Normal 150-400 [facility] Comment on above: Order Comment: Speci men Type: BLOOD SPECIMENOrdering Facility: [facility] Address: [address] [place] [address] Performed By: #### 5 7021-8 ####[facility]ORATORYCLIA [id number] [address] [place] RBC (Bld) [#/Vol] 4.16 10*6/uL Normal 3.90-5.20 [facility] Comment on above: Order Comment: Speci men Type: BLOOD SPECIMENOrdering Facility: [facility] Address: [address] [place] [address] Performed By: #### 5 7021-8 ####[facility]ORATORYCLIA [id number] [address] [place] WBC (Bld) [#/Vol] 11.13 10*3/uL High 3.70-11.00 [facility] Comment on above: Order Comment: Speci men Type: BLOOD SPECIMENOrdering Facility: [facility] Address: [address] [place] [address] Performed By: #### 5 7021-8 ####[facility] LABORATORYCLIA [id number] [place] [address] [place] Basic metabolic 2000 panelon 08-21-2022 Anion gap [Moles/Vol] 10 mmol/L Normal 9-18 [facility] Comment on above: Order Comment: Speci men Type: BLOOD SPECIMENOrdering Facility: [facility] Address: [address] [place] [address] Performed By: #### 2 4321-2 ####[facility] LABORATORYCLIA [id number] [place] [address] [place] Calcium [Mass/Vol] 8.6 mg/dL Normal 8.5-10.2 [facility] Comment on above: Order Comment: Speci men Type: BLOOD SPECIMENOrdering Facility: [facility] Address: [address] [place] [address] Performed By: #### 2 4321-2 ####[facility]ATORYCLIA [id number] [place] [address] [place] Chloride [Moles/Vol] 105 mmol/L Normal 97-105 [facility] Comment on above: Order Comment: Speci men Type: BLOOD SPECIMENOrdering Facility: [facility] Address: [address] [place] [address] Performed By: #### 2 4321-2 ####[facility]ATORYCLIA [id number] [place] [address] [place] CO2 [Moles/Vol] 23 mmol/L Normal 22-30 [facility] Comment on above: Order Comment: Speci men Type: BLOOD SPECIMENOrdering Facility: [facility] Address: [address] [place] [address] Performed By: #### 2 4321-2 ####[facility] LABORATORYCLIA [id number] [place] [address] [place] Creatinine [Mass/Vol] 0.59 mg/dL Normal 0.58-0.96 [facility] Comment on above: Order Comment: Speci men Type: BLOOD SPECIMENOrdering Facility: [facility] Address: [address] [place] [address] Performed By: #### 2 4321-2 ####[facility] LABORATORYCLIA [id number] [place] [address] [place] ESTIMATED GLOMERULAR FILTRATION RATE 98 mL/min/1.73m??? Normal >=60 [facility] Comment on above: Order Comment: Kevyn basurto Type: BLOOD SPECIMENOrdering Facility: [facility] Address: [address] [place] [address] Result Comment: Ramila mated Glomerular Filtration Rate (eGFR) is calculated using the 2020 CKD-EPI creatinine equation. This equation utilizes serum creatinine, sex, and age as parameters. The creatinine assay has traceable calibration to isotope dilution-mass spectrometry. Refer to KDIGO guidelines for clinical interpretation. In patients with unstable renal function, e.g. those with acute kidney injury, the eGFR may not accurately reflect actual GFR. Performed By: #### 2 4321-2 ####[facility] [id number] [place] [address] [place] Glucose [Mass/Vol] 99 mg/dL Normal 74-99 [facility] Comment on above: Order Comment: Specenrique basurto Type: BLOOD SPECIMENOrdering Facility: [facility] Address: [address] [place] [address] Result Comment: The [place] [employer] (ADA) provides guidance for cutoff values for fasting glucose and random glucose. The ADA defines fasting as no caloric intake for at least 8 hours. Fasting plasma glucose results between 100 to 125 mg/dL indicate increased risk for diabetes (prediabetes). Fasting plasma glucose results greater than or equal to 126 mg/dL meet the criteria for diagnosis of diabetes. In the absence of unequivocal hyperglycemia, results should be confirmed by repeat testing. In a patient with classic symptoms of hyperglycemia or hyperglycemic crisis, random plasma glucose results greater than or equal to 200 mg/dL meet the criteria for diagnosis of diabetes. Reference: Standards of Medical Care in Diabetes 2016, [place] [employer]. Diabetes Care. 2016.39(Suppl 1). Performed By: #### 2 4321-2 ####[facility] LABORATORYCLIA [id number] [place] [address] [place] Potassium [Moles/Vol] 4.2 mmol/L Normal 3.7-5.1 [facility] Comment on above: Order Comment: Speci men Type: BLOOD SPECIMENOrdering Facility: [facility] Address: [address] [place] [address] Performed By: #### 2 4321-2 ####[facility]ORATORYCLIA [id number] [place] [address] [place] Sodium [Moles/Vol] 138 mmol/L Normal 136-144 [facility] Comment on above: Order Comment: Speci men Type: BLOOD SPECIMENOrdering Facility: [facility] Address: [address] [place] [address] Performed By: #### 2 4321-2 ####[facility]ORATORYCLIA [id number] [address] [place] Urea nitrogen [Mass/Vol] 10 mg/dL Normal 7-21 [facility] Comment on above: Order Comment: Speci men Type: BLOOD SPECIMENOrdering Facility: [facility] Address: [address] [place] [address] Performed By: #### 2 4321-2 ####[facility]ORATORYCLIA [id number] [address] [place] CBC W Auto Differential pane l (Bld)on 08-21-2022 Basophils (Bld) [#/Vol] 0.03 10*3/uL Normal <0.11 [facility] Comment on above: Order Comment: Speci men Type: BLOOD SPECIMENOrdering Facility: [facility] Address: [address] [place] [address] Performed By: #### 5 7021-8 ####[facility]ORATORYCLIA [id number] [address] [place] Basophils/100 WBC (Bld) 0.2 % Normal [facility] Comment on above: Order Comment: Speci men Type: BLOOD SPECIMENOrdering Facility: [facility] Address: [address] [place] [address] Performed By: #### 5 7021-8 ####[facility]ORATORYCLIA [id number] [address] OF [facility] Differential cell count method Nom (Bld) Auto Normal [facility] Comment on above: Order Comment: Speci men Type: BLOOD SPECIMENOrdering Facility: [facility] Address: [address] [place] [address] Performed By: #### 5 7021-8 ####[facility]ORATORYCLIA [id number] [address] [place] Eosinophils (Bld) [#/Vol] 10*3/uL Normal <0.46 [facility] Comment on above: Order Comment: Speci men Type: BLOOD SPECIMENOrdering Facility: [facility] Address: [address] [place] [address] Performed By: #### 5 7021-8 ####[facility] LABORATORYCLIA [id number] [address] Eosinophils/100 WBC (Bld) 0.1 % Normal [facility] Comment on above: Order Comment: Speci men Type: BLOOD SPECIMENOrdering Facility: [facility] Address: [address] [place] [address] Performed By: #### 5 7021-8 ####[facility] LABORATORYCLIA [id number] [address] Erythrocyte distribution width (RBC) [Ratio] 12.8 % Normal 11.5-15.0 [facility] Comment on above: Order Comment: Speci men Type: BLOOD SPECIMENOrdering Facility: [facility] Address: [address] [place] [address] Performed By: #### 5 7021-8 ####[facility] LABORATORYCLIA [id number] [address] Hematocrit (Bld) [Volume fraction] 38.6 % Normal 36.0-46.0 [facility] Comment on above: Order Comment: Speci men Type: BLOOD SPECIMENOrdering Facility: [facility] Address: [address] [place] [address] Performed By: #### 5 7021-8 ####[facility] LABORATORYCLIA [id number] [place] [address] [place] Hemoglobin (Bld) [Mass/Vol] 13.0 g/dL Normal 11.5-15.5 [facility] Comment on above: Order Comment: Speci men Type: BLOOD SPECIMENOrdering Facility: [facility] Address: [address] [place] [address] Performed By: #### 5 7021-8 ####[facility] LABORATORYCLIA [id number] [place] [address] [place] Immature granulocytes (Bld) [#/Vol] 0.06 10*3/uL Normal <0.10 [facility] Comment on above: Order Comment: Speci men Type: BLOOD SPECIMENOrdering Facility: [facility] Address: [address] [place] [address] Performed By: #### 5 7021-8 ####[facility] LABORATORYCLIA [id number] [address] [place] Immature granulocytes/100 WBC (Bld) 0.4 % Normal [facility] Comment on above: Order Comment: Speci men Type: BLOOD SPECIMENOrdering Facility: [facility] Address: [address] [place] [address] Performed By: #### 5 7021-8 ####[facility] LABORATORYCLIA [id number] [place] [address] [place] Lymphocytes (Bld) [#/Vol] 2.02 10*3/uL Normal 1.00-4.00 [facility] Comment on above: Order Comment: Speci men Type: BLOOD SPECIMENOrdering Facility: [facility] Address: [address] [place] [address] Performed By: #### 5 7021-8 ####[facility]ORATORYCLIA [id number] [address] [place] Lymphocytes/100 WBC (Bld) 15.1 % Normal [facility] Comment on above: Order Comment: Speci men Type: BLOOD SPECIMENOrdering Facility: [facility] Address: [address] [address] Performed By: #### 5 7021-8 ####[facility]ORATORYCLIA [id number] [address] MCH (RBC) [Entitic mass] 30.2 pg Normal 26.0-34.0 [facility] Comment on above: Order Comment: Speci men Type: BLOOD SPECIMENOrdering Facility: [facility] Address: [address] [place] [address] Performed By: #### 5 7021-8 ####[facility]ORATORYCLIA [id number] [address] MCHC (RBC) [Mass/Vol] 33.7 g/dL Normal 30.5-36.0 [facility] Comment on above: Order Comment: Speci men Type: BLOOD SPECIMENOrdering Facility: [facility] Address: [address] [place] [address] Performed By: #### 5 7021-8 ####[facility] LABORATORYCLIA [id number] [address] STATES OF [facility] MCV (RBC) [Entitic vol] 89.6 fL Normal 80.0-100.0 [facility] Comment on above: Order Comment: Speci men Type: BLOOD SPECIMENOrdering Facility: [facility] Address: [address] [place] [address] Performed By: #### 5 7021-8 ####[facility]ATORYCLIA [id number] [address] Monocytes (Bld) [#/Vol] 1.10 10*3/uL High <0.87 [facility] Comment on above: Order Comment: Speci men Type: BLOOD SPECIMENOrdering Facility: [facility] Address: [address] [place] [address] Performed By: #### 5 7021-8 ####[facility]ATORYCLIA [id number] [address] Monocytes/100 WBC (Bld) 8.2 % Normal [facility] Comment on above: Order Comment: Speci men Type: BLOOD SPECIMENOrdering Facility: [facility] Address: [address] [place] [address] Performed By: #### 5 7021-8 ####[facility]ATORYCLIA [id number] [place] [address] [place] Neutrophils (Bld) [#/Vol] 10.18 10*3/uL High 1.45-7.50 [facility] Comment on above: Order Comment: Speci men Type: BLOOD SPECIMENOrdering Facility: [facility] Address: [address] [place] [address] Performed By: #### 5 7021-8 ####[facility]ATORYCLIA [id number] [place] [address] [place] Neutrophils/100 WBC (Bld) 76.0 % Normal [facility] Comment on above: Order Comment: Speci men Type: BLOOD SPECIMENOrdering Facility: [facility] Address: [address] [place] [address] Performed By: #### 5 7021-8 ####[facility]ATORYCLIA [id number] [place] [address] [place] Nucleated RBC (Bld) [#/Vol] 10*3/uL Normal <0.01 [facility] Comment on above: Order Comment: Speci men Type: BLOOD SPECIMENOrdering Facility: [facility] Address: [address] [place] [address] Performed By: #### 5 7021-8 ####[facility]ATORYCLIA [id number] [place] [address] [place] Nucleated RBC/100 WBC (Bld) [Ratio] 0.0 /100 WBC Normal [facility] Comment on above: Order Comment: Speci men Type: BLOOD SPECIMENOrdering Facility: [facility] Address: [address] [place] [address] Performed By: #### 5 7021-8 ####[facility]ATORYCLIA [id number] [address] [place] Platelet mean volume (Bld) [Entitic vol] 9.4 fL Normal 9.0-12.7 [facility] Comment on above: Order Comment: Speci men Type: BLOOD SPECIMENOrdering Facility: [facility] Address: [address] [place] [address] Performed By: #### 5 7021-8 ####[facility]ORATORYCLIA [id number] [address] OF [facility] Platelets (Bld) [#/Vol] 224 10*3/uL Normal 150-400 [facility] Comment on above: Order Comment: Speci men Type: BLOOD SPECIMENOrdering Facility: [facility] Address: [address] [place] [address] Performed By: #### 5 7021-8 ####[facility]ORATORYCLIA [id number] [address] RBC (Bld) [#/Vol] 4.31 10*6/uL Normal 3.90-5.20 [facility] Comment on above: Order Comment: Speci men Type: BLOOD SPECIMENOrdering Facility: [facility] Address: [address] [place] [address] Performed By: #### 5 7021-8 ####[facility] LABORATORYCLIA [id number] [address] [place] WBC (Bld) [#/Vol] 13.41 10*3/uL High 3.70-11.00 [facility] Comment on above: Order Comment: Speci men Type: BLOOD SPECIMENOrdering Facility: [facility] Address: [address] [place] [address] Performed By: #### 5 7021-8 ####[facility]ORATORYCLIA [id number] [address] THERAPY NTon 08-21-2022 THERAPY NT HNO ID: [id number] Author: Susan Shah PT Service: Physical Therapy Author Type: Physical Therapist Type: Therapy (PT/OT/Speech/Resp) Filed: 08/21/2022 12:26 PM Note Text: Physical Therapy Treatment SERVICE DATE: 08/21/2022 SERVICE TIME: 832 ROOM: [id number] Recommended Discharge Disposition: Home PT Recommended Discharge Disposition Comments: Anticipate with improved pain control patient will progress mobility to be able to return to home with family assistance as needed. Will continue to follow and update discharge recommendations as appropriate. Anticipated Discharge Needs: Physical Assist at Home Physical Assist at Home for: Laundry;Cleaning;Stai rs;Self Care;Shopping;Transpo rtation PT 6 Clicks Score: 16 Patient significantly limited by nausea at this time, demonstrating good functional strength when rolling in bed for change of linens due to urinary incontinence however further mobility deferred at this time due to nausea. Bedside RN aware. Continue to anticipate that once patient improves medically, so will her mobility with goal remaining for discharge to home. Will continue to follow to progress mobility and update discharge recommendations as appropriate. Additional personnel present: Lynne Hannon Precautions/Activity Restrictions: Bed/Chair Alarm;Spine Precaution/Activity Restriction Comments: does not require cervical collar due to posterior fusion, per Neuro[facility] Current Hospital Course: s/p C3-T1 Posterior Cervical Decompression and Fusion on 08/19 Reason for Hospital Admission: cervical spine surgery Relevant Past Medical History: cervical spondylosis, heart valve replacement 2015 Response to Therapy Interventions: (nausea) Continue skilled needs due to: Functional mobility/skill impairments, Safety concerns Physical Therapy Problem List: Education Deficit;Pain;Safety Deficits;Impaired Self Care;Decreased Activity Tolerance;Functional Mobility Impairment;Balance Impaired Treatment Interventions: Education;Self Care / Home Management;Strengthen ing;Functional Mobility Training;Balance Training;Neuromuscula r Re-education Plan for next visit: Bed mobility, Exercise instruction/handout, Gait training, Sit to Stand Transfers, Standing Tolerance, Chair transfer training Home Environment Patient Lives With: Spouse Assistance Available: 24-Hour Entry To Home: Stairs;With Rail Number Of Stairs Into Home: 3 Number Of Stairs To Bed/Bath: 0 Tub/Shower Type: tub shower and walk in shower Laundry: spouse can complete Equipment Owned: Grab Bars-Shower;Wheeled Walker Prior Functional Level: Within Functional Limits Prior Functional Level Comments: patient reports independent without devices at home, denied recent falls Baseline Cognition: Oriented to place;Oriented to self;Oriented to time Patient Report: pleasant, noted feeling very nauseated and not up to getting up CURRENT FUNCTIONAL STATUS: Most recent performance, mobility performed during session in bold, other mobility completed during prior session and may no longer be correct or appropriate to complete. Current Functional Mobility Assist Level Additional Information Rolling Supervision;Additiona l Information patient's bed linens soiled with urine, cues for rolling side to side for change of whole bed linens. cues for patient to push through BLEs to boost herself up in bed Supine to Sit Minimal Assistance;Additional Information Sit to Supine Contact Guard Assistance Scooting Sit to Stand (deferred due to dizziness) Stand to Sit Bed to Chair Toilet/Commode Gait Stairs Curb Step Car Transfer Blank young indicate activity not attempted Balance: Static Sitting Static Sitting Balance: Good Patient able to maintain balance without handhold support, limited postural sway Activity Tolerance: Sitting Activity Sitting Activity: edge of bed Sitting Activity Tolerance (in minutes): 2 JH-HLM: 2: Bed activities / dependent transfer Learning/Educational Needs: Discharge Plan;Disease Process;Equipment;Fam milton Education/Training;Fu nctional Activities/Mobility;P ain Management;Plan of Care;Precautions;PT In-Hospital Exercise Program;Rehabilitatio n Techniques and Procedures;Safety Goals for Plan of Care: Patient /Caregiver Goals: Go Home;Care For Self Rolling with: Independent Transfer supine to/from sit with: Supervision Transfer sit to/from stand with: Independent Ambulate with: Supervision Distance: 150 Device: Wheeled Walker;No Device Ambulate up and down steps with: Contact Guard Assistance Number of steps: 3 Device: Rail Transfer: Patient will stand-pivot transfer with independence Goal: Patient will teach back 3/3 spinal precautions Progress Toward Goals: Progressing as expected Rehab Potential: Good Patient will be discontinued from Physical Therapy when no further skilled needs are identified in this setting. PLAN: PT Frequency: 6 (more content not included)... Normal [facility] ALLIED HEALTHon 08-20-2022 ALLIED HEALTH HNO ID: [id number] Author: Clayton Roberts RT(R) Service: Radiology Author Type: Technologist Type: Allied Health Filed: 08/20/2022 10:37 AM Note Text: Radiology Service Progress Note PATIENT NAME: Jasmin Hutchinson DATE OF SERVICE: August 20, 2022 TIME: 10:36 AM PATIENT IDENTITY VERIFICATION COMPLETED USING TWO (2) IDENTIFIERS: Name and Date of confirmed by identification band. FALL SCREENING: Has the patient had 2 falls in the last year or 1 fall with injury or currently using an Ambulatory Assistive Device (Walker, Cane, Wheelchair, Crutches, etc.)? Inpatient: Screened on floor PATIENT GENDER DATA: Female. status: : No status: NO. PATIENT RELEVANT IMPLANT DATA REVIEWED: Not Applicable RADIOLOGY DEPARTMENT: General X-ray: Exam(s) Completed: Spine X-Ray(s): Cervical AP / LAT PERIPHERAL IV DATA: Not applicable SIGNED BY: RT Lorenzo(R) August 20, 2022 10:36 AM Normal [facility] Bacteria Ur Culton 2 Bacteria identified Cx Nom (U) CULTURE, URINE: No growth (<1,000 CFU/ml) Normal [facility] Comment on above: Performed By: #### 6 30-4 #### [facility] CLIA [id number] [address] [place] [address] [place] Basic metabolic 2000 panelon 08-20-2022 Anion gap [Moles/Vol] 13 mmol/L Normal 9-18 [facility] Comment on above: Order Comment: Speci men Type: BLOOD SPECIMENOrdering Facility: [facility] Address: [address] [place] [address] Performed By: #### 2 4321-2 ####[facility]ATORYCLIA [id number] [place] [address] [place] Calcium [Mass/Vol] 8.9 mg/dL Normal 8.5-10.2 [facility] Comment on above: Order Comment: Speci men Type: BLOOD SPECIMENOrdering Facility: [facility] Address: [address] [place] [address] Performed By: #### 2 4321-2 ####[facility]ATORYCLIA [id number] [place] [address] [place] Chloride [Moles/Vol] 98 mmol/L Normal 97-105 [facility] Comment on above: Order Comment: Speci men Type: BLOOD SPECIMENOrdering Facility: [facility] Address: [address] [place] [address] Performed By: #### 2 4321-2 ####[facility]ATORYCLIA [id number] [place] [address] [place] CO2 [Moles/Vol] 23 mmol/L Normal 22-30 [facility] Comment on above: Order Comment: Speci men Type: BLOOD SPECIMENOrdering Facility: [facility] Address: [address] [place] [address] Performed By: #### 2 4321-2 ####[facility]ATORYCLIA [id number] [address] [place] Creatinine [Mass/Vol] 0.58 mg/dL Normal 0.58-0.96 [facility] Comment on above: Order Comment: Speci men Type: BLOOD SPECIMENOrdering Facility: [facility] Address: [address] [place] [address] Performed By: #### 2 4321-2 ####[facility]ORATORYCLIA [id number] [address] OF [facility] ESTIMATED GLOMERULAR FILTRATION RATE 98 mL/min/1.73m??? Normal >=60 [facility] Comment on above: Order Comment: Speci men Type: BLOOD SPECIMENOrdering Facility: [facility] Address: [address] [place] [address] Result Comment: Ramila mated Glomerular Filtration Rate (eGFR) is calculated using the 2020 CKD-EPI creatinine equation. This equation utilizes serum creatinine, sex, and age as parameters. The creatinine assay has traceable calibration to isotope dilution-mass spectrometry. Refer to KDIGO guidelines for clinical interpretation. In patients with unstable renal function, e.g. those with acute kidney injury, the eGFR may not accurately reflect actual GFR. Performed By: #### 2 4321-2 ####[facility]ATORYCLIA [id number] [address] [place] Glucose [Mass/Vol] 129 mg/dL High 74-99 [facility] Comment on above: Order Comment: Kevyn basurto Type: BLOOD SPECIMENOrdering Facility: [facility] Address: [address] [place] [address] Result Comment: The [place] [employer] (ADA) provides guidance for cutoff values for fasting glucose and random glucose. The ADA defines fasting as no caloric intake for at least 8 hours. Fasting plasma glucose results between 100 to 125 mg/dL indicate increased risk for diabetes (prediabetes). Fasting plasma glucose results greater than or equal to 126 mg/dL meet the criteria for diagnosis of diabetes. In the absence of unequivocal hyperglycemia, results should be confirmed by repeat testing. In a patient with classic symptoms of hyperglycemia or hyperglycemic crisis, random plasma glucose results greater than or equal to 200 mg/dL meet the criteria for diagnosis of diabetes. Reference: Standards of Medical Care in Diabetes 2016, [place] [employer]. Diabetes Care. 2016.39(Suppl 1). Performed By: #### 2 4321-2 ####[facility]ORATORYCLIA [id number] [place] [address] [place] Potassium [Moles/Vol] 4.4 mmol/L Normal 3.7-5.1 [facility] Comment on above: Order Comment: Kevyn sherine Type: BLOOD SPECIMENOrdering Facility: [facility] Address: [address] [place] [address] Performed By: #### 2 4321-2 ####[facility]ORATORYCLIA [id number] [place] [address] [place] Sodium [Moles/Vol] 134 mmol/L Low 136-144 [facility] Comment on above: Order Comment: Kevyn men Type: BLOOD SPECIMENOrdering Facility: [facility] Address: [address] [place] [address] Performed By: #### 2 4321-2 ####[facility]ORATORYCLIA [id number] [place] [address] [place] Urea nitrogen [Mass/Vol] 11 mg/dL Normal 7-21 [facility] Comment on above: Order Comment: Kevyn sherine Type: BLOOD SPECIMENOrdering Facility: [facility] Address: [address] [place] [address] Performed By: #### 2 4321-2 ####[facility]ORATORYCLIA [id number] [address] CBC panel Auto (Bld)on 08-20 Erythrocyte distribution width (RBC) [Ratio] 12.6 % Normal 11.5-15.0 [facility] Comment on above: Order Comment: Speci men Type: BLOOD SPECIMENOrdering Facility: [facility] Address: [address] [place] [address] Performed By: #### 5 8410-2 ####[facility]ORATORYCLIA [id number] [address] Hematocrit (Bld) [Volume fraction] 37.2 % Normal 36.0-46.0 [facility] Comment on above: Order Comment: Speci men Type: BLOOD SPECIMENOrdering Facility: [facility] Address: [address] [place] [address] Performed By: #### 5 8410-2 ####[facility]ATORYCLIA [id number] [address] Hemoglobin (Bld) [Mass/Vol] 12.8 g/dL Normal 11.5-15.5 [facility] Comment on above: Order Comment: Speci men Type: BLOOD SPECIMENOrdering Facility: [facility] Address: [address] [place] [address] Performed By: #### 5 8410-2 ####[facility]ORATORYCLIA [id number] [address] MCH (RBC) [Entitic mass] 30.7 pg Normal 26.0-34.0 [facility] Comment on above: Order Comment: Speci men Type: BLOOD SPECIMENOrdering Facility: [facility] Address: [address] [place] [address] Performed By: #### 5 8410-2 ####[facility]ATORYCLIA [id number] [address] MCHC (RBC) [Mass/Vol] 34.4 g/dL Normal 30.5-36.0 [facility] Comment on above: Order Comment: Speci men Type: BLOOD SPECIMENOrdering Facility: [facility] Address: [address] [place] [address] Performed By: #### 5 8410-2 ####[facility]ATORYCLIA [id number] [address] MCV (RBC) [Entitic vol] 89.2 fL Normal 80.0-100.0 [facility] Comment on above: Order Comment: Speci men Type: BLOOD SPECIMENOrdering Facility: [facility] Address: [address] [place] [address] Performed By: #### 5 8410-2 ####[facility]ORATORYCLIA [id number] [address] OF [facility] Nucleated RBC (Bld) [#/Vol] 10*3/uL Normal <0.01 [facility] Comment on above: Order Comment: Speci men Type: BLOOD SPECIMENOrdering Facility: [facility] Address: [address] [address] Performed By: #### 5 8410-2 ####[facility]ATORYCLIA [id number] [address] Platelet mean volume (Bld) [Entitic vol] 9.3 fL Normal 9.0-12.7 [facility] Comment on above: Order Comment: Speci men Type: BLOOD SPECIMENOrdering Facility: [facility] Address: [address] [address] Performed By: #### 5 8410-2 ####[facility]ATORYCLIA [id number] [address] Platelets (Bld) [#/Vol] 263 10*3/uL Normal 150-400 [facility] Comment on above: Order Comment: Speci men Type: BLOOD SPECIMENOrdering Facility: [facility] Address: [address] [address] Performed By: #### 5 8410-2 ####[facility]ATORYCLIA [id number] [address] [place] RBC (Bld) [#/Vol] 4.17 10*6/uL Normal 3.90-5.20 [facility] Comment on above: Order Comment: Speci men Type: BLOOD SPECIMENOrdering Facility: [facility] Address: [address] [place] [address] Performed By: #### 5 8410-2 ####[facility]ATORYCLIA [id number] [address] WBC (Bld) [#/Vol] 19.68 10*3/uL High 3.70-11.00 [facility] Comment on above: Order Comment: Speci men Type: BLOOD SPECIMENOrdering Facility: [facility] Address: [address] [place] [address] Performed By: #### 5 8410-2 ####[facility]ATORYCLIA [id number] [address] CONSULTon 08-20-2022 CONSULT HNO ID: [id number] Author: Luis M Corrales DO Service: Hospital Medicine Author Type: Physician Type: Consults Filed: 08/20/2022 2:01 PM Note Text: DEPARTMENT OF HOSPITAL MEDICINE INITIAL CONSULT SERVICE DATE: 08/20/2022 SERVICE TIME: 999 Primary Care Physician: Nina Marroquin MD NIGHT AND WEEKEND COVERAGE: From 7am - 7pm, please call SOUND After 7pm, please call cross cover pager #[phone] REQUESTING PHYSICIAN: Dr. Stewart REASON FOR CONSULT: Hyponatremia, leukocytosis, HTN, HLD Subjective CHIEF COMPLAINT: neck pain HPI: This is a 71 year old female with PMH below presented with shoulder pain and R deltoid weakness for elective cervical decompression and fusion. She is POD#1 s/p C3-C7 decompression and fusion. She complains of some cervical pain but overall states i'm doing Ok. She is slightly confused but denies any CP, SOB, NVD, headache, fever/chills or abdominal pain. She is trying to eat breakfast, but not has much of an appetite and little oral intake. She has leukocytosis on CBC today. Denies diarrhea, fever, chills, cough, SOB, or chest pain. PAST MEDICAL HISTORY Diagnosis Date Bicuspid aortic valve s/p aortic valve replacement 2015 Cervical spondylosis without myelopathy Disorder of thyroid pt denies Heart murmur Mixed hyperlipidemia Osteopenia PAST SURGICAL HISTORY Procedure Laterality Date COLONOSCOPY FLX DX W/COLLJ SPEC WHEN PFRMD 06/25/2018 Colonoscopy HEART VALVE REPLACEMENT 09/16/2016 aortic valve replacement- pig valve FAMILY HISTORY Problem Relation Age of Onset Heart Mother [place] Hypertension Mother Obese other (Lung Cancer) Father Heart Sister Open Heart Surgery Social History Tobacco Use Smoking status: Never Smokeless tobacco: Never Vaping Use Vaping Use: Never used Substance Use Topics Alcohol use: No Drug use: No HOME MEDICATIONS: aspirin 81 mg chewable tablet, Take 81 mg by mouth once daily., Disp: , Rfl: , Past Week metoprolol succinate ER (TOPROL XL) 25 mg 24 hr tablet, Take 25 mg by mouth twice daily. , Disp: , Rfl: , 08/19/2022 at 0500 atorvastatin (LIPITOR) 20 mg tablet, Take 20 mg by mouth once daily., Disp: , Rfl: , 08/18/2022 ubidecarenone Q-10 10 mg cap, Take by mouth twice daily., Disp: , Rfl: , 08/18/2022 ergocalciferol(VITAMI N D 400 UNIT CAP), 2000iu per day, Disp: , Rfl: 0, 08/18/2022 OMEGA 3 550 MG CAP, Take one(1) tablet daily., Disp: , Rfl: 0, 08/18/2022 MULTIVITAMIN TAB, Take one(1) tablet daily., Disp: , Rfl: 0, 08/18/2022 CALCIUM 600 1,500 MG TAB, Take one(1) tablet two(2) times daily. , Disp: , Rfl: 0, 08/18/2022 Current Facility-Administered Medications Medication Dose Route Frequency atorvastatin 20 mg tab(s) (LIPITOR) 20 mg ORAL DAILY metoprolol succinate ER 25 mg tab(s) (TOPROL XL) 25 mg ORAL BID sodium chloride 0.9 % (flush) 3-5 mL (BD POSIFLUSH) 3-5 mL INTRAVENOUS q 12 H NaCl 0.9% iv flush bag 20 mL INTRAVENOUS PRN NaCl 0.45% iv infusion 100 mL/hr INTRAVENOUS CONTINUOUS oxyCODONE-acetaminoph en 5-325 mg 1-2 tablet (PERCOCET) 1-2 tablet ORAL q 4 H PRN ondansetron 4 mg tab(s) (ZOFRAN) 4 mg ORAL q 6 H PRN Or ondansetron (PF) 4 mg injection (ZOFRAN) 4 mg INTRAVENOUS q 6 H PRN docusate sodium 100 mg cap(s) (COLACE) 100 mg ORAL BID polyethylene glycol 3350 17 g packet (MIRALAX, GLYCOLAX) 17 g ORAL DAILY bisacodyl 10 mg suppository (DULCOLAX) 10 mg RECTAL DAILY PRN acetaminophen 325-650 mg tab(s) (TYLENOL) 325-650 mg ORAL q 4 H PRN methocarbamol 750 mg tab(s) (ROBAXIN) 750 mg ORAL TID HYDROmorphone VISITING NURSE 0.5 mg/mL in NaCl 0.9% 100 mL INTRAVENOUS CONTINUOUS ALLERGIES Allergen Reactions Morphine Vomiting, Unknown Prednisone GI Upset REVIEW OF SYSTEM: All ROS are negative except those noted in HPI Objective PHYSICAL EXAM: BP 147/90 Pulse 82 Temp (Src) 99.1 (Oral) Resp 18 Ht 5' 3 (1.60m) Wt 124 lb 1.9 oz (56.3kg) SpO2 97% BMI 21.99 kg/(m2). O2 Therapy: Room Air GENERAL: AANDOx2, NAD SKIN: Warm, dry intact, no open lesions, no rashs HEAD/SINUSES: Normocephalic, atraumatic, oral mucosa moist EYES: PERRLA, EOMI NECK: No jugulovenous distention, Supple, no adenopathy LUNGS: no wheezes, ronchi, or rales CARDIAC: RRR, S1 and S2; no rubs, murmurs, or gallops ABDOMEN: Abdomen soft, non-tender, BS normal, No masses or organomegaly EXTREMITIES: no clubbing, cyanosis or edema NEURO: Sensation grossly intact, Cranial nerves II-XII intact, moves all 4 extremities, speech was clear and coherent - no chronic casas DATA: Diagnostic tests reviewed for today's visit: Most recent labs and imaging results. CBC: Recent Labs 08/20/22 0340 WBC 19.68* RBC 4.17 HB 12.8 HCT 37.2 PLT 263 MCV 89.2 MCH 30.7 MPV 9.3 Coags: No results for input(s): PT, INR, APTT in the last 24 hours. BMP: Recent Labs 08/20/22 0340 NA 134* K 4.4 CHLOR 98 CO2 23 BUN 11 CREAT 0.58 GLUC 129* CMP: Recent Labs 08/20/22 0340 (more content not included)... Normal [facility] NURSING PROGon 08-20-2022 NURSING PROG HNO ID: [id number] Author: Christine Collado, CASSANDRA Service: Nursing Author Type: Registered Nurse Type: Nursing Progress Note Filed: 08/21/2022 1:59 AM Note Text: Dilaudid VISITING NURSE pump was stopped at 1924 and 93.2 ml were wasted per protocol with Christine Collado, CASSANDRA and Tarsha Yates RN. Unable to document a miscellaneous waste per pharmacy's recommendation in the Pyxis. Kristian, nursing tnt line supervisor was notified, documentation was made under the MAR in [facility] and progress report has been completed. Normal [facility] NURSING PROG HNO ID: [id number] Author: Tonya Tavares RN Service: ? Author Type: Registered Nurse Type: Nursing Progress Note Filed: 08/19/2022 11:47 PM Note Text: Paged neurosurgery about pt having a stat xray of her cervical spine, but xray called and said it can't be done bedside because she is sitting upright d/t her surgery. Xay asked if she could be brought down for it, but I paged neurosurgery because I wasn't sure what to do. No response yet, but stat xray is still waiting to be done. Normal [facility] THERAPY NTon 08-20-2022 THERAPY NT HNO ID: [id number] Author: Susan Shah, PT Service: Physical Therapy Author Type: Physical Therapist Type: Therapy (PT/OT/Speech/Resp) Filed: 08/20/2022 3:06 PM Note Text: Physical Therapy Evaluation SERVICE DATE: 08/20/2022 SERVICE TIME: 1359 to 1419 ROOM: [place] [address] Recommended Discharge Disposition: Home PT Recommended Discharge Disposition Comments: Anticipate with improved pain control patient will progress mobility to be able to return to home with family assistance as needed. Will continue to follow and update discharge recommendations as appropriate. Anticipated Discharge Needs: Physical Assist at Home Physical Assist at Home for: Laundry;Cleaning;Stai rs;Self Care;Shopping;Transpo rtation PT 6 Clicks Score: 15 Limited mobility this session as patient limited by dizziness upon sitting and pain, blood pressure checked upon return to supine and 141/81 with improvement in dizziness. Will continue to follow to progress out of bed mobility and facilitate safe discharge plan. Precautions/Activity Restrictions: Bed/Chair Alarm;Spine Precaution/Activity Restriction Comments: does not require cervical collar due to posterior fusion, per Neurosx Current Hospital Course: s/p C3-T1 Posterior Cervical Decompression and Fusion on 08/19 Reason for Hospital Admission: cervical spine surgery Relevant Past Medical History: cervical spondylosis, heart valve replacement 2015 Response to Therapy Interventions: Low activity tolerance, Requires additional time to complete activities Continue skilled needs due to: Functional mobility/skill impairments, Safety concerns Physical Therapy Problem List: Education Deficit;Pain;Safety Deficits;Impaired Self Care;Decreased Activity Tolerance;Functional Mobility Impairment;Balance Impaired Treatment Interventions: Education;Self Care / Home Management;Strengthen ing;Functional Mobility Training;Balance Training;Neuromuscula r Re-education Plan for next visit: Bed mobility, Exercise instruction/handout, Gait training, Sit to Stand Transfers, Standing Tolerance, Chair transfer training Home Environment Patient Lives With: Spouse Assistance Available: 24-Hour Entry To Home: Stairs;With Rail Number Of Stairs Into Home: 3 Number Of Stairs To Bed/Bath: 0 Tub/Shower Type: tub shower and walk in shower Laundry: spouse can complete Equipment Owned: Grab Bars-Shower;Wheeled Walker Prior Functional Level: Within Functional Limits Prior Functional Level Comments: patient reports independent without devices at home, denied recent falls Baseline Cognition: Oriented to place;Oriented to self;Oriented to time Patient Report: agreeable to PT however noted feeling fatigued CURRENT FUNCTIONAL STATUS: Most recent performance Current Functional Mobility Assist Level Additional Information Rolling Supine to Sit Minimal Assistance;Additional Information cues for technique for spinal protection, will need further review. patient reported dizziness upon sitting, minimal improvement thus returned to supine Sit to Supine Contact Guard Assistance Scooting Sit to Stand (deferred due to dizziness) Stand to Sit Bed to Chair Toilet/Commode Gait Stairs Curb Step Car Transfer Blank young indicate activity not attempted Range of Motion: WFL Strength: Strength Limitation Comments Strength Limitation Comments: grossly WFL, limited assessment due to dizziness upon sitting Balance: Static Sitting Static Sitting Balance: Good Patient able to maintain balance without handhold support, limited postural sway Activity Tolerance: Sitting Activity Sitting Activity: edge of bed Sitting Activity Tolerance (in minutes): 2 JH-HLM: 3: Sit at edge of bed Learning/Educational Needs: Discharge Plan;Disease Process;Equipment;Fam milton Education/Training;Fu nctional Activities/Mobility;P ain Management;Plan of Care;Precautions;PT In-Hospital Exercise Program;Rehabilitatio n Techniques and Procedures;Safety Goals for Plan of Care: Patient /Caregiver Goals: Go Home;Care For Self Rolling with: Independent Transfer supine to/from sit with: Supervision Transfer sit to/from stand with: Independent Ambulate with: Supervision Distance: 150 Device: Wheeled Walker;No Device Ambulate up and down steps with: Contact Guard Assistance Number of steps: 3 Device: Rail Transfer: Patient will stand-pivot transfer with independence Goal: Patient will teach back 3/3 spinal precautions Rehab Potential: Good Patient will be discontinued from Physical Therapy when no further skilled needs are identified in this setting. PLAN: PT Frequency: 6 times per week (3-6) Plan of Care developed with: Patient TREATMENT INTERVENTIONS: Therapy Diagnosis: Difficulty walking-musculoskelet al;Reduced mobility-other Interventions Provided: Evaluation;Therapeuti c Activity (00375) $ Evaluation-Moderate (94494) Billed Units: 1 unit Educated on role of PT (more content not included)... Normal [facility] THERAPY NT HNO ID: [id number] Author: GEORGETTE Farias/Mayi Service: Occupational Therapy Author Type: Occupational Therapist Type: Therapy (PT/OT/Speech/Resp) Filed: 08/20/2022 10:29 AM Note Text: Occupational Therapy Evaluation SERVICE DATE: 08/20/2022 SERVICE TIME: 839 to 907 ROOM: [id number] Recommended Discharge Disposition: Home OT Recommended Discharge Disposition Comments: anticipate patient will make good progress while in hospital to return home with home OT and assist from spouse for iADLs Anticipated Discharge Needs: Physical Assist at Home Physical Assist at Home for: Laundry;Cleaning;Meal s;Shopping;Transporta tion Recommended Discharge Equipment: Wheeled Walker;Shower Chair OT 6 Clicks Score: 16 Precautions/Activity Restrictions: Bed/Chair Alarm;Spine Precaution/Activity Restriction Comments: does not require cervical collar due to posterior fusion, per Neurosx Current Hospital Course: s/p C3-T1 Posterior Cervical Decompression and Fusion Reason for Hospital Admission: cervical spine surgery Relevant Past Medical History: cervical spondylosis, heart valve replacement 2016 Response to Therapy Interventions: Good participation in activities Continue skilled needs due to: Functional impairment, Safety concerns Occupational Therapy Problem List: Safety Deficits;Impaired Self Care;Functional Mobility Impairment;Balance Impaired;Pain Cognition/Communicati on Deficits Responsiveness: Alert, Awake Follows Commands: 2-step Commands, Cueing Needed Cueing to Follow Commands: Minimum Executive Function Deficits: Safety Awareness, Insight to Deficits Insight to Deficits: Minimal impairment Safety Awareness Deficit: Minimal impairment Psychosocial Deficit: anxious Treatment Interventions: Education;Self Care / Home Management;Functional Mobility Training;Balance Training Plan for next visit: Bathing training, Dressing training Home Environment Patient Lives With: Spouse Assistance Available: 24-Hour Entry To Home: Stairs Number Of Stairs Into Home: 3 Number Of Stairs To Bed/Bath: 0 Tub/Shower Type: tub shower and walk in shower Laundry: spouse can complete Equipment Owned: (none) Prior Functional Level: Within Functional Limits Prior Functional Level Comments: patient reports independent without devices at home Baseline Cognition: Oriented to place;Oriented to self;Oriented to time Occupational Factors Life Roles: Spouse/Significant Other;Retired Identified Strengths: Good Support System;Access to Healthcare Identified Barriers: Difficulty with ADLs/IADLs;Access to Equipment/Resources Patient Report: pt pleasant and agreeable to OT, appears anxious, however motivated to get to chair CURRENT FUNCTIONAL STATUS: Most recent performance Current Activities of Daily Living Assist Level Additional Information Feeding Set Up Grooming Set Up Bathing Upper Body Minimal Assistance Bathing Lower Body Moderate Assistance Dressing Upper Body Minimal Assistance Dressing Lower Body Moderate Assistance Toileting Minimal Assistance Functional Mobility Assist Level Additional Information Rolling Supine to Sit Minimal Assistance Sit to Supine Scooting Sit to Stand Contact Guard Assistance Stand to Sit Contact Guard Assistance Bed to Chair Minimal Assistance Gait Belt Toilet/Commode Shower Functional Mobility Minimal Assistance Hand Held Assist Provided edu on spine precautions with teach back from patient. Provided patient with edu and min assist to perform log roll technique for bed mobility. Facilitated safe functional mobility with handheld assist within room from bed to chair. Patient would benefit from using wheeled walker for increased stability for mobility. Provided edu on how to perform LB dressing and car transfers safely. Provided setup for grooming ADLs in chair and for feeding activity. Blank young indicate activity not attempted Range of Motion: ROM Limitation Comments ROM Limitation Comments: not formally assessed due to cervical spine sx Strength: Strength Limitation Comments Strength Limitation Comments: not formally assessed due to cervical spine sx Balance: Dynamic Standing Dynamic Standing Balance: Fair Patient accepts minimal challenge, able to maintain balance while turning head/trunk Learning/Educational Needs: Discharge Plan;Plan of Care;Functional Activities/Mobility;E quipment;Precautions; Self Care;Safety Goals for Plan of Care: Patient/Caregiver Goals: Participate in meaningful activities Grooming with: Supervision Upper Body Bathing with: Supervision Upper Body Dressing with: Supervision Lower Body Bathing with: Stand By Assistance Lower Body Dressing with: Stand By Assistance Toilet Hygiene with: Supervision Chair Transfer with: Supervision Toilet Transfer with: Supervision Shower Transfer with: Stand By Assistance Car Transfer with: Stand By Assistance Demonstrate Competence W (more content not included)... Normal [facility] Urinalysis complete panel (U )on 08-20-2022 Bilirubin Ql (U) Negative Normal Negative [facility] Comment on above: Order Comment: Speci men Type: URINE SPECIMENOrdering Facility: [facility] Address: [address] [place] [address] Performed By: #### 2 4356-8 ####[facility] LABORATORYCLIA [id number] [address] [place] Clarity (Unsp spec) Clear Normal Clear [facility] Comment on above: Order Comment: Speci men Type: URINE SPECIMENOrdering Facility: [facility] Address: [address] [place] [address] Performed By: #### 2 4356-8 ####[facility] LABORATORYCLIA [id number] [address] [place] Color (U) Colorless Normal yellow [facility] Comment on above: Order Comment: Speci men Type: URINE SPECIMENOrdering Facility: [facility] Address: [address] [place] [address] Performed By: #### 2 4356-8 ####[facility] LABORATORYCLIA [id number] [address] Epithelial cells LM.HPF (Urine sed) [#/Area] Few Normal [facility] Comment on above: Order Comment: Speci men Type: URINE SPECIMENOrdering Facility: [facility] Address: [address] [place] [address] Result Comment: Few Performed By: #### 2 4356-8 ####[facility] LABORATORYCLIA [id number] [address] Glucose Test strip (U) [Mass/Vol] Negative Normal Negative [facility] Comment on above: Order Comment: Speci men Type: URINE SPECIMENOrdering Facility: [facility] Address: [address] [place] [address] Performed By: #### 2 4356-8 ####[facility] LABORATORYCLIA [id number] [address] Hemoglobin Ql (U) 1+ Abnormal Negative [facility] Comment on above: Order Comment: Speci men Type: URINE SPECIMENOrdering Facility: [facility] Address: [address] [place] [address] Performed By: #### 2 4356-8 ####[facility] LABORATORYCLIA [id number] [address] Ketones Ql (U) Trace Abnormal Negative [facility] Comment on above: Order Comment: Speci men Type: URINE SPECIMENOrdering Facility: [facility] Address: [address] [place] [address] Performed By: #### 2 4356-8 ####[facility]ATORYCLIA [id number] [address] Leukocyte esterase Test strip Ql (U) Negative Normal Negative [facility] Comment on above: Order Comment: Speci men Type: URINE SPECIMENOrdering Facility: [facility] Address: [address] [place] [address] Performed By: #### 2 4356-8 ####[facility] LABORATORYCLIA [id number] [address] [place] Nitrite Ql (U) Negative Normal Negative [facility] Comment on above: Order Comment: Speci men Type: URINE SPECIMENOrdering Facility: [facility] Address: [address] [place] [address] Performed By: #### 2 4356-8 ####[facility]ORATORYCLIA [id number] [address] [place] pH (U) 7.0 [pH] Normal 5.0-8.0 [facility] Comment on above: Order Comment: Speci men Type: URINE SPECIMENOrdering Facility: [facility] Address: [address] [place] [address] Performed By: #### 2 4356-8 ####[facility] WAY[facility]CLIA [id number] [address] Protein (U) [Mass/Vol] Negative Normal Negative [facility] Comment on above: Order Comment: Speci men Type: URINE SPECIMENOrdering Facility: [facility] Address: [address] [place] [address] Performed By: #### 2 4356-8 ####[facility]CLIA [id number] [address] [place] RBC LM.HPF (Urine sed) [#/Area] 11-25 /HPF Abnormal 0-3 /HPF [facility] Comment on above: Order Comment: Speci men Type: URINE SPECIMENOrdering Facility: [facility] Address: [address] [place] [address] Performed By: #### 2 4356-8 ####[facility] LABORATORYCLIA [id number] [address] Specific gravity (U) [Rel density] 1.006 Normal 1.005-1.030 [facility] Comment on above: Order Comment: Speci men Type: URINE SPECIMENOrdering Facility: [facility] Address: [address] [place] [address] Performed By: #### 2 4356-8 ####[facility] LABORATORYCLIA [id number] [address] Urobilinogen Ql (U) Normal Normal Negative [facility] Comment on above: Order Comment: Speci men Type: URINE SPECIMENOrdering Facility: [facility] Address: [address] [place] [address] Performed By: #### 2 4356-8 ####[facility]ORATORYCLIA [id number] [address] WBC LM.HPF (Urine sed) [#/Area] 0-5 /HPF Normal 0-5 /HPF [facility] Comment on above: Order Comment: Speci men Type: URINE SPECIMENOrdering Facility: [facility] Address: [address] [place] [address] Performed By: #### 2 4356-8 ####[facility] LABORATORYCLIA [id number] [address] XR CERVICAL 2V AP/LATon 11-0 XR CERVICAL 2V AP/LAT * * *Final Report* * * DATE OF EXAM: Aug 20 2022 10:41AM AKX [id number] - XR CERVICAL 2V AP/LAT / PROCEDURE REASON: Post-operative / post-procedure assessment, asymptomatic * * * * Physician Interpretation * * * * EXAM TITLE: XR CERVICAL 2V AP/LAT DATE: 08/20/2022 COMPARISON: Cervical spine CT 08/10/2022 CLINICAL INDICATION/HISTORY: Cervical spondylosis. Status post cervical fusion. TECHNIQUE: AP and lateral views of the cervical spine are presented. RESULT: Immediate postoperative changes following posterior fusion with bilateral facet screw fixation C2-C6. Bilateral pedicle screw fixation T1 and T2. Associated bridging vertical rods. Dorsal skin miguelito and soft tissue gas noted. Minimal C4-C5 anterolisthesis. Improved since preoperative exam. There is severe degenerative disc disease at C5-C6 and C6-C7. Posterior decompression C3-C6. Prevertebral soft tissues normal thickness. IMPRESSION: Immediate postoperative changes and degenerative changes of the cervical spine as noted. Intact surgical hardware. Case Monitor: [facility] Transcribe Date/Time: Aug 21 2022 8:19A Dictated by : PETER TRONCOSO MD This examination was interpreted and the report reviewed and electronically signed by: PETER TRONCOSO MD on Aug 21 2022 8:24AM EST [id number] Normal [facility] ALLIED HEALTHon 08-19-2022 ALLIED HEALTH HNO ID: [id number] Author: RT Jose(R) Service: Radiology Author Type: Technologist Type: Allied Health Filed: 08/19/2022 3:40 PM Note Text: Radiology Service Progress Note PATIENT NAME: Jasmin Hutchinson DATE OF SERVICE: August 19, 2022 TIME: 3:39 PM PATIENT IDENTITY VERIFICATION COMPLETED USING TWO (2) IDENTIFIERS: Name and Date of obtained from nurse in [facility].[place]. . FALL SCREENING: Has the patient had 2 falls in the last year or 1 fall with injury or currently using an Ambulatory Assistive Device (Walker, Cane, Wheelchair, Crutches, etc.)? Inpatient: Screened on floor PATIENT GENDER DATA: Female. status: : No status: NO. PATIENT RELEVANT IMPLANT DATA REVIEWED: Not Applicable RADIOLOGY DEPARTMENT: Surgical X-Ray: Intraoperative Cervical Spine 2V PERIPHERAL IV DATA: Not applicable SIGNED BY: RT Jose(R) August 19, 2022 3:39 PM Normal [facility] ANES POSTPROC EVALon 022 ANES POSTPROC EVAL HNO ID: [id number] Author: Xavier Yeager MD Service: Anesthesiology Author Type: Physician Type: Anesthesia Postprocedure Evaluation Filed: 08/19/2022 5:56 PM Note Text: POST ANESTHESIA EVALUATION NOTE : 1950 Procedure Summary Date: 08/19/22 Room / Location: [place] OR 08 / [place] OR Anesthesia Start: 957 Anesthesia Stop: 134 Procedures: C3-T1 Posterior Cervical Decompression and Fusion, possible adjacent levels (Spine Cervical) DECOMPRESSION LAMINECTOMY CERVICAL SPINAL OR LATERAL RECESS STENOSIS (Spine Cervical) DECOMPRESSION LAMINECTOMY 1ST ADD?L CERVICAL SEGMENT (Spine Cervical) DECOMPRESSION LAMINECTOMY 2ND ADD?L CERVICAL SEGMENT (Spine Cervical) DECOMPRESSION LAMINECTOMY 3RD ADD?L CERVICAL SEGMENT (Spine Cervical) FUSION CERVICAL, BELOW C2, SINGLE LEVEL (Spine Cervical) ARTHRODESIS CERVICAL BELOW C2, 2ND CERVICAL LEVEL (Spine Cervical) ARTHRODESIS CERVICAL BELOW C2, 3RD CERVICAL LEVEL (Spine Cervical) ARTHRODESIS CERVICAL BELOW C2, 4TH CERVICAL LEVEL (Spine Cervical) ARTHRODESIS CERVICAL BELOW C2, 5TH CERVICAL LEVEL (Spine Cervical) MIS INSERT SPINE FIXATION DEVICE 1 LEVEL (Spine Cervical) AUTOGRAFT FOR SPINE SURGERY ONLY, OBTAINED FROM SAME INCISION (Spine Cervical) ALLOGRAFT FOR SPINE SURGERY MORSELIZED (Spine Cervical) Diagnosis: Cervical spondylosis without myelopathy (Cervical spondylosis without myelopathy [M47.812]) Surgeons: Gurpreet Stewart MD Responsible Provider: Xavier Yeager MD Anesthesia Type: general ASA Status: 3 Anesthesia Type: general Airway Type: ETT Last Vitals Vitals Value Taken Time BP 150/75 08/19/22 1630 Temp 36.2 ?C (97.2 ?F) 08/19/22 1630 HR SpO2 74 08/19/22 1643 Resp 15 08/19/22 1643 SpO2 100 % 08/19/22 1643 Vitals shown include unvalidated device data. Post Anesthesia Patient Status Anticipated Disposition: inpatient floor planned admission. Neurological Status: aware and responsive. Pulmonary Status: breathing comfortably on room air Airway Control: returned to baseline unsupported. Cardiovascular Status: stable. Pain Management: clinically adequate Postoperative Hydration: acceptable. Intraoperative Events: no significant anesthesia events Post Operative Nausea/Vomiting Status: no significant post operative nausea or vomiting Anesthetic Observations: Recommendation: continue current plan of care and further care per PACU/ICU/floor team. Anesthesia Observations No Documentation SIGNATURE: Xavier Yeager MD PATIENT NAME: Jasmin Hutchinson DATE: August 19, 2022 TIME: 5:56 PM CSN: [id number] [facility] ANES PRE-OPon 08-19-2022 ANES PRE-OP HNO ID: [id number] Author: Dwight Yates DO Service: Anesthesiology Author Type: Physician Type: Anesthesia Preprocedure Evaluation Filed: 08/19/2022 9:07 AM Note Text: ANESTHESIOLOGY DAY OF SURGERY NOTE : 1950 Procedure Information Date/Time: 08/19/22 0940 Procedures: C3-T1 Posterior Cervical Decompression and Fusion, possible adjacent levels (Spine Cervical) DECOMPRESSION LAMINECTOMY CERVICAL SPINAL OR LATERAL RECESS STENOSIS (Spine Cervical) DECOMPRESSION LAMINECTOMY 1ST ADD?L CERVICAL SEGMENT (Spine Cervical) DECOMPRESSION LAMINECTOMY 2ND ADD?L CERVICAL SEGMENT (Spine Cervical) DECOMPRESSION LAMINECTOMY 3RD ADD?L CERVICAL SEGMENT (Spine Cervical) FUSION CERVICAL, BELOW C2, SINGLE LEVEL (Spine Cervical) ARTHRODESIS CERVICAL BELOW C2, 2ND CERVICAL LEVEL (Spine Cervical) ARTHRODESIS CERVICAL BELOW C2, 3RD CERVICAL LEVEL (Spine Cervical) ARTHRODESIS CERVICAL BELOW C2, 4TH CERVICAL LEVEL (Spine Cervical) ARTHRODESIS CERVICAL BELOW C2, 5TH CERVICAL LEVEL (Spine Cervical) MIS INSERT SPINE FIXATION DEVICE 1 LEVEL (Spine Cervical) AUTOGRAFT FOR SPINE SURGERY ONLY, OBTAINED FROM SAME INCISION (Spine Cervical) ALLOGRAFT FOR SPINE SURGERY MORSELIZED (Spine Cervical) Location: [place] [address] [place] [address] OR Surgeons: Gurpreet Stewart MD Estimated body mass index is 21.26 kg/m? as calculated from the following: Height as of 08/10/22: 160 cm (5' 3). Weight as of 08/10/22: 54.4 kg (120 lb). Most recent hematocrit and potassium results: Hematocrit 44.9 08/10/2022 Potassium 4.4 08/10/2022 Relevant Problems Cardiovascular (+) Bicuspid aortic valve I - PHYSICAL EVALUATION AIRWAY Patient intubated: No. Tracheostomy tube not present Mallampati: I. TM distance: >3 FB. Neck ROM: full ROM without neurological symptoms. Mouth opening: adequate. Short neck: no. Thick neck: no DENTAL Dental findings: teeth intact. Additional exam findings: yes. CARDIOVASCULAR Normal cardiovascular observations. PULMONARY Normal pulmonary observations. II - ANESTHESIA PLAN ASA Score: 3 Anesthetic Plan: general Airway type: ETT NPO Status: adequate Monitoring plan: standard ASA and invasive hemodynamic monitoring. Monitoring method: arterial Line Postoperative analgesic plan: parenteral or oral opioids and multimodal analgesia. Informed Consent Anesthetic risks, benefits, alternatives, personnel and consent discussed: yes. Patient / Responsible [employer] Party agrees to proceed: yes Patient / Surrogate agrees to blood products: Yes Significant changes in the patient condition since the History and Physical, not otherwise documented in primary service progress note: no. No vitals data found for the desired time range. Facility-Administered Medications as of 08/19/2022 Medication Dose Route Frequency - lactated ringers iv infusion 5-30 mL/hr INTRAVENOUS CONTINUOUS Outpatient Medications as of 08/19/2022 Medication Sig - metoprolol succinate ER (TOPROL XL) 25 mg 24 hr tablet Take 25 mg by mouth twice daily. - aspirin 81 mg chewable tablet Take 81 mg by mouth once daily. - atorvastatin (LIPITOR) 20 mg tablet Take 20 mg by mouth once daily. - ubidecarenone Q-10 10 mg cap Take by mouth twice daily. - ergocalciferol(VITAMI N D 400 UNIT CAP) 2000iu per day - OMEGA 3 550 MG CAP Take one(1) tablet daily. - MULTIVITAMIN TAB Take one(1) tablet daily. - CALCIUM 600 1,500 MG TAB Take one(1) tablet two(2) times daily. I have interviewed and examined the patient. I have reviewed the medical record and/or the pre-anesthesia evaluation, pertinent labs, and test results. This contains updated information obtained within 48 hours of Surgery/Procedure. SIGNATURE: Dwight Yates DO PATIENT NAME: Jasmin Hutchinson DATE: August 19, 2022 TIME: 9:07 AM CSN: [id number] Normal [facility] HISTORY PHYSICALon HISTORY PHYSICAL HNO ID: [id number] Author: Gurpreet Stewart MD Service: Neurosurgery Author Type: Physician Type: HANDP Filed: 08/19/2022 9:43 AM Note Text: HPI: In short, this is a 71-year-old female who presented to my clinic several weeks ago with several months of myeloradiculopathy. Her MRI of the cervical spine shows significant swan-neck deformity with stenosis at C4-5. She had right deltoid and bicep weakness. I counseled her on options including surgical management for which she agreed. Physical exam: She is awake alert oriented x3 Cranial nerves are grossly intact 3 out of 5 in the right deltoid, 4 out of 5 in the right bicep, full strength in all other extremities Positive left Dayday Able to ambulate without assistance Assessment and plan: Patient is to undergo a C3-T1 possible C2-T2 posterior cervical decompression and fusion. All the risk and benefits were explained. No guarantees were made. We will proceed with OR today. Normal [facility] NURSING PROGon 08-19-2022 NURSING PROG HNO ID: [id number] Author: Keily Serrato RN Service: Nursing Author Type: Registered Nurse Type: Nursing Progress Note Filed: 08/19/2022 4:24 PM Note Text: Other: Mariusz COMMISSARY ASSISTANT from Neurosurgery notified to clarify xray order. Per radiology not usually performed portable. Ok to send pt to the floor without xray complete. Normal [facility] OPERATIVE NOon 08-19-2022 OPERATIVE NO HNO ID: [id number] Author: Gurpreet Stewart MD Service: Neurosurgery Author Type: Physician Type: Operative Report Filed: 08/25/2022 9:12 AM Note Text: OPERATIVE/PROCEDURE REPORT LOG ID: [id number] SURGERY/PROCEDURE DATE: 08/19/2022 INCISION/PROCEDURE START TIME: 11:02 AM INCISION CLOSE/PROCEDURE END TIME: 1:18 PM SURGEON(S)/PROCEDURAL IST(S) AND MOBILITY DEVELOPER(S): Surgeon(s) and Role: * Gurpreet Stewart MD - Primary * Tarsha Alvarenga I, MD - Assisting No Additional Staff SURGERY/PROCEDURE(S): 1. C3 to C7 laminectomy, foraminotomies with decompression of spinal cord. 2. C3-C6 posterior lateral mass instrumentation with screws and rods 3. C2 pars instrumentation with screws and rods 4. T1-T2 pedicle instrumented fusion with screws and rods 5. C2-T2 posterior arthrodesis 6. Autograft and allograft morselized bone along with demineralized bone matrix putty 7. Fluoroscopic guidance for localization and instrumentation ANESTHESIA: General SURGERY/PROCEDURE DETAILS: Indications for the procedure: Ms. Hutchinson is a 71-year-old female who presented to outpatient clinic with signs and symptoms and radiographic evidence of myelopathy with bilateral neck pain and weakness in her right deltoid and biceps. Patient had exhausted conservative measures. Her MRI showed significant stenosis at C4-5 from anterolisthesis of C4 on C5 with cord signal change. The MRI of the cervical spine along with the CT of the cervical spine depicted a swan-neck deformity as well. Given the extent of her cervical deformity, the cord signal on the MRI, and her weakness in her extremities along with her other myelopathic symptoms we discussed proceeding with surgical intervention for correction of her deformity and decompression of her spinal cord. The patient and the family were well appraised of all the objectives, benefits, risks and potential complications of procedure, including but not limited to: Worsening of the current status, the need for further procedures, the risk of infection, headaches, CSF leak, possible spinal cord injury leading to paralysis, infection, hematoma, injury to major blood vessels causing hemorrhage, stroke, loss of language function, coma, and even . Description of the procedure: The patient was transferred to the operating room and perioperative prophylactic antibiotics were given. The patient was sedated and intubated without any difficulty by the anesthesia service. The eyes were taped shut after ointment was applied to prevent corneal abrasion. A [place] head clamp was applied. The patient was padded at all the pressure points. The patient was placed prone on a regular bed with gel rolls and secured in usual fashion. Important note that a Casas catheter and a buir hugger was placed as well. The hair around the suboccipital region was shaved with clippers. Operative technique: The patient alignment and incision were marked out using fluoroscopic guidance. After the incision was marked out from C2 down to T2 patient was prepped and draped in usual fashion. An appropriate timeout was executed. The incision was made with a 10 blade and deepened with a combination of a bipolar cautery and monopolar cautery. Once the muscle was reached self-retaining cerebellar retractors were placed. The midline raphae was followed down to the subperiosteal space. Once adequate exposure was obtained bipolar cautery was used for hemostasis and Gelpi retractors were placed. At this point in time it was thought that instrumentation would be ideal to begin. We began with placement of the T1 and T2 pedicle screws. High-speed drill was used to start the regional airline pilot hole and the trajectory was deepened with a hand-held gearshift down the 30. A feeler ball was used to inspect and make sure there was no breaches once this was confirmed 5.0 x 30 mm globus pedicle screws were placed bilaterally at T1 bilaterally at T2. We then turned our attention to placement of the lateral mass screws from C3 down to C6 skipping C7. Again the regional airline pilot holes were started with high-speed drill and deepened with a hand-held drill set to 14 mm. 3.5 mm x 14 mm globus lateral mass screws were placed bilaterally from C3 down to C6. We then placed our screws bilaterally at C2 both being 3.5 mm x 20 mm globus screws. Once adequate placement was confirmed with fluoroscopy, we turned our attention to decompression of the spinal cord from C3 down to C7. A combination of high-speed drill along with a 2 Kerrison rongeur was used to decompress the spinal cord from C3-C7. After adequate decompression and foraminotomies at each of those levels, Tono Adson was used to gently feel to ensure adequate nerve root decompression at each level from C3 down to C7, thus, ensuring adequate foraminotomies for each nerve root from C3-C7. This extensive decompression was to prevent cord drift and to allow for appropriate realignm (more content not included)... Normal [facility] TYPE + SCREENon 08-19-2022 ABO A Normal [facility] Comment on above: Order Comment: Speci men Type: BLOOD SPECIMEN [facility] Address: [address] [place] [address] Performed By: #### T SCR #### [facility] CLIA [id number] [address] [place] [address] HISTORICAL AB SCR STATUS Negative [facility] Comment on above: Order Comment: Speci men Type: BLOOD SPECIMEN Order[facility] Address: [address] [place] [address] Performed By: #### T SCR #### [facility] CLIA [id number] [address] [place] [address] Rh Nom (Bld) Positive [facility] Comment on above: Order Comment: Speci men Type: BLOOD SPECIMEN Order[facility] Address: [address] [place] [address] Performed By: #### T SCR #### [facility] CLIA [id number] TYPE AND SCREEN EXPIRATION 08/22/2022 23:59 [facility] Comment on above: Order Comment: Speci men Type: BLOOD SPECIMEN [facility] Address: [address] [place] [address] Performed By: #### T SCR #### [facility] CLIA [id number] [address] [place] [address] [place] XR CERVICAL 2V AP/LATon XR CERVICAL 2V AP/LAT * * *Final Report* * * DATE OF EXAM: Aug 19 2022 1:34PM DENISSE [id number] - XR CERVICAL 2V AP/LAT / PROCEDURE REASON: : C3-T1 Posterior Cervical Decompression and Fusion, possible adjacent levels * * * * Physician Interpretation * * * * EXAM TITLE: XR CERVICAL 2V AP/LAT DATE: 08/19/2022 COMPARISON: CT study 08/10/2022 CLINICAL INDICATION/HISTORY: Neck pain TECHNIQUE: Intraoperative fluoroscopy FINDINGS: 17 seconds of intraoperative fluoroscopy time utilized during cervical fusion. 3 intraoperative spot films of the cervical spine are submitted knee AP and lateral projections. Surgical retractors are in place. Multilevel transpedicular screws. No fracture. Mild spondylolisthesis at C4-5. Severe degenerative disc disease at C5-6. IMPRESSION: Intraoperative fluoroscopy provided during cervical fusion. Case Monitor: PSCB Transcribe Date/Time: Aug 30 2022 2:01P Dictated by : DELL KELLY MD This examination was interpreted and the report reviewed and electronically signed by: DELL KELLY MD on Aug 30 2022 2:07PM EST [id number] N [facility] JASMIN HUTCHINSON ([id number]) 1950 F Date Time Provider Department 08/16/22 GURPREET STEWART During your visit today, we recorded the following information about you: Linnea Martinez RN 08/16/2022 3:[address] Donahue's office (cardiology) and spoke with Ramon to request cardiac clearance be faxed over prior to patient's upcoming surgery 08/19/2022. Per Ramon, patient is cleared by their office and she has been trying to fax the clearance to us, but she does not think she has the correct fax number. Gave Ramon rosen fax number: [phone]. Ramon was appreciative. Requested my name and number in case she had any more questions or was not able to send fax. Information provided. Linnea Martinez RN Allergies As of Date: 08/16/2022 Noted Allergy Reaction MORPHINE 07/11/2016 11 - Vomiting 16 - Unknown PREDNISONE 06/04/2013 8 - GI Upset Date Reviewed: 08/10/2022 Reviewed by: Benny Saldivar APRN.ECONOMIC RESEARCH ASSISTANT - Fully Assessed Reason for Visit: Patient Update [1234] Prescriptions as of 08/16/2022 - aspirin 81 mg chewable tablet Take 81 mg by mouth once daily. - metoprolol succinate ER (TOPROL XL) 25 mg 24 hr tablet Take 25 mg by mouth twice daily. - atorvastatin (LIPITOR) 20 mg tablet Take 20 mg by mouth once daily. - ubidecarenone Q-10 10 mg cap Take by mouth twice daily. - ergocalciferol(VITAMI N D 400 UNIT CAP) 2000iu per day - OMEGA 3 550 MG CAP Take one(1) tablet daily. - MULTIVITAMIN TAB Take one(1) tablet daily. - CALCIUM 600 1,500 MG TAB Take one(1) tablet two(2) times daily. Problem List As Of Date 08/16/2022 Noted Resolved OSTEOPENIA [M89.9, M94.9] Other and unspecified hyperlipidemia [E78.5] 01/25/2006 Bicuspid aortic valve [Q23.1] 06/06/2013 Encounter Status:Closed by LINNEA MARTINEZ on 08/16/22 [facility] [place]itza 08-15-2022 [facility] Telephone ([facility]) JASMIN HUTCHINSON ([id number]) 1950 F Date Time Provider Department 08/15/22 GURPREET STEWART [facility] During your visit today, we recorded the following information about you: Linnea Martinez RN 08/15/2022 1:36 PM Signed Called patient regarding presurgical testing results. Patient UA showed some abnormal results, urine culture showed three or more urogenital jamil organisms. No predominating uropathogen. Let patient know that I did notify Talita Thao APRN, CNP of these results. After speaking with her, let patient know that the specimen was likely contaminated. WBCs were 8.64. Nitrites were negative on UA. Patient denied any fevers, chills, or other signs of infection. Let patient know that no further testing was indicated. Patient appreciated update. Patient did verify time of her surgery. Let patient know that surgery was scheduled for 0940 on Monday, August 19, 2022. She was to arrive at 0740. Patient appreciated update. Encouraged patient to notify our office with any questions or concerns. Linnea Martinez RN Allergies As of Date: 08/15/2022 Noted Allergy Reaction MORPHINE 07/11/2016 11 - Vomiting 16 - Unknown PREDNISONE 06/04/2013 8 - GI Upset Date Reviewed: 08/10/2022 Reviewed by: Benny Saldivar APRN.THANG - Fully Assessed Reason for Visit: Patient Update [1234] Prescriptions as of 08/15/2022 - aspirin 81 mg chewable tablet Take 81 mg by mouth once daily. - metoprolol succinate ER (TOPROL XL) 25 mg 24 hr tablet Take 25 mg by mouth twice daily. - atorvastatin (LIPITOR) 20 mg tablet Take 20 mg by mouth once daily. - ubidecarenone Q-10 10 mg cap Take by mouth twice daily. - ergocalciferol(VITAMI N D 400 UNIT CAP) 2000iu per day - OMEGA 3 550 MG CAP Take one(1) tablet daily. - MULTIVITAMIN TAB Take one(1) tablet daily. - CALCIUM 600 1,500 MG TAB Take one(1) tablet two(2) times daily. Problem List As Of Date 08/15/2022 Noted Resolved OSTEOPENIA [M89.9, M94.9] Other and unspecified hyperlipidemia [E78.5] 01/25/2006 Bicuspid aortic valve [Q23.1] 06/06/2013 Encounter Status:Closed by LINNEA MARTINEZ on 08/15/22 Normal [facility] Bacteria Ur Culton 2 Bacteria identified Cx Nom (U) CULTURE, URINE: Three or more urogenital jamil organisms. No predominating uropathogen. Recollect if clinically indicated. Normal [facility] Comment on above: Performed By: #### 6 30-4 ####[facility]ORY[facility]IA [id number] [address] OF [facility] CBC panel Auto (Bld)on 08-10 Erythrocyte distribution width (RBC) [Ratio] 12.7 % Normal 11.5-15.0 [facility] Comment on above: Order Comment: Speci men Type: BLOOD SPECIMENOrdering Facility: [facility] Address: [address] [place] [address] Performed By: #### 5 8410-2 ####[facility] LABORATORYCLIA [id number] [address] STATES OF [facility] Hematocrit (Bld) [Volume fraction] 44.9 % Normal 36.0-46.0 [facility] Comment on above: Order Comment: Speci men Type: BLOOD SPECIMENOrdering Facility: [facility] Address: [address] [place] [address] Performed By: #### 5 8410-2 ####[facility]ORATORYCLIA [id number] [address] [place] Hemoglobin (Bld) [Mass/Vol] 14.7 g/dL Normal 11.5-15.5 [facility] Comment on above: Order Comment: Speci men Type: BLOOD SPECIMENOrdering Facility: [facility] Address: [address] [place] [address] Performed By: #### 5 8410-2 ####[facility] LABORATORYCLIA [id number] [address] [place] MCH (RBC) [Entitic mass] 29.9 pg Normal 26.0-34.0 [facility] Comment on above: Order Comment: Speci men Type: BLOOD SPECIMENOrdering Facility: [facility] Address: [address] [place] [address] Performed By: #### 5 8410-2 ####[facility] LABORATORYCLIA [id number] [address] MCHC (RBC) [Mass/Vol] 32.7 g/dL Normal 30.5-36.0 [facility] Comment on above: Order Comment: Speci men Type: BLOOD SPECIMENOrdering Facility: [facility] Address: [address] [place] [address] Performed By: #### 5 8410-2 ####[facility] LABORATORYCLIA [id number] [address] [place] MCV (RBC) [Entitic vol] 91.4 fL Normal 80.0-100.0 [facility] Comment on above: Order Comment: Speci men Type: BLOOD SPECIMENOrdering Facility: [facility] Address: [address] [place] [address] Performed By: #### 5 8410-2 ####[facility] LABORATORYCLIA [id number] [address] Nucleated RBC (Bld) [#/Vol] 10*3/uL Normal <0.01 [facility] Comment on above: Order Comment: Speci men Type: BLOOD SPECIMENOrdering Facility: [facility] Address: [address] [place] [address] Performed By: #### 5 8410-2 ####[facility] LABORATORYCLIA [id number] [address] Platelet mean volume (Bld) [Entitic vol] 9.5 fL Normal 9.0-12.7 [facility] Comment on above: Order Comment: Speci men Type: BLOOD SPECIMENOrdering Facility: [facility] Address: [address] [place] [address] Performed By: #### 5 8410-2 ####[facility] LABORATORYCLIA [id number] [address] OF [facility] Platelets (Bld) [#/Vol] 336 10*3/uL Normal 150-400 [facility] Comment on above: Order Comment: Speci men Type: BLOOD SPECIMENOrdering Facility: [facility] Address: [address] [place] [address] Performed By: #### 5 8410-2 ####[facility] LABORATORYCLIA [id number] [address] [place] RBC (Bld) [#/Vol] 4.91 10*6/uL Normal 3.90-5.20 [facility] Comment on above: Order Comment: Speci men Type: BLOOD SPECIMENOrdering Facility: [facility] Address: [address] [place] [address] Performed By: #### 5 8410-2 ####[facility] LABORATORYCLIA [id number] [address] OF [facility] WBC (Bld) [#/Vol] 8.64 10*3/uL Normal 3.70-11.00 [facility] Comment on above: Order Comment: Speci men Type: BLOOD SPECIMENOrdering Facility: [facility] Address: [address] [place] [address] Performed By: #### 5 8410-2 ####[facility] LABORATORYCLIA [id number] [address] [place] BLOOD TYPEon 08-10-2 022 ABO A Normal [facility] Comment on above: Order Comment: Speci men Type: BLOOD SPECIMEN [facility] Address: [address] [place] [address] Performed By: #### C ONABO #### [facility] CLIA [id number] Rh Nom (Bld) Positive Normal [facility] Comment on above: Order Comment: Speci men Type: BLOOD SPECIMEN [facility] Address: [address] [place], [place] [id number] Performed By: #### C ONABO #### [facility] CLIA [id number] [place] [id number] [facility] CT CERVICAL SPINE WO IVCONon 08-10-2022 CT CERVICAL SPINE WO IVCON * * *Final Report* * * DATE OF EXAM: Aug 10 2022 11:29AM [facility] 0505 - CT CERVICAL SPINE WO IVCON / PROCEDURE REASON: Spinal stenosis in cervical region * * * * Physician Interpretation * * * * EXAMINATION: CT THORACIC SPINE WO IVCON, CT CERVICAL SPINE WO IVCON CLINICAL HISTORY: Pain, stenosis TECHNIQUE: Spiral, high resolution axial unenhanced images were obtained from the skull base to the thoracolumbar junction with sagittal and coronal planar reconstructions. MQ: [id number]_3 CT Radiation dose: Integrated Dose-Length Product (DLP) for this visit = 480.35 mGy*cm. CT Dose Reduction Employed: mAs-kVp adjusted based on patient size-age COMPARISON: None. RESULT: CERVICAL: Counting reference: Craniocervical junction. Anatomic Variants: None. Cane Cutter (topogram) images: No additional findings. Alignment: Mild dextrocurvature of the cervical spine. A 5.5 mm anterolisthesis at C4-5 due to facet arthropathy. Craniocervical junction: Craniocervical junction is normal. Bone marrow / fracture: No evidence of a lytic or blastic process in the visualized spine. No evidence of acute fracture. Severe disc space narrowing, endplate sclerosis and irregularity at C4-5 through C6-7. Cervical soft tissues: The paraspinal soft tissues planes are maintained. C2-C3: Canal and foramina are patent. C3-C4: Facet hypertrophy with mild left foraminal stenosis. Canal is patent. C4-C5: Anterolisthesis with mild to moderate canal stenosis and likely cord deformity. Facet hypertrophy contribute to moderate to severe right and severe left foraminal stenosis. C5-C6: Disc osteophyte complex with mild to moderate canal stenosis. Uncovertebral and facet hypertrophy with moderate bilateral foraminal stenosis. C6-C7: Disc osteophyte complex with mild canal stenosis. Uncovertebral facet hypertrophy with moderate bilateral foraminal stenosis. C7-T1: Canal and foramina are patent. THORACIC: Counting reference: Craniocervical junction. The more conventional piano accompanist that include the lumbosacral junction are not available for comparison. For the purposes of this report, Assume the first normal thoracic rib is at the T1 level. Cane Cutter (topogram) images: No additional findings. Alignment: Mild levocurvature of the upper thoracic spine. 1 mm anterolisthesis at T3-4. Bone marrow / fracture: No evidence of a lytic or blastic process in the visualized spine. No evidence of acute fracture. Multilevel disc space narrowing and endplate irregularities. Vacuum disc at T8-T9. Thoracic soft tissues: The paraspinal soft tissues planes are maintained. Canal and foramina: Disc herniation and facet hypertrophy with mild bony canal stenosis at T7-T8. Hypertrophy with mild bony foraminal stenosis at T10-T11. Facet hypertrophy with moderate bony foraminal stenosis at right T1-2 and T2-3. IMPRESSION: A 5.5 mm anterolisthesis at C4-5 due to facet arthropathy. No acute findings in the cervical spine. Cervical spondylosis most pronounced at C4-5, with possible cord deformity and bilateral high-grade foraminal stenosis. - No acute findings in the thoracic spine. Mild degenerative changes. Cervical Anatomic Variant: None. Assume 7 cervical vertebrae with counting from the craniocervical junction. Anatomic Thoracic/Lumbar Variant: Assume the first normal thoracic rib is at the T1 level. Case Monitor: IZABELA Transcribe Date/Time: Aug 12 2022 8:23A Dictated by : JOSEFINA KNOTT MD This examination was interpreted and the report reviewed and electronically signed by: JOSEFINA KNOTT MD on Aug 12 2022 8:34AM EST [id number] N Normal [facility] CT THORACIC SPINE WO IVCONon 08-10-2022 CT THORACIC SPINE WO IVCON * * *Final Report* * * DATE OF EXAM: Aug 10 2022 11:29AM [facility] 0514 - CT THORACIC SPINE WO IVCON / PROCEDURE REASON: Spinal stenosis of thoracic region * * * * Physician Interpretation * * * * EXAMINATION: CT THORACIC SPINE WO IVCON, CT CERVICAL SPINE WO IVCON CLINICAL HISTORY: Pain, stenosis TECHNIQUE: Spiral, high resolution axial unenhanced images were obtained from the skull base to the thoracolumbar junction with sagittal and coronal planar reconstructions. MQ: CTCTWO_3 CT Radiation dose: Integrated Dose-Length Product (DLP) for this visit = 480.35 mGy*cm. CT Dose Reduction Employed: mAs-kVp adjusted based on patient size-age COMPARISON: None. RESULT: CERVICAL: Counting reference: Craniocervical junction. Anatomic Variants: None. Cane Cutter (topogram) images: No additional findings. Alignment: Mild dextrocurvature of the cervical spine. A 5.5 mm anterolisthesis at C4-5 due to facet arthropathy. Craniocervical junction: Craniocervical junction is normal. Bone marrow / fracture: No evidence of a lytic or blastic process in the visualized spine. No evidence of acute fracture. Severe disc space narrowing, endplate sclerosis and irregularity at C4-5 through C6-7. Cervical soft tissues: The paraspinal soft tissues planes are maintained. C2-C3: Canal and foramina are patent. C3-C4: Facet hypertrophy with mild left foraminal stenosis. Canal is patent. C4-C5: Anterolisthesis with mild to moderate canal stenosis and likely cord deformity. Facet hypertrophy contribute to moderate to severe right and severe left foraminal stenosis. C5-C6: Disc osteophyte complex with mild to moderate canal stenosis. Uncovertebral and facet hypertrophy with moderate bilateral foraminal stenosis. C6-C7: Disc osteophyte complex with mild canal stenosis. Uncovertebral facet hypertrophy with moderate bilateral foraminal stenosis. C7-T1: Canal and foramina are patent. THORACIC: Counting reference: Craniocervical junction. The more conventional piano accompanist that include the lumbosacral junction are not available for comparison. For the purposes of this report, Assume the first normal thoracic rib is at the T1 level. Cane Cutter (topogram) images: No additional findings. Alignment: Mild levocurvature of the upper thoracic spine. 1 mm anterolisthesis at T3-4. Bone marrow / fracture: No evidence of a lytic or blastic process in the visualized spine. No evidence of acute fracture. Multilevel disc space narrowing and endplate irregularities. Vacuum disc at T8-T9. Thoracic soft tissues: The paraspinal soft tissues planes are maintained. Canal and foramina: Disc herniation and facet hypertrophy with mild bony canal stenosis at T7-T8. Hypertrophy with mild bony foraminal stenosis at T10-T11. Facet hypertrophy with moderate bony foraminal stenosis at right T1-2 and T2-3. IMPRESSION: A 5.5 mm anterolisthesis at C4-5 due to facet arthropathy. No acute findings in the cervical spine. Cervical spondylosis most pronounced at C4-5, with possible cord deformity and bilateral high-grade foraminal stenosis. - No acute findings in the thoracic spine. Mild degenerative changes. Cervical Anatomic Variant: None. Assume 7 cervical vertebrae with counting from the craniocervical junction. Anatomic Thoracic/Lumbar Variant: Assume the first normal thoracic rib is at the T1 level. Case Monitor: PSCB Transcribe Date/Time: Aug 12 2022 8:23A Dictated by : JOSEFINA KNOTT MD This examination was interpreted and the report reviewed and electronically signed by: JOSEFINA KNOTT MD on Aug 12 2022 8:34AM EST [id number] N Normal [facility] Comprehensive metabolic 2000 panelon 08-10-2022 Albumin [Mass/Vol] 4.5 g/dL Normal 3.9-4.9 [facility] Comment on above: Order Comment: Speci men Type: BLOOD SPECIMENOrdering Facility: [facility] Address: [address] [place] [address] Performed By: #### 2 4323-8 ####[facility] LABORATORYCLIA [id number] [place] [address] [place] [facility] ALP [Catalytic activity/Vol] 83 U/L Normal 34-123 [facility] Comment on above: Order Comment: Speci men Type: BLOOD SPECIMENOrdering Facility: [facility] Address: [address] [address] Performed By: #### 2 4323-8 ####[facility] LABORATORYCLIA [id number] [place] [address] [place] ALT With P-5'-P [Catalytic activity/Vol] 27 U/L Normal 7-38 [facility] Comment on above: Order Comment: Speci men Type: BLOOD SPECIMENOrdering Facility: [facility] Address: [address] [address] Performed By: #### 2 4323-8 ####[facility]ORATORYCLIA [id number] [place] [address] [place] Anion gap [Moles/Vol] 11 mmol/L Normal 9-18 [facility] Comment on above: Order Comment: Speci men Type: BLOOD SPECIMENOrdering Facility: [facility] Address: [address] [place] [address] Performed By: #### 2 4323-8 ####[facility]ORATORYCLIA [id number] [place] [address] [place] AST With P-5'-P [Catalytic activity/Vol] 25 U/L Normal 13-35 [facility] Comment on above: Order Comment: Speci men Type: BLOOD SPECIMENOrdering Facility: [facility] Address: [address] [place] [address] Performed By: #### 2 4323-8 ####[facility] LABORATORYCLIA [id number] [address] [place] Bilirubin [Mass/Vol] 0.2 mg/dL Normal 0.2-1.3 [facility] Comment on above: Order Comment: Speci men Type: BLOOD SPECIMENOrdering Facility: [facility] Address: [address] [place] [address] Performed By: #### 2 4323-8 ####[facility] LABORATORYCLIA [id number] [address] [place] Calcium [Mass/Vol] 9.8 mg/dL Normal 8.5-10.2 [facility] Comment on above: Order Comment: Speci men Type: BLOOD SPECIMENOrdering Facility: [facility] Address: [address] [place] [address] Performed By: #### 2 4323-8 ####[facility] LABORATORYCLIA [id number] [place] [address] [place] Chloride [Moles/Vol] 103 mmol/L Normal 97-105 [facility] Comment on above: Order Comment: Speci men Type: BLOOD SPECIMENOrdering Facility: [facility] Address: [address] [address] Performed By: #### 2 4323-8 ####[facility] LABORATORYCLIA [id number] [address] [place] CO2 [Moles/Vol] 28 mmol/L Normal 22-30 [facility] Comment on above: Order Comment: Speci men Type: BLOOD SPECIMENOrdering Facility: [facility] Address: [address] [place] [address] Performed By: #### 2 4323-8 ####[facility] WAYNECLIA [id number] [address] [place] Creatinine [Mass/Vol] 0.73 mg/dL Normal 0.58-0.96 [facility] Comment on above: Order Comment: Speci men Type: BLOOD SPECIMENOrdering Facility: [facility] Address: [address] [place] [address] Performed By: #### 2 4323-8 ####[facility] [id number] [address] ESTIMATED GLOMERULAR FILTRATION RATE 89 mL/min/1.73m??? Normal >=60 [facility] Comment on above: Order Comment: Speci men Type: BLOOD SPECIMENOrdering Facility: [facility] Address: [address] [place] [address] Result Comment: Ramila mated Glomerular Filtration Rate (eGFR) is calculated using the 2020 CKD-EPI creatinine equation. This equation utilizes serum creatinine, sex, and age as parameters. The creatinine assay has traceable calibration to isotope dilution-mass spectrometry. Refer to KDIGO guidelines for clinical interpretation. In patients with unstable renal function, e.g. those with acute kidney injury, the eGFR may not accurately reflect actual GFR. Performed By: #### 2 4323-8 ####[facility] LABORATORYCLIA [id number] [address] OF [facility] Glucose [Mass/Vol] 89 mg/dL Normal 74-99 [facility] Comment on above: Order Comment: Speci men Type: BLOOD SPECIMENOrdering Facility: [facility] Address: [address] [address] Result Comment: The [place] [employer] (ADA) provides guidance for cutoff values for fasting glucose and random glucose. The ADA defines fasting as no caloric intake for at least 8 hours. Fasting plasma glucose results between 100 to 125 mg/dL indicate increased risk for diabetes (prediabetes). Fasting plasma glucose results greater than or equal to 126 mg/dL meet the criteria for diagnosis of diabetes. In the absence of unequivocal hyperglycemia, results should be confirmed by repeat testing. In a patient with classic symptoms of hyperglycemia or hyperglycemic crisis, random plasma glucose results greater than or equal to 200 mg/dL meet the criteria for diagnosis of diabetes. Reference: Standards of Medical Care in Diabetes 2016, [place] [employer]. Diabetes Care. 2016.39(Suppl 1). Performed By: #### 2 4323-8 ####[facility] LABORATORYCLIA [id number] [place] [address] [place] Potassium [Moles/Vol] 4.4 mmol/L Normal 3.7-5.1 [facility] Comment on above: Order Comment: Speci men Type: BLOOD SPECIMENOrdering Facility: [facility] Address: [address] [address] Performed By: #### 2 4323-8 ####[facility] LABORATORYCLIA [id number] [place] [address] [place] Protein [Mass/Vol] 6.7 g/dL Normal 6.3-8.0 [facility] Comment on above: Order Comment: Speci men Type: BLOOD SPECIMENOrdering Facility: [facility] Address: [address] [address] Performed By: #### 2 4323-8 ####[facility] LABORATORYCLIA [id number] [place] [address] [place] Sodium [Moles/Vol] 142 mmol/L Normal 136-144 [facility] Comment on above: Order Comment: Speci men Type: BLOOD SPECIMENOrdering Facility: [facility] Address: [address] [address] Performed By: #### 2 4323-8 ####[facility] LABORATORYCLIA [id number] [place] [id number] [place] Urea nitrogen [Mass/Vol] 16 mg/dL Normal 7-21 [facility] Comment on above: Order Comment: Speci men Type: BLOOD SPECIMENOrdering Facility: [facility] Address: [address] [place], [place] [id number] Performed By: #### 2 4323-8 ####[facility] LABORATORYCLIA [id number] [place] [id number] [place] EKGon 08-10-2022 Atrial Rate 79 BPM [facility] Calculated P [place] 44 degrees [facility] Calculated R [place] 58 degrees [facility] Calculated T [place] 64 degrees [facility] P-R Interval 142 ms [facility] QRS Duration 124 ms [facility] QT Interval 404 ms [facility] QTC Calculation (Bazett) 463 ms [facility] Ventricular Rate 79 BPM [facility] Electrocardiogram Ventricular Rate : 7 9 BPM Atrial Rate : 79 BPM P-R Interval : 142 ms QRS Duration : 124 ms Q-T Interval : 404 ms QTC Calculation(Bazett) : 463 ms Calculated P [place] : 44 degrees Calculated R [place] : 58 degrees Calculated T [place] : 64 degrees NORMAL SINUS RHYTHM RIGHT ATRIAL ENLARGEMENT LEFT BUNDLE BRANCH BLOCK ANTEROSEPTAL INFARCT , AGE UNDETERMINED ABNORMAL ECG NO PREVIOUS ECGS AVAILABLE Confirmed by MD DURON KAMALESH ([id number]) on 08/10/2022 8:58:07 PM NAME : JASMIN HUTCHINSON PID : [id number] : 1950 Gender : Female Race : ORD : Procedure Date : Aug 10 2022 10:43:45 Edit Date : Aug 10 2022 20:58:09 Diagnosis: NORMAL SINUS RHYTHM RIGHT ATRIAL ENLARGEMENT LEFT BUNDLE BRANCH BLOCK ANTEROSEPTAL INFARCT , AGE UNDETERMINED ABNORMAL ECG NO PREVIOUS ECGS AVAILABLE Confirmed by MD DURON KAMALESH ([id number]) on 08/10/2022 8:58:07 PM Test Reason : Location : 180 : [facility] Overread By : MD DURON KAMALESH Edited By : MD DURON KAMALESH Referred By : GURPREET STEWART Acquired by : BENNY SALDIVAR [facility] HISTORY PHYSICALon HISTORY PHYSICAL HNO ID: [id number] Author: Benny Saldivar APRN.[email or web address] Service: ? Author Type: Nurse Practitioner Type: HANDP Filed: 08/10/2022 11:01 AM Note Text: HISTORY AND PHYSICAL EXAMINATION SERVICE DATE: 08/10/2022 SERVICE TIME: 1040 PRIMARY CARE PHYSICIAN: Nata Welsh CNP REASON FOR VISIT: Jasmin Hutchinson is a 71 year old female who is scheduled for * No surgery found * at the request of Dr. Gurpreet Stewart for. My final recommendation will be communicated back to the requesting physician by way of shared medical record or letter.Visit type: HANDP Subjective The patient has the following: ACTIVE PROBLEM LIST OSTEOPENIA Other and Unspecified Hyperlipidemia Bicuspid Aortic Valve COVID-19 Immunization Status Overdue - COVID-19 VACCINE (1) Overdue - never done No completion, postpone, frequency change, or communication history exists for this topic. CHIEF COMPLAINT: Right arm numbness and tingling HPI: 71 year old female presents with c/o right arm numbness and tingling which started in November 2021. She c/o right arm weakness. Pt also c/o left hand and bilateral feet numbness and tingling. She had an MRI in April. She is here for pre-surgical testing. She has been diagnosed with cervical spondylosis and plans to have surgical intervention with Dr. Stewart on 08/19/22. Pt is active. She walks her dog 2-3 miles daily. She only c/o bilateral hand numbness today, but denies pain today. Pt states her symptoms have actually improved a bit since November. She does not take medication for pain. REVIEW OF SYSTEMS: General: Negative for weight loss, malaise, or fevers Neurological: No neurological symptoms or problems; no hx of seizure or stroke Respiratory: Negative for current cough, wheezing, dyspnea or recent pneumonia; no hx of asthma, COPD or ARIE Cardiovascular: No hx of HTN, chest pain, palpitations, CHF, IA, cardiac surgery or stents Positive for: hyperlipidemia and murmur/valvular heart disease (s/p aortic valve replacement 2015) GI: Negative for nausea, vomiting, abdominal pain, diarrhea, constipation or bloody stool : Negative for dysuria, urinary frequency, urgency or incontinence, kidney stones, or CKD Endocrine: No hx of Diabetes or thyroid disease Hematology: No hx of bleeding or clotting disorder, no hx of hematological symptoms or problems Oncology: No history of oncological symptoms or problems Psych: No history of psychiatric symptoms or problems. Musculoskeletal: See HPI; +osteopenia Skin: Negative for lesions, rash or itching PAST MEDICAL HISTORY Diagnosis Date Bicuspid aortic valve s/p aortic valve replacement 2015 Cervical spondylosis without myelopathy Disorder of thyroid pt denies Heart murmur Mixed hyperlipidemia Osteopenia PAST SURGICAL HISTORY Procedure Laterality Date COLONOSCOPY FLX DX W/COLLJ SPEC WHEN PFRMD 06/25/2018 Colonoscopy HEART VALVE REPLACEMENT 09/16/2016 aortic valve replacement- pig valve FAMILY HISTORY Problem Relation Age of Onset Heart Mother IA Hypertension Mother Obese other (Lung Cancer) Father Heart Sister Open Heart Surgery Social History Tobacco Use Smoking status: Never Smokeless tobacco: Never Vaping Use Vaping Use: Never used Substance Use Topics Alcohol use: No Drug use: No Prior to Admission medications as of 08/10/22 1030 Medication Sig Last Dose Taking aspirin 81 mg chewable tablet Take 81 mg by mouth once daily. Yes metoprolol succinate ER (TOPROL XL) 25 mg 24 hr tablet Take 25 mg by mouth twice daily. Yes atorvastatin (LIPITOR) 20 mg tablet Take 20 mg by mouth once daily. Yes ubidecarenone Q-10 10 mg cap Take by mouth twice daily. Yes ergocalciferol(VITAMI N D 400 UNIT CAP) 2000iu per day Yes OMEGA 3 550 MG CAP Take one(1) tablet daily. Yes MULTIVITAMIN TAB Take one(1) tablet daily. Yes CALCIUM 600 1,500 MG TAB Take one(1) tablet two(2) times daily. Yes No medication comments found. ALLERGIES Allergen Reactions Morphine Vomiting, Unknown Prednisone GI Upset Objective PHYSICAL EXAM: General: alert and oriented and healthy appearance. No acute distress. Skin: normal color, no rash or lesions. HEENT: EOM intact. Normocephalic/atrauma tic; pharynx clear. Cardiovascular: RRR, +2-3/6 murmur . Respiratory: normal breath sounds, no wheezes or crackles. No chest wall deformity or tenderness. Abdomen: bowel sounds present and soft. Nontender, no masses or organomegaly . Extremities: no deformity, no edema or tenderness, no joint swelling or clubbing. 2+ pedal pulses bilaterally . Neurological: normal cognition and motor skills. Gait normal. No weakness or sensory deficit. PAIN ASSESSMENT: VITALS: BP 145/77 Pulse 88 Temp 99 Resp 18 Ht 5' 3 (1.60m) Wt 120 lb (54.4kg) SpO2 96[RA]% BMI 21.26 kg/(m2). Diagnostic tests reviewed for today's visit: Lab Value Units Date High Low HB No results within date range. HCT No resul (more content not included)... Normal [facility] PT panel Coag (PPP)on 2021 INR Coag (PPP) [Relative time] 1.0 {INR} Normal 0.9-1.3 [facility] Comment on above: Order Comment: Kevyn basurto Type: BLOOD SPECIMENOrdering Facility: [facility] Address: [address] [place] [phone] Result Comment: Stephenie min K Antagonist (VKA) Therapeutic Range: INR 2 to 3 (Target INR of 2.5) Note: For patients treated with VKA drugs, such as warfarin, the [place] [employer] 2012 Guideline recommends a therapeutic INR range of 2 to 3 (target INR of 2.5). This recommendation includes high-risk patients with antiphospholipid syndrome with previous arterial or venous thromboembolism, current-generation mechanical or bioprosthetic aortic heart valve replacement. Note: Patients with mechanical aortic valve replacement and additional risk factors for thromboembolic events (atrial fibrillation, previous thromboembolism, LV dysfunction, hypercoagulable conditions) or an older generation mechanical AVR (i.e., ball in-Cage) or any mechanical MVR should have a INR therapeutic range of 2.5 to 3.5 (target INR of 3). Jose GH, et al. Chest 2012, 141:7S-47S Jerome RA, et al. JACC 2017, 70: 252-289 Performed By: #### 3 4528-0, 80736-5 ####[facility] LABCLIA [id number] [place] [address] [place] PT Coag (PPP) [Time] 9.3 s Normal <13.1 [facility] Comment on above: Order Comment: Speci men Type: BLOOD SPECIMENOrdering Facility: [facility] Address: [address] [place] [address] Performed By: #### 3 4528-0, 23902-9 ####[facility] LABCLIA [id number] [place] [address] [place] STAPH AUREUS PCRon S. aureus and MRSA panel MIRZA+probe (Nose) Normal Negative [facility] Comment on above: Order Comment: Speci men Type: SWAB OF INTERNAL NOSEOrdering Facility: [facility] Address: [address] [place] [address] Result Comment: Nega tive for Staphylococcus aureus by PCR. Negative for MRSA by PCR Performed By: #### S APCR ####[facility]ORATORYCLIA [id number] [address] [place] TYPE AND SCREEN,30 DAYon ABO A Normal [facility] Comment on above: Order Comment: Speci men Type: BLOOD SPECIMEN [facility] Address: [address] [place] [address] Performed By: #### T SCR30 #### [facility] CLIA [id number] [address] HISTORICAL AB SCR STATUS Negative Normal [facility] Comment on above: Order Comment: Speci men Type: BLOOD SPECIMEN [facility] Address: [address] [place] [address] Performed By: #### T SCR30 #### [facility] CLIA [id number] [address] [place] Rh Nom (Bld) Positive Normal [facility] Comment on above: Order Comment: Speci men Type: BLOOD SPECIMEN [facility] Address: [address] [place] [address] Performed By: #### T SCR30 #### [facility] CLIA [id number] [address] [place] Urinalysis complete panel (U )on 08-10-2022 Bilirubin Ql (U) Negative Normal Negative [facility] Comment on above: Order Comment: Speci men Type: URINE SPECIMENOrdering Facility: [facility] Address: [address] [place] [address] Performed By: #### 2 4356-8 ####[facility] LABORATORYCLIA [id number] [address] CALCIUM OXALATE CRYSTALS (UA) Moderate Abnormal None Seen [facility] Comment on above: Order Comment: Speci men Type: URINE SPECIMENOrdering Facility: [facility] Address: [address] [place] [address] Performed By: #### 2 4356-8 ####[facility] LABORATORYCLIA [id number] [address] Clarity (Unsp spec) Turbid Abnormal Clear [facility] Comment on above: Order Comment: Speci men Type: URINE SPECIMENOrdering Facility: [facility] Address: [address] [place] [address] Performed By: #### 2 4356-8 ####[facility] LABORATORYCLIA [id number] [address] [place] Color (U) Yellow Normal yellow [facility] Comment on above: Order Comment: Speci men Type: URINE SPECIMENOrdering Facility: [facility] Address: [address] [place] [address] Performed By: #### 2 4356-8 ####[facility] LABORATORYCLIA [id number] [address] Epithelial cells LM.HPF (Urine sed) [#/Area] Few Normal [facility] Comment on above: Order Comment: Speci men Type: URINE SPECIMENOrdering Facility: [facility] Address: [address] [place] [address] Result Comment: Few Performed By: #### 2 4356-8 ####[facility] LABORATORYCLIA [id number] [address] Glucose Test strip (U) [Mass/Vol] Negative Normal Negative [facility] Comment on above: Order Comment: Speci men Type: URINE SPECIMENOrdering Facility: [facility] Address: [address] [place] [address] Performed By: #### 2 4356-8 ####[facility] LABORATORYCLIA [id number] [address] Hemoglobin Ql (U) Negative Normal Negative [facility] Comment on above: Order Comment: Speci men Type: URINE SPECIMENOrdering Facility: [facility] Address: [address] [place] [address] Performed By: #### 2 4356-8 ####[facility] LABORATORYCLIA [id number] [address] Hyaline casts (Urine sed) [#/Area] 1-3 /LPF Abnormal 0 /LPF [facility] Comment on above: Order Comment: Speci men Type: URINE SPECIMENOrdering Facility: [facility] Address: [address] [place] [address] Performed By: #### 2 4356-8 ####[facility] LABORATORYCLIA [id number] [address] Ketones Ql (U) Negative Normal Negative [facility] Comment on above: Order Comment: Speci men Type: URINE SPECIMENOrdering Facility: [facility] Address: [address] [place] [address] Performed By: #### 2 4356-8 ####[facility] LABORATORYCLIA [id number] [address] Leukocyte esterase Test strip Ql (U) 25 Candida/mL Abnormal Negative [facility] Comment on above: Order Comment: Speci men Type: URINE SPECIMENOrdering Facility: [facility] Address: [address] [place] [address] Performed By: #### 2 4356-8 ####[facility] LABORATORYCLIA [id number] [place] Nitrite Ql (U) Negative Normal Negative [facility] Comment on above: Order Comment: Speci men Type: URINE SPECIMENOrdering Facility: [facility] Address: [address] [place] [address] Performed By: #### 2 4356-8 ####[facility] LABORATORYCLIA [id number] [address] [place] pH (U) 7.0 [pH] Normal 5.0-8.0 [facility] Comment on above: Order Comment: Speci men Type: URINE SPECIMENOrdering Facility: [facility] Address: [address] [place] [address] Performed By: #### 2 4356-8 ####[facility] LABORATORYCLIA [id number] [address] STATES [facility] Protein (U) [Mass/Vol] Negative Normal Negative [facility] Comment on above: Order Comment: Speci men Type: URINE SPECIMENOrdering Facility: [facility] Address: [address] [place] [address] Performed By: #### 2 4356-8 ####[facility] LABORATORYCLIA [id number] [address] RBC LM.HPF (Urine sed) [#/Area] 0-3 /HPF Normal 0-3 /HPF [facility] Comment on above: Order Comment: Speci men Type: URINE SPECIMENOrdering Facility: [facility] Address: [address] [place] [address] Performed By: #### 2 4356-8 ####[facility] LABORATORYCLIA [id number] [address] OF [place] Specific gravity (U) [Rel density] 1.018 Normal 1.005-1.030 [facility] Comment on above: Order Comment: Speci men Type: URINE SPECIMENOrdering Facility: [facility] Address: [address] [place] [address] Performed By: #### 2 4356-8 ####[facility] LABORATORYCLIA [id number] [address] Urobilinogen Ql (U) Normal Normal Negative [facility] Comment on above: Order Comment: Speci men Type: URINE SPECIMENOrdering Facility: [facility] Address: [address] [place] [address] Performed By: #### 2 4356-8 ####[facility] LABORATORYCLIA [id number] [address] WBC LM.HPF (Urine sed) [#/Area] 0-5 /HPF Normal 0-5 /HPF [facility] Comment on above: Order Comment: Speci men Type: URINE SPECIMENOrdering Facility: [facility] Address: [address] [place] [address] Performed By: #### 2 4356-8 ####[facility] LABORATORYCLIA [id number] [address] OF [facility] XR CHEST 2V FRONTAL/LATon XR CHEST 2V FRONTAL/LAT * * *Final Report* * * DATE OF EXAM: Aug 10 2022 11:32AM GRX [id number] - XR CHEST 2V FRONTAL/LAT / PROCEDURE REASON: multiple diagnoses * * * * Physician Interpretation * * * * EXAMINATION: CHEST RADIOGRAPH (2 VIEW FRONTAL and LATERAL) CLINICAL HISTORY: Preoperative clearance Spinal stenosis of cervical region MQ: XC2_6 EXAM DATE/TIME: 08/10/2022 11:32 AM COMPARISON: No relevant prior studies available. RESULT: Lines, tubes, and devices: None. Lungs and pleura: No consolidation. No lung mass. No pleural effusion. No pneumothorax. Cardiomediastinal silhouette: Normal cardiomediastinal silhouette. Status post median sternotomy. Bones and soft tissues: Degenerative changes are present within the thoracic spine. IMPRESSION: No acute radiographic abnormality. Case Monitor: IZABELA Transcribe Date/Time: Aug 11 2022 4:44P Dictated by : ADELA GRANDA MD This examination was interpreted and the report reviewed and electronically signed by: ADELA GRANDA MD on Oct 27 2022 4:45PM EST [id number] Normal [facility] aPTT PPPon 08-10-2022 aPTT Coag (PPP) [Time] 24.7 s Normal 23.0-32.4 [facility] Comment on above: Order Comment: Speci men Type: BLOOD SPECIMENOrdering Facility: [facility] Address: [address] [place], [place] [id number] Performed By: #### 3 4528-0, 65976-3 ####[facility] LABCLIA [id number] [place] [id number] [place] CNCOon 08-09-2022 CNCO Letter Text Normal [facility] CNCOon 08-05-2022 CNCO Letter Text Letter Text Normal [facility] CNOVon 08-04-2022 CNOV Office Visit (NSAGAP ) JASPERJASMIN Elvie ([id number]) 1950 F Date Time Provider Department 08/04/22 2:30 PM GURPREET STEWART During your visit today, we recorded the following information about you: Pulse Blood pressure Weight Height 81/minute 140/69 55.3 kg 1.575 m Gurpreet Stewart MD 08/04/2022 2:45 PM Signed NEUROSURGERY CONSULT NOTE Gurpreet Stewart MD Date of visit: August 04, 2022 Patient Name: Ms.Myra Elvie Hutchinson Date of : 1950 Current Age: [age] year old Sex: female MRN/E# [id number] Chief Complaint: Bilateral hand numbness and right arm weakness HISTORY OF PRESENT ILLNESS : The patient is a 71 year old, female with a past medical history of osteopenia, HLD, aortic stenosis, and prosthetic aortic valve who is self referred for neurosurgical evaluation of her cervical spine. She presents to the office today with MRI and x-ray imaging. She states that she started having numbness and tingling in her entire right arm into her right hand. She also noticed numbness and tingling in her left hand and both feet. She denies any neck pain, incontinence, weakness, or recent falls. She denies issues with dexterity. On exam, she has bilateral positive De La Garza's signs. She is hyperreflexic in her bilateral upper extremities. She presents today for image review, evaluation and plan of care. Symptoms: right arm and hand numbness and tingling, left hand numbness and tingling, bilateral feet numbness and tingling. DERMATOMAL DISTRIBUTION: Nondermatomal PREVIOUS CONSERVATIVE TREATMENTS: ibuprofen PREVIOUS SURGERY: no previous spine surgery Surgical Risk Factors: Smoking Status: no Diabetic: no Antiplatelet/anticoag ulant: YES ASA 81MG Alcohol: no BMI: 22.31 PAIN EVALUATION 08/04/2022 1341 Pain Level: 2 Pain Location: Neck Description: Aching;Sore Duration Units: Months Frequency: Intermittent Intervention/Comfort measure: Medication PAST MEDICAL HISTORY Diagnosis Date Disorder of bone and cartilage, unspecified osteopenia Heart murmur PAST SURGICAL HISTORY Procedure Laterality Date COLONOSCOPY FLX DX W/COLLJ SPEC WHEN PFRMD 06/25/2018 Colonoscopy HEART VALVE REPLACEMENT 09/16/2016 pig valve FAMILY HISTORY Problem Relation Age of Onset Heart Mother IA Hypertension Mother Obese other (Lung Cancer) Father Heart Sister Open Heart Surgery ALLERGIES Allergen Reactions Morphine Vomiting, Unknown Prednisone GI Upset Current Outpatient Medications Medication Sig Dispense Refill aspirin 81 mg chewable tablet Take 81 mg by mouth once daily. metoprolol succinate ER (TOPROL XL) 25 mg 24 hr tablet Take 25 mg by mouth twice daily. atorvastatin (LIPITOR) 20 mg tablet Take 20 mg by mouth once daily. ubidecarenone Q-10 10 mg cap Take by mouth twice daily. ergocalciferol(VITAMI N D 400 UNIT CAP) 2000iu per day 0 OMEGA 3 550 MG CAP Take one(1) tablet daily. 0 MULTIVITAMIN TAB Take one(1) tablet daily. 0 CALCIUM 600 1,500 MG TAB Take one(1) tablet two(2) times daily. 0 No current facility-administered medications for this visit. REVIEW OF SYSTEMS Review of Systems OBJECTIVE: BP 140/69 Pulse 81 Ht 5' 2 (1.58m) Wt 122 lb (55.3kg) SpO2 97% BMI 22.31 kg/(m2). PHYSICAL EXAM: Patient is awake alert oriented x3 sitting at the bedside with her friend Cranials grossly intact Able to follow commands no extremities She is 3 out of 5 strength in her right deltoid, 4 out of 5 in her right biceps. She is full strength in all other extremities Positive left hand Dayady Normal gait Data Review IMAGING STUDIES: MRI CERVICAL performed in April 2022: Shows multilevel cervical spondylosis with severe stenosis at C4-5 with cord signal change. 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 ASSESSMENT/PLAN: Mrs. Hutchinson is a 71-year-old female with a past medical history of cardiac surgery with valve replacement currently on aspirin who presents with several month history of intermittent but recently progressing bilateral hand numbness. She states that her right arm is unable to lift over her head but she is not troubled by that. She still enjoys walking and exercising. Her MRI scan is worrisome for severe cervical spine stenosis at C4-5 with swan-neck deformity and cord signal change. I counseled the patient that she is at high risk of progressive loss of function of her upper extremities as well as her lower extremities and I recommended surgical intervention in the form of a C3 to T1 decompression and fusion possible other levels. The patient will need cardiology medical clearance in the interim. The risks of the surgery which include but not limited to bleeding, infection, spinal fluid leak, spinal cord or nerve root injury, hardware failure requiring reoperation, prolonged dependence on th (more content not included)... Normal [facility] Maritza 08-02-2022 CARINE Telephone (NEAGCLM) JASMIN HUTCHINSON Elvie ([id number]) 1950 F Date Time Provider Department 08/02/22 GURPREET STEWART NEKRISTY During your visit today, we recorded the following information about you: Linnea Martinez RN 08/02/2022 11:14 AM Addendum Called patient to see what imaging she had done that she would be bringing in to her appointment. Patient gave her the phone because she could not hear me and did not have her hearing aids in. Patient's states that she had an MRI done and they would bring her imaging to Dr. Stewart the day of surgery. Clarified with patient that they were not having surgery with Dr. Stewart on 08/04/2022. Patient's was confused and stated that the doctor they saw in [place] told them that her imaging looked bad and she would need surgery. He stated that he thought that she would be having surgery on 08/04/2022 and that was what the appointment was for. I let patient's know that this was just an appointment for us to evaluate his and review her imaging to come up with a plan going forward. We could not tell them if she would need surgery or not until we had seen her in the office. Let patient's know that x-rays were ordered to be completed prior to their visit. They could have these done in the radiology department at [facility] then come to the [facility] for their appointment. Reiterated to them that the patient would not be having surgery on 08/04/2022. Gave them the address to the P[facility] and directions to our office. Patient's appreciated the clarification. Told them to feel free to call our office with any further questions or concerns. Linnea Martinez RN Allergies As of Date: 08/02/2022 Noted Allergy Reaction PREDNISONE 06/04/2013 8 - GI Upset Date Reviewed: 06/11/2021 Reviewed by: Sobia Plummer LPN - Fully Assessed Reason for Visit: Orders [681] Prescriptions as of 08/02/2022 - aspirin 81 mg chewable tablet Take 81 mg by mouth once daily. - metoprolol succinate ER (TOPROL XL) 25 mg 24 hr tablet Take 25 mg by mouth twice daily. - atorvastatin (LIPITOR) 20 mg tablet Take 20 mg by mouth once daily. - ubidecarenone Q-10 10 mg cap Take by mouth twice daily. - ergocalciferol(VITAMI N D 400 UNIT CAP) 2000iu per day - OMEGA 3 550 MG CAP Take one(1) tablet daily. - MULTIVITAMIN TAB Take one(1) tablet daily. - CALCIUM 600 1,500 MG TAB Take one(1) tablet two(2) times daily. Problem List As Of Date 08/02/2022 Noted Resolved OSTEOPENIA [M89.9, M94.9] Other and unspecified hyperlipidemia [E78.5] 01/25/2006 Bicuspid aortic valve [Q23.1] 06/06/2013 Encounter Status:Closed by LINNEA MARTINEZ on 08/02/22 Normal [facility] Basophil percentageon 2021 Bilirubin [Mass/Vol] 0.50 mg/dL 0.20-1.00 [facility] Work Phone: Comment on above: For patients on eltr ombopag therapy, use of Dimension Merritt TBIL is not recommended. Chloride [Moles/Vol] 106 mmol/L 98-107 [facility] Work Phone: Glucose [Mass/Vol] 91 mg/dL 74-106 [facility] Work Phone: Potassium [Moles/Vol] 4.1 mmol/L 3.5-5.1 [facility] Work Phone: Protein [Mass/Vol] 6.8 g/dL 6.4-8.2 [facility] Work Phone: Sodium [Moles/Vol] 141 mmol/L 136-145 [facility] Work Phone: WBC (Bld) [#/Vol] 8.2 10*3/uL 4.4-11.0 [facility] Work Phone: Blood erythrocytes count (nu mber/volume)on 04-12-2022 RBC (Bld) [#/Vol] 4.85 10*6/uL 4.2-5.4 [facility] Work Phone: Blood hemoglobin measurement (mass/volume)on 04-12-2022 Hemoglobin (Bld) [Mass/Vol] 14.7 g/dL 12.0-15.0 [facility] Work Phone: Blood platelet mean volumeon 04-12-2022 Platelet mean volume (Bld) [Entitic vol] 9.6 fL 6.2-12.0 [facility] Work Phone: Determination of erythrocyte mean corpuscular volume (MCV)on 04-12-2022 MCV (RBC) [Entitic vol] 92.0 fL 81-99 [facility] Work Phone: Erythrocyte sedimentation ra damon 04-12-2022 ESR (Bld) [Velocity] 11 mm/h 0-30 [facility] Work Phone: Hematocrit Auto (Bld) [Volum e fraction]on 04-12-2022 Hematocrit (Bld) [Volume fraction] 44.6 % 37-47 [facility] Work Phone: Laboratory - Chemistry and C hemistry - challengeon 04-12-2022 ALP [Catalytic activity/Vol] 84 U/L 45-117 [facility] Work Phone: ALT [Catalytic activity/Vol] 48 U/L 13-56 [facility] Work Phone: CO2 [Moles/Vol] 27.0 mmol/L 21.0-32.0 [facility] Work Phone: Cobalamin (Vitamin B12) [Mass/Vol] 523 pg/mL 211-911 [facility] Work Phone: Globulin (S) [Mass/Vol] 3.2 g/dL 2.2-4.2 [facility] Work Phone: Urea nitrogen/Creatinine [Mass ratio] 22.3 mg/mg 10-20 [facility] Work Phone: Laboratory - Hematology and Cell countson 04-12-2022 Erythrocyte distribution width (RBC) [Entitic vol] 42.8 fL 35.1-43.9 [facility] Work Phone: Erythrocyte distribution width (RBC) [Ratio] 12.6 % 11.6-14.6 [facility] Work Phone: MCH (RBC) [Entitic mass] 30.3 pg 27.0-32.0 [facility] Work Phone: MCHC Auto (RBC) [Mass/Vol]on 04-12-2022 MCHC (RBC) [Mass/Vol] 33.0 g/dL 32-36 [facility] Work Phone: No Panel Informationon 04-12 Estimated GFR (MDRD) Amer 103 mL/min >60 [facility] Work Phone: Comment on above: GFR Calc Estimated GFR (MDRD) Non-Af Amer 85 mL/min >60 [facility] Work Phone: Comment on above: Non- GFR Calc Free Lambda Light Chains, Quant 6.7 mg/L 5.7-26.3 [facility] Work Phone: Miscellaneous Test See comment [facility] Work Phone: Comment on above: TEST RESULT LIMITSHT LV-I/II Antibodies, Qual Negative Negative __ TESTING PERFORMED AT [facility]. ORIGINAL REPORT ON FILE IN LAB CONTAINS ADDITIONAL TEST SITE INFORMATION. Thyroid Stimulating Hormone (TSH) 2.55 uIU/mL 0.358-3.74 [facility] Work Phone: Whole Blood Vitamin B1 Level 159.1 nmol/L 66.5-200.0 [facility] Work Phone: Comment on above: Performed at: [facility] hark[facility] [address] [id number] Director: Ted Cummings PhD, Phone: [phone] at: [address] [id number] Director: Kelsie Webber MD, Phone: [phone] Platelets bldon 04-12-2022 Platelets (Bld) [#/Vol] 325 10*3/uL 150-450 [facility] Work Phone: Serum immunoglobulin kappa l ight chains/immunoglobulin lambda light chains mass ratioon 04-12-2022 Immunoglobulin light chains.kappa/Immunoglo bulin light chains.lambda (S) [Mass ratio] 2.16 0.26-1.65 [facility] Work Phone: Serum or plasma albumin cathi urement (mass/volume)on 04-12-2022 Albumin [Mass/Vol] 3.6 g/dL 3.2-5.0 [facility] Work Phone: Serum or plasma albumin/glob ulin mass ratioon 04-12-2022 Albumin/Globulin [Mass ratio] 1.1 {ratio} 0.9-2.4 [facility] Work Phone: Serum or plasma calcium cathi urement (mass/volume)on 04-12-2022 Calcium [Mass/Vol] 9.3 mg/dL 8.5-10.1 [facility] Work Phone: Serum or plasma creatinine m easurement (mass/volume)on 04-12-2022 Creatinine [Mass/Vol] 0.72 mg/dL 0.55-1.02 [facility] Work Phone: Comment on above: The validity of the calculated GFR & GFRAA in patients over 70 years has not been determined. Clinical correlation is essential. Serum or plasma folate measu rement (mass/volume)on 04-12-2022 Folate [Mass/Vol] 34.70 ng/mL 3.1-55.4 [facility] Work Phone: Serum or plasma immunoglobul in kappa light chains measurement (mass/volume)on 04-12-2022 Immunoglobulin light chains.kappa [Mass/Vol] 14.5 mg/L 3.3-19.4 [facility] Work Phone: Serum or plasma urea nitroge n measurement (mass/volume)on 04-12-2022 Urea nitrogen [Mass/Vol] 16 mg/dL 7-18 [facility] Work Phone: Thin prep Papanicolaou smear with manual screeningon 04-12-2022 Thin prep Papanicolaou smear with manual screening 28 U/L 15-37 [facility] Work Phone: Thin prep Papanicolaou smear with manual screening 8 5-15 [facility] Work Phone: CBC, Platelets & Auto Diff ( [id number])Ordered By: Commercial Construction Estimator on 09-13-2021 Basophils (Bld) [#/Vol] 0.1 10*3/uL Normal 0.0-0.2 [facility]; [facility] Work Phone: Comment on above: Sep 13; PATIENT WAS FASTINGPERFORMED BY: DidLog70 [address] Antibe TherapeuticsNovant Health [id number] Basophils/100 WBC (Bld) 1 % Normal [facility]; [facility] Work Phone: Comment on above: Sep 13; PATIENT WAS FASTINGPERFORMED BY: Intern [place] LabAstoria Softwarerp [id number] Arce BioGenericsDublin [place] [id number] Eosinophils (Bld) [#/Vol] 0.4 10*3/uL Normal 0.0-0.4 [facility]; [facility] Work Phone: Comment on above: Sep 13; PATIENT WAS FASTINGPERFORMED BY: Intern [place] LabAstoria Softwarerp Rxefvx0100 Arce BioGenericsDublin [place] [id number] Eosinophils/100 WBC (Bld) 5 % Normal [facility]; [facility] Work Phone: Comment on above: Sep 13; PATIENT WAS FASTINGPERFORMED BY: Intern [place] LabAstoria Softwarerp [id number] [address] Antibe Therapeuticsblin [place] [id number] Erythrocyte distribution width (RBC) [Ratio] 12.4 % Normal 11.7-15.4 [facility]; [facility] Work Phone: Comment on above: Sep 13; PATIENT WAS FASTINGPERFORMED BY: Intern [place] LabOneCard6370 [address] Antibe TherapeuticsNovant Health [id number] Hematocrit (Bld) [Volume fraction] 45.5 % Normal 34.0-46.6 [facility]; [facility] Work Phone: Comment on above: Sep 13; PATIENT WAS FASTINGPERFORMED BY: [facility] health Cjavid4986 [facility] [id number] Hemoglobin (Bld) [Mass/Vol] 14.7 g/dL Normal 11.1-15.9 [facility]; [facility] Work Phone: Comment on above: Sep 13; PATIENT WAS FASTINGPERFORMED BY: LabMar[facility] [facility] [id number] Immature granulocytes (Bld) [#/Vol] 0.0 10*3/uL Normal 0.0-0.1 [facility]; [facility] Work Phone: Comment on above: Sep 13; PATIENT WAS FASTINGPERFORMED BY: LabDavid Ville [id number] [address] [facility] [id number] Immature granulocytes/100 WBC (Bld) 0 % Normal [facility]; [facility] Work Phone: Comment on above: Sep 13; PATIENT WAS FASTINGPERFORMED BY: LabMarlette [facility] Hospital6370 [facility] [id number] Lymphocytes (Bld) [#/Vol] 2.5 10*3/uL Normal 0.7-3.1 [facility]; [facility] Work Phone: Comment on above: Sep 13; PATIENT WAS FASTINGPERFORMED BY: LabMarlette [facility] Hospital6370 [facility] [id number] Lymphocytes/100 WBC (Bld) 32 % Normal [facility]; [facility] Work Phone: Comment on above: Sep 13; PATIENT WAS FASTINGPERFORMED BY: LabMar[facility]6370 [facility] [id number] MCH (RBC) [Entitic mass] 29.6 pg Normal 26.6-33.0 [facility]; [facility] Work Phone: Comment on above: Sep 13; PATIENT WAS FASTINGPERFORMED BY: CB [facility] Iwdkag5637 Arce RoadDublin [place] [id number] MCHC (RBC) [Mass/Vol] 32.3 g/dL Normal 31.5-35.7 [facility] prehensive Internal [facility]; [facility] Work Phone: Comment on above: Sep 13; PATIENT WAS FASTINGPERFORMED BY: CB [facility] Cqjvsb7421 Arce RoadDublin [place] [id number] MCV (RBC) [Entitic vol] 92 fL Normal 79-97 [facility]; [facility] Work Phone: Comment on above: Sep 13; PATIENT WAS FASTINGPERFORMED BY: CB [facility] Gslrde4683 Arce RoadDublin [place] [id number] Monocytes (Bld) [#/Vol] 0.6 10*3/uL Normal 0.1-0.9 [facility]; [facility] Work Phone: Comment on above: Sep 13; PATIENT WAS FASTINGPERFORMED BY: CB [facility] Ucylvh0095 Arce RoadDublin [place] [id number] Monocytes/100 WBC (Bld) 7 % Normal [facility]; [facility] Work Phone: Comment on above: Sep 13; PATIENT WAS FASTINGPERFORMED BY: CB [facility] Ydenwq4255 Arce RoadDublin [place] [id number] Neutrophils (Bld) [#/Vol] 4.3 10*3/uL Normal 1.4-7.0 [facility]; [facility] Work Phone: Comment on above: Sep 13; PATIENT WAS FASTINGPERFORMED BY: CB [facility] Iyginv8551 Arce RoadDublin [place] [id number] Neutrophils/100 WBC (Bld) 55 % Normal [facility]; [facility] Work Phone: Comment on above: Sep 13; PATIENT WAS FASTINGPERFORMED BY: CB [facility] Jbyqxx3689 Arce RoadDublin [place] [id number] Platelets (Bld) [#/Vol] 346 10*3/uL Normal 150-450 [facility]; [facility] Work Phone: Comment on above: Sep 13; PATIENT WAS FASTINGPERFORMED BY: [facility] Labcoisaac Ylmpnd9550 Arce Roadblin [place] [id number] RBC (Bld) [#/Vol] 4.96 10*6/uL Normal 3.77-5.28 [facility]; [facility] Work Phone: Comment on above: Sep 13; PATIENT WAS FASTINGPERFORMED BY: [facility] Xbjjtw2501 Ar[address] Roadblin [place] [id number] WBC (Bld) [#/Vol] 7.9 10*3/uL Normal 3.4-10.8 [facility]; [facility] Work Phone: Comment on above: Sep 13; PATIENT WAS FASTINGPERFORMED BY: [facility] Labcoisaac Ucetzp3734 Arce RoadCape Fear/Harnett Health [id number] LIPID PANEL ([id number])Ordered B y: Commercial Construction Estimator on 09-13-2021 Cholesterol [Mass/Vol] 223 mg/dL Abnormal 100-199 [facility]; [facility] Work Phone: Comment on above: Sep 13; PATIENT WAS FASTINGPERFORMED BY: [facility] Labcoisaac Bejqnm9299 [address] [facility] Centerin [place] [id number] Cholesterol in HDL [Mass/Vol] 57 mg/dL Normal [facility]; [facility] Work Phone: Comment on above: Sep 13; PATIENT WAS FASTINGPERFORMED BY: [facility] Qxblmz1879 [address] [facility] Centerin [place] [id number] Triglyceride [Mass/Vol] 128 mg/dL Normal 0-149 [facility]; [facility] Work Phone: Comment on above: Sep 13; PATIENT WAS FASTINGPERFORMED BY: [facility] Lphkpd2584 [address] [facility] Centerin [place] [id number] LIPID PANEL (18415) 23 mg/dL Normal 5-40 [facility]; [facility] Work Phone: Comment on above: Sep 13; PATIENT WAS FASTINGPERFORMED BY: [facility] Uqdyeh5898 Arce Roadblin [place] [id number] LIPID PANEL (39532) 143 mg/dL Abnormal 0-99 [facility]; [facility] Work Phone: Comment on above: Sep 13; PATIENT WAS FASTINGPERFORMED BY: CB [facility] Xrituw9881 Arce RoadDublin [place] [id number] LIPID PANEL (18768) 2.5 {ratio} Normal 0.0-3.2 [facility]; [facility] Work Phone: Comment on above: LDL/HDL Ratio Men Wo men 1/2 Avg.Risk 1.0 1.5 Avg.Risk 3.6 3.2 2X Avg.Risk 6.2 5.0 3X Avg.Risk 8.0 6.1 Sep 13; PATIENT WAS FASTINGPERFORMED BY: CB [facility] Wrignf3262 [address] RoadAtrium Health Huntersvillein [place] [id number] Metabolic Panel, Comprehensi ve ([id number])Ordered By: Commercial Construction Estimator on 09-13-2021 Albumin [Mass/Vol] 4.3 g/dL Normal 3.8-4.8 [facility]; [facility] Work Phone: Comment on above: Sep 13; PATIENT WAS FASTINGPERFORMED BY: CB [facility] Hzhsyd7405 [address] [facility]in [place] [id number] Albumin/Globulin [Mass ratio] 2.0 {ratio} Normal 1.2-2.2 [facility]; [facility] Work Phone: Comment on above: Sep 13; PATIENT WAS FASTINGPERFORMED BY: CB [facility] Krcjfj2186 [address] RoadDublin [place] [id number] ALP [Catalytic activity/Vol] 95 U/L Normal 44-121 [facility]; [facility] Work Phone: Comment on above: Please note refere nce interval change Sep 13; PATIENT WAS FASTINGPERFORMED BY: CB [facility] Hifday3640 [address] RoadDublin [place] [id number] ALT [Catalytic activity/Vol] 34 U/L Abnormal 0-32 [facility]; [facility] Work Phone: Comment on above: Sep 13; PATIENT WAS FASTINGPERFORMED BY: CB [facility] Jhlser0734 [address] RoadDublin [place] [id number] AST [Catalytic activity/Vol] 33 U/L Normal 0-40 [facility]; [facility] Work Phone: Comment on above: Sep 13; PATIENT WAS FASTINGPERFORMED BY: CB [facility] Wwwafh0350 [address] RoadDublin [place] [id number] Bilirubin [Mass/Vol] 0.4 mg/dL Normal 0.0-1.2 Comp rehensive Internal Medicine; [facility] Work Phone: Comment on above: Sep 13; PATIENT WAS FASTINGPERFORMED BY: CB [facility] Ovpooa1003 [address] RoadDublin [place] [id number] Calcium [Mass/Vol] 9.8 mg/dL Normal 8.7-10.3 [facility]; [facility] Work Phone: Comment on above: Sep 13; PATIENT WAS FASTINGPERFORMED BY: CB [facility] Wtvvbl4889 [address] RoadDublin [place] [id number] Chloride [Moles/Vol] 105 mmol/L Normal 96-106 Comp rehensive Internal Medicine; [facility] Work Phone: Comment on above: Sep 13; PATIENT WAS FASTINGPERFORMED BY: CB [facility] Jbctwy6326 [address] RoadDublin [place] [id number] CO2 [Moles/Vol] 24 mmol/L Normal 20-29 [facility]; [facility] Work Phone: Comment on above: Sep 13; PATIENT WAS FASTINGPERFORMED BY: CB [facility] Ewkouy6588 [address] RoadDublin [place] [id number] Creatinine [Mass/Vol] 0.74 mg/dL Normal 0.57-1.00 [facility]; [facility] Work Phone: Comment on above: Sep 13; PATIENT WAS FASTINGPERFORMED BY: CB [facility] Htsibw5805 [address] RoadDublin [place] [id number] GFR/1.73 sq M.predicted among blacks CKD-EPI (S/P/Bld) [Vol rate/Area] 96 mL/min/1.73 Normal [facility]; [facility] Work Phone: Comment on above: In accordance with recommendations from the NKF-ASN Task force, [facility] is in the process of updating its eGFR calculation to the 2020 CKD-EPI creatinine equation that estimates kidney function without a race variable. Sep 13; PATIENT WAS FASTINGPERFORMED BY: ZION Ahmadi6370 [facility] [id number] GFR/1.73 sq M.predicted among non-blacks CKD-EPI (S/P/Bld) [Vol rate/Area] 84 mL/min/1.73 Normal [facility] Internal Medicine; [facility] Work Phone: Comment on above: Sep 13; PATIENT WAS FASTINGPERFORMED BY: [facility] Ddmhxp5638 [facility] [id number] Globulin (S) [Mass/Vol] 2.2 g/dL Normal 1.5-4.5 [facility] Internal Medicine; [facility] Work Phone: Comment on above: Sep 13; PATIENT WAS FASTINGPERFORMED BY: [facility] Btalta1612 [facility] [id number] Glucose [Mass/Vol] 93 mg/dL Normal 65-99 [facility] Internal Medicine; [facility] Work Phone: Comment on above: Sep 13; PATIENT WAS FASTINGPERFORMED BY: [facility] Xqehlb8816 [facility] [id number] Potassium [Moles/Vol] 4.4 mmol/L Normal 3.5-5.2 [facility]; [facility] Work Phone: Comment on above: Sep 13; PATIENT WAS FASTINGPERFORMED BY: [facility]ian Yuobqa8620 [facility] [id number] Protein [Mass/Vol] 6.5 g/dL Normal 6.0-8.5 [facility] Internal Medicine; [facility] Work Phone: Comment on above: Sep 13; PATIENT WAS FASTINGPERFORMED BY: CB [facility] Crwsmb7007 [address] RoadDublin [place] [id number] Sodium [Moles/Vol] 143 mmol/L Normal 134-144 [facility] Internal Medicine; [facility] Work Phone: Comment on above: Sep 13; PATIENT WAS FASTINGPERFORMED BY: CB [facility] Snnlsw2924 [address] RoadDublin [place] [id number] Urea nitrogen [Mass/Vol] 12 mg/dL Normal - [facility]; [facility] Work Phone: Comment on above: Sep 13; PATIENT WAS FASTINGPERFORMED BY: CB [facility] Yhcudp9326 [address] RoadDublin [place] [id number] Urea nitrogen/Creatinine [Mass ratio] 16 mg/mg Normal 10-12 [facility]; [facility] Work Phone: Comment on above: Sep 13; PATIENT WAS FASTINGPERFORMED BY: CB [facility] Aekhhq9109 [address] RoadDublin [place] [id number] TSH ([id number])Ordered By: Avistae Chongqing [employer] Boat Tender on 09-13-2021 TSH Qn 4.080 {uIU/mL} Normal 0.450-4.500 [facility]; [facility] Work Phone: Comment on above: Sep 13; PATIENT WAS FASTINGPERFORMED BY: CB [facility] Xsmrok1477 [address] RoadDublin [place] [id number] Clinical Lists Update: Prelo neuropsychology director 08-30-2017 Left ventricular Ejection fraction 65 % Invalid Interpretation Code [facility] Work Phone: Office Visiton 03-06-2017 Documentation of current medications (procedure) Done Invalid Interpretation Code [facility] Work Phone: Fall risk assessment No Invalid Interpretation Code [facility] Work Phone: CBC, Platelets & Auto Diff ( [id number])Ordered By: Commercial Construction Estimator on 08-10-2016 Basophils (Bld) [#/Vol] 0.1 10*3/uL Normal 0.0-0.2 [facility]; [facility] Work Phone: Comment on above: PATIENT WAS FASTINGP ERFORMED BY: [facility] Elwidw6687 [address] RoadDublin [place] [id number] Basophils/100 WBC (Bld) 1 % Normal [facility]; [facility] Work Phone: Comment on above: PATIENT WAS FASTINGP ERFORMED BY: [facility] Pnqfnx7481 [address] RoadDublin [place] [id number] Eosinophils (Bld) [#/Vol] 0.5 10*3/uL Abnormal 0.0-0.4 [facility]; [facility] Work Phone: Comment on above: PATIENT WAS FASTINGP ERFORMED BY: [facility] Kzymui1003 [address] Roadblin [place] [id number] Eosinophils/100 WBC (Bld) 6 % Normal [facility]; [facility] Work Phone: Comment on above: PATIENT WAS FASTINGP ERFORMED BY: [facility] [facility] [id number] Erythrocyte distribution width (RBC) [Ratio] 12.9 % Normal 12.3-15.4 [facility]; [facility] Work Phone: Comment on above: PATIENT WAS FASTINGP ERFORMED BY: [facility] Yjuixx4319 [address] [facility]in [place] [id number] Hematocrit (Bld) [Volume fraction] 39.2 % Normal 34.0-46.6 [facility]; [facility] Work Phone: Comment on above: PATIENT WAS FASTINGP ERFORMED BY: LabSaint [facility] Ujfkpm7184 [address] RoadAtrium Health Hun[place]villein [place] [id number] Hemoglobin (Bld) [Mass/Vol] 13.0 g/dL Normal 11.1-15.9 [facility]; [facility] Work Phone: Comment on above: PATIENT WAS FASTINGP ERFORMED BY: [facility] Ktplhd6760 [address] RoadDublin [place] [id number] Immature granulocytes (Bld) [#/Vol] 0.0 10*3/uL Normal 0.0-0.1 [facility]; [facility] Work Phone: Comment on above: PATIENT WAS FASTINGP ERFORMED BY: [facility] Tnpaji6218 [address] [facility] Centerin [place] [id number] Immature granulocytes/100 WBC (Bld) 0 % Normal [facility]; [facility] Work Phone: Comment on above: PATIENT WAS FASTINGP ERFORMED BY: LabCoSelect at BellevillePachyh7857 [address] [facility] Centerin [place] [id number] Lymphocytes (Bld) [#/Vol] 2.0 10*3/uL Normal 0.7-3.1 [facility]; [facility] Work Phone: Comment on above: PATIENT WAS FASTINGP ERFORMED BY: Lab[facility] Jybvdb[address] [facility] [id number] Lymphocytes/100 WBC (Bld) 26 % Normal [facility]; [facility] Work Phone: Comment on above: PATIENT WAS FASTINGP ERFORMED BY: LabTr[facility]6370 [facility] [id number] MCH (RBC) [Entitic mass] 29.1 pg Normal 26.6-33.0 [facility]; [facility] Work Phone: Comment on above: PATIENT WAS FASTINGP ERFORMED BY: LabTr[facility]6370 [facility] [id number] MCHC (RBC) [Mass/Vol] 33.2 g/dL Normal 31.5-35.7 [facility] prehensive Internal Medicine; [facility] Work Phone: Comment on above: PATIENT WAS FASTINGP ERFORMED BY: LabCoSelect at BellevilleYhcyhm4793 [address] [facility] Centerin [place] [id number] MCV (RBC) [Entitic vol] 88 fL Normal 79-97 [facility]; [facility] Work Phone: Comment on above: PATIENT WAS FASTINGP ERFORMED BY: LabCoSelect at BellevilleTdzycp2912 [address] [facility] Centerin [place] [id number] Monocytes (Bld) [#/Vol] 0.5 10*3/uL Normal 0.1-0.9 [facility]; [facility] Work Phone: Comment on above: PATIENT WAS FASTINGP ERFORMED BY: ZION LabCoisaac Cuqnrz0966 [address] RoadDublin [place] [id number] Monocytes/100 WBC (Bld) 7 % Normal [facility]; [facility] Work Phone: Comment on above: PATIENT WAS FASTINGP ERFORMED BY: CB [facility] Uifbfa8253 [address] RoadDublin [place] [id number] Neutrophils (Bld) [#/Vol] 4.6 10*3/uL Normal 1.4-7.0 [facility]; [facility] Work Phone: Comment on above: PATIENT WAS FASTINGP ERFORMED BY: ZION LabCoisaac Inaijo9641 [address] RoadDublin [place] [id number] Neutrophils/100 WBC (Bld) 60 % Normal [facility]; [facility] Work Phone: Comment on above: PATIENT WAS FASTINGP ERFORMED BY: ZION [facility] Kbcpib9910 [address] RoadDublin [place] [id number] Platelets (Bld) [#/Vol] 323 10*3/uL Normal 150-379 [facility]; [facility] Work Phone: Comment on above: PATIENT WAS FASTINGP ERFORMED BY: ZION [facility] Qjalko6376 [address] RoadDublin [place] [id number] RBC (Bld) [#/Vol] 4.47 10*6/uL Normal 3.77-5.28 Compr ehensive Internal Medicine; [facility] Work Phone: Comment on above: PATIENT WAS FASTINGP ERFORMED BY: CB [facility] Vpgcxx9666 [address] RoadDublin [place] [id number] WBC (Bld) [#/Vol] 7.6 10*3/uL Normal 3.4-10.8 Compre hensive Internal Medicine; [facility] Work Phone: Comment on above: PATIENT WAS FASTINGP ERFORMED BY: CB [facility] Nbborj7064 [address] RoadDublin [place] [id number] Lipid Panel ([id number])Ordered B y: Commercial Construction Estimator on 08-10-2016 Cholesterol [Mass/Vol] 167 mg/dL Normal 100-199 [facility] Internal Medicine; [facility] Work Phone: Comment on above: PATIENT WAS FASTINGP ERFORMED BY: ZION Cristianisaac YoonZzdljk1175 [address] BioGenericsAtrium Health [place]villein [place] [id number] Cholesterol in HDL [Mass/Vol] 55 mg/dL Normal [facility]; [facility] Work Phone: Comment on above: According to ATP-III Guidelines, HDL-C >59 mg/dL is considered anegative risk factor for CHD. PATIENT WAS FASTINGP ERFORMED BY: ZION LabRobert YoonQjvwls5360 [address] BioGenericsCape Fear/[facility] [id number] Cholesterol in LDL [Mass/Vol] 94 mg/dL Normal 0-99 [facility]; [facility] Work Phone: Comment on above: PATIENT WAS FASTINGP ERFORMED BY: ZION LabCoisaac YoonYjbmkg0908 [facility] [id number] Cholesterol in LDL/Cholesterol in HDL [Mass ratio] 1.7 {ratio_units} Normal 0.0-3.2 [facility]; [facility] Work Phone: Comment on above: LDL/HDL Ratio Men Wo men 1/2 Avg.Risk 1.0 1.5 Avg.Risk 3.6 3.2 2X Avg.Risk 6.2 5.0 3X Avg.Risk 8.0 6.1 PATIENT WAS FASTINGP ERFORMED BY: ZION LabCoisaac Zdxnkb9265 [facility] [id number] Cholesterol in VLDL [Mass/Vol] 18 mg/dL Normal 5-40 [facility]; [facility] Work Phone: Comment on above: PATIENT WAS FASTINGP ERFORMED BY: ZION LabCoisaac Gsramp0007 [facility] [id number] Triglyceride [Mass/Vol] 92 mg/dL Normal 0-149 [facility]; [facility] Work Phone: Comment on above: PATIENT WAS FASTINGP ERFORMED BY: ZION Ahmadi6370 [address] [facility] Centerblin [place] [id number] Metabolic Panel, Comprehensi ve ([id number])Ordered By: Commercial Construction Estimator on 08-10-2016 Albumin [Mass/Vol] 4.0 g/dL Normal 3.6-4.8 [facility] Internal [facility]; [facility] Work Phone: Comment on above: PATIENT WAS FASTINGP ERFORMED BY: ZION LabCoisaac Zmqoqj6155 [address] Roadblin [place] [id number] Albumin/Globulin [Mass ratio] 1.9 {ratio} Normal 1.1-2.5 [facility]; [facility] Work Phone: Comment on above: PATIENT WAS FASTINGP ERFORMED BY: ZION LabRboert YoonVgwovg3389 [address] RoadAtrium Health Huntersvillein [place] [id number] ALP [Catalytic activity/Vol] 103 U/L Normal 39-117 [facility]; [facility] Work Phone: Comment on above: PATIENT WAS FASTINGP ERFORMED BY: ZION LabRobert YoonJooadx8444 [address] [facility]in [place] [id number] ALT [Catalytic activity/Vol] 40 U/L Abnormal 0-32 [facility]; [facility] Work Phone: Comment on above: PATIENT WAS FASTINGP ERFORMED BY: ZION LabRobert Onzdkj0973 [address] [facility] Centerbl[facility] [place] [id number] AST [Catalytic activity/Vol] 36 U/L Normal 0-40 [facility]; [facility] Work Phone: Comment on above: PATIENT WAS FASTINGP ERFORMED BY: ZION [facility] Oxguob8126 [address] Roadblin [place] [id number] Bilirubin [Mass/Vol] 0.3 mg/dL Normal 0.0-1.2 [facility] Internal Medicine; [facility] Work Phone: Comment on above: PATIENT WAS FASTINGP ERFORMED BY: ZION [facility] Hmezfz6807 [address] RoadDublin [place] [id number] Calcium [Mass/Vol] 9.4 mg/dL Normal 8.7-10.3 [facility] Internal [facility]; [facility] Work Phone: Comment on above: PATIENT WAS FASTINGP ERFORMED BY: CB [facility] Bbtrnf4910 [address] RoadDublin [place] [id number] Chloride [Moles/Vol] 103 mmol/L Normal 97-106 Comp rehensive Internal Medicine; [facility] Work Phone: Comment on above: Please note refere nce interval change PATIENT WAS FASTINGP ERFORMED BY: CB [facility] Umwswr0411 [address] RoadDuin [place] [id number] CO2 [Moles/Vol] 25 mmol/L Normal 18-29 [facility]; [facility] Work Phone: Comment on above: PATIENT WAS FASTINGP ERFORMED BY: CB [facility] Briuaf[address] [facility] [id number] Creatinine [Mass/Vol] 0.71 mg/dL Normal 0.57-1.00 [facility] prehensive Internal Medicine; [facility] Work Phone: Comment on above: PATIENT WAS FASTINGP ERFORMED BY: CB [facility] Fhjkup5534 [address] RoadAtrium Health Huntersvillein [place] [id number] GFR/1.73 sq M.predicted among blacks CKD-EPI (S/P/Bld) [Vol rate/Area] 105 mL/min/1.73 Normal [facility]; [facility] Work Phone: Comment on above: PATIENT WAS FASTINGP ERFORMED BY: CB [facility] Npoduq9747 [address] RoadAtrium Health Hun[facility]villein [place] [id number] GFR/1.73 sq M.predicted among non-blacks CKD-EPI (S/P/Bld) [Vol rate/Area] 91 mL/min/1.73 Normal [facility]; [facility] Work Phone: Comment on above: PATIENT WAS FASTINGP ERFORMED BY: CB [facility] Vmfjqu4620 [address] RoadAtrium Health Hun[place]villein [place] [id number] Globulin (S) [Mass/Vol] 2.1 g/dL Normal 1.5-4.5 [facility]; [facility] Work Phone: Comment on above: PATIENT WAS FASTINGP ERFORMED BY: CB [facility] Vywywe2844 [address] RoadDublin [place] [id number] Glucose [Mass/Vol] 81 mg/dL Normal 65-99 [facility] Internal Medicine; [facility] Work Phone: Comment on above: PATIENT WAS FASTINGP ERFORMED BY: CB [facility] Msixhu9128 [address] RoadDublin [place] [id number] Potassium [Moles/Vol] 4.8 mmol/L Normal 3.5-5.2 [facility] Internal Medicine; [facility] Work Phone: Comment on above: Please note refere nce interval change PATIENT WAS FASTINGP ERFORMED BY: CB [facility] Mcxjht7533 [address] RoadDublin [place] [id number] Protein [Mass/Vol] 6.1 g/dL Normal 6.0-8.5 [facility] Internal [facility]; [facility] Work Phone: Comment on above: PATIENT WAS FASTINGP ERFORMED BY: [facility] Rcclpn5590 [address] RoadDublin [place] [id number] Sodium [Moles/Vol] 144 mmol/L Normal 136-144 [facility] Internal Medicine; [facility] Work Phone: Comment on above: Please note refere nce interval change PATIENT WAS FASTINGP ERFORMED BY: [facility] Xnvpyi4140 [address] RoadDublin [place] [id number] Urea nitrogen [Mass/Vol] 11 mg/dL Normal 8-27 [facility] Internal Medicine; [facility] Work Phone: Comment on above: PATIENT WAS FASTINGP ERFORMED BY: CB [facility] Atgpjp5153 [address] RoadDublin [place] [id number] Urea nitrogen/Creatinine [Mass ratio] 15 mg/mg Normal 11-26 [facility] Internal Medicine; [facility] Work Phone: Comment on above: PATIENT WAS FASTINGP ERFORMED BY: CB [facility] Jwapwa3761 [address] RoadDublin [place] [id number] TSH ([id number])Ordered By: Shawn Isaacs on 08-10-2016 TSH Qn 4.170 {uIU/mL} Normal 0.450-4.500 [facility]; [facility] Work Phone: Comment on above: PATIENT WAS FASTINGP ERFORMED BY: [employer] Juzxka9146 [facility] [id number] Append: CR Refferalon 2015 Clinical consultation report (record artifact) [facility]-[id number]^ [id number] Invalid Interpretation Code [facility] Work Phone: Replaced Document: Juarez Ortizon 07-11-2016 BUN (urea nitrogen) Sinus Tachycardia -Left bundle branch block. -Combined atrial enlargement. ABNORMAL Invalid Interpretation Code [facility] Work Phone: EKG QRS axis -13 deg Invalid Interpretation Code [facility] Work Phone: P [place] 64 deg Invalid Interpretation Code [facility] Work Phone: HI Interval 162 ms Invalid Interpretation Code [facility] Work Phone: Pulse (Heart Rate) 103 /min Invalid Interpretation Code [facility] Work Phone: QRS Duration 140 ms Invalid Interpretation Code [facility] Work Phone: QT Interval new path ms Invalid Interpretation Code [facility] Work Phone: QTc [place] 455 ms Invalid Interpretation Code [facility] Work Phone: T [place] 64 deg Invalid Interpretation Code [facility] Work Phone: URINE CELENA CULTURE-IDENTIFICA TN ([id number])Ordered By: Commercial Construction Estimator on 06-24-2016 Bacteria identified Cx Nom (U) Final report Abnormal [facility]; [facility] Work Phone: Comment on above: PATIENT NOT FASTINGP ERFORMED BY: ZION Vigour.ioCoisaac Wfodlz6170 [facility] [id number] Information: SRC:UC Bacteria identified Cx Nom (U) Escherichia coli Abnormal [facility]; [facility] Work Phone: Comment on above: Greater than 100,000 colony forming units per mL PATIENT NOT FASTINGP ERFORMED BY: [facility] Orkjlu6582 Arce RoadTalking Layersin [place] [id number] Information: SRC:LYNNE Other Antibiotic [Susc] MIHEAD Normal [facility]; [facility] Work Phone: Comment on above: S = Susceptible; I = Intermediate; R = Resistant P = Positive; N = Negative MICS are expressed in micrograms per mL Antibiotic RSLT#1 RSLT#2 RSLT#3 RSLT#4Amoxicillin/Clavulanic Acid SAmpicillin SCefepime SCeftriaxone SCefuroxime SCephalothin SCiprofloxacin SErtapenem SGentamicin SImipenem SLevofloxacin SNitrofurantoin SPiperacillin STetracycline STobramycin STrimethoprim/Sulfa S PATIENT NOT FASTINGP ERFORMED BY: ZION LabLeadjini Nsjbpz7548 [address] [place] [id number] Information: SRC:LYNNE Urinalysis, Office ([id number])on 06-24-2016 Bilirubin Ql (U) Negative Normal Comprehe nsive Internal Medicine; [facility] Work Phone: Glucose Test strip (U) [Mass/Vol] Negative Normal [facility]; [facility] Work Phone: Hemoglobin Ql (U) Hemolyzed Small Normal Co mprehensive [facility]; [facility] Work Phone: Ketones Ql (U) Negative Normal Comprehens henny Internal Medicine; [facility] Work Phone: Leukocyte esterase Test strip Ql (U) Large Normal [facility]; [facility] Work Phone: Nitrite Ql (U) Negative Normal Comprehens henny [facility]; [facility] Work Phone: pH (U) 6.5 [pH] Normal [facility]; [facility] Work Phone: Protein Ql (U) Negative Normal Comprehens henny [facility]; [facility] Work Phone: Specific gravity (U) [Rel density] 1.010 1 Normal [facility]; [facility] Work Phone: Urobilinogen (24H U) [Mass/Time] Normal Normal [facility]; [facility] Work Phone: Clinical Lists Update: 06-20-2016 BUN/Creatinine Ratio 20.3 mg/mg Invalid Interpretation Code [employer] Work Phone: Calcium 8.5 mg/dL Invalid Interpretation Code [employer] Work Phone: Chloride 105 mmol/L Invalid Interpretation Code [employer] Work Phone: CO2 27 mmol/L Invalid Interpretation Code [employer] Work Phone: Creatinine 0.59 mg/dL Invalid Interpretation Code [employer] Work Phone: Glucose mass conc 98 mg/dL Invalid Interpretation Code [employer] Work Phone: Hematocrit (HCT) 31.5 % Invalid Interpretation Code [employer] Work Phone: Hemoglobin mass conc (Bld) 10.6 g/dL Invalid Interpretation Code [employer] Work Phone: Platelets 128 10*3/mm3 Invalid Interpretation Code [employer] Work Phone: Potassium molar conc 3.9 mmol/L Invalid Interpretation Code [employer] Work Phone: Sodium 138 mmol/L Invalid Interpretation Code [employer] Work Phone: Urea nitrogen 12 mg/dL Invalid Interpretation Code [employer] Work Phone: WBC (Leukocytes) 11.8 10*3/uL Invalid Interpretation Code [employer] Work Phone: Clinical Lists Update: 06-18-2016 Alanine aminotransferase (ALT) 32 U/L Invalid Interpretation Code [employer] [facility] Work Phone: Alkaline phosphatase (ALP) 41 U/L Invalid Interpretation Code [employer] [facility] Work Phone: Aspartate aminotransferase (AST) 34 U/L Invalid Interpretation Code [facility] Work Phone: Bilirubin (total) 0.8 mg/dL Invalid Interpretation Code [employer] [facility] Work Phone: Protein 5.6 g/dL Invalid Interpretation Code [facility] Work Phone: Lab Report: Blood Gas Specim en Typeon 04-27-2016 BLD GAS TYPE ART Invalid Interpretation Code [facility] Work Phone: Lab Report: PO2 I-Robert Oxygen in arterial blood 77 mm[Hg] Invalid Interpretation Code 75-100 [facility] Work Phone: Lab Report: SO2 ISTATon 07 O2 saturation 96 % Invalid Interpretation Code 95-99 [facility] Work Phone: Lab Report: VBG PO2 I-Robert 04-27-2016 VBG PO2 I-STAT 48 mm[Hg] High 25-40 [facility] Work Phone: Lab Report: VBG SO2 ISTATon 04-27-2016 VBG SO2 ISTAT 82 % High 50-70 [facility] Work Phone: Lab Report: Basic Metabolic Profile (BMP)on 04-25-2016 Anion gap 7 mmol/L Invalid Interpretation Code 5-15 [facility] Work Phone: eGFR (non-black) 108 mL/min/{1.73_m2} Invalid Interpretation Code >60 [facility] Work Phone: eGFR (non-black) 89 mL/min/{1.73_m2} Invalid Interpretation Code >60 [facility] Work Phone: Lab Report: CBC-Complete Blo od Cnt No Diffon 04-25-2016 Erythrocyte distribution width Auto Ratio (RBC) 13.4 % Invalid Interpretation Code 11.6-14.6 [facility] Work Phone: Erythrocytes (RBC) 4.53 10*6/uL Invalid Interpretation Code 4.2-5.4 [facility] Work Phone: MCH 30.7 pg Invalid Interpretation Code 27.0-32.0 [facility] Work Phone: MCHC mass conc (RBC) 33.6 G/GL Invalid Interpretation Code 32-36 [facility] Work Phone: MCV 91.4 fL Invalid Interpretation Code 81-99 [employer] [facility] Work Phone: PMV by Bonnie 9.7 fL Invalid Interpretation Code 6.2-12.0 [facility] Work Phone: RDW SD 43.9 fL Invalid Interpretation Code 35.1-43.9 [facility] Work Phone: Lab Report: Partial Thrombop last Timeon 04-25-2016 aPTT 30.4 s Invalid Interpretation Code 24.1-36.2 [facility] Work Phone: Lab Report: Prothrombin Time w/INRon 04-25-2016 INR Coag RelTime (PPP) 1.0 {INR} Invalid Interpretation Code [facility] Phone: Prothrombin time (PT) Coag time (PPP) 12.8 s Invalid Interpretation Code 11.7-14.9 [facility] Work Phone: Lab Report: T4 Total, Thyrox inon 03-10-2016 Thyroxine (T4) 9.8 ug/dL Invalid Interpretation Code 4.8-13.9 [facility] Work Phone: Lab Report: Thyroid Stim Hor simone (TSH)on 03-10-2016 Thyroid stimulating hormone (TSH) 2.71 u[iU]/mL Invalid Interpretation Code 0.358-3.74 [facility] Phone: Office Visiton 03-10-2016 Tobacco use [facility] Former smoker Invalid Interpretation Code [employer] [facility] Work Phone: Clinical Lists Update: Prelo neuropsychology director 02-16-2016 LDL to HDL Ratio 2.8 Invalid Interpretation Code [employer] [facility] Work Phone: very low density lipoproteins 18 mg/dL Invalid Interpretation Code [facility] Work Phone: Cholesterol 271 mg/dL Abnormal 100-199 [employer] [facility] Work Phone: Comment on above: PATIENT WAS FASTINGP ERFORMED BY: [facility] [id number] [facility] [id number] Information: [id number] HDL Cholesterol 66 mg/dL Normal [facility] Work Phone: Comment on above: According to ATP-III Guidelines, HDL-C >59 mg/dL is considered anegative risk factor for CHD. PATIENT WAS FASTINGP ERFORMED BY: [facility] [id number] [facility] [id number] Information: [id number] LDL Cholesterol 187 mg/dL Abnormal 0-99 [facility] Work Phone: Comment on above: PATIENT WAS FASTINGP ERFORMED BY: [facility] [id number] [facility] [id number] Information: [id number] Triglyceride 88 mg/dL Normal 0-149 [facility] Work Phone: Comment on above: PATIENT WAS FASTINGP ERFORMED BY: [facility] [id number] [facility] [id number] Information: [id number] Lipid Panel (12129)Ordered B y: [employer] Estimator on 02-16-2016 Cholesterol in LDL/Cholesterol in HDL [Mass ratio] 2.8 {ratio_units} Normal 0.0-3.2 [facility] Work Phone: Comment on above: LDL/HDL Ratio Men Wo men 1/2 Avg.Risk 1.0 1.5 Avg.Risk 3.6 3.2 2X Avg.Risk 6.2 5.0 3X Avg.Risk 8.0 6.1 PATIENT WAS FASTINGP ERFORMED BY: [facility] [id number] [facility] [id number] Information: [id number] Cholesterol in VLDL [Mass/Vol] 18 mg/dL Normal 5-40 [facility]; [facility] Work Phone: Comment on above: PATIENT WAS FASTINGP ERFORMED BY: [facility] [id number] [facility] [id number] Information: [id number] Vital Signs Date Time Vital Sign Value Performing Clinician Facility 02-25-2025 13:11-0400 Body mass index (BMI) [Ratio] 21.4 kg/m2 Alesia Duong SENSITOMETRIST.ECONOMIC RESEARCH ASSISTANT Work Phone: [facility] 02-25-2025 13:11-0400 Body temperature 97.2 [degF] Alesia Duong SENSITOMETRIST.ECONOMIC RESEARCH ASSISTANT Work Phone: [facility] 02-25-2025 13:11-0400 Body weight 54.8 kg Alesia Duong SENSITOMETRIST.ECONOMIC RESEARCH ASSISTANT Work Phone: [facility] 02-25-2025 13:11-0400 Diastolic blood pressure 62 mm[Hg] Alesia Duong SENSITOMETRIST.ECONOMIC RESEARCH ASSISTANT Work Phone: [facility] 02-25-2025 13:11-0400 Heart rate 82 /min Alesia Duong SENSITOMETRIST.ECONOMIC RESEARCH ASSISTANT Work Phone: [facility] 02-25-2025 13:11-0400 Respiratory rate 16 /min Alesia Duong SENSITOMETRIST.ECONOMIC RESEARCH ASSISTANT Work Phone: [facility] 02-25-2025 13:11-0400 SaO2% (BldA) [Mass fraction] 97 % Alesia Duong SENSITOMETRIST.ECONOMIC RESEARCH ASSISTANT Work Phone: [facility] 02-25-2025 13:11-0400 Systolic blood pressure 106 mm[Hg] Alesia Duong SENSITOMETRIST.ECONOMIC RESEARCH ASSISTANT Work Phone: [facility] 12-13-2024 13:19-0500 Body height 160.[address] Nina Marroquin MD Work Phone: [facility] 12-13-2024 13:19-0500 Body mass index (BMI) [Ratio] 21.9 kg/m2 Dr. Nina Marroquin MD Work Phone: [facility] 12-13-2024 13:19-0500 Body weight 56.[address] Nina Marroquin MD Work Phone: [facility] 12-13-2024 13:19-0500 Diastolic blood pressure 64 mm[Hg] Dr. Nina Marroquin MD Work Phone: [facility] 12-13-2024 13:19-0500 Heart rate 90 /min Dr. Nina Marroquin MD Work Phone: [facility] 12-13-2024 13:19-0500 Respiratory rate 16 /min Dr. Nina Marroquin MD Work Phone: [facility] 12-13-2024 13:19-0500 Systolic blood pressure 135 mm[Hg] Dr. Nina Marroquin MD Work Phone: [facility] 10-27-2023 13:35-0500 Body height 160.[address] Nina Marroquin Work Phone: [facility] 10-27-2023 13:35-0500 Body mass index (BMI) [Ratio] 22.1 kg/m2 Dr. Nina Marroquin Work Phone: [facility] 10-27-2023 13:35-0500 Body weight 56.[address] Nina Marroquin Work Phone: [facility] 10-27-2023 13:35-0500 Diastolic blood pressure 57 mm[Hg] Dr. Nina Marroquin Work Phone: [facility] 10-27-2023 13:35-0500 Heart rate 85 /min Dr. Nina Marroquin Work Phone: [facility] 10-27-2023 13:35-0500 Respiratory rate 16 /min Dr. Nina Marroquin Work Phone: [facility] 10-27-2023 13:35-0500 Systolic blood pressure 130 mm[Hg] Dr. Nina Marroquin Work Phone: [facility] 05-18-2023 08:24-0400 Body height 160.02 cm ILAN Welsh NP Work Phone: [facility] 05-18-2023 08:24-0400 Body mass index (BMI) [Ratio] 22 kg/m2 COMMISSARY ASSISTANT-C Nata Burka COMMISSARY ASSISTANT Work Phone: [facility] 05-18-2023 08:24-0400 Body temperature 97.5 [degF] COMMISSARY ASSISTANT-C Nata Burka COMMISSARY ASSISTANT Work Phone: [facility] 05-18-2023 08:24-0400 Body weight 56.47 kg COMMISSARY ASSISTANT-C Nata Burka COMMISSARY ASSISTANT Work Phone: [facility] 05-18-2023 08:24-0400 Diastolic blood pressure 80 mm[Hg] COMMISSARY ASSISTANT-C Nata Burka COMMISSARY ASSISTANT Work Phone: [facility] 05-18-2023 08:24-0400 Heart rate 84 /min COMMISSARY ASSISTANT-C Nata Burka COMMISSARY ASSISTANT Work Phone: [facility] 05-18-2023 08:24-0400 Respiratory rate 16 /min COMMISSARY ASSISTANT-C Nata Burka COMMISSARY ASSISTANT Work Phone: [facility] 05-18-2023 08:24-0400 SaO2% (BldA) [Mass fraction] 97 % COMMISSARY ASSISTANT-C Nata Burka COMMISSARY ASSISTANT Work Phone: [facility] 05-18-2023 08:24-0400 Systolic blood pressure 123 mm[Hg] COMMISSARY ASSISTANT-C Nata Burka COMMISSARY ASSISTANT Work Phone: [facility] 03-08-2023 13:05-0400 Body mass index (BMI) [Ratio] 21.7 kg/m2 COMMISSARY ASSISTANT-C Nata Burka COMMISSARY ASSISTANT Work Phone: [facility] 03-08-2023 13:05-0400 Body temperature 98.6 [degF] COMMISSARY ASSISTANT-C Nata Burka COMMISSARY ASSISTANT Work Phone: [facility] 03-08-2023 13:05-0400 Body weight 55.79 kg COMMISSARY ASSISTANT-C Nata Burka COMMISSARY ASSISTANT Work Phone: [facility] 03-08-2023 13:05-0400 Diastolic blood pressure 74 mm[Hg] COMMISSARY ASSISTANT-C Nata Burka COMMISSARY ASSISTANT Work Phone: [facility] 03-08-2023 13:05-0400 Heart rate 80 /min COMMISSARY ASSISTANT-C Nata Welsh COMMISSARY ASSISTANT Work Phone: [facility] 03-08-2023 13:05-0400 Respiratory rate 16 /min COMMISSARY ASSISTANT-C Nata Welsh COMMISSARY ASSISTANT Work Phone: [facility] 03-08-2023 13:05-0400 SaO2% (BldA) [Mass fraction] 96 % COMMISSARY ASSISTANT-C Nata Welsh COMMISSARY ASSISTANT Work Phone: [facility] 03-08-2023 13:05-0400 Systolic blood pressure 140 mm[Hg] COMMISSARY ASSISTANT-C Nata Welsh COMMISSARY ASSISTANT Work Phone: [facility] 10-27-2022 11:16-0500 Body temperature 97.7 [degF] Keily Garcia SENSITOMETRIST.ECONOMIC RESEARCH ASSISTANT Work Phone: [facility] 10-27-2022 11:16-0500 Body weight 54.98 kg Keily Garcia SENSITOMETRIST.ECONOMIC RESEARCH ASSISTANT Work Phone: [facility] 10-27-2022 11:16-0500 Diastolic blood pressure 74 mm[Hg] Keily Garcia SENSITOMETRIST.ECONOMIC RESEARCH ASSISTANT Work Phone: [facility] 10-27-2022 11:16-0500 Heart rate 92 /min Keily Garcia SENSITOMETRIST.ECONOMIC RESEARCH ASSISTANT Work Phone: [facility] 10-27-2022 11:16-0500 Respiratory rate 18 /min Keily Garcia SENSITOMETRIST.ECONOMIC RESEARCH ASSISTANT Work Phone: [facility] 10-27-2022 11:16-0500 SaO2% (BldA) [Mass fraction] 97 % Keily Garcia SENSITOMETRIST.ECONOMIC RESEARCH ASSISTANT Work Phone: [facility] 10-27-2022 11:16-0500 Systolic blood pressure 110 mm[Hg] Keily Garcia SENSITOMETRIST.ECONOMIC RESEARCH ASSISTANT Work Phone: [facility] 10-21-2022 11:20-0500 Diastolic blood pressure 65 mm[Hg] Dr. Nina Marroquin Work Phone: [facility] Work Phone: 10-21-2022 11:20-0500 Systolic blood pressure 125 mm[Hg] Dr. Nina Marroquin Work Phone: [facility] Work Phone: 10-21-2022 10:00-0500 Heart rate 80 /min Dr. Nina Marroquin Work Phone: [facility] Work Phone: 10-21-2022 10:00-0500 Respiratory rate 16 /min Dr. Nina Marroquin Work Phone: [facility] Work Phone: 10-21-2022 10:00-0500 SaO2% (BldA) [Mass fraction] 98 % Dr. Nina Marroquin Work Phone: [facility] Work Phone: 10-21-2022 06:35-0500 Body height 160.[address] Nina Marroquin Work Phone: [facility] Work Phone: 10-21-2022 06:35-0500 Body mass index (BMI) [Ratio] 22.5 kg/m2 Dr. Nina Marroquin Work Phone: [facility] Work Phone: 10-21-2022 06:35-0500 Body temperature 97.1 [degF] Dr. Nina Marroquin Work Phone: [facility] Work Phone: 10-21-2022 06:35-0500 Body weight 57.[address] Nina Marroquin Work Phone: [facility] Work Phone: 10-20-2022 13:17-0500 Body temperature 98.1 [degF] Gurpreet Stewart MD Work Phone: [facility] 10-20-2022 13:17-0500 Diastolic blood pressure 49 mm[Hg] Gurpreet Stewart MD Work Phone: [facility] 10-20-2022 13:17-0500 Heart rate 82 /min Gurpreet Stewart MD Work Phone: [facility] 10-20-2022 13:17-0500 Respiratory rate 20 /min Gurpreet Stewart MD Work Phone: [facility] 10-20-2022 13:17-0500 SaO2% (BldA) [Mass fraction] 96 % Gurpreet Stewart MD Work Phone: [facility] 10-20-2022 13:17-0500 Systolic blood pressure 116 mm[Hg] Gurpreet Stewart MD Work Phone: [facility] 09-01-2022 13:25-0500 Body temperature 98.4 [degF] Gurpreet Stewart MD Work Phone: [facility] 09-01-2022 13:25-0500 Diastolic blood pressure 86 mm[Hg] Gurpreet Stewart MD Work Phone: [facility] 09-01-2022 13:25-0500 Heart rate 80 /min Gurpreet Stewart MD Work Phone: [facility] 09-01-2022 13:25-0500 Respiratory rate 18 /min Gurpreet Stewart MD Work Phone: [facility] 09-01-2022 13:25-0500 SaO2% (BldA) [Mass fraction] 96 % Gurpreet Stewart MD Work Phone: [facility] 09-01-2022 13:25-0500 Systolic blood pressure 108 mm[Hg] Gurpreet Stewart MD Work Phone: [facility] 08-31-2022 11:44-0500 Body temperature 97.3 [degF] Dr. Nina Marroquin Work Phone: [facility] Work Phone: 08-31-2022 11:44-0500 Body weight 54.[address] Nina Marroquin Work Phone: [facility] Work Phone: 08-31-2022 11:44-0500 Diastolic blood pressure 82 mm[Hg] Dr. Nina Marroquin Work Phone: [facility] Work Phone: 08-31-2022 11:44-0500 Heart rate 101 /min Dr. Nina Marroquin Work Phone: [facility] Work Phone: 08-31-2022 11:44-0500 Respiratory rate 18 /min Dr. Nina Marroquin Work Phone: [facility] Work Phone: 08-31-2022 11:44-0500 SaO2% (BldA) [Mass fraction] 98 % Dr. Nina Marroquin Work Phone: [facility] Work Phone: 08-31-2022 11:44-0500 Systolic blood pressure 119 mm[Hg] Dr. Nina Marroquin Work Phone: [facility] Work Phone: 08-15-2022 09:20-0400 Body mass index (BMI) [Ratio] 26.4 kg/m2 Dr. Nina Marroquin Work Phone: [facility] Work Phone: 08-15-2022 09:20-0400 Body weight 67.[address] Nina Marroquin Work Phone: [facility] Work Phone: 08-15-2022 09:20-0400 Diastolic blood pressure 81 mm[Hg] Dr. Nina Marroquin Work Phone: [facility] Work Phone: 08-15-2022 09:20-0400 Heart rate 92 /min Dr. Nina Marroquin Work Phone: [facility] Work Phone: 08-15-2022 09:20-0400 Respiratory rate 18 /min Dr. Nina Marroquin Work Phone: [facility] Work Phone: 08-15-2022 09:20-0400 SaO2% (BldA) [Mass fraction] 98 % Dr. Nina Marroquin Work Phone: [facility] Work Phone: 08-15-2022 09:20-0400 Systolic blood pressure 128 mm[Hg] Dr. Nina Marroquin Work Phone: [facility] Work Phone: 08-10-2022 10:38-0400 Body height 160 cm Pst 1 [facility] 08-10-2022 10:38-0400 Body temperature 99 [degF] Pst 1 [facility] 08-10-2022 10:38-0400 Body weight 54.43 kg Pst 1 [facility] 08-10-2022 10:38-0400 Diastolic blood pressure 77 mm[Hg] Pst 1 [facility] 08-10-2022 10:38-0400 Heart rate 88 /min Pst 1 [facility] 08-10-2022 10:38-0400 Respiratory rate 18 /min Pst 1 [facility] 08-10-2022 10:38-0400 SaO2% (BldA) [Mass fraction] 96 % Pst 1 [facility] 08-10-2022 10:38-0400 Systolic blood pressure 145 mm[Hg] Pst 1 [facility] 08-08-2022 13:15-0400 Body temperature 97.8 [degF] Dr. Nina Marroquin Work Phone: [facility] Work Phone: 08-08-2022 13:15-0400 Body weight 55.[address] Nina Marroquin Work Phone: [facility] Work Phone: 08-08-2022 13:15-0400 Diastolic blood pressure 70 mm[Hg] Dr. Nina Marroquin Work Phone: [facility] Work Phone: 08-08-2022 13:15-0400 Heart rate 99 /min Dr. Nina Marroquin Work Phone: [facility] Work Phone: 08-08-2022 13:15-0400 Respiratory rate 16 /min Dr. Nina Marroquin Work Phone: [facility] Work Phone: 08-08-2022 13:15-0400 SaO2% (BldA) [Mass fraction] 98 % Dr. Nina Marroquin Work Phone: [facility] Work Phone: 08-08-2022 13:15-0400 Systolic blood pressure 128 mm[Hg] Dr. Nina Marroquin Work Phone: [facility] Work Phone: 08-04-2022 13:44-0400 Body height 157.5 cm Gurpreet Stewart MD Work Phone: [facility] 08-04-2022 13:44-0400 Body weight 55.34 kg Gurpreet Stewart MD Work Phone: [facility] 08-04-2022 13:44-0400 Diastolic blood pressure 69 mm[Hg] Gurpreet Stewart MD Work Phone: [facility] 08-04-2022 13:44-0400 Heart rate 81 /min Gurpreet Stewart MD Work Phone: [facility] 08-04-2022 13:44-0400 SaO2% (BldA) [Mass fraction] 97 % Gurpreet Stewart MD Work Phone: [facility] 08-04-2022 13:44-0400 Systolic blood pressure 140 mm[Hg] Gurpreet Stewart MD Work Phone: [facility] 04-11-2022 09:55-0400 Body height 160.02 cm COMMISSARY ASSISTANT-C Nata Burka COMMISSARY ASSISTANT Work Phone: [facility] Work Phone: 04-11-2022 09:55-0400 Body mass index (BMI) [Ratio] 21.3 kg/m2 COMMISSARY ASSISTANT-C Nata Burka COMMISSARY ASSISTANT Work Phone: [facility] Work Phone: 04-11-2022 09:55-0400 Body temperature 97.7 [degF] COMMISSARY ASSISTANT-C Nata Burka COMMISSARY ASSISTANT Work Phone: [facility] Work Phone: 04-11-2022 09:55-0400 Body weight 54.6 kg COMMISSARY ASSISTANT-C Ntaa Burka COMMISSARY ASSISTANT Work Phone: [facility] Work Phone: 04-11-2022 09:55-0400 Diastolic blood pressure 89 mm[Hg] COMMISSARY ASSISTANT-C Nata Burka COMMISSARY ASSISTANT Work Phone: [facility] Work Phone: 04-11-2022 09:55-0400 Heart rate 96 /min COMMISSARY ASSISTANT-C Nata Burka COMMISSARY ASSISTANT Work Phone: [facility] Work Phone: 04-11-2022 09:55-0400 Respiratory rate 16 /min COMMISSARY ASSISTANT-C Nata Burka COMMISSARY ASSISTANT Work Phone: [facility] Work Phone: 04-11-2022 09:55-0400 SaO2% (BldA) [Mass fraction] 97 % COMMISSARY ASSISTANT-C Nata Burka COMMISSARY ASSISTANT Work Phone: [facility] Work Phone: 04-11-2022 09:55-0400 Systolic blood pressure 128 mm[Hg] COMMISSARY ASSISTANT-C Nata Welsh COMMISSARY ASSISTANT Work Phone: [facility] Work Phone: 03-08-2022 13:34-0400 Body mass index (BMI) [Ratio] 21.4 kg/m2 COMMISSARY ASSISTANT-C Nata Welsh COMMISSARY ASSISTANT Work Phone: [facility] Work Phone: 03-08-2022 13:34-0400 Body temperature 98.8 [degF] COMMISSARY ASSISTANT-C Nata Welsh COMMISSARY ASSISTANT Work Phone: [facility] Work Phone: 03-08-2022 13:34-0400 Body weight 54.88 kg COMMISSARY ASSISTANT-C Nata Welsh COMMISSARY ASSISTANT Work Phone: [facility] Work Phone: 03-08-2022 13:34-0400 Diastolic blood pressure 88 mm[Hg] COMMISSARY ASSISTANT-C Nata Welsh COMMISSARY ASSISTANT Work Phone: [facility] Work Phone: 03-08-2022 13:34-0400 Heart rate 91 /min COMMISSARY ASSISTANT-C Nata Welsh COMMISSARY ASSISTANT Work Phone: [facility] Work Phone: 03-08-2022 13:34-0400 Respiratory rate 14 /min COMMISSARY ASSISTANT-C Nata Welsh COMMISSARY ASSISTANT Work Phone: [facility] Work Phone: 03-08-2022 13:34-0400 SaO2% (BldA) [Mass fraction] 98 % COMMISSARY ASSISTANT-C Nata Welsh COMMISSARY ASSISTANT Work Phone: [facility] Work Phone: 03-08-2022 13:34-0400 Systolic blood pressure 126 mm[Hg] COMMISSARY ASSISTANT-C Nata Welsh COMMISSARY ASSISTANT Work Phone: [facility] Work Phone: 09-06-2021 11:56-0500 Body height 162.56 cm Esperanza Moulton LPN [facility]; [facility] Work Phone: 09-06-2021 11:56-0500 Body mass index (BMI) [Ratio] 21.86 kg/m2 Esperanza Moulton LPN [facility]; [facility] Work Phone: 09-06-2021 11:56-0500 Body surface area Derived from formula 1.61 m2 Esperanza Moulton LPN [facility]; [facility] Work Phone: 09-06-2021 11:56-0500 Body temperature 97.8 [degF] Esperanza Moulton LPN [facility]; [facility] Work Phone: Comment on above: Method: Temporal 09-06-2021 11:56-0500 Body weight 57.78 kg Esperanza Moulton LPN [facility]; [facility] Work Phone: 09-06-2021 11:56-0500 Diastolic blood pressure 80 mm[Hg] Esperanza Moulton LPN [facility]; [facility] Work Phone: Comment on above: Patient Position: Sitting; Cuff Location : Left Arm; Cuff Size: Standard 09-06-2021 11:56-0500 Heart rate 87 /min Esperanza Moulton LPN [facility]; [facility] Work Phone: Comment on above: Pattern: Regular 09-06-2021 11:56-0500 Respiratory rate 16 /min Esperanza Moulton LPN [facility]; [facility] Work Phone: Comment on above: Pattern: Unlabored 09-06-2021 11:56-0500 SaO2% (BldA) [Mass fraction] 97 % Esperanza Moulton LPN [facility]; [facility] Work Phone: Comment on above: Room air 09-06-2021 11:56-0500 Systolic blood pressure 118 mm[Hg] Esperanza Moulton LPN [facility]; [facility] Work Phone: Comment on above: Patient Position: Sitting; Cuff Location : Left Arm; Cuff Size: Standard 06-01-2021 11:15-0400 Body height 162.56 cm Heather Frederick [facility] Work Phone: 06-01-2021 11:15-0400 Body mass index (BMI) [Ratio] 20.94 kg/m2 Heather Frederick [facility] Work Phone: 06-01-2021 11:15-0400 Body surface area Derived from formula 1.59 m2 Heather Frederick [facility] Work Phone: 06-01-2021 11:15-0400 Body temperature 97.1 [degF] Heather Frederick [facility]; [facility] Work Phone: Comment on above: Method: Thermal Scan 06-01-2021 11:15-0400 Body weight 55.34 kg Heather Frederick [facility] Work Phone: 06-01-2021 11:15-0400 Diastolic blood pressure 68 mm[Hg] [facility]; [facility] Work Phone: Comment on above: Patient Position: Sitting; Cuff Location : Left Arm; Cuff Size: Standard 06-01-2021 11:15-0400 Heart rate 68 /min Heather Frederick [facility] Work Phone: Comment on above: Pattern: Regular 06-01-2021 11:15-0400 Respiratory rate 16 /min Heather Frederick [facility] Work Phone: Comment on above: Pattern: Unlabored 06-01-2021 11:15-0400 SaO2% (BldA) [Mass fraction] 98 % [facility]; [facility] Work Phone: Comment on above: Room air 06-01-2021 11:15-0400 Systolic blood pressure 110 mm[Hg] Heather Frederick [facility]; [facility] Work Phone: Comment on above: Patient Position: Sitting; Cuff Location : Left Arm; Cuff Size: Standard 03-06-2017 09:29-0400 BMI (Body Mass Index) 21.43 kg/m2 Mariah Anthony RN [facility] Work Phone: 03-06-2017 09:29-0400 BP Diastolic 64 mm[Hg] Mariah Anthony RN [facility] Work Phone: 03-06-2017 09:29-0400 BP Systolic 118 mm[Hg] Mariah Anthony RN [facility] Work Phone: 03-06-2017 09:290400 Height 160.02 cm Mariah Anthony RN [facility] Work Phone: 03-06-2017 09:29-0400 Pulse (Heart Rate) 78 /min Mariah Anthony RN [facility] Work Phone: 03-06-2017 09:29-0400 Respiratory Rate 17 /min [facility] Work Phone: 03-06-2017 09:29-0400 Weight 54.89 kg Mariah Anthony RN [facility] Work Phone: 09-15-2016 08:24-0500 BSA (Body Surface Area) 1.56 m2 Mariah Anthony RN [facility] Work Phone: 09-13-2016 14:59-0500 Body height 162.56 cm Mara Pace LPN [facility] Work Phone: 09-13-2016 14:59-0500 Body mass index (BMI) [Ratio] 20.94 kg/m2 Mara Pace LPN [facility]; [facility] Work Phone: 09-13-2016 14:59-0500 Body surface area Derived from formula 1.59 m2 Mara Pace LPN [facility]; [facility] Work Phone: 09-13-2016 14:59-0500 Body temperature 98.4 [degF] Mara Pace LPN [facility]; [facility] Work Phone: 09-13-2016 14:59-0500 Body weight 55.34 kg Mara Slarb [employer]ER [facility]; [facility] Work Phone: 09-13-2016 14:59-0500 Diastolic blood pressure 82 mm[Hg] Mara Slarb [employer] P[employer] [facility]; [facility] Work Phone: Comment on above: Patient Position: Sitting; Cuff Location : Left Arm; Cuff Size: Standard 09-13-2016 14:59-0500 Heart rate 74 /min Mara Slarb [employer] [facility]; [facility] Work Phone: Comment on above: Pattern: Regular 09-13-2016 14:59-0500 Respiratory rate 16 /min Mara Slarb [employer] P[employer] [facility]; [facility] Work Phone: Comment on above: Pattern: Unlabored 09-13-2016 14:59-0500 SaO2% (BldA) [Mass fraction] 98 % Mara Slarb [employer] [facility]; [facility] Work Phone: Comment on above: Room air 09-13-2016 14:59-0500 Systolic blood pressure 122 mm[Hg] Mara Slarb [employer] [facility] Work Phone: Comment on above: Patient Position: Sitting; Cuff Location : Left Arm; Cuff Size: Standard 08-09-2016 13:55-0400 Body height 162.56 cm Mara Slarb BE[employer] P[employer]ER [facility] Work Phone: 08-09-2016 13:55-0400 Body mass index (BMI) [Ratio] 20.43 kg/m2 Mara Slarb [employer] P[employer]ER [facility]; [facility] Work Phone: 08-09-2016 13:55-0400 Body surface area Derived from formula 1.57 m2 Mara Slarb [employer] P[employer]ER [facility] Work Phone: 08-09-2016 13:55-0400 Body temperature 97.9 [degF] Mara Slarb [employer] P[employer]ER [facility] Work Phone: 08-09-2016 13:55-0400 Body weight 53.98 kg Mara Garciarb [employer] [facility] Work Phone: 08-09-2016 13:55-0400 Diastolic blood pressure 76 mm[Hg] Mara Slarb [employer] P[employer]ER [facility] Work Phone: Comment on above: Patient Position: Sitting; Cuff Location : Left Arm; Cuff Size: Standard 08-09-2016 13:55-0400 Heart rate 91 /min Mara Slarb [employer] [facility] Work Phone: Comment on above: Pattern: Regular 08-09-2016 13:55-0400 Respiratory rate 16 /min Mara Slarb [employer] [facility] Work Phone: Comment on above: Pattern: Unlabored 08-09-2016 13:55-0400 SaO2% (BldA) [Mass fraction] 98 % Mara Slarb [employer] P[employer]ER [facility] Work Phone: Comment on above: Room air 08-09-2016 13:55-0400 Systolic blood pressure 108 mm[Hg] Mara Slarb [employer] [facility]; [facility] Work Phone: Comment on above: Patient Position: Sitting; Cuff Location : Left Arm; Cuff Size: Standard 07-11-2016 14:52-0400 Body Temperature 99.8 [degF] Mariah Anthony RN [facility] Work Phone: 06-24-2016 10:30-0400 Body height 162.56 cm Helen Malik RN [facility]; [facility] Work Phone: 06-24-2016 10:30-0400 Body mass index (BMI) [Ratio] 20.43 kg/m2 Helen Malik RN [facility]; [facility] Work Phone: 06-24-2016 10:30-0400 Body surface area Derived from formula 1.57 m2 Helen Malik RN [facility]; [facility] Work Phone: 06-24-2016 10:30-0400 Body weight 53.98 kg Helen Messenger RN [facility]; [facility] Work Phone: 06-24-2016 10:30-0400 Diastolic blood pressure 68 mm[Hg] Helen Malik RN [facility]; [facility] Work Phone: Comment on above: Patient Position: Sitting; Cuff Location : Left Arm; Cuff Size: Standard 06-24-2016 10:30-0400 Heart rate 121 /min Helen Malik RN [facility]; [facility] Work Phone: Comment on above: Pattern: Regular 06-24-2016 10:30-0400 Respiratory rate 18 /min Helen Malik RN [facility]; [facility] Work Phone: Comment on above: Pattern: Unlabored 06-24-2016 10:30-0400 SaO2% (BldA) [Mass fraction] 94 % Helen Malik RN [facility]; [facility] Work Phone: Comment on above: Room air 06-24-2016 10:30-0400 Systolic blood pressure 118 mm[Hg] Helen Malik RN [facility]; [facility] Work Phone: Comment on above: Patient Position: Sitting; Cuff Location : Left Arm; Cuff Size: Standard 05-04-2016 09:59-0400 Body height 162.56 cm Mara Pace LPN [facility]; [facility] Work Phone: 05-04-2016 09:59-0400 Body mass index (BMI) [Ratio] 20.43 kg/m2 Mara Pace LPN [facility]; [facility] Work Phone: 05-04-2016 09:59-0400 Body surface area Derived from formula 1.57 m2 Mara Pace LPN [facility]; [facility] Work Phone: 05-04-2016 09:59-0400 Body temperature 97.2 [degF] Mara Pace LPN [facility]; [facility] Work Phone: 05-04-2016 09:59-0400 Body weight 53.98 kg Mara Pace LPN [facility]; [facility] Work Phone: 05-04-2016 09:59-0400 Diastolic blood pressure 76 mm[Hg] Mara Slarb [employer]ER [facility]; [facility] Work Phone: Comment on above: Patient Position: Sitting; Cuff Location : Left Arm; Cuff Size: Standard 05-04-2016 09:59-0400 Heart rate 101 /min Mara Slarb BE[employer] P[employer]ER [facility]; [facility] Work Phone: Comment on above: Pattern: Regular 05-04-2016 09:59-0400 Respiratory rate 16 /min Mara Slarb BE[employer] P[employer]ER [facility]; [facility] Work Phone: Comment on above: Pattern: Unlabored 05-04-2016 09:59-0400 SaO2% (BldA) [Mass fraction] 98 % Mara Slarb [employer]ER [facility]; [facility] Work Phone: Comment on above: Room air 05-04-2016 09:59-0400 Systolic blood pressure 122 mm[Hg] Mara Slarb [employer] P[employer]ER [facility]; [facility] Work Phone: Comment on above: Patient Position: Sitting; Cuff Location : Left Arm; Cuff Size: Standard 03-02-2016 14:40-0400 Body height 162.56 cm Mara Slarb BE[employer] P[employer]ER [facility]; [facility] Work Phone: 03-02-2016 14:40-0400 Body mass index (BMI) [Ratio] 20.43 kg/m2 Mara Slarb [employer] [facility]; [facility] Work Phone: 03-02-2016 14:40-0400 Body surface area Derived from formula 1.57 m2 Mara Slarb [employer] P[employer]ER [facility]; [facility] Work Phone: 03-02-2016 14:40-0400 Body temperature 97.6 [degF] Mara Slarb [employer] [facility]; [facility] Work Phone: 03-02-2016 14:40-0400 Body weight 53.98 kg Mara Slarb [employer] [facility]; [facility] Work Phone: 03-02-2016 14:40-0400 Diastolic blood pressure 82 mm[Hg] Mara Slarb [employer] [facility]; [facility] Work Phone: Comment on above: Patient Position: Sitting; Cuff Location : Left Arm; Cuff Size: Standard 03-02-2016 14:40-0400 Heart rate 101 /min Mara Slarb [employer] [facility]; [facility] Work Phone: Comment on above: Pattern: Regular 03-02-2016 14:40-0400 Respiratory rate 17 /min Mara Slarb [employer] [facility]; [facility] Work Phone: Comment on above: Pattern: Unlabored 03-02-2016 14:40-0400 SaO2% (BldA) [Mass fraction] 99 % Mara Slarb [employer] P[employer]ER [facility]; [facility] Work Phone: Comment on above: Room air 03-02-2016 14:40-0400 Systolic blood pressure 124 mm[Hg] Mara Slarb [employer] [facility]; [facility] Work Phone: Comment on above: Patient Position: Sitting; Cuff Location : Left Arm; Cuff Size: Standard 02-12-2016 08:15-0400 Body height 162.56 cm Mara Slarb [employer] [facility]; [facility] Work Phone: 02-12-2016 08:15-0400 Body mass index (BMI) [Ratio] 20.43 kg/m2 Mara Slarb [employer] [facility]; [facility] Work Phone: 02-12-2016 08:15-0400 Body surface area Derived from formula 1.57 m2 Mara Slarb [employer] P[employer]ER [facility]; [facility] Work Phone: 02-12-2016 08:15-0400 Body temperature 97 [degF] Mara Slarb BE[employer] P[employer]ER [facility]; [facility] Work Phone: 02-12-2016 08:15-0400 Body weight 53.98 kg Mara Slarb [employer]ER [facility]; [facility] Work Phone: 02-12-2016 08:15-0400 Diastolic blood pressure 74 mm[Hg] Mara Slarb [employer]ER [facility]; [facility] Work Phone: Comment on above: Patient Position: Sitting; Cuff Location : Left Arm; Cuff Size: Standard 02-12-2016 08:15-0400 Heart rate 98 /min Mara Joserb [employer] [facility]; [facility] Work Phone: Comment on above: Pattern: Regular 02-12-2016 08:15-0400 SaO2% (BldA) [Mass fraction] 98 % Mara Slarb [employer] [facility]; [facility] Work Phone: Comment on above: Room air 02-12-2016 08:15-0400 Systolic blood pressure 116 mm[Hg] Mara Slarb [employer]ER [facility]; [facility] Work Phone: Comment on above: Patient Position: Sitting; Cuff Location : Left Arm; Cuff Size: Standard Encounters Encounter Date Encounter Type Care Provider Facility Start: 02-25-2025 End: 02-25-2025 Patient encounter procedure Alesia Yanira LINK.ECONOMIC RESEARCH ASSISTANT Work Phone: [facility] Comment on above: Impacted cerumen of right ear (Primary Dx) Start: 02-25-2025 End: 02-25-2025 ambulatory NINA MARROQUIN Facility:[facility] Start: 01-13-2025 Non-patient / Non-visit [facility] Start: 01-13-2025 End: 01-13-[address] Nina Marroquin MD Work Phone: [facility] Work Phone: Start: 01-13-2025 End: 01-13-2025 Patient encounter procedure Sal Orellana COMMISSARY ASSISTANT-C -Cardiovascular Services Work Phone: Start: 01-13-2025 End: 01-13-2025 ambulatory Sal Orellana NP Facility:[facility] Start: 01-03-2025 End: 01-03-[address] Nina Marroquin MD Work Phone: [facility] Work Phone: Start: 01-03-2025 End: 01-03-2025 Patient encounter procedure Sal Jacey Orellana COMMISSARY ASSISTANT-C -Laboratory Work Phone: Start: 01-03-2025 End: 01-03-2025 ambulatory Sal Orellana COMMISSARY ASSISTANT Facility:[facility] Start: 12-13-2024 End: 12-13-2024 Patient encounter procedure Sal Jacey Orellana COMMISSARY ASSISTANT-C -[facility] Work Phone: Start: 12-13-2024 End: 12-13-2024 ambulatory Sal Orellana NP Facility[place] Start: 04-09-2024 End: 04-09-2024 ambulatory Nina Marroquin Facility:[facility] Start: 2023 Non-patient / Non-visit Dr. Rebekah Marroquin Work Phone: [facility] Start: 2023 End: [address] Nina Marroquin Work Phone: [facility] Work Phone: Start: 2023 End: [address] [facility] Start: 10-27-2023 End: 10-27-[address] Nina Marroquin Work Phone: [facility] Work Phone: Start: 08-29-2023 End: 08-29-2023 Subsequent hospital visit by physician [facility] W[facility] (I-Stat) Work Phone: [facility] Comment on above: Arthrodesis status [ Z98.1] Spinal stenosis of c ervical region [M48.02] Start: 08-24-2023 End: 08-24-[address] Nina Marroquin Work Phone: [facility] Work Phone: Start: 08-24-2023 End: 08-24-[address] Nina Marroquin Work Phone: [facility]-Laboratory Work Phone: Start: 05-22-2023 End: 05-22-2023 ambulatory COMMISSARY ASSISTANT-C Nata Welsh COMMISSARY ASSISTANT Work Phone: [facility] Work Phone: Start: 05-22-2023 End: 05-22-2023 Patient encounter procedure COMMISSARY ASSISTANT-C Nata Anitha COMMISSARY ASSISTANT Work Phone: [facility]-Radiology, [facility] Work Phone: Start: 05-18-2023 End: 05-18-2023 Patient encounter procedure COMMISSARY ASSISTANT-C Nata Burksterling COMMISSARY ASSISTANT Work Phone: [facility] [place] Work Phone: Start: 03-21-2023 Non-patient / Non-visit COMMISSARY ASSISTANT-C Mateo Welsh COMMISSARY ASSISTANT Work Phone: [facility] Start: 03-21-2023 End: 03-21-2023 Patient encounter procedure COMMISSARY ASSISTANT-C Nata Burksterling COMMISSARY ASSISTANT Work Phone: [facility]-Outpatient Breast Imaging Work Phone: Start: 03-08-2023 End: 03-08-2023 Patient encounter procedure COMMISSARY ASSISTANT-C Nata Burksterling COMMISSARY ASSISTANT Work Phone: [facility] Internal Medicine Work Phone: Start: 02-27-2023 End: 02-27-2023 Subsequent hospital visit by physician [facility] W[facility] (I-Stat) Work Phone: [facility] Comment on above: Spinal stenosis of c ervical region [M48.02] Start: 12-27-2022 End: 12-27-2022 ambulatory Karlene Mai PT Work Phone: [facility] Comment on above: Spinal stenosis of c ervical region (Primary Dx) Start: 11-29-2022 End: 11-29-2022 ambulatory Karlene Mai PT Work Phone: [facility] Comment on above: Spinal stenosis of c ervical region (Primary Dx) Start: 10-28-2022 Telephone encounter Santa Barry APRN.ECONOMIC RESEARCH ASSISTANT Work Phone: [facility] Comment on above: Results Start: 10-27-2022 End: 10-27-2022 Patient encounter procedure Keily Garcia APRN.ECONOMIC RESEARCH ASSISTANT Work Phone: [facility] Comment on above: Exposure to SARS-ass ociated coronavirus (Primary Dx) Start: 10-21-2022 End: 10-21-2022 Emergency department patient visit Dr. Nina Marroquin Work Phone: [facility]-Emergency Department Start: 10-20-2022 End: 10-20-2022 ambulatory GURPREET STEWART Facility:[facility] Start: 10-20-2022 End: 10-20-2022 Patient encounter procedure Gurpreet Stewart MD Work Phone: [facility] Comment on above: Spinal stenosis of c ervical region (Primary Dx) Start: 10-11-2022 End: 10-11-2022 ambulatory Karlene Mai PT Work Phone: [facility] Comment on above: Spinal stenosis of c ervical region (Primary Dx) Start: 10-11-2022 End: 10-11-2022 Subsequent hospital visit by physician [facility] W[facility] (I-Stat) Work Phone: [facility] Comment on above: Spinal stenosis of c ervical region [M48.02] Start: 10-04-2022 End: 10-04-2022 ambulatory Karlene Mai PT Work Phone: [facility] Comment on above: Spinal stenosis of c ervical region (Primary Dx) Start: 09-20-2022 End: 09-20-2022 ambulatory Karlene Mai PT Work Phone: [facility] Comment on above: Spinal stenosis of c ervical region (Primary Dx) Start: 09-12-2022 End: 09-12-2022 ambulatory Karlene Mai PT Work Phone: [facility] Comment on above: Spinal stenosis of c ervical region Start: 09-01-2022 End: 09-01-2022 ambulatory ENJESSEA JEFFRYU Facility:[facility] Start: 09-01-2022 End: 09-01-2022 Patient encounter procedure Gurpreet Stewart MD Work Phone: [facility] Comment on above: Spinal stenosis of c ervical region (Primary Dx) Start: 09-01-2022 End: 09-01-2022 Subsequent hospital visit by physician [facility] Comment on above: Post-operative pain [G89.18] Start: 08-31-2022 End: 08-31-[address] Nina Marroquin Work Phone: [facility] Start: 08-30-2022 Telephone encounter Howard LEES Comment on above: Follow Up (All Clear ) Start: 08-24-2022 Telephone encounter Gurpreet fonseca MD Work Phone: [facility] Comment on above: Orders; Appointment Start: 08-22-2022 Telephone encounter Christel Lloyd [facility] Comment on above: Home Care (Confirmat ion Call) Opened In Error Start: 08-19-2022 End: 08-23-2022 Evaluation and management of inpatient GURPREET STEWART Facility:[facility] Start: 08-16-2022 Telephone encounter Gurpreet fosneca MD Work Phone: [facility] Comment on above: Patient Update Start: 08-15-2022 Telephone encounter Gurpreet fonseca MD Work Phone: [facility] Comment on above: Patient Update Start: 08-15-[address] Mayi Marroquin Work Phone: [facility] Start: 08-15-2022 End: 08-15-2022 Admission to same day surgery center Dr. Nina Marroquin Work Phone: [facility] Start: 08-15-2022 End: 08-15-[address] Nina Marroquin Work Phone: [facility] Start: 08-10-2022 Preprocedural examin ation done Claudette Peña CNP Work Phone: [facility]; [facility] Work Phone: Start: 08-10-2022 Review Nata Welsh Work Phone: [facility] Start: 08-10-2022 Encounter for other preprocedural examination [facility] Start: 08-10-2022 End: 08-11-2022 ambulatory [facility] Facility:[facility] Start: 08-10-2022 End: 08-10-2022 Admission to [facility] [address] [facility] [place] [place] [facility] Start: 08-10-2022 End: 08-10-2022 ambulatory Pst 1 Pre Surgical Testing Comment on above: Preop testing (Prima ry Dx); Spinal stenosis of cervical region [M48.02 (ICD-10-CM)]; Other hyperlipidemia [E78.49 (ICD-10-CM)]; H/O bicuspid aortic valve [Z87.74 (ICD-10-CM)]; History of aortic stenosis [Z86.79 (ICD-10-CM)] Start: 08-10-2022 End: 08-10-2022 Patient encounter status Pst 1 Pre Surgical Te sting Start: 08-10-2022 End: 08-10-2022 Subsequent hospital visit by physician [facility] Comment on above: Spinal stenosis in c ervical region [M48.02] Start: 08-09-2022 ambulatory Nata Welsh [facility] Internal Med Start: 08-08-[address] Mayi Marroquin Work Phone: [facility] Start: 08-08-2022 End: 08-08-2022 Emergency department patient visit Dr. Nina Marroquin Work Phone: [facility] [place] Start: 08-08-2022 End: 08-08-[address] Nina Marroquin Work Phone: [facility] Start: 08-05-2022 Orders Only Gurpreet reno MD Work Phone: [facility] Comment on above: Cervical spondylosis without myelopathy (Primary Dx) Preoperative clearan ce (Primary Dx); Spinal stenosis in cervical region; Spinal stenosis of cervical region; Cervical spondylosis; Other abnormal findings in urine ; Edema, unspecified type ; Injury, unspecified, initial encounter Start: 08-05-2022 Preoperative state Gurpreet candelario MD Work Phone: [facility] Start: 08-04-2022 End: 08-04-2022 ambulatory GURPREET STEWART Facility:[facility] Start: 08-04-2022 End: 08-04-2022 Patient encounter procedure Gurpreet Stewart MD Work Phone: [facility] Comment on above: Cervical spondylosis (Primary Dx); Spinal stenosis in cervical region; Spinal stenosis of cervical region; Spinal stenosis of thoracic region Start: 08-02-2022 Telephone encounter Gurpreet fonseca MD Work Phone: [facility] Comment on above: Orders Start: 05-25-2022 End: 05-25-2022 Patient encounter procedure COMMISSARY ASSISTANT-Luis Welsh COMMISSARY ASSISTANT Work Phone: [facility]-Pulmonary Services/Neurology Start: 04-22-2022 End: 04-22-2022 Patient encounter procedure COMMISSARY ASSISTANT-Luis Welsh COMMISSARY ASSISTANT Work Phone: [facility] Start: 04-12-2022 End: 04-12-2022 Patient encounter procedure COMMISSARY ASSISTANT-C Nata Welsh COMMISSARY ASSISTANT Work Phone: [facility] Start: 04-11-2022 End: 04-11-2022 Patient encounter procedure COMMISSARY ASSISTANT-C Nata Welsh COMMISSARY ASSISTANT Work Phone: [facility] Neurology Start: 03-08-2022 End: 03-08-2022 Patient encounter procedure COMMISSARY ASSISTANT-C Nata Burka COMMISSARY ASSISTANT Work Phone: [facility] Internal Medicine Start: 09-06-2021 End: 09-06-2021 Office outpatient visit 15 minutes Nata Welsh Work Phone: [facility] Start: 06-29-2021 End: 06-29-2021 Annotation/Addendum Nata Burka Work Phone: [facility] Start: 06-01-2021 End: 06-01-2021 Office outpatient visit 15 minutes Nata Welsh Work Phone: [facility] Start: 05-20-2021 End: 05-20-2021 Annotation/Addendum Nata Burka Work Phone: [facility] Start: 07-04-2018 End: 07-04-2018 Annotation/Addendum Nata Burka Work Phone: [facility] Start: 09-13-2016 End: 09-13-2016 Initial preventive medicine new patient 40-64yrs Nata Welsh Work Phone: [facility] Start: 09-13-2016 End: 09-13-2016 Patient encounter status Nata Welsh Work Phone: [facility] Start: 08-12-2016 End: 08-12-2016 Phone Encounter Nata Welsh Work Phone: [facility] Start: 08-09-2016 End: 08-09-2016 Office outpatient visit 25 minutes Nata Burka Work Phone: [facility] Start: 06-24-2016 End: 06-24-2016 Office outpatient visit 15 minutes Nata Welsh Work Phone: [facility] Start: 05-04-2016 End: 05-04-2016 Office outpatient visit 15 minutes Nata Welsh Work Phone: [facility] Start: 03-18-2016 End: 03-18-2016 Lab Order Nata Welsh Work Phone: [facility] Start: 03-18-2016 End: 03-18-2016 Annotation/Addendum Nata Welsh Work Phone: [facility] Start: 03-02-2016 End: 03-02-2016 Office outpatient visit 15 minutes Nata Welsh Work Phone: [facility] Start: 02-12-2016 End: 02-12-2016 Initial inpatient consult new/estab pt 40 min Nata Welsh Work Phone: [facility] Start: 02-12-2016 End: 02-12-2016 Patient encounter status Nata Welsh Work Phone: [facility] Patient encounter status Esperanza Sagie THORNE N [facility]; [facility] Work Phone: Procedures Date Procedure Procedure Detail Performing Clinician Start: 08-29-2023 Ct cervical spine w/o contrast material Gurpreet Stewart MD Work Phone: Start: 08-29-2023 Radex spine cervical 2 or 3 views Gurpreet Stewart MD Work Phone: Start: 08-24-2023 Urine culture Dr. Nina Marroquin Work Phone: Start: 05-22-2023 X-ray of both knees COMMISSARY ASSISTANT-C Nata Welsh COMMISSARY ASSISTANT Work Phone: Start: 05-22-2023 Radiologic examination of knee COMMISSARY ASSISTANT-C Nata Welsh COMMISSARY ASSISTANT Work Phone: Start: 03-21-2023 Screening mammography COMMISSARY ASSISTANT-C Nata Welsh COMMISSARY ASSISTANT Work Phone: Start: 02-27-2023 Ct cervical spine w/o contrast material Gurpreet Stewart MD Work Phone: Start: 10-21-2022 CT of head without contrast Dr. Nina Marroquin Work Phone: Start: 10-11-2022 Ct cervical spine w/o contrast material Gurpreet Stewart MD Work Phone: Start: 08-19-2022 Antibody screen GURPREET STEWART Comment on above: Order Comment: Specimen Type: BLOOD SPEC IMEN Ordering Facility: [facility] Address: [address] [address] Performed By: #### T SCR #### [facility] CLIA [id number] [address] Start: 08-10-2022 Antibody screen GURPREET STEWART Comment on above: Order Comment: Specimen Type: BLOOD SPEC IMEN Ordering Facility: [facility] Address: [address] [address] Result Comment: Exte nded expiration for TSCR30 disqualified. Outpatient questionairre incomplete. Performed By: #### T [id number] #### [facility] CLIA [id number] [address] Start: 08-10-2022 Ecg routine ecg w/least 12 lds trcg only w/o i&r [facility]cf Provider Start: 04-22-2022 MRI of cervical spine COMMISSARY ASSISTANT-C Nata Welsh NP Work Phone: Start: 04-11-2022 End: 07-29-2022 Neurology Visit Report Procedure Note: See Note; NOTES: [facility] [address] [place] [address], [address] [place] [address] OFFICE VISIT Date of Service: 04/11/22 MR#: [id number] Acct: [id number] Name: JASMIN HUTCHINSON Rep #: [id number] : 1950 Provider: Dr. Bigg cid MD Age/Sex: 71/F Location[place] [facility] [place] Status: Signed with Addenda ADDENDUM by Dr. Bigg Culver MD on 07/29/22 at 1623 Addendum Addendum (07/29/22): CBC, CMP, HTLV-I/II, ESR, thiamine, B12, folate, TSH, serum free light chains (04/12/22): kappa/lambda ration 2.16 (elevated) Cervical spine MRI (04/22/22): FINDINGS: VERTEBRAE:??? See below. SPINAL CORD:??? Unremarkable in signal and morphology. SOFT TISSUES:??? Unremarkable.??? No prevertebral soft tissue swelling. LYMPH NODES:??? Unremarkable.??? There is no cervical adenopathy. DISCS/SPINAL CANAL/NEURAL FORAMINA: C2-C3:??? C2-3:??? Normal endplates.??? Normal disc height and morphology. Normal central canal and intervertebral neuroforamina. C3-C4:??? C3-4:??? Loss of intervertebral disc height. There is endplate spondylosis of the vertebral body. Normal central canal and intervertebral neuroforamina. There is bilateral facet arthropathy. C4-C5:??? C4-5:??? There is bilateral facet arthropathy. Loss of intervertebral disc height. There is endplate spondylosis of the vertebral body. Discogenic endplate changes.??? Grade 1 anterolisthesis of C4 on C5. Distance measures 2.6 mm.??? Severe bilateral neural foraminal stenosis. Compression of exiting nerve roots.??? Severe spinal stenosis.??? Increased T2 signal in the spinal cord suggesting myelomalacia. C5-C6:??? C5-6:??? There is bilateral facet arthropathy. Loss of intervertebral disc height. There is endplate spondylosis of the vertebral body. Discogenic endplate changes.??? Severe bilateral neural foraminal stenosis. Compression of exiting nerve roots.??? Moderate spinal stenosis.??? Posterior disc bulge osteophyte complex. C6-C7:??? C6-7:??? There is bilateral facet arthropathy. Loss of intervertebral disc height. There is endplate spondylosis of the vertebral body. Discogenic endplate changes.??? Severe bilateral neural foraminal stenosis. Compression of exiting nerve roots.??? Moderate spinal stenosis.??? Posterior disc bulge osteophyte complex. C7-T1:??? Loss of intervertebral disc height. There is endplate spondylosis of the vertebral body. Normal central canal and intervertebral neuroforamina. There is bilateral facet arthropathy. IMPRESSION: 1.??? C4-5:??? There is bilateral facet arthropathy. Loss of intervertebral disc height. There is endplate spondylosis of the vertebral body. Discogenic endplate changes.??? Grade 1 anterolisthesis of C4 on C5. Distance measures 2.6 mm.??? Severe bilateral neural foraminal stenosis. Compression of exiting nerve roots.??? Severe spinal stenosis.??? Increased T2 signal in the spinal cord suggesting myelomalacia. 2.??? C5-6:??? There is bilateral facet arthropathy. Loss of intervertebral disc height. There is endplate spondylosis of the vertebral body. Discogenic endplate changes.??? Severe bilateral neural foraminal stenosis. Compression of exiting nerve roots.??? Moderate spinal stenosis.??? Posterior disc bulge osteophyte complex. 3.??? C6-7:??? There is bilateral facet arthropathy. Loss of intervertebral disc height. There is endplate spondylosis of the vertebral body. Discogenic endplate changes.??? Severe bilateral neural foraminal stenosis. Compression of exiting nerve roots.??? Moderate spinal stenosis.??? Posterior disc bulge osteophyte complex. 4.??? Multilevel degenerative changes, as described above. Bilateral upper extremity EMG/nerve conduction studies (05/25/22): Electrodiagnostic findings: Median motor nerve demonstrates prolonged distal latency bilaterally with normal amplitudes and conduction velocities.??? Normal ulnar motor response, including conduction across the elbow bilaterally.??? Normal median and ulnar F waves.??? Prolonged median sensory latency at the wrist bilaterally.??? Normal ulnar and radial sensory responses. On needle EMG, all muscles tested in the upper limbs showed no evidence of denervation with normal motor unit action potentials. Electrodiagnostic assessment: This is an abnormal study in the upper limbs 1.??? Electrodiagnostic findings demonstrate bilateral median mononeuropathy.??? This is consistent with a mild bilateral carpal tunnel syndrome. Bilateral lower extremity EMG/nerve conduction studies (06/22/22): Electrodiagnostic findings: Peroneal motor nerve demonstrates normal distal latency, amplitude and conduction velocity bilaterally.??? Normal tibial motor response bilaterally.??? Normal peroneal and tibial F waves.??? H reflex borderline prolonged bilaterally.??? Sensory responses are within normal limits.??? On needle EMG, all muscles tested in the lower limbs showed no evidence of denervation with normal motor unit action potentials. Electrodiagnostic impression: This is a normal electrodiagnostic study in the lower limbs.??? There is no electrodiagnostic evidence for peripheral polyneuropathy or lumbosacral radiculopathy. Cervical MRI findings were discussed with the patient today. She will be referred to Dr. Bowles, an orthopedic surgeon, to address her severe cervical spinal stenosis. 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 Accompanied by: Self Is patient in pain?: No Allergies morphine Allergy (Verified 04/11/22 10:02) Nausea Medications calcium carb-Ca gluc 500 mg calcium-magnesium ox-Mg gluc 250 mg tablet 1 ea PO BID 04/27/16 [History Confirmed 04/11/22] cholecalciferol (vitamin D3) 25 mcg (1,000 unit) tablet 400 unit PO DAILY 04/27/16 [History Confirmed 04/11/22] coenzyme Q10 100 mg capsule 100 mg PO DAILY 04/27/16 [History Confirmed 04/11/22] multivitamin with folic acid 400 mcg tablet 1 tab PO DAILY 04/27/16 [History Confirmed 04/11/22] omega-3 fatty acids 1,000 mg capsule 1,000 mg PO DAILY 04/27/16 [History Confirmed 04/11/22] aspirin 81 mg tablet,delayed release (Adult Aspirin Regimen) 81 mg PO QDAY 10/04/17 [History Confirmed 04/11/22] amoxicillin 500 mg tablet 2,000 mg PO .COMPLEX #4 tabs 09/16/21 [Rx Confirmed 04/11/22] metoprolol tartrate 25 mg tablet 25 mg PO BID #180 tabs 02/22/22 [Rx Confirmed 04/11/22] atorvastatin 40 mg tablet 40 mg PO QHS #90 tabs 03/08/22 [Rx Confirmed 04/11/22] magnesium 30 mg tablet 30 mg PO DAILY 03/08/22 [History Confirmed 04/11/22] [facility] Medical History Anemia Aortic stenosis Bicuspid aortic valve Chest pain Headache, migraine History of left heart catheterization Mixed hyperlipidemia Neuropathy Nonrheumatic mitral (valve) insufficiency Nonrheumatic mitral (valve) prolapse Osteopenia Surgical History H/O aortic valve replacement ( 06/17/16) History of aortic valve replacement with bioprosthetic valve ( 06/17/16) Family History Mother CAD (coronary artery disease) Sister History of open heart surgery Social History Smoking Status: Former smoker alcohol intake: never substance use type: does not use caffeine: Yes Type: coffee what type of physical activity do you participate in: walking and aerobics frequency: daily duration: 30-45 minutes/day seatbelt use: sometimes do you feel safe at home: Yes HPI HPI Chief Complaint: est care Details: History: The patient is a 71-year-old right-handed woman with a past medical history of hypercholesterolemia and bicuspid aortic valve status post porcine aortic valve replacement in 2015 who presents for evaluation of numbness and tingling in the extremities. She states that she had a respiratory tract infection that manifested with cough and fatigue in October 2021. Her had a illness with similar symptoms at that time and he was diagnosed with a COVID-19 infection. The patient did not undergo testing for COVID-19. The symptoms resolved however in November 2021 she had recurrence of an upper respiratory tract infection again manifesting with cough and fatigue; she did not have testing performed at that time. Her cough has resolved. Since the time of her first upper respiratory tract infection in October 2021 she has noticed numbness in the hands and tingling in the upper extremities extending from the shoulders to the hands. She also began to have some gait imbalance. She did not have any neck pain or low back pain. She has chronic right knee pain. She did not have any speech difficulty, swallowing difficulty, vision change or headaches. She reports having some incoordination in her hands and also some weakness in her hands. She walks 2 miles daily and reports that there has been some improvement of her lower extremity symptoms though some gait difficulty persists. She is not experiencing pain in the lower extremities apart from her right knee pain. She was evaluated by another neurologist. Details of that evaluation are presently not available. Testing was ordered however the patient had not pursued completion of these tests. 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 She denies having any memory difficulty. She very infrequently experiences vertigo. Past Medical History: As above. There is no history of hypertension, diabetes mellitus, lung disease, stroke, seizure, thyroid disease, cancer or renal disease. She has nonrheumatic mitral valve insufficiency and prol apse and bicuspid aortic valve for which she underwent aortic valve replacement in 2016. She denies any other history of heart disease. Social History: She does not smoke tobacco. There is no history of alcohol abuse. There is no history of illicit drug use. Family History: There is no family history of neuropathy, stroke, seizure or cerebral aneurysm. Review of Systems: As above. The patient has not had any recent fever, rash, weight change, chest pain, shortness of breath, gastrointestinal problems or urinary problems. She denies having depression or anxiety. Physical Exam: General: Well-developed, well-nourished female in no acute distress. Neuro: The patient is awake and alert and responds appropriately; speech is fluent; language function is within normal limits Cranial nerves: PERRL, 3mm bilaterally; EOMI; visual young are full; visual acuity is 20/25 on the right and 20/50 on the left; face is symmetrical; tongue is midline; there are no deficits to pinprick; no tongue fasciculations are noted Cerebellar system: No nystagmus or dysmetria on [id number] testing however at other points in the examination she was noted to exhibit slight incoordination of both upper extremities Deep tendon reflexes: +2 to +3 at the right triceps and knees, +2 at the left triceps and ankles, absent at the biceps bilaterally and brachioradialis bilaterally plantar responses are downward bilaterally Motor: Strength 5/5 in the biceps bilaterally, triceps bilaterally, abductor pollicis brevis muscles bilaterally, first dorsal interosseous muscles bilaterally, iliopsoas bilaterally, hamstrings bilaterally, quadriceps bilaterally and foot dorsiflexors bilaterally and 4-/5 in the deltoid bilaterally (however this appears to be give way weakness though she is vague as to where her upper extremity discomfort is); no fasciculations are noted in the hands; she exhibits some motor incoordination in the upper extremities; no drift Sensory: Decreased pinprick is noted in the right foot; decreased vibration is noted in the feet; there are no deficits to soft touch in the feet; decreased pinprick is noted in the left index and fifth fingers; there are no deficits to pinprick in the right hand or left foot Gait: Mildly slow; Romberg is negative HEENT: Normocephalic; atraumatic; tympanic membranes are clear Neck: No bruits Heart: Regular rate and rhythm Extremities: No cyanosis or edema; straight leg raise is negative bilaterally; dorsalis pedis pulses are +2 bilaterally; Tinel's sign is negative at the wrists and left elbow and positive at the right elbow ROS Musc Musculoskeletal: Positive for joint pain, muscle weakness, numbness and tingling Neuro Neurology: Positive for numbness and tingling Supplemental Info Lipid profile (05/26/2018): Cholesterol 215 Liver profile, lipid profile (10/31/2019): Unremarkable. Cardiac echo (08/31/2021): Left ventricular systolic function is normal. The estimated ejection fraction is 65 %. There is mild to moderate mitral annular calcification. Extension of the mitral annular calcification onto the base of the posterior mitral valve leaflet. Mild (1+) mitral valve insufficiency. Moderate (2+) tricuspid valve insufficiency. Stable appearing bioprosthetic aortic valve apparatus. Mild to moderate aortic stenosis. Trivial transvalvular insufficiency of the aortic valve. Right ventricular systolic pressure estimated to be 41 mmHg. Diastolic function is indeterminate. Coding Level of Care Code Off vis,new,level 4 Diagnoses Polyneuropathy G62.9 Abnormality of gait and mobility R26.9 Myelopathy G95.9 Assessment and Plan Assessment and Plan (1) Polyneuropathy: Status: Chronic (2) Abnormality of gait and mobility: Status: Chronic (3) Myelopathy: Status: Chronic Orders: Orders Spine Cervical W/WO Contrast Today G95.9 - Disease of spinal cord, unspecified Miscellaneous Lab Procedure Today G95.9 - Disease of spinal cord, unspecified, R26.9 - Unspecified abnormalities of gait and mobility Vitamin B12 Today G62.9 - Polyneuropathy, unspecified, R26.9 - Unspecified abnormalities of gait and mobility Comprehensive Metabolic Profil Today G62.9 - Polyneuropathy, unspecified, R26.9 - Unspecified abnormalities of gait and mobility Folates, (Folic Acid) Today G62.9 - Polyneuropathy, unspecified, R26.9 - Unspecified abnormalities of gait and mobility Thyroid Stim Hormone (TSH) Today E78.2 - Mixed hyperlipidemia, G62.9 - Polyneuropathy, unspecified, R26.9 - Unspecified abnormalities of gait and mobility CBC-Complete Blood Cnt No Diff Today G62.9 - Polyneuropathy, unspecified, R07.9 - Chest pain, unspecified, R26.9 - Unspecified abnormalities of gait and mobility Erythrocyte Sed Rate Today G62.9 - Polyneuropathy, unspecified, R26.9 - Unspecified abnormalities of gait and mobility [place] Lambda Light Chains Today G62.9 - Polyneuropathy, unspecified, R26.9 - Unspecified abnormalities of gait and mobility Vitamin B1, Thiamine Today G62.9 - Polyneuropathy, unspecified, R26.9 - Unspecified abnormalities of gait and mobility NCS and/or EMG Patient 24 Days G62.9 - Polyneuropathy, unspecified NCS and/or EMG Patient 24 Days G62.9 - Polyneuropathy, unspecified, R26.9 - Unspecified abnormalities of gait and mobility Plan Details Additional Comments: Since October 2021, the patient has been experiencing numbness in the hands, tingling in the upper extremities extending from the shoulders of the hands and some gait imbalance. She had upper respiratory tract infections in October 2021 and November 2021. She did not undergo testing at that time for her infection though she suspected her first infection may have been a COVID-19 infection since her had been diagnosed with a COVID-19 infection around that time. Her respiratory tract symptom at that time were cough and she also had fatigue. On examination she exhibits sensory loss in the feet and left hand, mild hyperreflexia at the right triceps and knees and mildly slow gait. Her sensory symptoms may be due to a polyneuropathy (entrapment neuropathies are a diagnostic consideration for her upper extremity symptoms) however the hyperreflexia noted raises concern for possible myelopathy. It is unclear whether her sensory symptoms are causally related to her respiratory illness. She reports that her gait has improved somewhat with continuation of her walking routine (she tries to walk 2 miles daily) though her walking still has not returned to her baseline. - She will be evaluated further with a cervical MRI to assess for structural pathology (either intrinsic or extrinsic to the spinal cord) that may account for her symptoms. - EMG/nerve conduction studies of the upper and lower extremities will be scheduled. - An HTLV-1/2 antibody, B12, folate, ESR, thiamine, TSH, CBC, CMP and serum free light chains will be checked. - She did not wish to take any medication for her tingling in the upper extremities. I will have her return for reassessment in 4 months. 04/11/22 1331 <Electronically signed by Bigg Culver MD> Date Bigg Culver MD Cosigner Signature: Date (if applicable) CC: Nata Welsh Work Phone: Start: 03-08-2022 End: 03-08-2022 Internal Medicine Office Visit Procedure Note: See Note; NOTES: [facility] [address] [place] [address] [place] [address] OFFICE VISIT Date of Service: 03/08/22 MR#: [id number] Acct: [id number] Name: JASMIN HUTCHINSON Rep #: [id number] : 1950 Provider: Dr. Nina mehta MD Age/Sex: 71/F Location: [facility] [place] Status: Signed Intake Vital Signs 03/08/22 13:34 Height 5 ft 3 in Weight: 121 lb BMI 21.4 BP 126/88 H Blood Pressure Location Rt brachial Position Sitting Respiration 14 Pulse 91 Pulse Source Monitor Temp 98.8 F Temp Source Temporal Pulse Oximetry (%) 98 Oxygen Delivery Method room air Intake Visit Reasons: COMMISSARY ASSISTANT, EST. CARE, PT NEEDS NPP Chief Complaint: est care Is patient in pain?: No Allergies morphine Allergy (Verified 03/08/22 13:24) Nausea Medications Ca carb-Ca gluc-Mg ox-Mg gluco 1 ea PO BID 04/27/16 [History Confirmed 03/08/22] cholecalciferol (vitamin D3) 400 unit PO DAILY 04/27/16 [History Confirmed 03/08/22] coenzyme Q10 100 mg PO DAILY 04/27/16 [History Confirmed 03/08/22] multivitamin with folic acid 1 tab PO DAILY 04/27/16 [History Confirmed 03/08/22] omega-3 fatty acids 1,000 mg PO DAILY 04/27/16 [History Confirmed 03/08/22] aspirin 81 mg tablet,delayed release 81 mg PO QDAY 10/04/17 [History Confirmed 03/08/22] amoxicillin 500 mg tablet 2,000 mg PO .COMPLEX #4 tab 09/16/21 [Rx Confirmed 03/08/22] metoprolol tartrate 25 mg tablet 25 mg PO BID #180 tab 02/22/22 [Rx Confirmed 03/08/22] atorvastatin 40 mg tablet 40 mg PO QHS #90 tab 03/08/22 [Rx Confirmed 03/08/22] magnesium 30 mg tablet 30 mg PO DAILY 03/08/22 [History Confirmed 03/08/22] PFSH Medical History (Updated 03/08/22 @ 13:25 by Toshia Whaley) Anemia Aortic stenosis Bicuspid aortic valve Chest pain Headache, migraine History of left heart catheterization Mixed hyperlipidemia Neuropathy Nonrheumatic mitral (valve) insufficiency Nonrheumatic mitral (valve) prolapse Osteopenia Surgical History H/O aortic valve replacement ( 06/17/16) History of aortic valve replacement with bioprosthetic valve ( 06/17/16) Family History Mother CAD (coronary artery disease) Sister History of open heart surgery Social History (Updated 03/08/22 @ 13:26 by Toshia Whaley) Smoking Status: Former smoker alcohol intake: never substance use type: does not use caffeine: Yes Type: coffee what type of physical activity do you participate in: walking and aerobics frequency: daily duration: 30-45 minutes/day seatbelt use: sometimes do you feel safe at home: Yes HPI HPI Chief Complaint: est care Details: JASMIN HUTCHINSON, is a 71 F who presents to the office today to establish medical care. Patient is a 71-year-old female, previously following with Nata Welsh CNP. She has retired. Basically she was seen infrequently there, generally on a yearly basis or even sometimes less frequent than that. She is on metoprolol through cardiology and statin. She has a history of nonrheumatic mitral valve insufficiency and aortic valve replacement for bicuspid aortic valve with aortic stenosis. She has done well from that standpoint. She needed a refill on atorvastatin. Patient has never smoked cigarettes. No alcohol use. She exercises basically on a daily basis for the last 40 years. She is very physically active, does regular regimented exercise but also walking fair amount as well outdoors and doing outdoors activities. The main issue of any at all today is the fact that she has what appears to be mild neuropathy. She had COVID-19 back in October. After that she developed symptoms in her hands and her feet but predominantly she noticed it mostly in her hands but now probably somewhat more in her feet once she discussed it with neurology. She saw apparently Dr. Culver, though there are no notes on the chart. She states when she saw him, she had an exam, and recommended labs and potentially other work-up in the future. She was due to go back in March. She did not really particularly have a good visit there she felt. She felt the doctor did not think that she could hear very well and she probably could not that they. Apparently he had recommended that she have her hearing aid evaluated but inadvertently she actually did not have it in that day and that was the issue. There is a fair amount of miscommunication apparently during that visit. She is agreeable to follow back up but was not terribly comfortable doing so. In any event she was apparently told that she has findings consistent with a peripheral neuropathy. She describes numbness sensation in her hands that extends up both the dorsum as well as the volar surface of the hands up towards the level of the wrist. She states that is worse at times than others. Overall she feels probably the pattern is slowly getting a little bit better. Ironically, her who had COVID-19 at the same time and was hospitalized for a couple of weeks with pulmonary involvement, has had some of the similar symptoms she states. Her symptoms were much milder in terms of the COVID itself she states. She wonders about anything else that could be causing the neuropathy but also inquiring about something perhaps that might help it. Review of systems per chart. Physical exam. Vital signs on chart. EOMI. PERRLA. Sclera are clear. TMs are unremarkable with normal light reflexes. Canals are unremarkable. Posterior pharynx is unremarkable. Good dentition. No cervical or supraclavicular lymph nodes enlarged or tender. No clear thyromegaly. No thyroid nodules readily palpable. Lungs are without wheeze, rhonchi, rales. No E/A changes are heard. Heart is regular. Not tachycardic. No clear rub or gallop is identified. 1???2/6 systolic ejection murmur right upper sternal border consistent with known aortic valve replacement. The abdomen is soft. Bowel sounds are present. Nontender nondistended abdomen. No clear palpable masses in the abdomen. No significant leg edema. Cranial nerve examination 2 through 12 are grossly unremarkable nonlateralizing. Deep tendon reflexes are 2/4 and symmetric at the bicep, tricep, Achilles, patella. No ankle clonus. No obvious rashes. No obvious significant skin lesions are identified. Normal and symmetric strength at the shoulder shrug, hand inspector watch train, bicep, tricep, hip flexors, hip extensors, leg flexors, leg extensors, dorsi and plantar flexion. I did not do formal exam of the extent of the neuropathy. Apparently this was just evaluated by neurology. Otherwise the nervous system exam, as above, was unremarkable. ROS Const Constitutional: No body ache, chills, excessive sweating, fatigue, fever(s), frequent falls, headache(s), snoring, weakness, weight change, sleep problems or change in appetite Eyes Eyes: No blurry vision, change in vision, eye pain or Light sensitivity ENT ENT: No abnormal hearing, ear or mastoid pain, tinnitus, nasal congestion, headache(s), neck pain or sore throat Resp Respiratory: No cough, shortness of breath, snoring or wheezing Cardio Cardiology: No chest pain at rest, chest pain with exertion, excessive sweating, shortness of breath, dyspnea on exertion, lightheadedness, orthopnea or palpitations Gastro GI: No abdominal pain, change in bowel habits, constipation, cramping, diarrhea, nausea/dyspepsia or vomiting Genitourinary-Female: No burning urination, painful urination, urinary incontinence, urinary frequency or abnormal vaginal bleeding Musc Musculoskeletal: No abnormal gait, joint pain, back pain, limited range of motion, neck pain, numbness or tingling Skin Skin: No dry skin, redness, lesions, itchy eyes, rash or wounds Neuro Neurology: No abnormal gait, abnormal hearing, abnormal speech, dizziness, weakness, frequent falls, headache(s), memory loss, numbness or tingling Psych Psychiatric: No anxiety, No change in appetite, No depression, No memory loss and No Thoughts of harming yourself/Others Endo Endocrine: No cold intolerance, excessive sweating, fatigue, flushing, heat intolerance, increased thirst/drinking, increased hunger or weight change Aller/Imm Allergy/Immunologic: No itchy eyes, seasonal allergy symptoms, hives or wheezing Gume/Lymp Hematologic/Lymphatic: No easy bleeding, easy bruising or enlarged lymph nodes Coding Level of Care Code Off vis,est,level 4 Diagnoses History of aortic valve replacement with bioprosthetic valve Z95.3 Neuropathy G62.9 Mixed hyperlipidemia E78.2 Encounter to establish care Z76.89 Time Spent (min) 40 Assessment and Plan Assessment and Plan (1) History of aortic valve replacement with bioprosthetic valve: Status: Resolved (2) Neuropathy: Status: Acute (3) Mixed hyperlipidemia: Status: Chronic (4) Encounter to establish care: Plan Details Other Medications: Refilled: atorvastatin 40 mg PO QHS 90 tabs 3RF Additional Comments: Patient presented today to establish medical care. 71-year-old female. Was previously following with Nata Welsh CNP. She has been up-to-date on mammogram she states. She had colonoscopy relatively recently. I do not have any old records at this point in time. She is very physically active. Self-admittedly probably could eat better diet. We talked about eating more plants and vegetables, and she probably self-admittedly does not eat enough but does try and incorporate some in the diet. Fortunately her activity level is pretty high and that helps out. She will continue to follow with neurology in regards to the neuropathy. Her medications that are prescription-based are provided through cardiology that includes metoprolol although I have refilled her statin today as above. She also takes fish oil, co-Q10, magnesium, calcium as well as a multivitamin. Would not recommend any specific medication changes today. Need to obtain neurology office visit note to see if anything specific lab anthony needs to be done. It is unclear to me if neurology and actually recommended she have some labs done as I do not see any in the computerized medical record and none of been done recently. Try and obtain office note. 40-minute visit. Follow Up: Yearly and as needed 03/08/22 1614 <Electronically signed by Nina Marroquin MD> Date Nina Marroquin MD Cosigner Signature: Date (if applicable) CC: Nata Welsh Work Phone: Start: 08-31-2021 End: 08-31-2021 Echo Complete Comments: See Note; NOTES: [facility] Cardi[facility] Services [address] [place] [address] Echo Complete 08/31/21 1404 MR#: [id number] Acct: [id number] Name: JASMIN HUTCHINSON Rep #: [id number] : 1950 70 From: Jose Luis Donahue MD Attending Dr: Dr. Jose Luis Donahue MD Status: RE G CLI Ordering Dr: Jose Luis Donahue MD Date: 08/31/21 Location: [facility] Sex: F C Admitted: Reason For Study: AVR Procedure This was a 2D Doppler, Color Flow transthoracic echocardiogram. The exam was of adequate technical quality. Exam performed in department. Left Ventricle Normal LV size. Left ventricular systolic function is normal. The estimated ejection fraction is 65 %. Diastolic function is indeterminate. No regional wall motion abnormalities noted. Right Ventricle Normal RV size. Normal systolic function. Atria Normal left atrium. Normal right atrium. No doppler evidence for ASD. Mitral Valve There is mild to moderate mitral annular calcification. Extension of the mitral annular calcification onto the base of the posterior mitral valve leaflet. Mild (1+) mitral valve insufficiency. Tricuspid Valve Normal tricuspid valve. Moderate (2+) tricuspid valve insufficiency. Right ventricular systolic pressure estimated to be 41 mmHg. Aortic Valve Mild focal aortic valve calcification. Mild to moderate aortic stenosis. Stable appearing bioprosthetic aortic valve apparatus. Trivial transvalvular insufficiency of the aortic valve. Pulmonic Valve The pulmonic valve is not well visualized. Great Vessels Normal sized aortic root. Pericardium/Pleural No pericardial effusion. MMode/2D Measurements Calculations LVIDd: 3.5 cm IVSd: 1.1 cm LVOT diam: 1.7 cm LVIDs: 2.0 cm LVPWd: 1.1 cm LVOT area: 2.2 cm2 RVDd: 2.8 cm FS: 43.4 % ___ Ao root diam: 3.8 cm LAV(MOD-bp): 45.0 ml LVAd ap4: 22.3 cm2 LAV(MOD-bp) Indexed: 28.8 ml/m2 LVLd ap4: 7.3 cm LAV(MOD-sp2): 48.0 ml EDV(MOD-sp4): 56.1 ml LAV(MOD-sp4): 37.5 ml EDV(sp4-el): 58.0 ml LVAs ap4: 12.1 cm2 LVLs ap4: 6.4 cm ESV(MOD-sp4): 20.1 ml ESV(sp4-el): 19.6 ml EF(MOD-sp4): 64.2 % EF(sp4-el): 66.3 % ___ LVAd ap2: 25.0 cm2 SV(MOD-sp4): 36.0 ml SV(MOD-sp2): 44.3 ml LVLd ap2: 7.6 cm EDV(MOD-sp2): 68.4 ml EDV(sp2-el): 69.7 ml LVAs ap2: 13.8 cm2 LVLs ap2: 6.8 cm ESV(MOD-sp2): 24.1 ml ESV(sp2-el): 23.8 ml EF(MOD-sp2): 64.8 % ___ SV(sp4-el): 38.5 ml LA dimension(2D): 4.0 cm LA A4 area: 15.5 cm2 ___ RA A4 area: 13.5 cm2 Doppler Measurements Calculations MV E max terry: 58.2 cm/sec Lat Peak E' Terry: 7.0 cm/sec Med Peak E' Terry: 7.0 cm/sec MV A max terry: 86.9 cm/sec E/E' lat: 8.3 E/E' med: 8.3 MV E/A: 0.67 ___ Ao V2 max: 304.2 cm/sec AI max terry: 472.8 cm/sec LV V1 max: 185.2 cm/sec Ao max P.0 mmHg AI max P.4 mmHg LV V1 max P.7 mmHg Ao V2 mean: 202.3 cm/sec AI dec slope: 247.2 cm/sec2 LV V1 mean P.3 mmHg Ao mean P.5 mmHg AI P1/2t: 560.2 msec LV V1 mean: 127.0 cm/sec Ao V2 VTI: 53.8 cm LV V1 VTI: 34.4 cm TONI(I,D): 1.4 cm2 TONI(V,D): 1.3 cm2 ___ SV(LVOT): 74.7 ml PA V2 max: 122.7 cm/sec TR max terry: 306.1 cm/sec TR max P.8 mmHg ECHO/Echo Complete Interpretation Summary Left ventricular systolic function is normal. The estimated ejection fraction is 65 %. There is mild to moderate mitral annular calcification. Extension of the mitral annular calcification onto the base of the posterior mitral valve leaflet. Mild (1+) mitral valve insufficiency. Moderate (2+) tricuspid valve insufficiency. Stable appearing bioprosthetic aortic valve apparatus. Mild to moderate aortic stenosis. Trivial transvalvular insufficiency of the aortic valve. Right ventricular systolic pressure estimated to be 41 mmHg. Diastolic function is indeterminate. _ Ordering Physician: Jose Luis Donahue Referring Physician: Nata Welsh Performed By: Luisana Rivas RDCS 08/31/211735 Date Jose Luis Donahue MD CC: COMMISSARY ASSISTANT-C Nata Welsh; Dr. Jose Luis Donahue MD Date Dictated: 08/31/21 1404 Date Transcribed: 08/31/211735 Case Monitor: Signed Nata Welsh Work Phone: Start: 08-18-2021 End: 08-18-2021 Cardiology Visit Report Comments: See Note; NOTES: [facility] [address] [place] [address] OFFICE VISIT Date of Service: 08/18/21 MR#: [id number] Acct: [id number] Name: JASMIN HUTCHINSON Rep #: [id number] : 1950 Provider: Dr. Jose Luis gonzalez MD Age/Sex: 70/F Location: [facility] [place] Status: Signed [facility] History of Present Illness Details: This is a 70-year-old white female who presents today for outpatient cardiovascular follow- up with a history of underlying aortic valve disorder with bicuspid aortic valve with aortic valve stenosis status post aortic valve replacement with a 21 mm Mitroflow pericardial valve (06-17-2016 at [place], [place]) mitral valve prolapse/MR, and hyperlipidemia. Since her visit of approximately 1 year ago she states overall she feels she is doing well. She denies any ongoing symptoms of angina pectoris at rest or with exertion. There is been no evidence of acute CHF or pulmonary edema. There is been no near syncope or syncope. She has had no unexplained fever, chills, or night sweats. She remains very active. She states she tries to keep in shape because she believes that her valve will last longer the better shape she is in. She does admit that last year during the COVID-19 pandemic she did not have her lipid labs performed at the time of her last visit. 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 Accompanied by: Self Allergies morphine Allergy (Verified 08/18/21 14:28) Nausea Medications Ca carb-Ca gluc-Mg ox-Mg gluco 1 ea PO BID 04/27/16 [History Confirmed 08/18/21] cholecalciferol (vitamin D3) 400 unit PO DAILY 04/27/16 [History Confirmed 08/18/21] coenzyme Q10 100 mg PO DAILY 04/27/16 [History Confirmed 08/18/21] multivitamin with folic acid 1 tab PO DAILY 04/27/16 [History Confirmed 08/18/21] omega-3 fatty acids 1,000 mg PO DAILY 04/27/16 [History Confirmed 08/18/21] aspirin 81 mg tablet,delayed release 81 mg PO QDAY 10/04/17 [History Confirmed 08/18/21] amoxicillin 500 mg tablet 2,000 mg PO .COMPLEX #4 tab 06/25/19 [Rx Confirmed 08/18/21] atorvastatin 20 mg tablet 20 mg PO QDAY #90 tab 08/19/20 [Rx Confirmed 08/18/21] metoprolol tartrate 25 mg tablet 25 mg PO BID #180 tab 09/14/20 [Rx Confirmed 08/18/21] PFSH Medical History Aortic stenosis Bicuspid aortic valve Chest pain History of left heart catheterization Mixed hyperlipidemia Nonrheumatic mitral (valve) insufficiency Nonrheumatic mitral (valve) prolapse Osteopenia Surgical History H/O aortic valve replacement ( 06/17/16) History of aortic valve replacement with bioprosthetic valve ( 06/17/16) Family History Mother CAD (coronary artery disease) Sister History of open heart surgery Social History Smoking Status: Former smoker alcohol intake: never substance use type: does not use caffeine: Yes Type: coffee what type of physical activity do you participate in: walking and aerobics frequency: daily duration: 30-45 minutes/day seatbelt use: sometimes do you feel safe at home: Yes ROS Const Const: Negative for fatigue, weakness, frequent falls, excessive sweating, weight gain or weight loss Eyes Eyes: Negative for transient loss of vision, blurry vision or change in vision ENT ENT: Negative for dizziness or balance problems Cardio Chest Pain: No Palpitations: No Edema: None Muscle aches with walking: None Resp Respiratory: Negative for SOB with activity or SOB at rest GI GI: Negative vomiting or vomiting blood/hematemesis : Negative for hematuria Musc Musc: Negative for muscle aches/ myalgia, muscle weakness, joint pain or balance problems Skin Skin: Negative non-healing lesions or rash Neuro Neuro: Negative for dizziness, lightheadedness, orthostatic symptoms, frequent falls, weakness or blurry vision Gume Hematologic/Lymphatic: Negative for easy bleeding Endo Endo: Negative for fatigue or excessive sweating Psych Psych: Negative for anxiety or depression Allergy Allergy/Immunology: Negative for hives and Negative for rash Cardiology Exam Const Appearance: cooperative, healthy appearing, comfortable, no acute distress, well developed and well groomed Nutritional Appearance: thin Orientation: alert, awake and oriented x3 Head Head: normal to inspection, normocephalic and atraumatic Ears: hearing grossly normal bilaterally Nose: external nose normal Face and Sinus: face symmetric Eyes Eyelids: eyelids normal Conjunctivae: conjunctivae normal Pupils: PERRL EOM: EOM intact bilaterally Neck Neck: normal visual inspection and full ROM Carotids: normal carotid upstroke Chest Chest inspection: normal inspection of the chest, symmetric chest movement and normal respiratory effort Auscultation: Bilateral: Clear to Auscultation Cardio Palpation: normal PMI Rate: regular rate Rhythm: regular rhythm Heart sounds: S1 normal, S2 normal and murmur Murmur: Grade 3/6, harsh, mid systolic, LLSB, LVOT and sternal notch GI GI: normal to inspection, soft and bowel sounds present Neuro General: patient alert, patient awake, patient oriented x3 and moves all extremities Skin Skin: no rashes or lesions noted Extremities Pulses: Normal: Right Radial Pulse and Left Radial Pulse Lower Extremity Edema: None: Bilateral Psych Psychological: normal affect Supplemental Info Supplemental Information Transthoracic echocardiogram: 08/28/18 Interpretation Summary Left ventricular systolic function is normal. The estimated ejection fraction is 65 %. The left atrium is mildly enlarged. The right atrium is mildly enlarged. There is mild mitral annular calcification. Mild diffuse mitral valve thickening. Mild focal mitral valve calcification of the anterior leaflet. Mild (1+) mitral valve insufficiency. Moderate (2+) tricuspid valve insufficiency. Stable appearing bioprosthetic aortic valve apparatus. Moderate aortic stenosis. Trivial transvalvular insufficiency of the aortic valve. Right ventricular systolic pressure estimated to be 41 mmHg. Diastolic function is indeterminate. DATE OF SERVICE: 07/19/2016 EXERCISE TOLERANCE TEST: The patient exercised on a Fawad protocol for 4 minutes and 30 seconds completing stage 1 and 1 minute and 30 seconds of stage 2, achieving a peak heart rate of 151 beats per minute (96% predicted maximum heart rate) and a peak blood pressure of 132/76 mmHg and a peak MET capacity of approximately 6 METS. The baseline ECG demonstrated normal sinus rhythm with a left bundle-branch block pattern. The peak exercise ECG was considered indeterminate secondary to the underlying left bundle-branch block pattern. There was a rare PVC during exercise or recovery. The functional capacity was considered decreased. The patient had no complaint of chest discomfort during exercise or recovery. The examination was discontinued secondary to dyspnea. IMPRESSION: 1. Technically adequate (percent predicted maximum heart rate greater than 85%) exercise tolerance test. 2. Peak exercise ECG considered indeterminate secondary to underlying left bundle-branch block pattern. 3. Rare PVC during exercise and recovery. Labs: LDL Cholesterol 117 mg/dL (0-130) HDL Cholesterol 59 mg/dL (40-) Triglycerides 106 mg/dL (-199) VLDL Cholesterol 21 mg/dL (5-40) Diagnostics: Electrocardiogram Echocardiogram Stress Test Cardiac Catheterization Chest X-Ray Pulmonary: No Data to Display Assessment and Plan Assessment and Plan (1) History of aortic valve replacement with bioprosthetic valve: Status: Resolved Orders: Orders: Lipid Profile 1 Day Liver Profile 1 Day Echo Complete Today Plan - Dr. Jose Luis Donahue MD: At the present time she will continue AHA antibiotic prophylaxis. She will continue with follow-up echocardiographic studies as deemed appropriate. (2) Nonrheumatic mitral (valve) prolapse: Status: Acute Orders: Orders: Lipid Profile 1 Day Liver Profile 1 Day Echo Complete Today Plan - Dr. Jose Luis Donahue MD: She does have a history of MVP/MR. Again she will be followed by history, exam, and echocardiographic studies. (3) Nonrheumatic mitral (valve) insufficiency: Status: Acute Orders: Orders: Lipid Profile 1 Day Liver Profile 1 Day Echo Complete Today Plan - Dr. Jose Luis Donahue MD: She will continue to have follow-up evaluation as noted above. (4) Mixed hyperlipidemia: Status: Chronic Orders: Orders: Lipid Profile 1 Day Liver Profile 1 Day Echo Complete Today Plan - Dr. Jose Luis Donahue MD: She will be asked to have future fasting lipid hepatic profile. Plan Details Other Orders: Orders: Lipid Profile 1 Day E78.00 Liver Profile 1 Day E78.00 Echo Complete Today R07.9 Additional Comments: Thank you for allowing me to participate in the care of your patient. Please don't hesitate to call if any issues arise. This note was generated using a voice recognition system and there may be incorrect words, spelling or punctuation that were not noted when reviewing the office note prior to saving. Follow Up: 1 Year (with PFM ) COVID (Procedure Consent) Procedure Criteria Procedure Criteria: Yes Elective The surgeon/proceduralist and patient have discussed in detail the risk of exposure to and/or potential harm posed by the COVID-19 virus with having a surgery/procedure at this time versus the risk of??? delaying the surgery/procedure. It is not possible to know either the risk of delaying the surgery or procedure or chance of getting an infection with perfect accuracy, but a joint decision was made between the patient and the surgeon/proceduralist ???to proceed at this time with the scheduled surgery/procedure as indicated on the consent form. Coding Level of Care Code Off vis,est,level 4 Diagnoses History of aortic valve replacement with bioprosthetic valve Z95.3 Nonrheumatic mitral (valve) prolapse I34.1 Nonrheumatic mitral (valve) insufficiency I34.0 Mixed hyperlipidemia E78.2 Coding Level of Care Code Off vis,est,level 4 Diagnoses History of aortic valve replacement with bioprosthetic valve Z95.3 Nonrheumatic mitral (valve) prolapse I34.1 Nonrheumatic mitral (valve) insufficiency I34.0 Mixed hyperlipidemia E78.2 08/18/21 1518 <Electronically signed by Jose Luis Donahue MD> Date Jose Luis Donahue MD Cosigner Signature: Date (if applicable) CC: COMMISSARY ASSISTANT-C Nata Welsh Work Phone: Start: 06-28-2021 End: 06-28-2021 Breast Limited Unilateral Comments: See Note; NOTES: [facility] Imaging Services [address] [place] [address] Breast Limited Unilateral MR#: [id number] Acct: [id number] Name: JASMIN HUTCHINSON Rep #: [id number] : 1950 F 70 From: Rodger patricio MD PCP: ILAN Patel Status: REG CLI Study: Breast Limited Unilateral Date of Exam: Exam# [id number] Ordering Dr: Nata Welsh NP STUDY: ULTRASOUND BREAST - LEFT REASON FOR EXAM: Female, 70 years old. Abnormal screening mammogram. TECHNIQUE: Axial and longitudinal images of the LEFT breast were performed with a high resolution ultrasound transducer. # OF IMAGES: 36 COMPARISON: Comparison is made with prior diagnostic mammogram done earlier today. FINDINGS: LEFT Breast: The lateral half of the left breast was examined by ultrasound. No sonographic abnormality is seen. US/Breast Limited Unilateral IMPRESSION: No sonographic abnormality is seen. ASSESSMENT CATEGORY: BIRADS Category 1: Negative. A letter regarding these results will be sent to the patient by the facility within 30 days. Electronically Signed: Rodger Blount MD at 15:48 EDT , Service support , CC: ILAN Welsh Case Monitor: Signed Nata Welsh Work Phone: Start: 06-28-2021 End: 06-28-2021 DIAG MAMM W/CAD, UNILAT Comments: See Note; NOTES: [facility] Imaging Services [address] [place] [address] DIAG MAMM W/CAD, UNILAT MR#: [id number] Acct: [id number] Name: JASMIN HUTCHINSON Rep #: [id number] : 1950 F 70 From: Rodger patricio MD PCP: ILAN Patel Status: [facility] Study: DIAG MAMM W/CAD, UNILAT Date of Exam: 06/28/21 Exam# [id number] Ordering Dr: Nata Welsh NP MAMMOGRAPHY - UNILATERAL DIAGNOSTIC: LEFT BREAST REASON FOR EXAM: Female, 70 years old. Abnormal screening mammogram. PERTINENT HISTORY: Architectural distortion as seen on the mediolateral oblique view. TECHNIQUE: Compression spot views of the left breast were obtained in the mediolateral oblique view. CAD: Full Field Digital Mammography with Computer Added Detection was performed. COMPARISON: Comparison is made with prior outside examination dated 05/27/2021. FINDINGS: Breast Composition: There are scattered areas of fibroglandular density. There are no dominant masses or suspicious calcifications. No other significant abnormalities are identified. BI/DIAG MAMM W/CAD, UNILAT IMPRESSION: Negative unilateral diagnostic mammogram. Correlation with ultrasound is recommended. ASSESSMENT CATEGORY: BIRADS Category 0: Incomplete. Need additional imaging evaluation. A letter regarding these results will be sent to the patient by the facility within 30 days. Approximately 10% of breast cancers are not detected by mammography. A normal mammogram should not delay biopsy of a clinically suspicious abnormality. Electronically Signed: Rodger Blount MD at 15:12 EDT , Service support , CC: ILAN Welsh Case Monitor: Signed Nata Welsh Work Phone: Start: 05-27-2021 Mammography Gurpreet Stewart MD Work Phone: Start: 09-01-2020 End: 09-01-2020 Echo Complete Comments: See Note; NOTES: [facility] Cardi[facility] Services [address] [facility] [place] [address] Echo Complete 09/01/20 1451 MR#: [id number] Acct: [id number] Name: JASMIN HUTCHINSON Rep #: [id number] : 1950 69 From: Jose Luis Donahue MD Attending Dr: Dr. Jose Luis Donahue MD Status: RE G [facility] Ordering Dr: Jose Luis Donahue MD Date: 09/01/20 Location: [facility] Sex: F C Admitted: Reason For Study: Valve Replacement eval Procedure This was a 2D Doppler, Color Flow transthoracic echocardiogram. The study was technically difficult. Exam performed in department. Left Ventricle Normal LV size. Left ventricular systolic function is normal. The estimated ejection fraction is 65 %. No evidence for diastolic dysfunction. No regional wall motion abnormalities noted. Right Ventricle Normal RV size. Normal systolic function. Atria The left atrium is mildly enlarged. The right atrium is mildly enlarged. No doppler evidence for ASD. Mitral Valve There is mild mitral annular calcification. Mild diffuse mitral valve thickening. Mild (1+) mitral valve insufficiency. Tricuspid Valve Normal tricuspid valve. Moderate (2+) tricuspid valve insufficiency. Right ventricular systolic pressure estimated to be 29 mmHg. Aortic Valve Moderate aortic stenosis. Stable appearing bioprosthetic aortic valve apparatus. Trivial transvalvular insufficiency of the aortic valve. Pulmonic Valve The pulmonic valve is not well visualized. Great Vessels Normal sized aortic root. Pericardium/Pleural No pericardial effusion. MMode/2D Measurements Calculations LVIDd: 3.2 cm IVSd: 1.1 cm LVOT diam: 1.7 cm LVIDs: 2.0 cm LVPWd: 1.3 cm LVOT area: 2.4 cm2 RVDd: 3.3 cm FS: 38.1 % ___ Ao root diam: 3.8 cm LAV(MOD-bp): 46.9 ml LA A4 area: 14.9 cm2 LA dimension: 3.6 cm LAV(MOD-bp) Indexed: 29.8 ml/m2 LAV(MOD-sp2): 59.8 ml LAV(MOD-sp4): 36.2 ml ___ RA A4 area: 14.9 cm2 Time Measurements MV dec time: 0.31 sec Doppler Measurements Calculations MV E max terry: 61.5 cm/sec Lat Peak E' Terry: 7.3 cm/sec Med Peak E' Terry: 6.3 cm/sec MV A max terry: 80.6 cm/sec E/E' lat: 8.4 E/E' med: 9.8 MV E/A: 0.76 ___ MV V2 max: 104.2 cm/sec MV P1/2t max terry: 68.6 cm/sec Ao V2 max: 302.0 cm/sec MV max P.3 mmHg MV P1/2t: 80.1 msec Ao max P.5 mmHg MV V2 mean: 51.3 cm/sec MV dec slope: 250.9 cm/sec2 Ao V2 mean: 190.4 cm/sec MV mean P.2 mmHg Ao mean P.9 mmHg MV V2 VTI: 26.2 cm MVA(P1/2t): 2.7 cm2 Ao V2 VTI: 54.7 cm MVA(VTI): 2.1 cm2 TONI(I,D): 0.99 cm2 TONI(V,D): 0.91 cm2 ___ LV V1 max: 115.9 cm/sec MR max terry: 491.1 cm/sec SV(LVOT): 54.0 ml LV V1 max P.4 mmHg MR max P.5 mmHg LV V1 mean P.9 mmHg LV V1 mean: 78.1 cm/sec LV V1 VTI: 22.8 cm ___ PA V2 max: 111.7 cm/sec TR max terry: 255.4 cm/sec TR max P.1 mmHg Interpretation Summary The study was technically difficult. Left ventricular systolic function is normal. The estimated ejection fraction is 65 %. The left atrium is mildly enlarged. The right atrium is mildly enlarged. There is mild mitral annular calcification. Mild diffuse mitral valve thickening. Mild (1+) mitral valve insufficiency. Moderate (2+) tricuspid valve insufficiency. Stable appearing bioprosthetic aortic valve apparatus. Moderate aortic stenosis. Trivial transvalvular insufficiency of the aortic valve. Right ventricular systolic pressure estimated to be 29 mmHg. No evidence for diastolic dysfunction. _ Ordering Physician: Jose Luis Donahue Referring Physician: Nata Welsh Performed By: Maxime Juarez RCS 09/01/20 0392 Date Jose Luis Donahue MD CC: COMMISSARY ASSISTANT-C Nata Welsh; Dr. Jose Luis Donahue MD Date Dictated: 09/01/20 1451 Date Transcribed: 09/01/20 1559 Case Monitor: Signed Nata Welsh Work Phone: Start: 08-19-2020 End: 08-19-2020 Cardiology Visit Report Comments: See Note; NOTES: [facility] [address] [place] [address] [address] [place] [address] OFFICE VISIT Date of Service: 08/19/20 MR#: [id number] Acct: [id number] Name: JASMIN HUTCHINSON Rep #: [id number] : 1950 Provider: Dr. Jose Luis gonzalez MD Age/Sex: 69/F Location[place] [facility] [place] Status: Signed [facility] History of Present Illness Details: JASMIN HUTCHINSON, is a 69 year old white female who presents to the office today for outpatient cardiovascular follow-up of her history of underlying bicuspid aortic valve with aortic valve stenosis status post aortic valve replacement with a 21 mm Mitroflow pericardial valve on 06/17/2016 at [facility] in [place], [place]. Since her last outpatient visit she states she has been doing well. She has had no concerning symptoms suspicious for the development of angina pectoris, evidence of CHF or pulmonary edema, near syncope or syncope, nor has she had any unexplained fever, chills, or night sweats. Her lipids were checked in October of this year. Her total cholesterol was 197 with an LDL of 117 and HDL of 59. Her triglycerides were 106. Her last transthoracic echocardiogram was performed approximately 2 years ago. The results are as noted below. 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 Accompanied by: Self Allergies morphine Allergy (Verified 08/19/20 15:13) Nausea Medications Calcium Carb,Gluc/Mag Ox,Gluc [Calcium Magnesium Caplet] 1 ea PO BID 04/27/16 [History Confirmed 08/19/20] Cholecalciferol (VIT D3) [Vitamin D3] 400 unit PO DAILY 04/27/16 [History Confirmed 08/19/20] Multivitamins,Therapeutic [Multivitamin] 1 tab PO DAILY 04/27/16 [History Confirmed 08/19/20] Anthony-3 Fatty Acids [Anthony-3] 1,000 mg PO DAILY 04/27/16 [History Confirmed 08/19/20] Ubidecarenone [Coenzyme Q10] 100 mg PO DAILY 04/27/16 [History Confirmed 08/19/20] Ibuprofen [Motrin] 400 mg PO Q8H PRN PRN #14 tab 04/29/16 [Rx Confirmed 08/19/20] aspirin 81 mg tablet,delayed release 81 mg PO QDAY 10/04/17 [History Confirmed 08/19/20] metoprolol tartrate 25 mg tablet 25 mg PO BID #180 tab 04/26/19 [Rx Confirmed 08/19/20] amoxicillin 500 mg tablet 2,000 mg PO .COMPLEX #4 tab 06/25/19 [Rx Confirmed 08/19/20] atorvastatin 20 mg tablet 20 mg PO QDAY #90 tab 08/19/20 [Rx Confirmed 08/19/20] PFSH Medical History Mixed hyperlipidemia (Chronic) Nonrheumatic mitral (valve) insufficiency (Acute) Nonrheumatic mitral (valve) prolapse (Acute) Bicuspid aortic valve (Chronic) Chest pain (Chronic) Aortic stenosis (Chronic) History of left heart catheterization (Chronic) Osteopenia (Chronic) Surgical History History of aortic valve replacement with bioprosthetic valve (Resolved 06/17/16) H/O aortic valve replacement (Chronic 06/17/16) Family History Mother CAD (coronary artery disease) Sister History of open heart surgery Social History (Updated 08/19/20 @ 15:[address] Jose Luis Donahue MD) Smoking Status: Former smoker alcohol intake: never substance use type: does not use caffeine: Yes Type: coffee what type of physical activity do you participate in: walking, aerobics frequency: daily duration: 30-45 minutes/day seatbelt use: sometimes do you feel safe at home: Yes ROS Const Const: Negative for fatigue, weakness, frequent falls, excessive sweating, weight gain or weight loss Eyes Eyes: Negative for transient loss of vision, blurry vision or change in vision ENT ENT: Negative for dizziness or balance problems Cardio Chest Pain: No Palpitations: No Edema: None Muscle aches with walking: None Resp Respiratory: Negative for SOB with activity or SOB at rest GI GI: Negative vomiting or vomiting blood/hematemesis : Negative for hematuria Musc Musc: Negative for muscle aches/ myalgia, muscle weakness, joint pain or balance problems Skin Skin: Negative non-healing lesions or rash Neuro Neuro: Negative for dizziness, lightheadedness, orthostatic symptoms, frequent falls, weakness or blurry vision Gume Hematologic/Lymphatic: Negative for easy bleeding Endo Endo: Negative for fatigue or excessive sweating Psych Psych: Negative for anxiety or depression Allergy Allergy/Immunology: Negative for hives, Negative for rash Cardiology Exam Const Appearance: cooperative, healthy appearing, comfortable, no acute distress, well developed and well groomed Nutritional Appearance: thin Orientation: alert, awake and oriented x3 Head Head: normal to inspection, normocephalic and atraumatic Ears: hearing grossly normal bilaterally Nose: external nose normal Face and Sinus: face symmetric Mouth: oral mucosae normal Teeth and gingiva: fair dentition Eyes Eyelids: eyelids normal Conjunctivae: conjunctivae normal Pupils: PERRL EOM: EOM intact bilaterally Neck Neck: normal visual inspection, full ROM and no JVD Carotids: normal carotid upstroke Chest Chest inspection: normal inspection of the chest, symmetric chest movement and normal respiratory effort Auscultation: Bilateral: Clear to Auscultation Cardio Rate: regular rate Rhythm: regular rhythm Heart sounds: S1 normal, S2 normal, prominent A2 and positive S4 Murmur: Grade 2/6, soft, mid systolic, LLSB, apex, axilla, LVOT, sternal notch and radiates to carotids GI GI: normal to inspection, soft and bowel sounds present Neuro General: alert, awake, oriented x3, gait normal, moves all extremities, no focal sensory deficit and no focal motor deficits Skin Skin: no rashes or lesions noted Extremities Pulses: Normal: Right Posterior Tibial Pulse, Left Posterior Tibial Pulse, Right Radial Pulse, Left Radial Pulse Lower Extremity Edema: None: Bilateral Psych Psychological: normal affect Assessment Plan 1. History of aortic valve replacement with bioprosthetic valve Z95.3 Plan At the present time she appears to be doing reasonably well overall with no acute symptoms or adverse events. She will continue medical management which includes AHA antibiotic prophylaxis. She will be scheduled for a future echocardiogram to monitor her aortic valve prosthesis and the degree of prosthetic aortic valve stenosis. Orders Orders: Echo Complete Today 2. Nonrheumatic mitral (valve) prolapse I34.1 Plan She will continue to be followed by history, exam, and echocardiogram. Orders Orders: Echo Complete Today 3. Nonrheumatic mitral valve regurgitation I34.0 Plan She will continue to be followed by history, exam, and echocardiogram. Orders Orders: Echo Complete Today 4. Mixed hyperlipidemia E78.2 Plan She will continue her lipid-lowering therapy. Orders Orders: Echo Complete Today Plan Detail Other Medications Refilled: atorvastatin 20 mg PO QDAY 90 tabs 4RF Additional Comments She will be scheduled for an outpatient visit approximately 1 year or less needed sooner. Thank you for allowing me to participate in the care of your patient. Please don't hesitate to call if any issues arise. This note was generated using a voice recognition system and there may be incorrect words, spelling or punctuation that were not noted when reviewing the office note prior to saving. Follow Up 1 Year (with PFM ) Coding Level of Care Code Off vis,est,level 4 Diagnoses History of aortic valve replacement with bioprosthetic valve Z95.3 Nonrheumatic mitral (valve) prolapse I34.1 Nonrheumatic mitral valve regurgitation I34.0 Mixed hyperlipidemia E78.2 Coding Level of Care Code Off vis,est,level 4 Diagnoses History of aortic valve replacement with bioprosthetic valve Z95.3 Nonrheumatic mitral (valve) prolapse I34.1 Nonrheumatic mitral valve regurgitation I34.0 Mixed hyperlipidemia E78.2 Supplemental Info Supplemental Information Transthoracic echocardiogram: 08/28/18 Interpretation Summary Left ventricular systolic function is normal. The estimated ejection fraction is 65 %. The left atrium is mildly enlarged. The right atrium is mildly enlarged. There is mild mitral annular calcification. Mild diffuse mitral valve thickening. Mild focal mitral valve calcification of the anterior leaflet. Mild (1+) mitral valve insufficiency. Moderate (2+) tricuspid valve insufficiency. Stable appearing bioprosthetic aortic valve apparatus. Moderate aortic stenosis. Trivial transvalvular insufficiency of the aortic valve. Right ventricular systolic pressure estimated to be 41 mmHg. Diastolic function is indeterminate. DATE OF SERVICE: 07/19/2016 EXERCISE TOLERANCE TEST: The patient exercised on a Fawad protocol for 4 minutes and 30 seconds completing stage 1 and 1 minute and 30 seconds of stage 2, achieving a peak heart rate of 151 beats per minute (96% predicted maximum heart rate) and a peak blood pressure of 132/76 mmHg and a peak MET capacity of approximately 6 METS. The baseline ECG demonstrated normal sinus rhythm with a left bundle-branch block pattern. The peak exercise ECG was considered indeterminate secondary to the underlying left bundle-branch block pattern. There was a rare PVC during exercise or recovery. The functional capacity was considered decreased. The patient had no complaint of chest discomfort during exercise or recovery. The examination was discontinued secondary to dyspnea. IMPRESSION: 1. Technically adequate (percent predicted maximum heart rate greater than 85%) exercise tolerance test. 2. Peak exercise ECG considered indeterminate secondary to underlying left bundle-branch block pattern. 3. Rare PVC during exercise and recovery. Labs LDL Cholesterol 117 mg/dL (0-130) 10/31/19 HDL Cholesterol 59 mg/dL (40-) 10/31/19 Triglycerides 106 mg/dL (-199) 10/31/19 VLDL Cholesterol 21 mg/dL (5-40) 10/31/19 Diagnostics Electrocardiogram 04/29/16 Echocardiogram 08/28/18 Stress Test 07/19/16 Cardiac Catheterization 04/27/16 Chest X-Ray 04/29/16 08/19/20 6922 <Electronically signed by Jose Luis Donahue MD> Date Jose Luis Donahue MD Cosigner Signature: Date (if applicable) CC: COMMISSARY ASSISTANTAlly Nata Welsh Work Phone: Start: 08-21-2019 End: 08-21-2019 Cardiology Visit Report Comments: See Note; NOTES: [facility] [place], [place] [address] OFFICE VISIT Date of Service: 08/21/19 MR#: [id number] Acct: [id number] Name: JASMIN HUTCHINSON Rep #: [id number] : 1950 Provider: Jose Luis Donahue MD Age/Sex: 68/F Location[place] [facility] [place] Status: Signed [facility] History of Present Illness Details: JASMIN HUTCHINSON, is a 68 year old white female who presents to the office today for outpatient cardiovascular follow-up of her history of underlying bicuspid aortic valve with aortic valve stenosis status post aortic valve replacement with a 21 mm Mitroflow pericardial valve on 06/17/2016 at [facility] in [place], [place]. Since her last outpatient visit she states she has been doing well. She has had no concerning symptoms suspicious for the development of angina pectoris, evidence of CHF or pulmonary edema, near syncope or syncope, nor has she had any unexplained fever, chills, or night sweats. She has not had her lipid labs performed. Her most recent transthoracic echocardiogram from August 2018 is as noted above below. She states she has not required any additional diagnostic studies or testing since her last visit. 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 Accompanied by: Self Allergies morphine Allergy (Verified 08/21/19 15:45) Nausea Medications Calcium Carb,Gluc/Mag Ox,Gluc [Calcium Magnesium Caplet] 1 ea PO BID 04/27/16 [History Confirmed 08/21/19] Cholecalciferol (VIT D3) [Vitamin D3] 400 unit PO DAILY 04/27/16 [History Confirmed 08/21/19] Multivitamins,Therapeutic [Multivitamin] 1 tab PO DAILY 04/27/16 [History Confirmed 08/21/19] Anthony-3 Fatty Acids [Anthony-3] 1,000 mg PO DAILY 04/27/16 [History Confirmed 08/21/19] Ubidecarenone [Coenzyme Q10] 100 mg PO DAILY 04/27/16 [History Confirmed 08/21/19] Ibuprofen [Motrin] 400 mg PO Q8H PRN PRN #14 tab 04/29/16 [Rx Confirmed 08/21/19] aspirin 81 mg tablet,delayed release 81 mg PO QDAY 10/04/17 [History Confirmed 08/21/19] atorvastatin 20 mg tablet 20 mg PO QDAY #90 tab 12/24/18 [Rx Confirmed 08/21/19] metoprolol tartrate 25 mg tablet 25 mg PO BID #180 tab 04/26/19 [Rx Confirmed 08/21/19] amoxicillin 500 mg tablet 2,000 mg PO .COMPLEX #4 tab 06/25/19 [Rx Confirmed 08/21/19] PFSH Medical History Mixed hyperlipidemia (Chronic) Nonrheumatic mitral (valve) insufficiency (Acute) Nonrheumatic mitral (valve) prolapse (Acute) Bicuspid aortic valve (Chronic) Chest pain (Chronic) Aortic stenosis (Chronic) History of left heart catheterization (Chronic) Osteopenia (Chronic) Surgical History History of aortic valve replacement with bioprosthetic valve (Resolved 06/17/16) H/O aortic valve replacement (Chronic 06/17/16) Family History Mother CAD (coronary artery disease) Sister History of open heart surgery Social History (Updated 08/21/19 @ 16:07 by Jose Luis Donahue MD) Smoking Status: Former smoker alcohol intake: never substance use type: does not use caffeine: Yes Type: coffee what type of physical activity do you participate in: walking, aerobics frequency: daily duration: 30-45 minutes/day seatbelt use: sometimes do you feel safe at home: Yes ROS Const Const: Negative for fatigue, weakness, frequent falls, excessive sweating, weight gain or weight loss Eyes Eyes: Negative for transient loss of vision, blurry vision or change in vision ENT ENT: Negative for dizziness or balance problems Cardio Chest Pain: No Palpitations: No Edema: None Muscle aches with walking: None Resp Respiratory: Negative for SOB with activity or SOB at rest GI GI: Negative vomiting or vomiting blood/hematemesis : Negative for hematuria Musc Musc: Negative for muscle aches/ myalgia, muscle weakness, joint pain or balance problems Skin Skin: Negative non-healing lesions or rash Neuro Neuro: Negative for dizziness, lightheadedness, orthostatic symptoms, frequent falls, weakness or blurry vision Gume Hematologic/Lymphatic: Negative for easy bleeding Endo Endo: Negative for fatigue or excessive sweating Psych Psych: Negative for anxiety or depression Allergy Allergy/Immunology: Negative for hives, Negative for rash Cardiology Exam Const Appearance: cooperative, healthy appearing, comfortable, no acute distress, well developed and well groomed Nutritional Appearance: thin Orientation: alert, awake and oriented x3 Head Head: normal to inspection, normocephalic and atraumatic Ears: hearing grossly normal bilaterally Nose: external nose normal Face and Sinus: face symmetric Mouth: oral mucosae normal Teeth and gingiva: fair dentition Eyes Eyelids: eyelids normal Conjunctivae: conjunctivae normal Pupils: PERRL EOM: EOM intact bilaterally Neck Neck: normal visual inspection, full ROM and no JVD Carotids: normal carotid upstroke Chest Chest inspection: normal inspection of the chest, symmetric chest movement and normal respiratory effort Auscultation: Bilateral: Clear to Auscultation Cardio Rate: regular rate Rhythm: regular rhythm Heart sounds: S1 normal, S2 normal, prominent A2 and positive S4 Murmur: Grade 2/6, soft, mid systolic, LLSB, apex, axilla, LVOT, sternal notch and radiates to carotids GI GI: normal to inspection, soft and bowel sounds present Neuro General: alert, awake, oriented x3, gait normal, moves all extremities, no focal sensory deficit and no focal motor deficits Skin Skin: no rashes or lesions noted Extremities Pulses: Normal: Right Posterior Tibial Pulse, Left Posterior Tibial Pulse, Right Radial Pulse, Left Radial Pulse Lower Extremity Edema: None: Bilateral Psych Psychological: normal affect Assessment AND Plan 1. History of aortic valve replacement with bioprosthetic valve Z95.3 Plan At the present time she appears to be stable. She will continue her current medical therapy. She will continue AHA antibiotic prophylaxis. 2. Nonrheumatic mitral (valve) prolapse I34.1 Plan Her most recent noninvasive study is as noted. At the moment she appears without significant change based on history and age. We will continue medical and follow-up. 3. Nonrheumatic mitral valve insufficiency I34.0 Plan She will continue evaluation and care as noted above. 4. Mixed hyperlipidemia E78.2 Plan She will be scheduled for future fasting lipid hepatic profile. Plan Detail Other Orders Orders: Additional Comments She will be scheduled for an outpatient visit approximately 1 year unless needed sooner. Thank you for allowing me to participate in the care of your patient. Please don't hesitate to call if any issues arise. This note was generated using a voice recognition system and there may be incorrect words, spelling or punctuation that were not noted when reviewing the office note prior to saving. Follow Up 1 Year (PFM) Coding Level of Care Code Off vis,est,level 4 Diagnoses History of aortic valve replacement with bioprosthetic valve Z95.3 Nonrheumatic mitral (valve) prolapse I34.1 Nonrheumatic mitral valve insufficiency I34.0 Mixed hyperlipidemia E78.2 Coding Level of Care Code Off vis,est,level 4 Diagnoses History of aortic valve replacement with bioprosthetic valve Z95.3 Nonrheumatic mitral (valve) prolapse I34.1 Nonrheumatic mitral valve insufficiency I34.0 Mixed hyperlipidemia E78.2 Supplemental Info Supplemental Information Transthoracic echocardiogram: 08/28/18 Interpretation Summary Left ventricular systolic function is normal. The estimated ejection fraction is 65 %. The left atrium is mildly enlarged. The right atrium is mildly enlarged. There is mild mitral annular calcification. Mild diffuse mitral valve thickening. Mild focal mitral valve calcification of the anterior leaflet. Mild (1+) mitral valve insufficiency. Moderate (2+) tricuspid valve insufficiency. Stable appearing bioprosthetic aortic valve apparatus. Moderate aortic stenosis. Trivial transvalvular insufficiency of the aortic valve. Right ventricular systolic pressure estimated to be 41 mmHg. Diastolic function is indeterminate. DATE OF SERVICE: 07/19/2016 EXERCISE TOLERANCE TEST: The patient exercised on a Fawad protocol for 4 minutes and 30 seconds completing stage 1 and 1 minute and 30 seconds of stage 2, achieving a peak heart rate of 151 beats per minute (96% predicted maximum heart rate) and a peak blood pressure of 132/76 mmHg and a peak MET capacity of approximately 6 METS. The baseline ECG demonstrated normal sinus rhythm with a left bundle-branch block pattern. The peak exercise ECG was considered indeterminate secondary to the underlying left bundle-branch block pattern. There was a rare PVC during exercise or recovery. The functional capacity was considered decreased. The patient had no complaint of chest discomfort during exercise or recovery. The examination was discontinued secondary to dyspnea. IMPRESSION: 1. Technically adequate (percent predicted maximum heart rate greater than 85%) exercise tolerance test. 2. Peak exercise ECG considered indeterminate secondary to underlying left bundle-branch block pattern. 3. Rare PVC during exercise and recovery. Labs LDL Cholesterol 126 mg/dL (0-130) 08/23/18 HDL Cholesterol 72 mg/dL (40-) 08/23/18 Triglycerides 87 mg/dL (-199) 08/23/18 VLDL Cholesterol 17 mg/dL (5-40) 08/23/18 Diagnostics Electrocardiogram 04/29/16 Echocardiogram 08/28/18 Stress Test 07/19/16 Cardiac Catheterization 04/27/16 Chest X-Ray 04/29/16 08/21/19 1607 <Electronically signed by Jose Luis Donahue MD> Date Jose Luis Donahue MD Cosigner Signature: Date (if applicable) CC: ILAN Peace Anitha Welsh Work Phone: Start: 08-28-2018 End: 08-28-2018 Echocardiogram Complete Comments: See Note; NOTES: [facility] Cardiovascular Services [address] [place] [id number] Echo Complete 08/28/18 1453 MR#: [id number] Acct: [id number] Name: JASMIN HUTCHINSON Rep #: [id number] : 1950 67 From: Jose Luis Donahue MD Attending Dr: Jose Luis Donahue MD Status: REG I Ordering Dr: Jose Luis Donahue MD Date: 08/28/18 Location: [facility] Sex: F C Admitted: Reason For Study: Aortic valve replacement Procedure This was a 2D Doppler, Color Flow transthoracic echocardiogram. The exam was of adequate technical quality. Exam performed in department. Left Ventricle Normal LV size. Left ventricular systolic function is normal. The estimated ejection fraction is 65 %. Diastolic function is indeterminate. No regional wall motion abnormalities noted. Right Ventricle Normal RV size. Normal systolic function. Atria The left atrium is mildly enlarged. The right atrium is mildly enlarged. No doppler evidence for ASD. Mitral Valve There is mild mitral annular calcification. Mild diffuse mitral valve thickening. Mild focal mitral valve calcification of the anterior leaflet. Mild (1+) mitral valve insufficiency. Tricuspid Valve Normal tricuspid valve. Moderate (2+) tricuspid valve insufficiency. Right ventricular systolic pressure estimated to be 41 mmHg. Aortic Valve Moderate aortic stenosis. Stable appearing bioprosthetic aortic valve apparatus. Trivial transvalvular insufficiency of the aortic valve. Pulmonic Valve The pulmonic valve is not well visualized. Great Vessels Normal sized aortic root. Pericardium/Pleural No pericardial effusion. MMode/2D Measurements AND Calculations LVIDd: 3.5 cm IVSd: 1.1 cm LVOT diam: 1.8 cm LVIDs: 1.7 cm LVPWd: 1.2 cm LVOT area: 2.7 cm2 RVDd: 3.5 cm FS: 51.6 % ___ Ao root diam: 3.0 cm LAV(MOD-bp): 51.5 ml LA A4 area: 16.1 cm2 LAV(MOD-bp) Indexed: 32.8 ml/m2 LAV(MOD-sp2): 62.1 ml LAV(MOD-sp4): 40.8 ml ___ LA dimension(2D): 3.4 cm RA A4 area: 20.1 cm2 Time Measurements MV dec time: 0.24 sec Doppler Measurements AND Calculations MV E max terry: 65.3 cm/sec Lat Peak E' Terry: 7.2 cm/sec Med Peak E' Terry: 7.4 cm/sec MV A max terry: 85.3 cm/sec E/E' lat: 9.0 E/E' med: 8.8 MV E/A: 0.77 ___ Ao V2 max: 343.0 cm/sec LV V1 max: 113.7 cm/sec SV(LVOT): 65.3 ml Ao max P.2 mmHg LV V1 max P.2 mmHg Ao V2 mean: 256.7 cm/sec LV V1 mean P.1 mmHg Ao mean P.9 mmHg LV V1 mean: 83.9 cm/sec Ao V2 VTI: 70.4 cm LV V1 VTI: 24.3 cm TONI(I,D): 0.93 cm2 TONI(V,D): 0.89 cm2 ___ PA V2 max: 101.2 cm/sec TR max terry: 286.0 cm/sec TR max P.8 mmHg Interpretation Summary Left ventricular systolic function is normal. The estimated ejection fraction is 65 %. The left atrium is mildly enlarged. The right atrium is mildly enlarged. There is mild mitral annular calcification. Mild diffuse mitral valve thickening. Mild focal mitral valve calcification of the anterior leaflet. Mild (1+) mitral valve insufficiency. Moderate (2+) tricuspid valve insufficiency. Stable appearing bioprosthetic aortic valve apparatus. Moderate aortic stenosis. Trivial transvalvular insufficiency of the aortic valve. Right ventricular systolic pressure estimated to be 41 mmHg. Diastolic function is indeterminate. Ordering Physician: Jose Luis Donahue Referring Physician: Jose Luis Donahue Performed By: Namrata Warner, RDCS, RVT 08/28/181747 Date Jose Luis Donahue MD CC: Nata Welsh COMMISSARY ASSISTANT; Jose Luis Donahue MD Date Dictated: 08/28/18 1453 Date Transcribed: 08/28/181747 Case Monitor: Signed Nata Welsh Work Phone: Start: 08-15-2018 End: 08-15-2018 Cardiology Visit Report Comments: See Note; NOTES: [facility] [address] [place], [place] [address]. [address] [place] [address] OFFICE VISIT Date of Service: 08/15/18 MR#: [id number] Acct: [id number] Name: JASMIN HUTCHINSON Rep #: [id number] : 1950 Provider: Jose Luis Donahue MD Age/Sex: 67/F Location[place] [facility] [place] Status: Signed HPI HPI Details: JASMIN HUTCHINSON, is a 67 F who presents to the office today for outpatient cardiovascular follow-up of her history of underlying bicuspid aortic valve with aortic valve stenosis status post aortic valve replacement with a 21 mm Mitroflow pericardial valve on 06/17/2016 at [facility] in [place], [place]. Since her last outpatient visit she states she has been doing well. She has had no concerning symptoms suspicious for the development of angina pectoris, evidence of CHF or pulmonary edema, near syncope or syncope, nor has she had any unexplained fever, chills, or night sweats. She did have lipid labs performed in December of this year. Her total cholesterol at that time was 189 with an LDL of 106 and an HDL of 68. Her triglycerides were normal at 77. She has not had them checked since that time. Her last transthoracic echocardiogram was on 06/30/2016. Intake Vital Signs08/15/18 Height 5 ft 3 in 08/15/18 Weight: 124 lb 08/15/18 Body Mass Index (BMI) 21.9 08/15/18 Blood Pressure 114/68 Intake Visit Reasons: 9 M FU Allergies morphine Allergy (Verified 08/15/18 14:47) Nausea Medications Calcium Carb,Gluc/Mag Ox,Gluc [Calcium Magnesium Caplet] 1 ea PO BID 04/27/16 [History Confirmed 08/15/18] Cholecalciferol (VIT D3) [Vitamin D3] 400 unit PO DAILY 04/27/16 [History Confirmed 08/15/18] Multivitamins,Therapeutic [Multivitamin] 1 tab PO DAILY 04/27/16 [History Confirmed 08/15/18] Anthony-3 Fatty Acids [Anthony-3] 1,000 mg PO DAILY 04/27/16 [History Confirmed 08/15/18] Ubidecarenone [Coenzyme Q10] 100 mg PO DAILY 04/27/16 [History Confirmed 08/15/18] Ibuprofen [Motrin] 400 mg PO Q8H PRN PRN #14 tab 04/29/16 [Rx Confirmed 08/15/18] aspirin 81 mg tablet,delayed release 81 mg PO QDAY 10/04/17 [History Confirmed 08/15/18] metoprolol tartrate 25 mg tablet 25 mg PO BID #180 tab 11/27/17 [Rx Confirmed 08/15/18] atorvastatin 20 mg tablet 20 mg PO QDAY #90 tab 12/19/17 [Rx Confirmed 08/15/18] amoxicillin 500 mg tablet 2,000 mg PO .COMPLEX tab 08/14/18 [History Confirmed 08/15/18] PFSH Medical History Nonrheumatic mitral (valve) insufficiency (Acute) Nonrheumatic mitral (valve) prolapse (Acute) Bicuspid aortic valve (Chronic) Chest pain (Chronic) Aortic stenosis (Chronic) HLD (hyperlipidemia) (Chronic) Mitral valve disorders (Chronic) History of left heart catheterization (Chronic) Osteopenia (Chronic) Surgical History History of aortic valve replacement with bioprosthetic valve (Resolved 06/17/16) H/O aortic valve replacement (Chronic 06/17/16) Family History Mother CAD (coronary artery disease) Sister History of open heart surgery Social History Smoking Status: Former smoker alcohol intake: never substance use type: does not use caffeine: Yes Type: coffee what type of physical activity do you participate in: aerobics, walking frequency: daily duration: 30-45 minutes/day seatbelt use: sometimes do you feel safe at home: Yes ROS Const Const: Negative for fatigue, weakness, weight gain, weight loss, frequent falls or excessive sweating Eyes Eyes: Negative for change in vision, blurry vision or transient loss of vision ENT ENT: Negative for dizziness or balance problems Cardio Chest Pain: No Palpitations: No Edema: None Muscle aches with walking: None Resp Respiratory: Negative for SOB with activity or SOB at rest GI GI: Negative vomiting or vomiting blood/hematemesis : Negative for hematuria Musc Musc: Negative for balance problems, muscle aches/ myalgia, muscle weakness or joint pain Skin Skin: Negative non-healing lesions or rash Neuro Neuro: Negative for weakness, blurry vision, dizziness, lightheadedness, frequent falls or orthostatic symptoms Gume Hematologic/Lymphatic: Negative for easy bleeding Endo Endo: Negative for fatigue or excessive sweating Psych Psych: Negative for anxiety or depression Allergy Allergy/Immunology: Negative for hives, Negative for rash Cardiology Exam Const Appearance: cooperative, healthy appearing, comfortable, no acute distress, well developed and well groomed Nutritional Appearance: thin Orientation: alert, awake and oriented x3 Head Head: normal to inspection, normocephalic and atraumatic Ears: hearing grossly normal bilaterally Nose: external nose normal Face and Sinus: face symmetric Mouth: oral mucosae normal Teeth and gingiva: fair dentition Eyes Eyelids: eyelids normal Conjunctivae: conjunctivae normal Pupils: PERRL EOM: EOM intact bilaterally Neck Neck: no JVD, normal visual inspection and full ROM Carotids: normal carotid upstroke Chest Chest inspection: normal inspection of the chest, normal respiratory effort and symmetric chest movement Auscultation: Bilateral: Clear to Auscultation Cardio Rate: regular rate Rhythm: regular rhythm Heart sounds: murmur (Right sternal systolic murmur), S1 normal, S2 normal and prominent A2 Murmur: Grade 2/6, soft, mid systolic, LLSB, LVOT, sternal notch, apex and axilla GI GI: normal to inspection, soft and bowel sounds present Neuro General: alert, awake, oriented x3, moves all extremities, no focal sensory deficit, no focal motor deficits and gait normal Skin Skin: no rashes or lesions noted Extremities Pulses: Normal: Right Posterior Tibial Pulse, Left Posterior Tibial Pulse, Right Radial Pulse, Left Radial Pulse Lower Extremity Edema: None: Bilateral Psych Psychological: normal affect Supplemental Info Transthoracic echocardiogram: 09/27/2016: Interpretation Summary The study was technically difficult. Left ventricular systolic function is normal. The estimated ejection fraction is 65 %. There is mild mitral annular calcification. Mild diffuse mitral valve thickening. Mild focal mitral valve calcification of the anterior leaflet. Mild-Moderate (1-2+) mitral valve insufficiency. Mild tricuspid valve insufficiency. Stable appearing bioprosthetic aortic valve apparatus. Mild aortic stenosis. Trivial transvalvular insufficiency of the aortic valve. Trivial pulmonic valve insufficiency. Transmitral doppler flow suggestive of impaired relaxation of left ventricle Transesophageal echocardiogram: 04/06/2016 Interpretation Summary Left ventricular systolic function is normal. The estimated ejection fraction is 65 %. The left atrium is mildly enlarged. There is no spontanous contrast in the left atrium. No thrombus is detected in the left atrial appendage. The right atrium is mildly enlarged. Open heart surgery: 06/21/2016: [place], [place]: Aortic valve replacement with a mitral flow 21 mm pericardial valve There is mild mitral annular calcification. Moderate diffuse mitral valve thickening. Mild mitral valve prolapse. 2D echocardiographic images c/w a small mobile echodensity on the atrial aspect of the mitral valve appearing c/w a ruptured chordae tendonae. Mild-Moderate (1-2+) mitral valve insufficiency. Mild tricuspid valve insufficiency. 2D echocardiographic images c/w a bicuspid aortic valve with a fused raphe with associated diffuse thickening, severe focal calcification, partial restriction / stenosis considered severe by planimetry (0.7 cm Trivial aortic valve insufficiency. Bubble contrast study negative for right to left interatrial shunt. Borderline enlarged appearing aortic root / ascending aorta. Normal appearing descending thoracic aorta. Cardiac catheterization: 05/19/2016: [place], [place] CORONARY ARTERIES: The coronary circulation Is left dominnt, The left main bifurctes normally into the LAD and circumflex.. Left main: Normal. LAD:. Normal.. LCX: Normal RCA: Normal. Assessment AND Plan 1. History of aortic valve replacement with bioprosthetic valve Z95.3 Plan At the present time she appears to be doing well with no acute symptoms or adverse events. She will continue risk factor modification medical therapy. She will continue AHA antibiotic prophylaxis. She will have follow-up of her valvular anatomy and physiology with a transthoracic echocardiogram. Orders Orders: 2. Nonrheumatic mitral valve insufficiency I34.0 Plan She is concerned about her mitral valve. She has had evidence of mitral valve disorder in the past including concerns of stenosis/insufficiency. This will also be followed with a transthoracic echocardiogram. Orders Orders: 3. Mixed hyperlipidemia E78.2 Plan Her lipids have been noted. She will have been rechecked. Hopefully her LDLs will come in under even better control. Orders Orders: Plan Detail Additional Comments She will be scheduled for an outpatient visit approximately 1 year unless needed sooner. Thank you for allowing me to participate in the care of your patient. Please don't hesitate to call if any issues arise. This note was generated using a voice recognition system and there may be incorrect words, spelling or punctuation that were not noted when reviewing the office note prior to saving. Follow Up 1 Year (PFM) Coding Level of Care Code Off vis,est,level 4 Diagnoses History of aortic valve replacement with bioprosthetic valve Z95.3 Nonrheumatic mitral valve insufficiency I34.0 Mixed hyperlipidemia E78.2 Hyperlipidemia type: mixed hyperlipidemia Coding Level of Care Code Off vis,est,level 4 Diagnoses History of aortic valve replacement with bioprosthetic valve Z95.3 Nonrheumatic mitral valve insufficiency I34.0 Mixed hyperlipidemia E78.2 Hyperlipidemia type: mixed hyperlipidemia 08/15/18 1523 <Electronically signed by Jose Luis Donahue MD> Date Jose Luis Donahue MD Cosigner Signature: Date (if applicable) CC: Nata Welsh Work Phone: Start: 06-25-2018 Bennett Stewart MD Work Phone: Start: 10-05-2017 End: 10-05-2017 Cardiology Visit Report Comments: See Note; NOTES: [facility] [address] [place] [address] OFFICE VISIT Date of Service: 10/04/17 MR#: [id number] Acct: [id number] Name: JASMIN HUTCHINSON Rep #: [id number] : 1950 Provider: MAUREEN Orellana Age/Sex: 66/F Location[place] [facility] [place] Status: Signed HPI 6 M FU: Chief Complaint: Routine follow-up Details: JASMIN HUTCHINSON, is a 66 F who presents to the office today for a cardiovascular outpatient follow-up. She is a history of bicuspid aortic valve status post aortic valve replacement with a 21 mm Mitroflow pericardial valve on June 17, 2016, mitral valve prolapse/deficiency, and hyperlipidemia. Pt denies chest, arm, jaw, or neck discomfort. Her exercise tolerance is stable. Pt denies symptoms of CHF, palpitations, dizziness, near syncopal or syncopal episodes. Pt denies edema or claudication issues. Pt. denies orthopnea, PND, fever, chills, blood in urine, blood in stool, myalgia, or unexplainable fatigue. Pt. states occasional lightheadedness. Echocardiogram from September 2016 showed estimated ejection fraction 65%, mild mitral annular calcification, mild diffuse mitral valve thickening, mild focal mitral valve calcification of the anterior leaflet, mild to moderate mitral valve insufficiency, mild tricuspid valve insufficiency, stable appearing bioprosthetic aortic valve apparatus, mild aortic stenosis, trivial transvalvular insufficiency of aortic valve, trivial pulmonic valve insufficiency, and diastolic dysfunction. Stress test from July 2016 was a technically adequate ETT with peak ECG considered indeterminate secondary to underlying left bundle branch block pattern, and rare PVCs during exercise and recovery. 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 Accompanied by: None Is patient in pain?: No Allergies morphine Allergy (Verified 07/21/16 13:03) Nausea Medications Atorvastatin Calcium [Lipitor] 40 mg PO QHS 04/27/16 [History Confirmed 10/04/17] Calcium Carb,Gluc/Mag Ox,Gluc [Calcium Magnesium Caplet] 1 ea PO BID 04/27/16 [History Confirmed 10/04/17] Cholecalciferol (VIT D3) [Vitamin D3] 400 unit PO DAILY 04/27/16 [History Confirmed 10/04/17] Multivitamins,Therapeutic [Multivitamin] 1 tab PO DAILY 04/27/16 [History Confirmed 10/04/17] Anthony-3 Fatty Acids [Anthony-3] 1,000 mg PO DAILY 04/27/16 [History Confirmed 10/04/17] Ubidecarenone [Coenzyme Q10] 100 mg PO DAILY 04/27/16 [History Confirmed 10/04/17] Ibuprofen [Motrin] 400 mg PO Q8H PRN PRN #14 tab 04/29/16 [Rx Confirmed 10/04/17] amoxicillin 500 mg capsule 500 mg PO ONCE #4 cap 10/04/17 [Rx Confirmed 10/04/17] aspirin 81 mg tablet,delayed release 81 mg PO QDAY 10/04/17 [History Confirmed 10/04/17] metoprolol tartrate 25 mg tablet 25 mg PO BID 10/04/17 [History Confirmed 10/04/17] Ejection fraction %: 65 to 70 PFSH Medical History Lightheadedness (Chronic) Mitral valve disorders (Chronic) Bicuspid aortic valve (Chronic) Chest pain (Chronic) Aortic stenosis (Chronic) HLD (hyperlipidemia) (Chronic) Mitral valve disorders (Chronic) History of left heart catheterization (Chronic) Osteopenia (Chronic) Surgical History H/O aortic valve replacement (Chronic 06/17/16) Family History Mother CAD (coronary artery disease) Sister History of open heart surgery Social History Smoking Status: Former smoker alcohol intake: never substance use type: does not use caffeine: Yes Type: coffee what type of physical activity do you participate in: aerobics, walking frequency: daily duration: 30-45 minutes/day seatbelt use: sometimes do you feel safe at home: Yes ROS Const Const: Negative for body ache, fever(s), chills, fatigue or weakness ENT ENT: Negative for dizziness Cardio Chest Pain: No Palpitations: Positive for No Edema: None Muscle aches with walking: None Resp Respiratory: Negative for SOB with activity, SOB at rest, SOB orthopnea\SOB lying down or paroxysmal nocturnal dyspnea GI GI: Negative nausea, black,tarry stools, bright, red blood in stools or vomiting blood/hematemesis : Negative for hematuria or frequent nighttime urination/ nocturia Musc Musc: Negative for muscle aches/ myalgia Neuro Neuro: Negative for dizziness, Negative for near syncope, Negative for syncope, Negative for orthostatic symptoms, Positive for lightheadedness, Negative for weakness Endo Endo: Negative for fatigue Cardiology Exam Const Appearance: cooperative, healthy appearing, comfortable and no acute distress Orientation: alert, awake and oriented x3 Head Head: normal to inspection Mouth: oral mucosae normal Neck Neck: no JVD and normal visual inspection Carotids: normal carotid upstroke Chest Chest inspection: normal inspection of the chest and normal respiratory effort Auscultation: Bilateral: Clear to Auscultation Cardio Rate: regular rate Rhythm: regular rhythm Heart sounds: murmur (Right sternal systolic murmur) Murmur: Grade 1/6 GI GI: normal to inspection Neuro General: alert, awake, oriented x3 and CN's II-XI intact bilaterally Skin Skin: no rashes or lesions noted Extremities Pulses: Normal: Right Posterior Tibial Pulse, Left Posterior Tibial Pulse, Right Radial Pulse, Left Radial Pulse Lower Extremity Edema: None: Bilateral Psych Psychological: normal affect Assessment AND Plan 1. Nonrheumatic aortic valve stenosis I35.0; I35.0 ILAN Tapia Patient has a history of aortic valve replacement. Echocardiogram from September 2016 showed trivial transvalvular insufficiency and stable bioprosthetic aortic valve apparatus. Patient denies any secondary symptoms. We will continue to monitor this. We will not make any medication regimen changes. Patient will continue with AHA antibiotic prophylaxis. 2. Mitral valve disorders I05.9 ILAN Tapia Echocardiogram from September 2016 showed mild to moderate mitral valve insufficiency. Patient denies any shortness of breath or lower extremity pedal edema. We will continue to monitor this. We will not make any medication regimen changes. 3. Mixed hyperlipidemia E78.2; E78.2; E78.2 ILAN Tapia Patient did not have a lipid panel and liver function test completed this past February. She was reminded to have this done at her earliest convenience to further evaluate. We will wait for results of these tests for further recommendations. 4. Lightheadedness R42 Ida Orellana NP-C Patient does state having one episode of lightheadedness. Her heart rate is well controlled. Her blood pressure is on the lower end of normal range. At this time we will not make any medication regimen changes. We will continue to monitor heart rate and blood pressure going forward and make medication adjustment as needed. Plan Detail Other Medications New: Additional Comments - ILAN Pratt Discussed the above patient with Dr. Donahue, he agrees with the plan of care. Thank you for allowing us to participate in the patients plan of care, if you have any questions please do not hesitate to call. This note was generated using a voice recognition system and there may be incorrect words, spelling or punctuation that were not noted when reviewing the office note prior to saving. Follow Up 9 Months (PFM) 10/04/17 1559 <Electronically signed by Sal TALAVERA> Date Sal DOBBINSC 10/05/17 1651<Electronically signed by Jose Luis Donahue MD> Cosigner Signature: Date (if applicable) Jose Luis Donahue MD CC: Nata Welsh Work Phone: Start: 03-06-2017 End: 08-23-2017 Follow Up Appt 6 months Jose Luis Donahue MD Start: 03-06-2017 End: 08-23-2017 [facility] Jose Luis Donahue MD Start: 09-27-2016 End: 09-27-2016 Echocardiogram Complete Comments: See Note; NOTES: [facility] Cardiovascular Services [address] [place] [address] Echo Complete 09/27/16 1401 MR#: [id number] Acct: [id number] Name: JASMIN HUTCHINSON Rep #: [id number] : 1950 65 From: Jose Luis Donahue MD Attending Dr: Jennifer Garcia Status: REG CLI Ordering Dr: Jennifer Garcia Date: 09/27/16 Location: [facility] Sex: F C Admitted: Reason For Study: NONRHEUMATIC AORTIC VALVE STENOSIS Procedure This was a 2D Doppler, Color Flow transthoracic echocardiogram. The exam was of fair technical quality due to diminished acoustic windows. The study was technically difficult. Exam performed in department. Left Ventricle Normal LV size. Left ventricular systolic function is normal. The estimated ejection fraction is 65 %. Transmitral doppler flow suggestive of impaired relaxation of left ventricle. No regional wall motion abnormalities noted. Right Ventricle Normal RV size. Normal systolic function. Atria Normal left atrium. Normal right atrium. No doppler evidence for ASD. Mitral Valve There is mild mitral annular calcification. Mild diffuse mitral valve thickening. Mild focal mitral valve calcification of the anterior leaflet. Mild-Moderate (1-2+) mitral valve insufficiency. Tricuspid Valve Normal tricuspid valve. Mild tricuspid valve insufficiency. Unable to estimate RV systolic pressure/pulmonary artery pressure due to technically difficult study. Aortic Valve Mild aortic stenosis. Stable appearing bioprosthetic aortic valve apparatus. Trivial transvalvular insufficiency of the aortic valve. Pulmonic Valve The pulmonic valve is not well visualized. Trivial pulmonic valve insufficiency. Great Vessels Normal sized aortic root. Pericardium/Pleural No pericardial effusion. MMode/2D Measurements & Calculations LVIDd: 3.7 cm IVSd: 1.1 cm LVOT diam: 1.8 cm LVIDs: 2.7 cm LVPWd: 1.1 cm LVOT area: 2.7 cm2 RVDd: 3.3 cm FS: 26.0 % __ Ao root diam: 2.3 cm LAV(MOD-bp): 42.4 ml LA A4 area: 12.9 cm2 LA dimension: 4.0 cm LAV(MOD-bp) Indexed: 27.3 ml/m2 LAV(MOD-sp2): 61.9 ml LAV(MOD-sp4): 27.2 ml __ RA A4 area: 17.4 cm2 Time Measurements MV dec time: 0.18 sec Doppler Measurements & Calculations MV E max terry: 59.3 cm/sec Lat Peak E' Terry: 8.4 cm/sec Med Peak E' Terry: 6.5 cm/sec MV A max terry: 103.5 cm/sec E/E' lat: 7.1 E/E' med: 9.2 MV E/A: 0.57 __ MV V2 max: 110.4 cm/sec MV P1/2t max terry: 77.6 cm/sec Ao V2 max: 303.2 cm/sec MV max P.9 mmHg MV P1/2t: 67.7 msec Ao max P.8 mmHg MV V2 mean: 73.1 cm/sec MV dec slope: 335.8 cm/sec2 Ao V2 mean: 204.2 cm/sec MV mean P.3 mmHg MVA(P1/2t): 3.2 cm2 Ao mean P.2 mmHg MV V2 VTI: 24.0 cm Ao V2 VTI: 55.2 cm MVA(VTI): 2.6 cm2 TONI(I,D): 1.1 cm2 TONI(V,D): 1.2 cm2 __ LV V1 max: 131.8 cm/sec MR max terry: 512.2 cm/sec SV(LVOT): 61.8 ml LV V1 max P.0 mmHg MR max P.0 mmHg LV V1 mean P.6 mmHg MR mean terry: 355.2 cm/sec LV V1 mean: 88.6 cm/sec MR mean P.6 mmHg LV V1 VTI: 23.3 cm MR VTI: 158.3 cm __ PI end-d terry: 90.5 cm/sec Interpretation Summary The study was technically difficult. Left ventricular systolic function is normal. The estimated ejection fraction is 65 %. There is mild mitral annular calcification. Mild diffuse mitral valve thickening. Mild focal mitral valve calcification of the anterior leaflet. Mild-Moderate (1-2+) mitral valve insufficiency. Mild tricuspid valve insufficiency. Stable appearing bioprosthetic aortic valve apparatus. Mild aortic stenosis. Trivial transvalvular insufficiency of the aortic valve. Trivial pulmonic valve insufficiency. Transmitral doppler flow suggestive of impaired relaxation of left ventricle Ordering Physician: Jennifer Garcia Referring Physician: Jose Luis Donahue Performed By: Makenzie Rivas RDCS 09/27/16 2203 Date Jose Luis Donahue MD CC: Nata Welsh; Jennifer Garcia Date Dictated: 09/27/16 140 Date Transcribed: 09/27/162202 Case Monitor: Signed Nata Welsh Work Phone: Start: 09-15-2016 End: 08-23-2017 Echocardiography Jennifer Garcia PA-C Work Phone: Start: 09-15-2016 End: 09-15-2016 Follow Up Appt 3 months Jennifer Garcia PA-C Work Phone: Start: 09-15-2016 End: 09-15-2016 Follow Up Appt 9 months Jennifer Garcia PA-C Work Phone: Start: 09-15-2016 End: 09-15-2016 MM Jennifer Garcia PA-C Work Phone: Start: 09-15-2016 End: 09-15-2016 PF Jennifer Garcia PA-C Work Phone: Start: 09-13-2016 End: 09-13-2016 CR - Individual Treatment Plan Comments: See Note; NOTES: [facility] Cardiac Rehab [address] [place] [address] CR - Individual Treatment Plan MR#: [id number] Acct: [id number] Name: JASMIN HUTCHINSON Rep #: [id number] : 1950 65 From: Dmitriy Jerry PCP: Nata Welsh DOS: 09/12/16 Exercise - Initial Assessment - Stages of Change Stages of Change:: Action - Stress Test Date: 07/19/16 HR (bpm):: 82 SpO2 (%):: 95 EKG: NSR w/LBBB MET LEVEL:: 6 - Exercise Prescription Mode:: Treadmill Angina with exercise?: No Target Heart Rate:: 123-128 - Hypertension Do any of the following apply?: No - Intervention Home Exercise/Activity Goal:: Moderate Exercise 30 min/day x 5 days/wk - Education Goals:: Warm-up, RPE LISETH Scale, S/S, Safe Exercise, Self-Monitoring - Exercise Program Goals Exercise Program Goals: Aerobic Activity >30 min Exercise - 30-day Assessment - Visit Date of Eval: 08/12/16 - session # 9 - Stages of Change Stages of Change:: Action - Exercise Prescription Mode:: Treadmill, Biodyne, Airdyne, NuStep Frequency (x/week): 3 Duration:: 30-35 min METs - Progression: 0.5-1 MET as tolerated: 3.5 Target Heart Rate:: 123-128 - Intervention Home Exercise/Activity Goal:: Sitting Time <3 hrs/day - Education Goals:: Warm-up, RPE LISETH Scale, S/S, Safe Exercise, Self-Monitoring Exercise - 60-Day Assessment - Visit Date of Eval: 09/13/16 - Session # 21 - Stages of Change Stages of Change:: Action - Exercise Prescription Mode:: Treadmill, Rower, Airdyne, NuStep Frequency (x/week): 3 Duration:: 35 METs: 6.9 Target Heart Rate:: 128-134 - Hypertension Resting Blood Pressure:: 120/72 Peak Exercise Blood Pressure:: 148/82 Medication Changes:: Yes - Increased Metoprolol to 50mg twice daily - Intervention Home Exercise/Activity Goal:: Moderate Exercise 30 min/day x 5 days/wk - Education Goals:: Warm-up, RPE LISETH Scale, S/S, Safe Exercise, Self-Monitoring Exercise - Final/Discharge - Hypertension Do any of the following apply?: No Nutrition - Initial Assessment - Program Goals Nutrition Program Goals: LDL <70. Total Cholesterol <200. HDL >45. Triglycerides <150. HgbA1C <7%. BMI <25 - Stages of Change Stages of Change:: Action - Lipids Total Cholesterol (mg/dL) Goal = less than 200 mg/dL: 271 HDL Cholesterol (mg/dL) Goal = less than 45 mg/dL: 66 LDL Cholesterol (mg/dL) Goal = less than 70 mg/dL: 187 Triglycerides (mg/dL) Goal = less than 150 mg/dL: 88 - Diabetes Diabetes:: No Non-Insulin Dependent?: No - Weight Management Body Fat %:: 20 Total Score:: 11 - Intervention Referral to dietitian:: No Referral to Diabetic Clinic:: No Will attend diet classes:: Yes - Education Gave educational materials for:: Healthy eating Nutrition - 30-Day Assessment - Program Goals Nutrition Program Goals: LDL <70. Total Cholesterol <200. HDL >45. Triglycerides <150. HgbA1C <7%. BMI <25 - Stages of Change Stages of Change:: Action - Lipids Has the patient seen the dietitian?: No - Diabetes Diabetes:: No Insulin: No Non-Insulin Dependent?: No - Intervention Referral to dietitian:: No Referral to Diabetic Clinic:: No Will attend diet classes:: Yes - Education Attended class for:: Healthy eating Nutrition - 60-Day Assessment - Program Goals Nutrition Program Goals: LDL <70. Total Cholesterol <200. HDL >45. Triglycerides <150. HgbA1C <7%. BMI <25 - Visit Date of Eval: 09/13/16 - Session # 21 - Stages of Change Stages of Change:: Action - Lipids Has the patient seen the dietitian?: No - Diabetes Diabetes:: No Insulin: No Non-Insulin Dependent?: No - Weight Management Weight:: 55.338 kg - Intervention Referral to dietitian:: No Referral to Diabetic Clinic:: No Will attend diet classes:: Yes - Education Attended class for:: Healthy eating Nutrition - Final Assessment - Program Goals Nutrition Program Goals: LDL <70. Total Cholesterol <200. HDL >45. Triglycerides <150. HgbA1C <7%. BMI <25 - Diabetes Diabetes:: No Insulin: No Non-Insulin Dependent?: No - Weight Management Body Fat %:: 20 Total Score:: 11 - Intervention Referral to dietitian:: No Referral to Diabetic Clinic:: No Will attend diet classes:: Yes Tobacco - Initial Assessment - Program Goals Tobacco Program Goals: Complete smoking cessation. Attend education classes. Improve Knowledge Test score - Stage of Change Stages of Change:: Action - Learning Barriers Learning Barriers: Ready to Learn Total Score:: 10 - Family Support Do you have family support?: Yes - Tobacco Use Tobacco Use: Non-smoker How long ago did you quit using tobacco products?: Greater than or equal to 6 months ago Do you use smokeless tobacco?: No - Intervention Smoking Cessation Referral:: No Individual Education/Counseling:: No Education Schedule Given:: Yes - Education Gave educational material for:: Coronary artery disease, Risk factors, Sexuality, Medical compliance, Cardiac A AND P, Angina signs AND symptoms Tobacco - 30-Day Assessment - Program Goals Tobacco Program Goals: Complete smoking cessation. Attend education classes. Improve Knowledge Test score - Stage of Change Stages of Change:: Action - Learning Barriers Learning Barriers: Participates in education - Family Support Do you have family support?: Yes - Tobacco Use Tobacco Use: Non-smoker Do you use smokeless tobacco?: No - Intervention Smoking Cessation Referral:: No Individual Education/Counseling:: No Education Schedule Given:: Yes - Education Attended class for:: Coronary artery disease, Risk factors, Sexuality, Medical compliance, Cardiac A AND P, Angina signs AND symptoms Tobacco - 60-Day Assessment - Program Goals Tobacco Program Goals: Complete smoking cessation. Attend education classes. Improve Knowledge Test score - Stage of Change Stages of Change:: Action - Learning Barriers Learning Barriers: Participates in education - Family Support Do you have family support?: Yes - Tobacco Use Tobacco Use: Non-smoker Do you use smokeless tobacco?: No - Intervention Smoking Cessation Referral:: No Individual Education/Counseling:: No Education Schedule Given:: Yes - Education Attended class for:: Coronary artery disease, Risk factors, Sexuality, Medical compliance, Cardiac A AND P, Angina signs AND symptoms Tobacco - Final Assessment - Program Goals Tobacco Program Goals: Complete smoking cessation. Attend education classes. Improve Knowledge Test score - Learning Barriers Cardiac Knowledge Test Score:: 10 - Family Support Do you have family support?: Yes - Tobacco Use Tobacco Use: Non-smoker Do you use smokeless tobacco?: No - Intervention Smoking Cessation Referral:: No Individual Education/Counseling:: No Education Schedule Given:: Yes Psychosocial - Initial Assess - Target Goals Target Goals: Assess presence or absence of depression. Using a valid screening tool, maximizes coping skills. Positive support system - Stages of Change Stages of Change:: Action - Psychosocial Test Tool Used:: HANDS Depression Questionnaire Tests Completed: SF - 36 survey completed, Mood Scale Test Total Mood Screening Score:: 1 Self-Efficacy Score:: 10 - Intervention PS - Interventions: Yes Attend Stress Management Classes, Yes Uses Stress Management Skills, No Referral to Mental Health, No Referral to [facility] Case Management, No Referral to Physician - Education Gave educational materials for:: Coping techniques, Signs AND symptoms of depression, Stress management, Relaxation techniques - Patient/Program Goal Preventative Medication(s):: Aspirin, LUIS inhibitor, Clopidogrel, Beta beti, Statin/lipid - Assistive Devices Assistive Devices:: None Fall Risk Assessed:: Yes Psychosocial - 30-Day Assess - Target Goals Target Goals: Assess presence or absence of depression. Using a valid screening tool, maximizes coping skills. Positive support system - Stages of Change Stages of Change:: Action - Psychosocial Test Tool Used:: HANDS Depression Questionnaire Self-reported stress:: none Total Mood Screening Score:: 1 Self-Efficacy Score:: 10 - Patient/Program Goal Preventative Medication(s):: Aspirin, LUIS inhibitor, Clopidogrel, Beta beti, Statin/lipid - Assistive Devices Assistive Devices:: None Fall Risk Assessed:: Yes Psychosocial - 60-Day Assess - Target Goals Target Goals: Assess presence or absence of depression. Using a valid screening tool, maximizes coping skills. Positive support system - Stages of Change Stages of Change:: Action - Psychosocial Test Tool Used:: HANDS Depression Questionnaire Self-reported stress:: None Total Mood Screening Score:: 0 Self-Efficacy Score:: 10 - Intervention PS - Interventions: Yes Attend Stress Management Classes, Yes Uses Stress Management Skills, No Referral to Mental Health, No Referral to [facility] Case Management, No Referral to Physician - Education Attended classes for:: Coping techniques, Signs AND symptoms of depression, Stress management, Relaxation techniques - Patient/Program Goal Preventative Medication(s):: Aspirin, LUIS inhibitor, Clopidogrel, Beta beti, Statin/lipid - Assistive Devices Assistive Devices:: None Fall Risk Assessed:: Yes Psychosocial - Final Assessmen - Target Goals Target Goals: Assess presence or absence of depression. Using a valid screening tool, maximizes coping skills. Positive support system - Psychosocial Test Tool Used:: HANDS Depression Questionnaire Tests Completed: SF - 36 survey completed, Mood Scale Test Total Mood Screening Score:: 1 Self-Efficacy Score:: 10 - Patient/Program Goal Preventative Medication(s):: Aspirin, LUIS inhibitor, Clopidogrel, Beta beti, Statin/lipid - Assistive Devices Assistive Devices:: None Fall Risk Assessed:: Yes Nutrition - 90-Day Assessment - Program Goals Nutrition Program Goals: LDL <70. Total Cholesterol <200. HDL >45. Triglycerides <150. HgbA1C <7%. BMI <25 - Lipids Has the patient seen the dietitian?: No - Diabetes Diabetes:: No Insulin: No Non-Insulin Dependent?: No - Intervention Referral to dietitian:: No Referral to Diabetic Clinic:: No Will attend diet classes:: Yes - Education Attended class for:: Healthy eating Tobacco - 90-Day Assessment - Program Goals Tobacco Program Goals: Complete smoking cessation. Attend education classes. Improve Knowledge Test score - Family Support Do you have family support?: Yes - Tobacco Use Tobacco Use: Non-smoker Do you use smokeless tobacco?: No - Intervention Smoking Cessation Referral:: No Individual Education/Counseling:: No Education Schedule Given:: Yes - Education Attended class for:: Coronary artery disease, Risk factors, Sexuality, Medical compliance, Cardiac A AND P, Angina signs AND symptoms Psychosocial - 90-Day Assess - Target Goals Target Goals: Assess presence or absence of depression. Using a valid screening tool, maximizes coping skills. Positive support system - Psychosocial Test Tool Used:: HANDS Depression Questionnaire Total Mood Screening Score:: 1 Self-Efficacy Score:: 10 - Education Attended classes for:: Coping techniques, Signs AND symptoms of depression, Stress management, Relaxation techniques - Patient/Program Goal Preventative Medication(s):: Aspirin, LUIS inhibitor, Clopidogrel, Beta beti, Statin/lipid - Assistive Devices Assistive Devices:: None Fall Risk Assessed:: Yes 09/13/16 0945 <Electronically signed by Dmitriy Jerry > Date Dmitriy Jerry Outcome assessment reviewed. Exercise plan approved as documented. Treatment plan and goals support patient needs/abilities. Continue with current plan. I certify the patient demonstrates improvement and remains willing and capable of participation. the patient continues to benefit from cardiac rehab services/training. The patient may continue at current intensity, endurance and modality and progress per protocol. 09/13/16 1000 <Electronically signed by Jose Luis Donahue MD> Cosigner Signature: Date Jose Luis Donahue MD CC: Signed Nata Welsh Work Phone: Start: 08-12-2016 End: 08-12-2016 CR - Individual Treatment Plan Comments: See Note; NOTES: [facility] Cardiac Rehab [facility] [place] [address] CR - Individual Treatment Plan MR#: [id number] Acct: [id number] Name: JASMIN HUTCHINSON Rep #: [id number] : 1950 65 From: Dmitriy Jerry PCP: Nata Welsh DOS: 08/12/16 Exercise - Initial Assessment - Visit Date of Eval: 07/21/16 - Stages of Change Stages of Change:: Action - Stress Test Date: 07/19/16 HR (bpm):: 82 SpO2 (%):: 95 EKG: NSR w/LBBB MET LEVEL:: 6 - Exercise Prescription Mode:: Treadmill Angina with exercise?: No Target Heart Rate:: 123-128 - Hypertension Do any of the following apply?: No - Intervention Home Exercise/Activity Goal:: Moderate Exercise 30 min/day x 5 days/wk - Education Goals:: Warm-up, RPE LISETH Scale, S/S, Safe Exercise, Self-Monitoring - Exercise Program Goals Exercise Program Goals: Aerobic Activity >30 min Exercise - 30-day Assessment - Visit Date of Eval: 08/12/16 - session # 9 - Stages of Change Stages of Change:: Action - Exercise Prescription Mode:: Treadmill, Biodyne, Airdyne, NuStep Frequency (x/week): 3 Duration:: 30-35 min METs - Progression: 0.5-1 MET as tolerated: 3.5 Target Heart Rate:: 123-128 - Hypertension Resting Blood Pressure:: 110/64 Peak Exercise Blood Pressure:: 138/70 Medication Changes:: No - Intervention Home Exercise/Activity Goal:: Sitting Time <3 hrs/day - Education Goals:: Warm-up, RPE LISETH Scale, S/S, Safe Exercise, Self-Monitoring Exercise - Final/Discharge - Hypertension Do any of the following apply?: No Nutrition - Initial Assessment - Program Goals Nutrition Program Goals: LDL <70. Total Cholesterol <200. HDL >45. Triglycerides <150. HgbA1C <7%. BMI <25 - Visit Date of Assessment:: 07/21/16 - Stages of Change Stages of Change:: Action - Lipids Total Cholesterol (mg/dL) Goal = less than 200 mg/dL: 271 HDL Cholesterol (mg/dL) Goal = less than 45 mg/dL: 66 LDL Cholesterol (mg/dL) Goal = less than 70 mg/dL: 187 Triglycerides (mg/dL) Goal = less than 150 mg/dL: 88 - Diabetes Diabetes:: No - Weight Management Body Fat %:: 20 Total Score:: 11 - Intervention Referral to dietitian:: No Referral to Diabetic Clinic:: No Will attend diet classes:: Yes - Education Gave educational materials for:: Healthy eating Nutrition - 30-Day Assessment - Program Goals Nutrition Program Goals: LDL <70. Total Cholesterol <200. HDL >45. Triglycerides <150. HgbA1C <7%. BMI <25 - Visit Date of Eval: 08/12/16 - session # 9 - Stages of Change Stages of Change:: Action - Lipids Has the patient seen the dietitian?: No - Diabetes Diabetes:: No Insulin: No Non-Insulin Dependent?: No - Weight Management Weight:: 53.07 kg - Intervention Referral to dietitian:: No Referral to Diabetic Clinic:: No Will attend diet classes:: Yes - Education Attended class for:: Healthy eating Nutrition - 60-Day Assessment - Program Goals Nutrition Program Goals: LDL <70. Total Cholesterol <200. HDL >45. Triglycerides <150. HgbA1C <7%. BMI <25 - Diabetes Diabetes:: No - Intervention Referral to dietitian:: No Referral to Diabetic Clinic:: No Will attend diet classes:: Yes - Education Attended class for:: Healthy eating Nutrition - Final Assessment - Program Goals Nutrition Program Goals: LDL <70. Total Cholesterol <200. HDL >45. Triglycerides <150. HgbA1C <7%. BMI <25 - Diabetes Diabetes:: No - Weight Management Body Fat %:: 20 Total Score:: 11 - Intervention Referral to dietitian:: No Referral to Diabetic Clinic:: No Will attend diet classes:: Yes Tobacco - Initial Assessment - Program Goals Tobacco Program Goals: Complete smoking cessation. Attend education classes. Improve Knowledge Test score - Stage of Change Stages of Change:: Action - Learning Barriers Learning Barriers: Ready to Learn Total Score:: 10 - Family Support Do you have family support?: Yes - Tobacco Use Tobacco Use: Non-smoker How long ago did you quit using tobacco products?: Greater than or equal to 6 months ago Do you use smokeless tobacco?: No - Intervention Smoking Cessation Referral:: No Individual Education/Counseling:: No Education Schedule Given:: Yes - Education Gave educational material for:: Coronary artery disease, Risk factors, Sexuality, Medical compliance, Cardiac A AND P, Angina signs AND symptoms Tobacco - 30-Day Assessment - Program Goals Tobacco Program Goals: Complete smoking cessation. Attend education classes. Improve Knowledge Test score - Stage of Change Stages of Change:: Action - Learning Barriers Learning Barriers: Participates in education - Family Support Do you have family support?: Yes - Tobacco Use Tobacco Use: Non-smoker Do you use smokeless tobacco?: No - Intervention Smoking Cessation Referral:: No Individual Education/Counseling:: No Education Schedule Given:: Yes - Education Attended class for:: Coronary artery disease, Risk factors, Sexuality, Medical compliance, Cardiac A AND P, Angina signs AND symptoms Tobacco - 60-Day Assessment - Program Goals Tobacco Program Goals: Complete smoking cessation. Attend education classes. Improve Knowledge Test score - Family Support Do you have family support?: Yes - Tobacco Use Do you use smokeless tobacco?: No - Intervention Smoking Cessation Referral:: No Individual Education/Counseling:: No Education Schedule Given:: Yes - Education Attended class for:: Coronary artery disease, Risk factors, Sexuality, Medical compliance, Cardiac A AND P, Angina signs AND symptoms Tobacco - Final Assessment - Program Goals Tobacco Program Goals: Complete smoking cessation. Attend education classes. Improve Knowledge Test score - Learning Barriers Cardiac Knowledge Test Score:: 10 - Family Support Do you have family support?: Yes - Tobacco Use Do you use smokeless tobacco?: No - Intervention Smoking Cessation Referral:: No Individual Education/Counseling:: No Education Schedule Given:: Yes Psychosocial - Initial Assess - Target Goals Target Goals: Assess presence or absence of depression. Using a valid screening tool, maximizes coping skills. Positive support system - Stages of Change Stages of Change:: Action - Psychosocial Test Tool Used:: HANDS Depression Questionnaire Tests Completed: SF - 36 survey completed, Mood Scale Test Total Mood Screening Score:: 1 Self-Efficacy Score:: 10 - Intervention PS - Interventions: Yes Attend Stress Management Classes, Yes Uses Stress Management Skills, No Referral to Mental Health, No Referral to [facility] Case Management, No Referral to Physician - Education Gave educational materials for:: Coping techniques, Signs AND symptoms of depression, Stress management, Relaxation techniques - Patient/Program Goal Preventative Medication(s):: Aspirin, LUIS inhibitor, Clopidogrel, Beta beti, Statin/lipid - Assistive Devices Assistive Devices:: None Fall Risk Assessed:: Yes Psychosocial - 30-Day Assess - Target Goals Target Goals: Assess presence or absence of depression. Using a valid screening tool, maximizes coping skills. Positive support system - Stages of Change Stages of Change:: Action - Psychosocial Test Tool Used:: HANDS Depression Questionnaire Self-reported stress:: none Total Mood Screening Score:: 0 Self-Efficacy Score:: 10 - Intervention PS - Interventions: Yes Attend Stress Management Classes, No Referral to Mental Health, No Referral to [facility] Case Management, No Referral to Physician, No Uses Stress Management Skills - Education Attended classes for:: Coping techniques, Signs AND symptoms of depression, Stress management, Relaxation techniques - Patient/Program Goal Preventative Medication(s):: Aspirin, LUIS inhibitor, Clopidogrel, Beta beti, Statin/lipid - Assistive Devices Assistive Devices:: None Fall Risk Assessed:: Yes Psychosocial - 60-Day Assess - Target Goals Target Goals: Assess presence or absence of depression. Using a valid screening tool, maximizes coping skills. Positive support system - Psychosocial Test Tool Used:: HANDS Depression Questionnaire Total Mood Screening Score:: 1 Self-Efficacy Score:: 10 - Education Attended classes for:: Coping techniques, Signs AND symptoms of depression, Stress management, Relaxation techniques - Patient/Program Goal Preventative Medication(s):: Aspirin, LUIS inhibitor, Clopidogrel, Beta beti, Statin/lipid - Assistive Devices Assistive Devices:: None Fall Risk Assessed:: Yes Psychosocial - Final Assessmen - Target Goals Target Goals: Assess presence or absence of depression. Using a valid screening tool, maximizes coping skills. Positive support system - Psychosocial Test Tool Used:: HANDS Depression Questionnaire Tests Completed: SF - 36 survey completed, Mood Scale Test Total Mood Screening Score:: 1 Self-Efficacy Score:: 10 - Patient/Program Goal Preventative Medication(s):: Aspirin, LUIS inhibitor, Clopidogrel, Beta beti, Statin/lipid - Assistive Devices Assistive Devices:: None Fall Risk Assessed:: Yes 08/12/16 1116 <Electronically signed by Dmitriy Jerry > Date Dmitriy Jerry Outcome assessment reviewed. Exercise plan approved as documented. Treatment plan and goals support patient needs/abilities. Continue with current plan. I certify the patient demonstrates improvement and remains willing and capable of participation. the patient continues to benefit from cardiac rehab services/training. The patient may continue at current intensity, endurance and modality and progress per protocol. 08/12/16 1703 <Electronically signed by Jose Luis Donahue MD> Cosigner Signature: Date Jose Luis Donahue MD CC: Signed Nata Mariiroro Work Phone: Start: 07-21-2016 End: 07-21-2016 CR - History AND Physical Comments: See Note; NOTES: [facility]iac Rehab [address] [place] [address] CR - History AND Physical MR#: [id number] Acct: [id number] Name: JASMIN HUTCHINSON Rep #: [id number] : 1950 65 From: Dmitriy Jerry PCP: Nata Welsh DOS: 07/21/16 CR - History AND Physical - General Arrival date:: 07/21/16 Arrival time:: 12:46 Date of Admission: 07/21/16 Referring Physician: DR.PAUL DONAHUE Primary Diagnosis: AORTIC VALVE REPLACEMENT 06/17/16 - History of Present Cardiac Event Onset Date: Enter Onset Date of cardiac illnesses in Comment field below Valve Replacement/Repair:: Yes - 06/17/2016 Pacemaker/ICD: No Type of Symptoms:: None. Were there any complications?: None - Medications Home Medications: Ambulatory Orders Medication Instructions Recorded Atorvastatin Calcium [Lipitor] 40 mg PO QHS 04/27/16 Ca Carb AND Gluc/Mag Ox AND Gluc 1 each PO BID 04/27/16 [Calcium Magnesium Caplet] Cholecalciferol (VIT D3) [Vitamin 400 unit PO DAILY 04/27/16 D3] Multivitamins,Therapeutic 1 tablet PO DAILY 04/27/16 [Multivitamin] Anthony-3 Fatty Acids [Anthony-3] 1,000 mg PO DAILY 04/27/16 Phytonadione [Vitamin K] 100 mcg PO DAILY 04/27/16 Ubidecarenone [Coenzyme Q10] 100 mg PO DAILY 04/27/16 Ibuprofen [Motrin] 400 mg PO Q8H PRN PRN #14 tablet 04/29/16 - Allergies Allergies/Adverse Reactions: Allergies morphine Allergy (Verified 07/21/16 13:03) Nausea - Sleep Disorder Evaluation Hx of Sleep Apnea: No Do you snore loudly (louder than talking or can be heard through closed doors)?: No Do you often feel tired/ fatigued/ sleepy during daytime?: No Has anyone observed you stop breathing during sleep?: No History of Hypertension (for STOP score): No STOP Results: Negative Advanced Directives - Advanced Directives Power of Assistant Engineer: No Living Will: No Advance Directives on File: No DNR Order?:: No Past Medical History - Problems and Co-Morbidities Problems AND Co-Morbidities: Smoking - former smoker, Dyslipidemia - Past Medical Illness Other Medical Illnesses:: Osteopenia, 04/29/16 small pleural effusion, hyperlipidemia, bicusip valve, aortic valve stenosis - Past Cardiac Illness Past Cardiac Illness: Valve Disorders, Ejection Fraction - 70% - Other Other: Vision/Eye Problems - Wears glasses for reading - Past Surgical History Surgical History: no surgical history - Family History Summary Family History: Heart Disease: Sibling, Maternal - sister age 5 heart surgery Review of Systems - Review of Systems Hints: Right click = Denies ([place]). Left click = Reports ([place]) Review of Present Symptoms: Reports: Shortness of Breath with Exertion - rare but sometimes get short of breath, Wound Healing, Appetite - Normal, Sleep - Normal. Denies: Shortness of Breath at Rest, Operative Discomfort, Dizziness/Lightheadedness, Fatigue, Heart Arrhythmia/ Irregularities, Appetite - Special Diet, Sexual Changes Risk Factor Assessment - Chief Complaint Chief Complaint: Pleasent female presenting to cardiac rehab following recent aortic valve replacement surgery, doing well. - Pulse Pulse Rate: 98 - SpO2 98% Pulse Rhythm: Regular - Hypertension Blood Pressure Sitting - Right Arm: 102/58 - Blood Cholesterol/Lipids Total Cholesterol (mg/dL) Goal = less than 200 mg/dL: 271 HDL Cholesterol (mg/dL) Goal = less than 40 mg/dL: 66 LDL Cholesterol (mg/dL) Goal = less than 70 mg/dL: 187 Triglycerides (mg/dL) Goal = less than 150 mg/dL: 88 - Smoking Do you use tobacco products? If so, how much and for how long?: No If no, have you EVER used tobacco products?: Quit greater than 12 months ago Exposure to 2nd-hand smoke? How much and how long?: No Do you plan to quit smoking?: No - Diabetes Nutrition Referral for Diabetes: No - Obesity Height: 5 ft 3 in Weight:: 52.163 kg Weight in Pounds: 115.0 lbs Body Mass Index (BMI): 20.3 Nutritional Referral for Obesity: No - Physical Inactivity Physical Inactivity: Reg Exercise 30 min/day, Physically demanding job, Recreational activity - Risk Stratification Risk Guidelines: Lowest Risk: Risk Factor for Smoking, Risk Factor for Dyslipidemia, Risk Factor for Diabetes, Risk Factor for Obesity, Risk Factor for Hypertension, Risk Factor for Sedentary Lifestyle, Risk Factor for Depression - For Smoking Smoking Risk Guidelines: Smoking Low Risk: None or quit greater than 6 months ago. Smoking Moderate Risk: Smoker or quit 6 months or less ago. Smoking High Risk: Smoker - For Dyslipidemia Dyslipidemia Risk Guidelines: Low Risk: Moderate Risk: High Risk: 15-25% fat 25.1-29% fat >/= 30% fat. <7 % sat fat 7-9% sat fat >9% sat fat. <150 mg chol 150-299 mg chol >/= 300 mg chol. LDL <100 LDL 100-129 LDL >/= 130. Chol/HDL ratio <5.0 Chol/HDL ratio 5.0 -6.0 Chol/HDL ratio >6.0. Triglycerides <100 Triglycerides 100-149 Triglycerides >/= 150 - For Diabetes Mellitus Diabetes Risk Guidelines: Diabetes Low Risk: HgA1c <6.5% and/or FBG <120. Diabetes Moderate Risk: HgA1c 6.6-7.9% and/or FBG 120-180. Diabetes High Risk: HgA1c >/= 8% and/or FBG >180 - For Obesity/Overweight Obesity/Overweight Risk Guidelines: Obesity Low Risk: BMI <25.0. Obesity Moderate Risk: BMI 25-29.9. Obesity High Risk: BMI >/= 30.0 - For Hypertension Hypertension Risk Guidelines: Hypertension Low Risk: Systolic <120 and Diastolic <80. Hypertension Moderate Risk: Systolic 120-139 and Diastolic 80-89. Hypertension High Risk: Systolic >/= 140 and Diastolic >/= 90 - For Sedentary Lifestyle Sedentary Lifestyle Risk Guidelines: Sedentary Lifestyle Low Risk: >/= 1,500 kcal/week. Sedentary Lifestyle Moderate Risk: 700-1,499 kcal/week. Sedentary Lifestyle High Risk: < 700 kcal/week - For Depression Depression Risk Guidelines: Depression Low Risk: Not clinically depressed. Depression Moderate Risk: Mildly depressed. Depression High Risk: Clinically depressed Social History - Alcohol Use Alcohol Usage: No - Occupation Occupation (List type of work in comments):: Homemaker - Hobbies, Recreation, Social Activities Hobbies: Walking, Exercise Recreational Activities: I am able to engage in all my recreational activities Marital Status - Status Marital Status: - Current Living Arrangements Living Environment:: Spouse - Children How many children do you have?: 1 - Son, 3 grandchilden, 1 great grandchildren Do any of your children live nearby?: Yes - Safety Do you feel safe in your surroundings?: Yes - Assistance Do you need any assistance at home?: None Nutrition Survey - Nutrition Survey Instructions Scoring Instructions: Scoring is as follows: Yes = 2 points. No = 1 point. Patient score that is >/=12 is considered to be at potential nutritional risk and could benefit from a referral to a registered dietitian. - Nutrition Survey Initial Have you lost >10 lbs over the past 2 months without trying?: No Are you following a special diet at home for diabetes, low fat, or low salt?: No Are you interested in meeting with a dietitian for help understanding your diet?: No Do you eat less than 3 meals a day?: No Do you eat fatty meats (vyas, sausage, ribs, etc), fried foods, desserts, large amounts of salad dressings, margarine, butter, or cheese most days?: No Do you have food allergies? [Enter types in comment field]: No Do you eat in restaurants more than 3 times a week?: No Do you season food with salt, seasoning salt, or garlic salt?: Yes Do you used canned, boxed, frozen meals, or soups, seasoning packets?: Yes - Rarely, but occasionally will use these products. Total Score:: 11 Self-Efficacy - 6-Item Scale We would like to know how confident you are in doing certain activities. Please select your confidence level for:: Select your confidence level for the following using the scale 1-10 where 1 is not at all confident and 10 is totally confident. Your score is the average of all 6 responses. Fatigue: How confident are you that you can keep the fatigue caused by your disease from interfering with the things you want to do? Select Number: 10 Physical Discomfort or Pain: How confident are you that you can keep the physical discomfort or pain of your disease from interfering with the things you want to do? Select Number: 10 Emotional Distress: How confident are you that you can keep the emotional distress caused by your disease from interfering with the things you want to do? Select Number: 10 Other Symptoms or Health Problems: How confident are you that you can keep other symptoms or health problems from interfering with the things you want to do? Select Number: 10 Different Tasks and Activities: How confident are you that you can do the different tasks and activities needed to manage your health condition so as to reduce your need to see a doctor? Select Number: 10 Medication: How confident are you that you can do things other than just taking medication to reduce how much your illness affects your everyday life? Select Number: 10 Total Score:: 10 Mood Scale - Mood Scale Initial Assessment Mood Score Scale: For clinical purposes, a score of 5 or greater represents a positive depression screen. Use the following scale for scorin-4 = None. 5-9 = Mild depression. 10-15 = Moderate to severe depression Are you basically satisfied with your life?: Yes Have you dropped many of your activities and interests?: No Do you feel that your life is empty?: No Do you get bored?: Yes Are you in good spirits most of the time?: Yes Are you afraid that something bad is going to happen to you?: No Do you feel happy most of the time?: Yes Do you often feel helpless?: No Do you prefer to stay at home, rather than going out and doing new things?: No Do you feel you have more problems with your memory than most?: No Do you think it is wonderful to be alive now?: Yes Do you feel pretty worthless the way you are now?: No Do you feel full of energy?: Yes Do you feel that your situation is hopeless?: No Do you think that most people are better off than you?: No Total Mood Screening Score:: 1 Cardiac Rehabilitation Goals - Cardiac Rehab Goals Cardiac Rehabilitation Goals: 1. Maintain the individual as the primary focus of care. 2. To improve the patient's quality of life. 3. Identification of cardiac risk factors and provide cardiac risk factor management. 4. Enhance the psychosocial status of the patient. 5. Reconditioning enough to allow the patient to resume customary activities. 6. Control symptoms of cardiac disease - Scale Scale for measuring improvement of personal goals: Enter appropriate number in Comments. 2 = Unchanged. 3 = Slightly Better. 4 = Moderate Improvement. 5 = Met my Goal - Personal Goals Personal Goals: 30-day Re-assessment: Get back to work, or to resume activities faster, Improve diet and eating habits (eat healthier), Control risk factors (learn risk factor modification) - Cholesterol Mgmnt Knowledge Test - Check your knowledge Initial The #1 cause of in the [place] each year is:: Heart disease Which of the following is a common treatment for heart disease?: All of the above The arteries that feed the heart are called:: Coronary arteries HDL cholesterol is known as the good cholesterol.: True What disease increases your risk for heart disease?: Diabetes What food product raises blood cholesterol level the most?: Saturated fat The bad cholesterol in the blood is called:: LDL Hypertension is another word for:: High blood pressure A blood pressure reading of 148/88 is considered normal.: False Exercise will only benefit your health when your heart rate reaches a target level.: False Total Score:: 10 07/21/16 1315 <Electronically signed by Dmitriy Jerry > Date Dmitriy Jerry Outcome assessment reviewed. Exercise plan approved as documented. Treatment plan and goals support patient needs/abilities. Continue with current plan. I certify the patient demonstrates improvement and remains willing and capable of participation. the patient continues to benefit from cardiac rehab services/training. The patient may continue at current intensity, endurance and modality and progress per protocol. 07/21/16 1342 <Electronically signed by Jose Luis Donahue MD> Cosigner Signature: Date Jose Luis Donahue MD CC: Signed Nata Welsh Work Phone: Start: 07-21-2016 End: 07-21-2016 CR - Individual Treatment Plan Comments: See Note; NOTES: [facility] Cardiac Rehab [address] [place] [address] CR - Individual Treatment Plan MR#: [id number] Acct: [id number] Name: JASMIN HUTCHINSON Rep #: [id number] : 1950 65 From: Dmitriy Jerry PCP: Nata Welsh DOS: 07/21/16 Exercise - Initial Assessment - Visit Date of Eval: 07/21/16 - Stages of Change Stages of Change:: Action - Stress Test Date: 07/19/16 HR (bpm):: 82 SpO2 (%):: 95 EKG: NSR w/LBBB MET LEVEL:: 6 Blood Pressure: 122/74 - Exercise Prescription Mode:: Treadmill Angina with exercise?: No Target Heart Rate:: 123-128 - Hypertension Do any of the following apply?: No Resting Blood Pressure:: 120/70 Peak Exercise Blood Pressure:: 122/74 - Intervention Home Exercise/Activity Goal:: Moderate Exercise 30 min/day x 5 days/wk - Education Goals:: Warm-up, RPE LISETH Scale, S/S, Safe Exercise, Self-Monitoring - Exercise Program Goals Exercise Program Goals: Aerobic Activity >30 min Nutrition - Initial Assessment - Program Goals Nutrition Program Goals: LDL <70. Total Cholesterol <200. HDL >45. Triglycerides <150. HgbA1C <7%. BMI <25 - Visit Date of Assessment:: 07/21/16 - Stages of Change Stages of Change:: Action - Lipids Total Cholesterol (mg/dL) Goal = less than 200 mg/dL: 271 HDL Cholesterol (mg/dL) Goal = less than 45 mg/dL: 66 LDL Cholesterol (mg/dL) Goal = less than 70 mg/dL: 187 Triglycerides (mg/dL) Goal = less than 150 mg/dL: 88 - Diabetes Diabetes:: No - Weight Management Height: 5 ft 3 in Weight:: 52 kg Body Fat %:: 20 - Intervention Referral to dietitian:: No Referral to Diabetic Clinic:: No Will attend diet classes:: Yes - Education Gave educational materials for:: Healthy eating Nutrition - 30-Day Assessment - Program Goals Nutrition Program Goals: LDL <70. Total Cholesterol <200. HDL >45. Triglycerides <150. HgbA1C <7%. BMI <25 - Diabetes Diabetes:: No Nutrition - 60-Day Assessment - Program Goals Nutrition Program Goals: LDL <70. Total Cholesterol <200. HDL >45. Triglycerides <150. HgbA1C <7%. BMI <25 - Diabetes Diabetes:: No Nutrition - Final Assessment - Program Goals Nutrition Program Goals: LDL <70. Total Cholesterol <200. HDL >45. Triglycerides <150. HgbA1C <7%. BMI <25 - Diabetes Diabetes:: No Tobacco - Initial Assessment - Program Goals Tobacco Program Goals: Complete smoking cessation. Attend education classes. Improve Knowledge Test score - Stage of Change Stages of Change:: Action - Learning Barriers Learning Barriers: Ready to Learn - Family Support Do you have family support?: Yes - Tobacco Use Tobacco Use: Non-smoker How long ago did you quit using tobacco products?: Greater than or equal to 6 months ago Do you use smokeless tobacco?: No - Intervention Smoking Cessation Referral:: No Individual Education/Counseling:: No Education Schedule Given:: Yes - Education Gave educational material for:: Coronary artery disease, Risk factors, Sexuality, Medical compliance, Cardiac A AND P, Angina signs AND symptoms Psychosocial - Initial Assess - Target Goals Target Goals: Assess presence or absence of depression. Using a valid screening tool, maximizes coping skills. Positive support system - Stages of Change Stages of Change:: Action - Psychosocial Test Tool Used:: HANDS Depression Questionnaire Tests Completed: SF - 36 survey completed, Mood Scale Test Total Mood Screening Score:: 1 Self-Efficacy Score:: 10 - Intervention PS - Interventions: Yes Attend Stress Management Classes, Yes Uses Stress Management Skills, No Referral to Mental Health, No Referral to [facility] Case Management, No Referral to Physician - Education Gave educational materials for:: Coping techniques, Signs AND symptoms of depression, Stress management, Relaxation techniques - Patient/Program Goal Preventative Medication(s):: Aspirin, LUIS inhibitor, Clopidogrel, Beta beti, Statin/lipid - Assistive Devices Assistive Devices:: None Fall Risk Assessed:: Yes 07/21/16 1316 <Electronically signed by Dmitriy Jerry > Date Dmitryi Jerry Outcome assessment reviewed. Exercise plan approved as documented. Treatment plan and goals support patient needs/abilities. Continue with current plan. I certify the patient demonstrates improvement and remains willing and capable of participation. the patient continues to benefit from cardiac rehab services/training. The patient may continue at current intensity, endurance and modality and progress per protocol. 07/21/16 1343 <Electronically signed by Jose Luis Donahue MD> Cosigner Signature: Date Jose Luis Donahue MD CC: Signed Nata Welsh Work Phone: Start: 07-19-2016 End: 07-19-2016 Stress Report Comments: See Note; NOTES: [facility] Cardiovascular Services [address] [place] [address] Verdana 4d Stress Test Regular MR#: [id number] Acct: [id number] Name: JASMIN HUTCHINSON Rep #: [id number] : 1950 65 From: Jose Luis Donahue MD Primary Care: Nata Welsh Status: REG CLI Ordering Dr: Jose Luis Donahue MD Sex: F C DATE OF SERVICE: 07/19/2016 EXERCISE TOLERANCE TEST: The patient exercised on a Fawad protocol for 4 minutes and 30 seconds completing stage 1 and 1 minute and 30 seconds of stage 2, achieving a peak heart rate of 151 beats per minute (96% predicted maximum heart rate) and a peak blood pressure of 132/76 mmHg and a peak MET capacity of approximately 6 METS. The baseline ECG demonstrated normal sinus rhythm with a left bundle-branch block pattern. The peak exercise ECG was considered indeterminate secondary to the underlying left bundle-branch block pattern. There was a rare PVC during exercise or recovery. The functional capacity was considered decreased. The patient had no complaint of chest discomfort during exercise or recovery. The examination was discontinued secondary to dyspnea. IMPRESSION: 1. Technically adequate (percent predicted maximum heart rate greater than 85%) exercise tolerance test. 2. Peak exercise ECG considered indeterminate secondary to underlying left bundle-branch block pattern. 3. Rare PVC during exercise and recovery. Jose Luis Donahue MD T: NTS JOB: [id number] 07/19/16 1740 <Electronically signed by Jose Luis Donahue MD> Date Jose Luis Donahue MD CC: Nata Welsh; Jose Luis Donahue MD Date Dictated: 07/19/16 150 Date Transcribed: 07/19/161505 Case Monitor: Signed Nata Colvinroro Work Phone: Start: 07-11-2016 End: 08-23-2017 *Hepatic Function Panel Jose Luis Donahue MD Start: 07-11-2016 End: 09-06-2016 Cardiovascular stress test using treadmill Jose Luis Donahue MD Start: 07-11-2016 End: 07-11-2016 Ecg routine ecg w/least 12 lds w/i&r Jose Luis Donahue MD Start: 07-11-2016 End: 07-11-2016 Follow Up Appt 3 months Jose Luis Donahue MD Start: 07-11-2016 End: 07-11-2016 MMM Jose Luis Donahue MD Start: 07-11-2016 End: 07-12-2016 Referral to histopath tech Jose Luis rosa MD Start: 07-11-2016 End: 08-23-2017 Lipid 1996 panel - Serum or Plasma Jose Luis Donahue MD Start: 04-29-2016 End: 04-29-2016 Chest 1 View (Portable) Comments: See Note; NOTES: [facility] Imaging Services [address] [place] [address] Verdana 4d Chest 1 View (Portable) MR#: [id number] Acct: [id number] Name: JASMIN HUTCHINSON Rep #: [id number] : 1950 F 65 From: Barbara Felipe MD PCP: Nata Welsh Status: REG ER Study: Chest 1 View (Portable) Date of Exam: 04/29/16 Exam# [id number] Ordering Dr: Flako Hyde MD STUDY: X-RAY CHEST REASON FOR EXAM: Female, 65 years old. Chest pain to left side of chest and down right arm. Nausea, vomiting. Heart catheter on Monday unable to finish. TECHNIQUE: Single AP portable view of the chest. COMPARISON: 03/10/2016 FINDINGS: There are superimposed monitor leads. There is stable hyperinflation and emphysematous changes of the lungs. There is mild elevation of the right diaphragm. There is no demonstrated pleural abnormality. Normal size heart. Normal mediastinum and kevan. Normal visualized pulmonary arteries. Normal visualized aortic arch and descending thoracic aorta. There are diffuse degenerative changes of the visualized thoracic spine. Normal visualized ribs, clavicles, and shoulders. There is no demonstrated abnormality of the visualized soft tissue structures of the upper abdomen. IMPRESSION: Stable hyperinflation/emphysema. No pulmonary edema, congestive heart failure or confluent pneumonia. Electronically Signed: Barbara Felipe MD at 2:34 EDT , Service support [phone], RAD/Chest 1 View (Portable) IMPRESSION: Stable hyperinflation/emphysema. No pulmonary edema, congestive heart failure or confluent pneumonia. Electronically Signed: Barbara Felipe MD at 2:34 EDT , Service support [phone], CC: Nata Welsh; Flako Hyde MD Case Monitor: Signed Nata Welsh Work Phone: Start: 04-27-2016 End: 04-27-2016 Cardiac Catheterization Report Comments: See Note; NOTES: [facility] Medical Records Department [address] [place] [id number] Cardiac Catheterization Report MR#: [id number] Acct: [id number] Name: JASMIN HUTCHINSON Rep #: [id number] : 1950 65 From: Jose Luis Donahue MD PCP: Nata Welsh Status: REG CLI Date of Procedure: 04/27/16 Procedure: Right heart catheterization, left heart catheterization, left ventriculogram, coronary arteriography Indications: Aortic valve disease, mitral valve disease, abnormal transthoracic echocardiogram, abnormal transesophageal echocardiogram Consent: Per patient Premedications: Versed 1 mg IV push 1 Procedure: The patient was brought to the cardiac catheterization laboratory laid supine on the cardiac catheterization table. The right middle area was prepped and draped in the standard sterile fashion. 2% Xylocaine was used for local anesthesia. Using the modified Seldinger technique the right femoral artery was cannulated and #4 [place] arterial sheath was placed and a femoral arterial oxygen saturation was obtained. Using the modified Seldinger technique the right femoral vein was cannulated and a #7French venous sheath was placed. A #7 [place] thermal dilution balloon-tip Bivalve-Radha catheter was advanced under fluoroscopic guidance to the level of the IVC and SVC were subsequent oxygen saturations were obtained. At that point in the procedure the ability to have fluoroscopy was no longer available. Thus, the #7 [place] thermal dilution balloon-tip Bivalve-Radha catheter was subsequently removed. The cardiac catheterization laboratory equipment was evaluated and the system was restarted. Unfortunately, despite multiple attempts, with respect to restarting the system, the ability to have fluoroscopy was no longer available. The cardiac catheterization laboratory team discussed the case via telephone with the react catheterization laboratory equipment support engineers. The support engineers had no further recommendations at this time and stated it would be prolonged period time until they were able to arrive at [facility] to interrogate the cardiac catheterization laboratory equipment and make further recommendations. The above was discussed with the patient. The patient was given the options of remaining in the cardiac catheterization laboratory area with the cardiac catheterization sheaths in place pending further evaluation of the cardiac catheterization laboratory equipment by the support engineers as to whether or not there would be a remedy to the fluoroscopy situation that would allow the procedure to proceed to be performed later the same day versus discontinuing/boarding the procedure at this point in time, proceeding with post procedure recovery per protocol, and being rescheduled to have the procedure performed on another day. The patient elected to discontinue/abort the procedure at this point in time, proceed with post procedure recovery per protocol, and to be rescheduled to have the procedure performed on another day. Thus, all cardiac catheterization sheaths were subsequently removed. Direct pressure was held for adequate hemostasis was achieved. There was no apparent bleeding, hematoma, or complication otherwise prior to leaving the cardiac catheterization laboratory. Findings: Oxygen saturations: Room air: IVC: 82% SVC: 60% Right femoral artery: 96% Final impression: 1. Aborted right heart catheterization, left heart catheterization, left ventriculogram, and coronary arteriography secondary to cardiac catheterization laboratory equipment failure ( please see procedure note above). Comment: The above was discussed and reviewed with the patient as well as her - via telephone conversation. This note was generated with Cerep[employer]ation software. It may contain incorrect words, spelling, and punctuation that were not noted in checking the note before signing. 04/27/16 1036 <Electronically signed by Jose Luis Donahue MD> Date Jose Luis Donahue MD Cosigner Signature (If Indicated): Date CC: Nata Welsh; Jose Luis Donahue MD Date Dictated: 04/27/16 1021 Signed Nata Welsh Work Phone: Start: 04-27-2016 End: 04-27-2016 Echo Transesophageal (IRMA) Comments: See Note; NOTES: [facility] Cardiovascular Services [address] [place] [address] Echo Transesophageal (IRMA) 04/06/16 0936 MR#: [id number] Acct: [id number] Name: JASMIN HUTCHINSON Rep #: [id number] : 1950 65 From: Jose Luis Donahue MD Attending Dr: Jose Luis Donahue MD Status: REG CLI Ordering Dr: Jose Luis Donahue MD Date: 04/06/16 Location: [facility] Sex: F C Admitted: Version 2 Reason For Study: Aortic valve stenosis Medication IRMA probe passed with minimal difficulty. Cetacaine Topical Nucla given X4 orally. Versed 2 mg given slow IVP. Fentanyl 100 mcg given slow IVP. Performed a rapid injection of agitated mix of 9 cc saline and 1cc air to assess for atrial septal defect. Left Ventricle Left ventricular systolic function is normal. The estimated ejection fraction is 65 %. No regional wall motion abnormalities noted. Right Ventricle Normal systolic function. Atria No doppler evidence for ASD. Bubble contrast study negative for right to left interatrial shunt. The left atrium is mildly enlarged. There is no sponatenous contrast in the left atrium. No thrombus is detected in the left atrial appendage. The right atrium is mildly enlarged. There is no sponatenous contrast in the right atrium. No RA / appendage thrombus identified. Mitral Valve There is mild mitral annular calcification. Moderate diffuse mitral valve thickening. 2D echocardiographic images c/w a small mobile echodensity on the atrial aspect of the mitral valve appearing c/w a ruptured chordae tendonae. Mild mitral valve prolapse. Mild-Moderate (1-2+) mitral valve insufficiency. Tricuspid Valve Normal tricuspid valve. Mild tricuspid valve insufficiency. Aortic Valve 2D echocardiographic images c/w a bicuspid aortic valve with a fused raphe with associated diffuse thickening, severe focal calcification, partial restriction / stenosis considered severe by planimetry (0.7 cm Pulmonic Valve The pulmonic valve is not well visualized. Vessels Borderline enlarged appearing aortic root / ascending aorta. Normal apearing descending thoracic aorta. Pericardium No pericardial effusion. Interpretation Summary Left ventricular systolic function is normal. The estimated ejection fraction is 65 %. The left atrium is mildly enlarged. There is no sponatenous contrast in the left atrium. No thrombus is detected in the left atrial appendage. The right atrium is mildly enlarged. There is mild mitral annular calcification. Moderate diffuse mitral valve thickening. Mild mitral valve prolapse. 2D echocardiographic images c/w a small mobile echodensity on the atrial aspect of the mitral valve appearing c/w a ruptured chordae tendonae. Mild-Moderate (1-2+) mitral valve insufficiency. Mild tricuspid valve insufficiency. 2D echocardiographic images c/w a bicuspid aortic valve with a fused raphe with associated diffuse thickening, severe focal calcification, partial restriction / stenosis considered severe by planimetry (0.7 cm Trivial aortic valve insufficiency. Bubble contrast study negative for right to left interatrial shunt. Borderline enlarged appearing aortic root / ascending aorta. Normal apearing descending thoracic aorta. Ordering Physician: Jose Luis Donahue Referring Physician: Nata Welsh Performed By: Charla Wray, MC, RVT 04/27/16 1004 Date Jose Luis Donahue MD CC: Nata Welsh; Jose Luis Donahue MD Date Dictated: 04/06/16 0936 Date Transcribed: 04/06/16 1314 Case Monitor: Signed Nata Welsh Work Phone: Start: 04-25-2016 End: 04-25-2016 *BMP Jose Luis Donahue MD Start: 04-25-2016 End: 06-08-2016 *CBC with Differential Jose Luis Donahue MD Start: 04-25-2016 End: 04-25-2016 aPTT in Platelet poor plasma by Coagulation assay Jose Luis Donahue MD Start: 04-25-2016 End: 06-08-2016 Ecg routine ecg w/least 12 lds w/i&r Jose Luis Donahue MD Start: 04-25-2016 End: 04-25-2016 Follow Up Appt 6 weeks Jose Luis Donahue MD Start: 04-25-2016 End: 04-25-2016 INR in Platelet poor plasma by Coagulation assay Jose Luis Donahue MD Start: 04-25-2016 End: 06-08-2016 Left & Right Heart Cath Jose Luis Donahue MD Start: 04-25-2016 End: 04-25-2016 MMM Jose Luis Donahue MD Start: 04-07-2016 End: 04-25-2016 *BMP Jose Luis Donahue MD Start: 04-07-2016 End: 04-25-2016 aPTT in Platelet poor plasma by Coagulation assay Jose Luis Donahue MD Start: 04-07-2016 End: 04-25-2016 CBC W Auto Differential panel - Blood Jose Luis Donahue MD Start: 04-07-2016 End: 04-25-2016 INR in Platelet poor plasma by Coagulation assay Jose Luis Donahue MD Start: 04-07-2016 End: 06-08-2016 Left & Right Heart Cath Jose Luis Donahue MD Start: 04-06-2016 End: 04-06-2016 Echo Transesophageal (IRMA) Comments: See Note; NOTES: [facility] Cardiovascular Services [address] [place] [id number] Echo Transesophageal (IRMA) 04/06/16 0936 MR#: [id number] Acct: [id number] Name: JASMIN HUTCHINSON Rep #: [id number] : 1950 65 From: Jose Luis Donahue MD Attending Dr: Jose Luis Donahue MD Status: REG CLI Ordering Dr: Jose Luis Donahue MD Date: 04/06/16 Location: [facility] Sex: F C Admitted: Reason For Study: Aortic valve stenosis Medication IRMA probe passed with minimal difficulty. Cetacaine Topical Nucla given X4 orally. Versed 2 mg given slow IVP. Fentanyl 100 mcg given slow IVP. Performed a rapid injection of agitated mix of 9 cc saline and 1cc air to assess for atrial septal defect. Left Ventricle Left ventricular systolic function is normal. The estimated ejection fraction is 65 %. No regional wall motion abnormalities noted. Right Ventricle Normal systolic function. Atria No doppler evidence for ASD. Bubble contrast study negative for right to left interatrial shunt. The left atrium is mildly enlarged. There is no sponatenous contrast in the left atrium. No thrombus is detected in the left atrial appendage. The right atrium is mildly enlarged. There is no sponatenous contrast in the right atrium. No RA / appendage thrombus identified. Mitral Valve There is mild mitral annular calcification. Moderate diffuse mitral valve thickening. 2D echocardiographic images c/w a small mobile echodensity on the atrial aspect of the aortic valve appearing c/w a ruptured chordae tendonae. Mild mitral valve prolapse. Mild-Moderate (1-2+) mitral valve insufficiency. Tricuspid Valve Normal tricuspid valve. Mild tricuspid valve insufficiency. Aortic Valve 2D echocardiographic images c/w a bicuspid aortic valve with a fused raphe with associated diffuse thickening, severe focal calcification, partial restriction / stenosis considered severe by planimetry (0.7 cm Pulmonic Valve The pulmonic valve is not well visualized. Vessels Borderline enlarged appearing aortic root / ascending aorta. Normal apearing descending thoracic aorta. Pericardium No pericardial effusion. Interpretation Summary Left ventricular systolic function is normal. The estimated ejection fraction is 65 %. The left atrium is mildly enlarged. There is no sponatenous contrast in the left atrium. No thrombus is detected in the left atrial appendage. The right atrium is mildly enlarged. There is mild mitral annular calcification. Moderate diffuse mitral valve thickening. Mild mitral valve prolapse. 2D echocardiographic images c/w a small mobile echodensity on the atrial aspect of the aortic valve appearing c/w a ruptured chordae tendonae. Mild-Moderate (1-2+) mitral valve insufficiency. Mild tricuspid valve insufficiency. 2D echocardiographic images c/w a bicuspid aortic valve with a fused raphe with associated diffuse thickening, severe focal calcification, partial restriction / stenosis considered severe by planimetry (0.7 cm Trivial aortic valve insufficiency. Bubble contrast study negative for right to left interatrial shunt. Borderline enlarged appearing aortic root / ascending aorta. Normal apearing descending thoracic aorta. Ordering Physician: Jose Luis Donahue Referring Physician: Nata Welsh Performed By: Charla Wray, MC, RVT 04/06/16 1314 Date Jose Luis Donahue MD CC: Nata Welsh; Jose Luis Donahue MD Date Dictated: 04/06/16 0936 Date Transcribed: 04/06/16 1314 Case Monitor: Signed Nata Welsh Work Phone: Start: 03-10-2016 End: 03-10-2016 *BMP Jose Luis Donahue MD Start: 03-10-2016 End: 03-10-2016 CBC W Auto Differential panel - Blood Jose Luis Donahue MD Start: 03-10-2016 End: 06-08-2016 Chest x-ray Jose Luis Donahue MD Start: 03-10-2016 End: 06-08-2016 Ecg routine ecg w/least 12 lds w/i&r Jose Luis Donahue MD Start: 03-10-2016 End: 03-10-2016 Follow Up Appt 3 months Jose Luis Donahue MD Start: 03-10-2016 End: 03-10-2016 PFM Jose Luis Donahue MD Start: 03-10-2016 End: 03-10-2016 Thyrotropin [Units/volume] in Serum or Plasma Jose Luis Donahue MD Start: 03-10-2016 End: 03-10-2016 Thyroxine (T4) [Mass/volume] in Serum or Plasma Jose Luis Donahue MD Start: 03-10-2016 End: 06-08-2016 Transesophageal echocardiogram (IRMA) Jose Luis Donahue MD Start: 03-10-2016 End: 03-10-2016 Chest PA and Lateral Comments: See Note; NOTES: [facility] Imaging Services [address] [place] [address] Verdana 4d Chest PA and Lateral MR#: [id number] Acct: [id number] Name: JASMIN HUTCHINSON Rep #: [id number] : 1950 F 65 From: Mukesh Madera MD PCP: Nata Welsh Status: REG CLI Study: Chest PA and Lateral Date of Exam: 03/10/16 Exam# [id number] Ordering Dr: Jose Luis Donahue MD STUDY: X-RAY CHEST REASON FOR EXAM: Female, 65 years old. Aortic valve stenosis TECHNIQUE: PA and lateral views of the chest. COMPARISON: None. FINDINGS: The lungs are clear and expanded. There is hemidiaphragmatic pleural tenting consistent with sequelae of old infectious or inflammatory process. Normal size heart. Normal mediastinum and kevan. Normal visualized pulmonary arteries. Normal visualized aortic arch and descending thoracic aorta. There are diffuse degenerative changes of the visualized thoracic spine. Normal visualized ribs, clavicles, and shoulders. There is no demonstrated abnormality of the visualized soft tissue structures of the upper abdomen. IMPRESSION: Hemidiaphragmatic pleural tenting which may represent sequelae of old infectious or inflammatory process. Degenerative changes of the thoracic spine. No active pulmonary disease process is seen. Electronically Signed: Mukesh Madera MD at 16:47 EDT , Service support [phone], RAD/Chest PA and Lateral IMPRESSION: Hemidiaphragmatic pleural tenting which may represent sequelae of old infectious or inflammatory process. Degenerative changes of the thoracic spine. No active pulmonary disease process is seen. Electronically Signed: Mukesh Madera MD at 16:47 EDT , Service support [phone], CC: Nata Welsh; Jose Luis Donahue MD Case Monitor: Signed Nata Welsh Work Phone: Start: 03-01-2016 End: 03-01-2016 Echocardiogram Complete Comments: See Note; NOTES: [facility] Cardiovascular Services [address] [place] [address] Echo Complete 03/01/16 1028 MR#: [id number] Acct: [id number] Name: JASMIN HUTCHINSON Rep #: [id number] : 1950 65 From: Jose Luis Donahue MD Attending Dr: Nata Welsh Status: REG CLI Ordering Dr: Nata Welsh Date: 03/01/16 Location: [facility] Sex: F C Admitted: Reason For Study: MURMUR Procedure This was a 2D Doppler, Color Flow transthoracic echocardiogram. The exam was of fair technical quality due to diminished acoustic windows. The study was technically difficult. Exam performed in department. Left Ventricle Normal LV size. Mild concentric left ventricular hypertrophy. Apical false tendon noted. Left ventricular systolic function is normal. The estimated ejection fraction is 70 %. No regional wall motion abnormalities noted. Right Ventricle Normal RV size. Normal systolic function. Atria Normal left atrium. Normal right atrium. No doppler evidence for ASD. Mitral Valve There is mild mitral annular calcification. Mild diffuse mitral valve thickening. Mild focal mitral valve calcification of the anterior leaflet. Mild (1+) mitral valve insufficiency. Tricuspid Valve Normal tricuspid valve. Mild tricuspid valve insufficiency. Right ventricular systolic pressure estimated to be 35 mmHg. Aortic Valve The aortic valve apparatus is not well visualized in the short axis view, however, based upon the 2D echocardiographic images obtained there appears to be moderate diffuse thickening, moderate to severe focal calcification, and partial restriction of the aortic valve. Severe to critical aortic valve stenosis. Trivial aortic valve insufficiency. Pulmonic Valve The pulmonic valve is not well visualized. Great Vessels Normal sized aortic root. Pericardium/Pleural No pericardial effusion. MMode/2D Measurements AND Calculations LVIDd: 3.6 cm IVSd: 1.4 cm LVOT diam: 1.8 cm LVIDs: 1.4 cm LVPWd: 1.4 cm LVOT area: 2.4 cm2 RVDd: 2.2 cm FS: 61.2 % __ Ao root diam: 3.5 cm LAV(MOD-bp): 42.4 ml LA A4 area: 16.6 cm2 LA dimension: 2.5 cm LAV(MOD-bp) Indexed: 27.2 ml/m2 LAV(MOD-sp2): 35.6 ml LAV(MOD-sp4): 47.3 ml __ RA A4 area: 14.1 cm2 Doppler Measurements AND Calculations MV E max terry: 78.2 cm/sec Lat Peak E' Terry: 6.3 cm/sec Med Peak E' Terry: 6.5 cm/sec MV A max terry: 99.7 cm/sec E/E' lat: 12.4 E/E' med: 12.0 MV E/A: 0.78 __ Ao V2 max: 544.3 cm/sec AI max terry: 349.8 cm/sec LV V1 max: 113.2 cm/sec Ao max P.6 mmHg AI max P.9 mmHg LV V1 max P.1 mmHg Ao V2 mean: 359.1 cm/sec AI dec slope: 109.8 cm/sec2 LV V1 mean P.7 mmHg Ao mean P.3 mmHg AI P1/2t: 933.1 msec LV V1 mean: 77.7 cm/sec Ao V2 VTI: 107.6 cm LV V1 VTI: 25.2 cm TONI(I,D): 0.57 cm2 TONI(V,D): 0.51 cm2 __ SV(LVOT): 61.5 ml PA V2 max: 104.7 cm/sec TR max terry: 273.7 cm/sec TR max P.0 mmHg Interpretation Summary The study was technically difficult. Left ventricular systolic function is normal. The estimated ejection fraction is 70 %. Mild concentric left ventricular hypertrophy. Apical false tendon noted. There is mild mitral annular calcification. Mild diffuse mitral valve thickening. Mild focal mitral valve calcification of the anterior leaflet. Mild (1+) mitral valve insufficiency. Mild tricuspid valve insufficiency. Severe to critical aortic valve stenosis. Trivial aortic valve insufficiency. Right ventricular systolic pressure estimated to be 35 mmHg. Late peaking spectral doppler pattern in the left ventricule approaching 2.7 m/sec (PG of 29 mmHg) c/w a hyperdynamic state. Ordering Physician: Nata Welsh Performed By: Stephy Nguyễn RVT 03/01/16 1211 Date Jose Luis Donahue MD CC: Nata Anitha Date Dictated: 03/01/16 1028 Date Transcribed: 03/01/16 1211 Case Monitor: Signed Nata Welsh Work Phone: Operation on heart valve Tra pablo Moulton LPN Comment on above: 07/01 Plan of Treatment Date Care Activity Detail Author Start: 06-25-2028 Colonoscopy COLONOSCOPY [facility] Start: 06-25-2028 COLORECTAL CANCER SCREENING COLORECTAL CANCER SCREENING [facility] Start: 06-25-2028 Screening for malignant neoplasm of colon [facility] Start: 2027 RSV Vaccine (1 - 1-dose 75+ series) RSV Vaccine (1 - 1-dose 75+ series) [facility] Start: 08-22-2025 DIABETES SCREEN DIABETES SCREEN [facility] Start: 08-22-2025 Diabetes Screening Diabetes Screening [facility] Start: 08-10-2025 DIABETES SCREEN DIABETES SCREEN [facility] Start: 06-16-2025 Influenza vaccination Influenza Vaccine (Season Ended) [facility] Start: 10-16-2024 Advance Directive Discussion Advance Directive Discussion [facility] Start: 06-16-2024 Covid-19 Vaccine ( season) Covid-19 Vaccine ( season) [facility] Start: 06-16-2023 Influenza [facility] Start: 10-16-2022 ADVANCE DIRECTIVE DISCUSSION ADVANCE DIRECTIVE DISCUSSION [facility] Start: 10-16-2022 DEPRESSION ASSESSMENT DEPRESSION ASSESSMENT [facility] Start: 08-23-2022 LIPID SCREEN LIPID SCREEN [facility] Start: 08-10-2022 Urnls dip stick/tablet rgnt non-auto w/o micrscp Urinalysis, Office (72025) [facility]; [facility] Work Phone: Start: 08-10-2022 Procedure Education Eprescribed prescriptions (G8553) [facility]; [facility] Work Phone: Start: 08-10-2022 Blood count complete auto&auto difrntl wbc CBC W/AUTO DIFF WBC (83587) [facility]; [facility] Work Phone: Start: 08-10-2022 Comprehensive metabolic panel METABOLIC PANEL, COMPREHENSIVE (70867) [facility]; [facility] Work Phone: Start: 08-10-2022 Lipid panel LIPID PANEL (95504) [facility]; [facility] Work Phone: Start: 08-09-2022 End: 10-09-2022 aPTT in Platelet poor plasma by Coagulation assay ACTIVATED PTT Lab Routine Preoperative clearance Spinal stenosis of cervical region Injury, unspecified, initial encounter Expected: 08/09/2022, Expires: 10/09/2022 [facility] Work Phone: Comment on above: Expected: 08/09/2022, Expires: 2 Start: 08-09-2022 End: 10-09-2022 Bacteria identified in Urine by Culture URINE CULTURE Microbiology Routine Preoperative clearance Spinal stenosis of cervical region Other abnormal findings in urine Expected: 08/09/2022, Expires: 10/09/2022 [facility] Work Phone: Comment on above: Expected: 08/09/2022, Expires: 2 Start: 08-09-2022 End: 10-09-2022 CBC panel - Blood by Automated count CBC Lab Routine Preoperative clearance Spinal stenosis of cervical region Expected: 08/09/2022, Expires: 10/09/2022 [facility] Work Phone: Comment on above: Expected: 08/09/2022, Expires: 2 Start: 08-09-2022 End: 10-09-2022 Comprehensive metabolic 2000 panel - Serum or Plasma COMP METABOLIC PANEL Lab Routine Preoperative clearance Spinal stenosis of cervical region Expected: 08/09/2022, Expires: 10/09/2022 [facility] Work Phone: Comment on above: Expected: 08/09/2022, Expires: 2 Start: 08-09-2022 End: 10-09-2022 PT panel - Platelet poor plasma by Coagulation assay PROTHROMBIN TIME/PT Lab Routine Preoperative clearance Spinal stenosis of cervical region Edema, unspecified type Expected: 08/09/2022, Expires: 10/09/2022 [facility] Work Phone: Comment on above: Expected: 08/09/2022, Expires: 2 Start: 08-09-2022 End: 10-09-2022 STAPH AUREUS PCR STAPH AUREUS PCR Lab Routine Preoperative clearance Spinal stenosis of cervical region Expected: 08/09/2022, Expires: 10/09/2022 [facility] Work Phone: Comment on above: Expected: 08/09/2022, Expires: 2 Start: 08-09-2022 End: 10-09-2022 TYPE AND SCREEN,30 DAY TYPE AND SCREEN,30 DAY Blood Bank Routine Preoperative clearance Spinal stenosis of cervical region Expected: 08/09/2022, Expires: 10/09/2022 [facility] Work Phone: Comment on above: Expected: 08/09/2022, Expires: 2 Start: 08-09-2022 End: 10-09-2022 Urinalysis complete panel - Urine URINALYSIS, WITH MICROSCOPIC Lab Routine Preoperative clearance Spinal stenosis of cervical region Expected: 08/09/2022, Expires: 10/09/2022 [facility] Work Phone: Comment on above: Expected: 08/09/2022, Expires: 2 Start: 08-05-2022 End: 10-05-2022 CONFIRM BLOOD TYPE CONFIRM BLOOD TYPE Blood Bank Routine Preop testing Expected: 08/05/2022, Expires: 10/05/2022 [facility] Work Phone: Comment on above: Expected: 08/05/2022, Expires: 2 Start: 08-05-2022 End: 08-05-2023 SARS-CoV-2 (COVID-19) RNA [Presence] in Respiratory specimen by MIRZA with probe detection PRE-PROCEDURE & PRE-OPERATIVE COVID Microbiology Routine Preoperative clearance Spinal stenosis of cervical region Expected: 08/05/2022, Expires: 08/05/2023 [facility] Work Phone: Comment on above: Expected: 08/05/2022, Expires: 3 Start: 06-16-2022 Influenza vaccination INFLUENZA (#1) [facility] Start: 05-27-2022 Mammography [facility] Start: 05-27-2022 Screening for malignant neoplasm of breast Mammogram Screening [facility] Start: 04-12-2022 [place] [employer] [facility] Work Phone: Start: 04-12-2022 Thiamine measurement [facility] Work Phone: Start: 10-16-2021 ADVANCE DIRECTIVE DISCUSSION ADVANCE DIRECTIVE DISCUSSION [facility] Start: 10-16-2021 DEPRESSION ASSESSMENT DEPRESSION ASSESSMENT [facility] Start: 09-06-2021 Procedure Education Eprescribed prescriptions (G8553) [facility]; [facility] Work Phone: Start: 09-06-2021 Provider Instructions for Treatment Follow up in 6 months [facility]; [facility] Work Phone: Start: 07-11-2021 Lipid 1996 panel - Serum or Plasma Lipid Screening [facility] Start: 07-11-2021 Lipid panel Lipid Screening [facility] Start: 06-01-2021 Procedure Education Eprescribed prescriptions (G8553) [facility]; [facility] Work Phone: Start: 06-01-2021 Provider Instructions for Treatment [facility]; [facility] Work Phone: Start: 01-18-2019 LIPID SCREEN LIPID SCREEN [facility] Start: 2017 BONE DENSITY BONE DENSITY [facility] Start: 2017 Bone Density Screening Bone Density Screening [facility] Start: 2017 Pneumococcal Vaccine: 65+ (1 - PCV) Pneumococcal Vaccine: 65+ (1 - PCV) [facility] Start: 2017 PNEUMOCOCCAL: 65+ (1 - PCV) PNEUMOCOCCAL: 65+ (1 - PCV) [facility] Start: 2017 Screening for osteoporosis Bone Density Screening [facility] Start: 09-04-2017 End: 09-04-2017 Appointment [facility] Work Phone: Start: 03-06-2017 End: 03-06-2017 *Hepatic Function Panel *Hepatic Function Panel [facility] Work Phone: Start: 03-06-2017 End: 08-23-2017 Follow Up Appt 6 months Follow Up Appt 6 months [facility] Work Phone: Start: 03-06-2017 End: 03-06-2017 Lipid panel [AGGREGATE] *Lipid Profile CC PCP [facility] Work Phone: Start: 03-06-2017 End: 08-23-2017 MMM MMM [facility] Work Phone: Start: 01-18-2017 DIABETES SCREEN DIABETES SCREEN [facility] Start: 09-15-2016 End: 09-20-2016 Echocardiography Echocardiogram (complete) [facility] Work Phone: Start: 09-15-2016 End: 09-15-2016 Follow Up Appt 3 months Follow Up Appt 3 months [facility] Work Phone: Start: 09-15-2016 End: 09-15-2016 Follow Up Appt 9 months Follow Up Appt 9 months [facility] Work Phone: Start: 09-15-2016 End: 09-15-2016 MMM MMM [facility] Work Phone: Start: 09-15-2016 End: 09-15-2016 PFM PFM [facility] Work Phone: Start: 09-13-2016 Cytp cerv/vag auto thin layer prep mnl screen Thin prep Pap (39834) (no STD testing) [facility]; [facility] Work Phone: Start: 09-13-2016 Provider Instructions for Treatment [facility]; [facility] Work Phone: Start: 08-12-2016 Hepatic function panel HEPATIC FUNCTION PANEL (51550) [facility]; [facility] Work Phone: Start: 08-09-2016 Procedure Education Eprescribed prescriptions (G8553) [facility]; [facility] Work Phone: Start: 08-09-2016 Provider Instructions for Treatment Follow up in 3 months for well woman pap [facility]; [facility] Work Phone: Start: 07-11-2016 End: 08-23-2017 *Hepatic Function Panel *Hepatic Function Panel [facility] Work Phone: Start: 07-11-2016 End: 07-11-2016 Card[facility] [address] [place], [address] [facility] Work Phone: Start: 07-11-2016 End: 07-12-2016 Cardiovascular stress test using treadmill Treadmill stress test (no imaging) [facility] Work Phone: Start: 07-11-2016 End: 07-11-2016 Ecg routine ecg w/least 12 lds w/i&r EKG (In office) [facility] Work Phone: Start: 07-11-2016 End: 07-11-2016 Follow Up Appt 3 months Follow Up Appt 3 months [facility] Work Phone: Start: 07-11-2016 End: 08-23-2017 Lipid panel [AGGREGATE] *Lipid Profile CC PCP [facility] Work Phone: Start: 07-11-2016 End: 07-11-2016 MMM MMM [facility] Work Phone: Start: 06-24-2016 Patient Education Bacteria in Urine, No Symptoms (Asymptomatic Bacteriuria): uti [facility]; [facility] Work Phone: Start: 06-24-2016 Procedure Education Eprescribed prescriptions (G8553) [facility]; [facility] Work Phone: Start: 05-04-2016 Provider Instructions for Treatment [facility]; [facility] Work Phone: Start: 04-25-2016 End: 04-25-2016 *BMP *BMP [facility] Work Phone: Start: 04-25-2016 End: 06-08-2016 *CBC with Differential *CBC with Differential [facility] Work Phone: Start: 04-25-2016 End: 04-25-2016 aPTT *PTT-Partial Thromboplastin Time [facility] Work Phone: Start: 04-25-2016 End: 06-08-2016 Ecg routine ecg w/least 12 lds w/i&r EKG (In office) [facility] Work Phone: Start: 04-25-2016 End: 04-25-2016 Follow Up Appt 6 weeks Follow Up Appt 6 weeks [facility] Work Phone: Start: 04-25-2016 End: 04-25-2016 INR Coag RelTime (PPP) *PT/INR [facility] Work Phone: Start: 04-25-2016 End: 04-25-2016 Left & Right Heart Cath Left & Right Heart Cath [facility] Work Phone: Start: 04-25-2016 End: 04-25-2016 MMM MMM [facility] Work Phone: Start: 04-07-2016 End: 04-25-2016 *BMP *BMP [facility] Work Phone: Start: 04-07-2016 End: 04-25-2016 aPTT *PTT-Partial Thromboplastin Time [facility] Work Phone: Start: 04-07-2016 End: 04-25-2016 CBC W Auto Differential panel - Blood *CBC without Diff [facility] Work Phone: Start: 04-07-2016 End: 04-25-2016 INR Coag RelTime (PPP) *PT/INR [facility] Work Phone: Start: 04-07-2016 End: 04-07-2016 Left & Right Heart Cath Left & Right Heart Cath [facility] Work Phone: Start: 03-18-2016 Comprehensive metabolic panel Metabolic Panel, Comprehensive (14385) [facility]; [facility] Work Phone: Start: 03-18-2016 Lipid panel LIPID PANEL (47234) [facility]; [facility] Work Phone: Start: 03-10-2016 End: 03-10-2016 *BMP *BMP [facility] Work Phone: Start: 03-10-2016 End: 03-10-2016 CBC W Auto Differential panel - Blood *CBC without Diff [facility] Work Phone: Start: 03-10-2016 End: 06-08-2016 Chest x-ray X-Ray, Chest, PA & Lateral [facility] [facility] Work Phone: Start: 03-10-2016 End: 06-08-2016 Ecg routine ecg w/least 12 lds w/i&r EKG (In office) [facility] Work Phone: Start: 03-10-2016 End: 03-10-2016 Follow Up Appt 3 months Follow Up Appt 3 months [facility] Work Phone: Start: 03-10-2016 End: 03-10-2016 PFM PFM [facility] Work Phone: Start: 03-10-2016 End: 03-10-2016 Thyroid stimulating hormone (TSH) *TSH [facility] Work Phone: Start: 03-10-2016 End: 03-10-2016 Thyroxine (T4) *T4 (Total) [facility] Work Phone: Start: 03-10-2016 End: 03-10-2016 Transesophageal echocardiogram (IRMA) Transesophageal echocardiogram (IRMA) [facility] Work Phone: Start: 03-02-2016 Procedure Education Eprescribed prescriptions ([id number]) [facility] Work Phone: Start: 03-02-2016 Provider Instructions for Treatment Follow up if no improvement or if symptoms worsen [facility] Work Phone: Start: 02-12-2016 Provider Instructions for Treatment Follow up - Make appt after diagnostic tests [facility] Work Phone: Start: 2012 RSV Vaccine (1 - 1-dose 60+ series) RSV Vaccine (1 - 1-dose 60+ series) [facility] Start: 2002 Pneumococcal Vaccine: 50+ (1 of 1 - PCV) Pneumococcal Vaccine: 50+ (1 of 1 - PCV) [facility] Start: 2002 SHINGRIX VACCINE (1 of 2) SHINGRIX VACCINE (1 of 2) [facility] Start: 1997 COLOGUARD (FIT-DNA) COLOGUARD (FIT-DNA) [facility] Start: [address] COLONOGRAPHY [facility] Start: 1997 FECAL OCCULT BLOOD FECAL OCCULT BLOOD [facility] Start: 1997 Screening for malignant neoplasm of colon [facility] Start: 1997 SIGMOIDOSCOPY SIGMOIDOSCOPY [facility] Start: 1971 Urine microalbumin profile [facility] Start: 1970 Anxiety Screening Anxiety Screening [facility] Start: 1970 Depression Screening Depression Screening [facility] Start: 1970 HEPATITIS C SCREENING HEPATITIS C SCREENING [facility] Start: 1970 Hepatitis C screening Hepatitis C Screening [facility] Start: 05-30-1951 COVID-19 VACCINE (#1) COVID-19 VACCINE (#1) [facility] CONFIRM BLOOD TYPE CONFIRM BLOOD TYPE Blood Bank Routine Preop testing 08/10/2022 11:49 AM EDT [facility] Work Phone: End: 09-03-2023 Ct cervical spine w/o contrast material CT CERVICAL SPINE WO IVCON Radiology Routine Spinal stenosis in cervical region 1 Occurrences starting 08/04/2022 until 09/03/2023 [facility] Work Phone: Comment on above: 1 Occurrences starting 08/04/2022 until 09/03/2023 End: 08-10-2022 Ct cervical spine w/o contrast material [facility] Work Phone: Comment on above: 1 Occurrences starting 08/10/2022 until 08/10/2022 End: 10-01-2023 Ct cervical spine w/o contrast material CT CERVICAL SPINE WO IVCON Radiology Routine Spinal stenosis of cervical region 1 Occurrences starting 09/01/2022 until 10/01/2023 [facility] Work Phone: Comment on above: 1 Occurrences starting 09/01/2022 until 10/01/2023 End: 10-02-2023 Ct cervical spine w/o contrast material CT CERVICAL SPINE WO IVCON Radiology Routine Spinal stenosis of cervical region 1 Occurrences starting 10/20/2022 until 10/02/2023 [facility] Work Phone: Comment on above: 1 Occurrences starting 10/20/2022 until 10/02/2023 End: 09-03-2023 Ct thoracic spine w/o contrast material CT THORACIC SPINE WO IVCON Radiology Routine Spinal stenosis of thoracic region 1 Occurrences starting 08/04/2022 until 09/03/2023 [facility] Work Phone: Comment on above: 1 Occurrences starting 08/04/2022 until 09/03/2023 End: 08-10-2022 Ct thoracic spine w/o contrast material [facility] Work Phone: Comment on above: 1 Occurrences starting 08/10/2022 until 08/10/2022 End: 08-05-2023 ECG COMPLETE ECG COMPLETE ECG Routine Preoperative clearance Spinal stenosis of cervical region 1 Occurrences starting 08/05/2022 until 08/05/2023 [facility] Work Phone: Comment on above: 1 Occurrences starting 08/05/2022 until 08/05/2023 H&P for surgery H&P FOR SURGERY Procedures Routine Preoperative clearance Spinal stenosis of cervical region Ordered: 08/05/2022 [facility] Work Phone: Comment on above: Ordered: 08/05/2022 Influenza virus A an d B RNA and SARS-CoV-2 (COVID-19) N gene panel - Respiratory specimen by MIRZA with probe detection COVID WITH FLUA+B, ROUTINE Microbiology Routine Exposure to SARS-associated coronavirus 10/27/2022 11:44 AM EST [facility] Work Phone: [place]/lambda light c harmeet ratio [facility] Work Phone: Lambda light chains. free [Mass/volume] in Serum or Plasma [facility] Work Phone: Lipid 1996 panel - S adam or Plasma [facility] Work Phone: MR Cervical spine WO and W contrast IV [facility] Work Phone: Patient Education ED Vertigo, Unspecified [facility] Work Phone: Patient referral [facility] Work Phone: PT PLAN OF CARE CERTIFICATION PT PLAN OF CARE CERTIFICATION Procedures Routine Spinal stenosis of cervical region Ordered: 09/12/2022 [facility] Work Phone: Comment on above: Ordered: 09/12/2022 PT PLAN OF CARE CERTIFICATION PT PLAN OF CARE CERTIFICATION Procedures Routine Spinal stenosis of cervical region Ordered: 10/11/2022 [facility] Work Phone: Comment on above: Ordered: 10/11/2022 PT PLAN OF CARE CERTIFICATION PT PLAN OF CARE CERTIFICATION Procedures Routine Spinal stenosis of cervical region Ordered: 2022 [facility] Work Phone: Comment on above: Ordered: 2022 End: 09-01-2022 Radex spine cervical 2 or 3 views [facility] Work Phone: Comment on above: 1 Occurrences starting 09/01/2022 until 09/01/2022 End: 10-02-2023 Radex spine cervical 2 or 3 views XR CERV GENERAL 2V AP/LAT Radiology Routine Spinal stenosis of cervical region 1 Occurrences starting 10/20/2022 until 10/02/2023 [facility] Work Phone: Comment on above: 1 Occurrences starting 10/20/2022 until 10/02/2023 End: 09-01-2023 Radex spine cervical 4 or 5 views XR CERV OTHER 4V AP/LAT/FLX/EXT Radiology Routine Cervical spondylosis Spinal stenosis in cervical region 1 Occurrences starting 08/02/2022 until 09/01/2023 [facility] Work Phone: Comment on above: 1 Occurrences starting 08/02/2022 until 09/01/2023 End: 09-05-2023 Radiologic exam chest 2 views XR CHEST 2V FRONTAL/LAT Radiology Routine Preoperative clearance Spinal stenosis of cervical region 1 Occurrences starting 08/05/2022 until 09/05/2023 [facility] Work Phone: Comment on above: 1 Occurrences starting 08/05/2022 until 09/05/2023 Removal impacted cer umen irrigation/lvg unilat AMBULATORY EAR LAVAGE/IRRIGATION Procedures Routine Impacted cerumen of right ear Ordered: 02/25/2025 [facility] Work Phone: Comment on above: Ordered: 02/25/2025 Thiamine measurement [facility] Work Phone: Urine kappa light ch ain measurement [facility] Work Phone: [facility] Work Phone: [facility] Work Phone: [facility] Work Phone: [facility] Work Phone: [facility] Payers Date Payer Category Payer Self-pay [id number] 2020 Medicare [id number] 2019 Private Health Insurance MMO MED ICARE SUPPLEMENT [id number] 2019 Unknown 2019 Unknown [id number] 2017 Medicare [id number] 2017 Medicare [id number] 2015 Unknown [id number] 1950 Unknown [id number] Unknown [id number] Unknown [id number] Unknown [id number] Unknown [id number] Unknown [id number] Unknown [id number] Social History Date Type Detail Facility Alcohol use: [facility] use: [facility] Work Phone: Tobacco use: Tobacco use: [facility] Work Phone: Start: 04-11-2022 End: 10-27-2023 Tobacco smoking status NHIS Unknown if ever smoked [facility] Start: 04-29-2016 None [facility] Start: 04-29-2016 Spouse/ Signif icant Other [facility] Start: 05-20-2016 Non-smoker [facility] Start: 1950 Sex Assigned At Female [facility] Start: 03-19-2012 End: 10-27-2023 Tobacco smoking status NHIS Never smoked tobacco [facility] Start: 03-19-2012 Tobacco use and exposure Smokeless tobacco non-user [facility] Start: 06-11-2021 End: 03-02-2023 Alcohol intake Current non-drinker of alcohol (finding) [facility] Start: 1950 Sex Assigned At Not on file [facility] Start: 07-25-2022 End: 09-01-2022 Exposure to SARS-CoV-2 (event) Not sure [facility] Start: 09-01-2022 End: 03-02-2023 History of Social function [facility] Start: 09-01-2022 End: 03-02-2023 Tobacco use panel [facility] National Score (1-100), lower number is lower risk Not on file [facility] Start: 01-10-2025 End: 01-15-2025 Sex Female (finding) [facility] Medical Equipment Procedure Code Equipment Code Equipment Origin al Text Equipment Identifier Dates Graft Bone 30cc 4mm-10mm Range Chips Crushed Cancellous - [id number] Start: 08-19-2022 Cap Quartex Lock ing Thread Spine - [id number] Start: 08-19-2022 Quartex Polyaxia l Screw 3.5mm X 20mm [id number] Start: 08-19-2022 Graft Bone Sub 1 0cc Dbm Putty Inert Reverse Phase Carrier Osteosparx - [id number] Start: 08-19-2022 Quartex Curved R od 4.0mm X 85mm [id number] Start: 08-19-2022 Quartex Polyaxia l Screw 5.0mm X 30mm [id number] Start: 08-19-2022 Quartex Curved R od 4mm X 80mm [id number] Start: 08-19-2022 Screw Quartex 3. 5mm 14mm Bone Polyaxial Spine - [id number] Start: 08-19-2022 Functional Status Date Assessment Result Facility 08-23-2022 Are you deaf, or do you have serious difficulty hearing Yes 08/23/2022 1:20 PM Cheryle Thakur RN Yes [facility] 08-23-2022 Are you blind, or do you have serious difficulty seeing, even when wearing glasses No 08/23/2022 1:20 PM Cheryle Thakur RN No [facility] 08-23-2022 Do you have serious difficulty walking or climbing stairs No 08/23/2022 1:20 PM Cheryle Thakur RN No [facility] 08-23-2022 Do you have difficul ty dressing or bathing No 08/23/2022 1:20 PM Cheryle Thakur RN No [facility] 08-23-2022 Because of a physica l, mental, or emotional condition, do you have difficulty doing errands alone such as visiting a physician's office or shopping No 08/23/2022 1:20 PM Cheryle Thakur RN No [facility] Mental Status Date Assessment Result Facility 10-21-2022 Cognitive function Level Of Cons ciousness Awake;Alert;Appropriate;Fol lows Commands [facility] Work Phone: 08-23-2022 Because of a physica l, mental, or emotional condition, do you have serious difficulty concentrating, remembering, or making decisions No 08/23/2022 1:20 PM Cheryle Thakur RN No [facility] Clinical Notes 06-16-2016 to 02-25-2025 Alesia Duong APRN.CNP - 02/25/2025 2:01 PM EDTBDanika saravia MA - 02/25/2025 1:22 PM EDT Note Date & Type Note Facility 02-25-2025 Note HNO ID: [id number] Author: ALESIA DUONG APRN.THANG Service: ? Author Type: Nurse Practitioner Type: Progress Notes Filed: 02/25/2025 14:09 Note Text: [facility] Subjective Jasmin Hutchinson is a 74 year old female. Patient presents with: Ear Problem: right ear feels plugged x 1 day 74 year old female with PMH hyperlipidemia presents for ear complaints. Acute onset X 1 day Right ear +feeling of fullness Reduced hearing Denies accompanying URI sx Denies cough Denies SOB Denies abdominal pain Denies N/V/D She wears hearing aids Denies using homeopathic or OTC The history is provided by the patient. No language arts teacher was used. Ear Problem There is pain in the right ear. This is a new problem. The current episode started yesterday. The problem occurs constantly. The problem has been gradually worsening. There has been no fever. The pain is at a severity of 4/10. The pain is moderate. Pertinent negatives include no abdominal pain, coughing, diarrhea, ear discharge, headaches, hearing loss, neck pain, rash, rhinorrhea, sore throat or vomiting. She has tried nothing for the symptoms. The treatment provided no relief. There is no history of a chronic ear infection, hearing loss or a tympanostomy tube. PAST MEDICAL HISTORY Diagnosis Date Bicuspid aortic valve s/p aortic valve replacement 2015 Cervical spondylosis without myelopathy Disorder of thyroid pt denies Heart murmur Mixed hyperlipidemia Osteopenia PAST SURGICAL HISTORY Procedure Laterality Date COLONOSCOPY FLX DX W/COLLJ SPEC WHEN PFRMD 06/25/2018 Colonoscopy HEART VALVE REPLACEMENT 09/16/2016 aortic valve replacement- pig valve ALLERGIES Morphine and Prednisone MEDICATIONS metoprolol succinate ER (TOPROL XL) 50 mg 24 hr tablet Take 1 tablet by mouth twice daily. atorvastatin (LIPITOR) 20 mg tablet Take 20 mg by mouth once daily. ubidecarenone Q-10 10 mg cap Take by mouth twice daily. ergocalciferol(VITAMIN D 400 UNIT CAP) 2000iu per day MULTIVITAMIN TAB Take one(1) tablet daily. CALCIUM 600 1,500 MG TAB Take one(1) tablet two(2) times daily. FAMILY HISTORY Problem Relation Age of Onset Heart Mother [place] Hypertension Mother Obese other (Lung Cancer) Father Heart Sister Open Heart Surgery Social History Tobacco Use Smoking status: Never Smokeless tobacco: Never Vaping Use Vaping status: Never Used Substance Use Topics Alcohol use: No Drug use: No Review of Systems Constitutional: Negative for activity change, appetite change, chills, fatigue and fever. HENT: Positive for ear pain. Negative for ear discharge, hearing loss, rhinorrhea and sore throat. Respiratory: Negative for cough. Cardiovascular: Negative for chest pain, palpitations and leg swelling. Gastrointestinal: Negative for abdominal pain, diarrhea and vomiting. Musculoskeletal: Negative for arthralgias, back pain, gait problem and neck pain. Skin: Negative for color change, pallor and rash. Allergic/Immunologic: Negative for environmental allergies, food allergies and immunocompromised state. Neurological: Negative for headaches. Hematological: Negative for adenopathy. Does not bruise/bleed easily. Psychiatric/Behavioral: Negative for agitation and behavioral problems. Objective BP 106/62 Pulse 82 Temp 36.2 ?C (97.2 ?F) Resp 16 Wt 54.8 kg (120 lb 13 oz) SpO2 97% BMI 21.40 kg/m? Physical Exam Vitals and nursing note reviewed. Constitutional: General: She is not in acute distress. Appearance: Normal appearance. She is normal weight. She is not ill-appearing, toxic-appearing or diaphoretic. HENT: Head: Normocephalic and atraumatic. Right Ear: Ear canal and external ear normal. Ears: Comments: Bilateral hearing aids Right EAC with impacted cerumen Nursing staff irrigates , (See their note) Cerumen impaction resolved Declines examination of left EAC (declines removing hearing aid) Nose: Nose normal. No congestion or rhinorrhea. Mouth/Throat: Mouth: Mucous membranes are moist. Pharynx: No oropharyngeal exudate or posterior oropharyngeal erythema. Eyes: General: Right eye: No discharge. Left eye: No discharge. Extraocular Movements: Extraocular movements intact. Conjunctiva/sclera: Conjunctivae normal. Pupils: Pupils are equal, round, and reactive to light. Cardiovascular: Rate and Rhythm: Normal rate and regular rhythm. Pulses: Normal pulses. Heart sounds: Normal heart sounds. No murmur heard. No friction rub. Pulmonary: Effort: Pulmonary effort is normal. No respiratory distress. Breath sounds: Normal breath sounds. No stridor. No wheezing, rhonchi or rales. Chest: Chest wall: No tenderness. Abdominal: General: Abdomen is flat. There is no distension. Palpations: Abdomen is soft. There is no mass. Tenderness: There is no abdominal tenderness. There is no right CVA tenderness, left CVA tenderness, guarding or (more content not included)... [facility] 02-25-2025 History of Present illness Narrative [facility] Subjective Jasmin Hutchinson is a 74 year old female. Patient presents with: Ear Problem: right ear feels plugged x 1 day 74 year old female with PMH hyperlipidemia presents for ear complaints. Acute onset X 1 day Right ear +feeling of fullness Reduced hearing Denies accompanying URI sx Denies cough Denies SOB Denies abdominal pain Denies N/V/D She wears hearing aids Denies using homeopathic or OTC The history is provided by the patient. No language arts teacher was used. Ear Problem There is pain in the right ear. This is a new problem. The current episode started yesterday. The problem occurs constantly. The problem has been gradually worsening. There has been no fever. The pain is at a severity of 4/10. The pain is moderate. Pertinent negatives include no abdominal pain, coughing, diarrhea, ear discharge, headaches, hearing loss, neck pain, rash, rhinorrhea, sore throat or vomiting. She has tried nothing for the symptoms. The treatment provided no relief. There is no history of a chronic ear infection, hearing loss or a tympanostomy tube. PAST MEDICAL HISTORY Diagnosis Date Bicuspid aortic valve s/p aortic valve replacement 2015 Cervical spondylosis without myelopathy Disorder of thyroid pt denies Heart murmur Mixed hyperlipidemia Osteopenia PAST SURGICAL HISTORY Procedure Laterality Date COLONOSCOPY FLX DX W/COLLJ SPEC WHEN PFRMD 06/25/2018 Colonoscopy HEART VALVE REPLACEMENT 09/16/2016 aortic valve replacement- pig valve ALLERGIES Morphine and Prednisone MEDICATIONS metoprolol succinate ER (TOPROL XL) 50 mg 24 hr tablet Take 1 tablet by mouth twice daily. atorvastatin (LIPITOR) 20 mg tablet Take 20 mg by mouth once daily. ubidecarenone Q-10 10 mg cap Take by mouth twice daily. ergocalciferol(VITAMIN D 400 UNIT CAP) 2000iu per day MULTIVITAMIN TAB Take one(1) tablet daily. CALCIUM 600 1,500 MG TAB Take one(1) tablet two(2) times daily. FAMILY HISTORY Problem Relation Age of Onset Heart Mother [place] Hypertension Mother Obese other (Lung Cancer) Father Heart Sister Open Heart Surgery Social History Tobacco Use Smoking status: Never Smokeless tobacco: Never Vaping Use Vaping status: Never Used Substance Use Topics Alcohol use: No Drug use: No Review of Systems Constitutional: Negative for activity change, appetite change, chills, fatigue and fever. HENT: Positive for ear pain. Negative for ear discharge, hearing loss, rhinorrhea and sore throat. Respiratory: Negative for cough. Cardiovascular: Negative for chest pain, palpitations and leg swelling. Gastrointestinal: Negative for abdominal pain, diarrhea and vomiting. Musculoskeletal: Negative for arthralgias, back pain, gait problem and neck pain. Skin: Negative for color change, pallor and rash. Allergic/Immunologic: Negative for environmental allergies, food allergies and immunocompromised state. Neurological: Negative for headaches. Hematological: Negative for adenopathy. Does not bruise/bleed easily. Psychiatric/Behavioral: Negative for agitation and behavioral problems. Objective BP 106/62 Pulse 82 Temp 36.2 C (97.2 F) Resp 16 Wt 54.8 kg (120 lb 13 oz) SpO2 97% BMI 21.40 kg/m Physical Exam Vitals and nursing note reviewed. Constitutional: General: She is not in acute distress. Appearance: Normal appearance. She is normal weight. She is not ill-appearing, toxic-appearing or diaphoretic. HENT: Head: Normocephalic and atraumatic. Right Ear: Ear canal and external ear normal. Ears: Comments: Bilateral hearing aids Right EAC with impacted cerumen Nursing staff irrigates , (See their note) Cerumen impaction resolved Declines examination of left EAC (declines removing hearing aid) Nose: Nose normal. No congestion or rhinorrhea. Mouth/Throat: Mouth: Mucous membranes are moist. Pharynx: No oropharyngeal exudate or posterior oropharyngeal erythema. Eyes: General: Right eye: No discharge. Left eye: No discharge. Extraocular Movements: Extraocular movements intact. Conjunctiva/sclera: Conjunctivae normal. Pupils: Pupils are equal, round, and reactive to light. Cardiovascular: Rate and Rhythm: Normal rate and regular rhythm. Pulses: Normal pulses. Heart sounds: Normal heart sounds. No murmur heard. No friction rub. Pulmonary: Effort: Pulmonary effort is normal. No respiratory distress. Breath sounds: Normal breath sounds. No stridor. No wheezing, rhonchi or rales. Chest: Chest wall: No tenderness. Abdominal: General: Abdomen is flat. There is no distension. Palpations: Abdomen is soft. There is no mass. Tenderness: There is no abdominal tenderness. There is no right CVA tenderness, left CVA tenderness, guarding or rebound. Hernia: No hernia is present. Musculoskeletal: General: No swelling, tenderness, deformity or signs of injury. Normal range of motion. Cervical back: Normal range of motion and neck supple. No rigidity. Right lower leg: No edema. Left lower leg: No edema. Lymphadenopathy: Cervical: No cervical adenopathy. Skin: General: Skin is warm and dry. Capillary Refill: Capillary refill takes less than 2 seconds. Coloration: Skin is not jaundiced or pale. Findings: No bruising, erythema, lesion or rash. Neurological: General: No focal deficit present. Mental Status: She is alert and oriented to person, place, and time. Cranial Nerves: No cranial nerve deficit. Sensory: No sensory deficit. Motor: No weakness. Coordination: Coordination normal. Gait: Gait normal. Psychiatric: Mood and Affect: Mood normal. Behavior: Behavior normal. Thought Content: Thought content normal. Judgment: Judgment normal. {ASSESSMENT/PLAN: 1. Impacted cerumen of right ear - ICD9: 380.4, ICD10: H61.21 X one day No red flags - AMBULATORY EAR LAVAGE/IRRIGATION- see nursing note F/U with PCP Discussed red flags Alesia Duong APRN.ECONOMIC RESEARCH ASSISTANT MDM Procedures Ambulatory Ear Lavage Pre-treatment: Warm water Treatment: Right ear Equipment and Irrigation solution and Volume used: Single use syringe with single use irrigation tip Water Return flow appearance: Brown Yellow Patient tolerated procedure: yes Tympanic membrane assessment: Tympanic membrane assessed by LIP pre and post procedure Danika Tomas MA documented in this encounter [facility] 02-25-2025 Note HNO ID: [id number] Author: DANIKA TOMAS MA Service: ? Author Type: Rn Provider Relations Type: Progress Notes Filed: 02/25/2025 14:09 Note Text: Ambulatory Ear Lavage Pre-treatment: Warm water Treatment: Right ear Equipment and Irrigation solution and Volume used: Single use syringe with single use irrigation tip Water Return flow appearance: Brown Yellow Patient tolerated procedure: yes Tympanic membrane assessment: Tympanic membrane assessed by LIP pre and post procedure Danika Tomas MA [facility] 12-13-2024 Evaluation note Diagnosis Onset Date Resolution Mixed hyperlipidemia chronic Febr uary 2024 1:16pm Nonrheumatic mitral (valve) prolapse chronic December 13, 2024 1:16pm History of aortic valve replacement with bioprosthetic valve June, resolved December 13, 2024 1:16pm [facility] Work Phone: 1(970) 924-125011-14-2023 History of Present illness Narrative* Sobia Hamlin, RT(R) - 08/29/2023 10:00 AM EST Radiology Service Progress Note PATIENT NAME: Jasmin Hutchinson DATE OF SERVICE: August 29, 2023 TIME: 12:39 PM PATIENT IDENTITY VERIFICATION COMPLETED USING TWO (2) IDENTIFIERS: Name and Date of confirmedby patient verbally. FALL SCREENING: Has the patient had 2 falls in the last year or 1 fall with injury or currently using an Ambulatory Assistive Device (Walker, Cane, Wheelchair, Crutches, etc.)? No PATIENT GENDER DATA: Female. status: : No status: NO. PATIENT RELEVANT IMPLANT DATA REVIEWED: Not Applicable RADIOLOGY DEPARTMENT: CT; Exam(s) Completed: Spine PERIPHERAL IV DATA: Not applicable SIGNED BY: RT Marlon(R) August 29, 2023 12:39 PM documented in this encounterSum[facility]11-14-2023 History of Present illness Narrative* Danika Vivar RT(R) - 08/29/2023 9:40 AM EST Radiology Service Progress Note PATIENT NAME: Jasmin Hutchinson DATE OF SERVICE: August 29, 2023 TIME: 11:08 AM PATIENT IDENTITY VERIFICATION COMPLETED USING TWO (2) IDENTIFIERS: Name and Date of confirmedby patient verbally. FALL SCREENING: Has the patient had 2 falls in the last year or 1 fall with injury or currently using an Ambulatory Assistive Device (Walker, Cane, Wheelchair, Crutches, etc.)? No PATIENT GENDER DATA: Female. status: : No status: NO. PATIENT RELEVANT IMPLANT DATA REVIEWED: Not Applicable RADIOLOGY DEPARTMENT: General X-ray: Exam(s) Completed: Spine X-Ray(s): Cervical AP / LAT PERIPHERAL IV DATA: Not applicable SIGNED BY: RT Susanne(R) August 29, 2023 11:08 AM documented in this encounterSumma Health [facility]05-15-2023 History of Present illness Narrative* Sobia Hamlin RT(R) - 02/27/2023 1:00 PM EDT Radiology Service Progress Note PATIENT NAME: Jasmin Hutchinson DATE OF SERVICE: February 27, 2023 TIME: 2:33 PM PATIENT IDENTITY VERIFICATION COMPLETED USING TWO (2) IDENTIFIERS: Name and Date of confirmedby patient verbally. FALL SCREENING: Has the patient had 2 falls in the last year or 1 fall with injury or currently using an Ambulatory Assistive Device (Walker, Cane, Wheelchair, Crutches, etc.)? No PATIENT GENDER DATA: Female. status: : No status: NO. PATIENT RELEVANT IMPLANT DATA REVIEWED: Yes RADIOLOGY DEPARTMENT: CT; Exam(s) Completed: Spine PERIPHERAL IV DATA: Not applicable SIGNED BY: RT Marlon(R) February 27, 2023 2:33 PM documented in this encounterSumma Health [facility]03-14-2023 History of Present illness Narrative* Karlene Mai, PT - 12/27/2022 12:55 PM EDT Episode Visit Count: 8 Therapist That Will Accept/Oversee The Plan Of Care: Karlene Mai PT Start of Care Date: 09/12/22 Onset Date: 08/19/22 Plan of Care Certification Date: 11/29/22 Next Certification Due Date: 01/11/23 Patient Identified by Name and Date of : Yes REHABILITATION AND SPORTS THERAPY PHYSICAL THERAPY DISCONTINUANCE OF CARE PLAN OF CARE UPDATE: Assessment: Jasmin Hutchinson is discontinued from Physical Therapy services due to maximal benefit.. Patient was seen for 8 visits from Start of Care Date: 09/12/22 to 12/27/2022 and treatment included: Therapeutic exercise, Self-usp management, and Patient/Family/Caregiver Education. Goals for Episode of Care: created on 09/12/22 through 10/24/22 updated 10/11/22 Randall in home exercise program. achieved Patient will increase active ROM of right shoulder for elevation to 90-100 degrees to allow pt to to improve performance of ADLs./ no achieved Perform ADL's with right arm with decreased report of symptoms/pain in 4 weeks./achieved Increased strength of right and left shoulders UE to 3+/5 for performance of ADL's / partially achieved Patient Goals: be able to walk the dog. Be able to raise arm up and use arms for ADL's./achieved , has modified d/t lack of elevation of right arm SUBJECTIVE: Patient Reason for Visit: Pt notes that she no longer has vertigo . Pt reports that shefeels better than she has since Last October. She notes that she is not sure if she will be able tolift arm again. Still has weakness but able to function fine.. Pain: Pain Pain Level: 0 Post Treatment Pain Post Treatment Pain Level: No Change PROMIS Scales T-scores: mean of general population = 50. 5 points is clinically meaningfully difference Percentiles provide an indication of how the patient's score ranks in relation to the general population. Higher percentile rankings indicate better function/quality of life. 50th percentile is the average of the general population and indicates half of respondents had a worse score. OBJECTIVE MEASURES WITH LEVEL OF FUNCTION: UE AROM R Shoulder Flex: 45 Degrees L Shoulder Flex: 160 Degrees UE PROM R Shoulder Flex: 160 Degrees R Shoulder ABduction: 160 Degrees UE and Cervical Strength R Shoulder Flexion: 2-/5 R Shoulder Internal Rotation: 4+/5 R Shoulder External Rotation: 3+/5 R Elbow Flexion (C6): 4/5 R Wrist Extension: 4+/5 TREATMENT: Therapeutic Exercise: 2: alphabet on counterop 3: supine cane assisted flexion with hands close together 1x10 4: educaiton on progression of cane elevation as able Skilled Intervention: Patient was educated in proper exercise technique and purpose for exercises. Reviewed and educated patient on additions/changes for home exercise program . Skilled judgment was provided in selection of appropriate interventions. Correct performance of therapeutic exercises was facilitated with verbal and visual cuing. Home Exercise Program Assigned: 1: add cane supine press up flexion as able with hands close together Billing Therapeutic Exercise Treatment Minutes: 30 Total Treatment Time Minutes (timed/untimed): 30 Karlene Mai PT documented in this encounterSumma Health [facility]02-15-2023 History of Present illness Narrative* Karlene Mai PT - 2022 9:22 AM EST Episode Visit Count: 7 Therapist That Will Accept/Oversee The Plan Of Care: Karlene Mai PT Start of Care Date: 09/12/22 Onset Date: 08/19/22 Plan of Care Certification Date: 09/12/22 Next Certification Due Date: 10/24/22 Patient Identified by Name and Date of : Yes REHABILITATION AND SPORTS THERAPY PHYSICAL THERAPY PROGRESS REPORT PLAN OF CARE UPDATE: Assessment: Jasmin Hutchinson demonstrates moderate improvement in strength of elbow wrist and some shoulder . . She hasprogressed toward goals. Patient continues to present with impairments in ADL's andoverall function that interfere with lifting reaching and use of right arm . Current prognosis is Good due to: current objective clinical presentation . She will benefit from continued skilled therapy services to meet the updated goals for this plan of care as noted below. Goals for Episode of Care: created on 09/12/22 through 10/24/22 updated 10/11/22 Randall in home exercise program./ partially achieved Patient will increase active ROM of right shoulder for elevation to 90-100 degrees to allow pt to to improve performance of ADLs./progressing Perform ADL's with right arm with decreased report of symptoms/pain in 4 weeks./ partially achieved Increased strength of right and left shoulders UE to 3+/5 for performance of ADL's / progressing Patient Goals: be able to walk the dog. Be able to raise arm up and use arms for ADL's./ partially achieved Planned Interventions, Frequency, and Duration: 1x/month, Two months Patient to be seen for Therapeutic exercise (90433), Neuromuscular re-education (83907), Self-usp management ([id number]), Patient/Family/Caregiver Education PLAN FOR NEXT VISIT: wand abduction or lupillo abduction and rep band IR/ extension SUBJECTIVE: Patient Reason for Visit: Pt reports that she seems to better. Has been active wtih exsfor arms as well as walking.. Pain: Pain Pain Level: 0 Pain Location: Neck Post Treatment Pain Post Treatment Pain Level: No Change PROMIS Scales T-scores: mean of general population = 50. 5 points is clinically meaningfully difference Percentiles provide an indication of how the patient's score ranks in relation to the general population. Higher percentile rankings indicate better function/quality of life. 50th percentile is the average of the general population and indicates half of respondents had a worse score. T-scores: mean of general population = 50. 5 points is clinically meaningfully difference Percentiles provide an indication of how the patient's score ranks in relation to the general population. Higher percentile rankings indicate better function/quality of life. 50th percentile is the average of the general population and indicates half of respondents had a worse score. OBJECTIVE MEASURES WITH LEVEL OF FUNCTION: UE AROM R Shoulder Flex: 45 Degrees UE and Cervical Strength R Shoulder Flexion: 2-/5 R Shoulder Internal Rotation: 3+/5 R Shoulder External Rotation: 3+/5 TREATMENT: Therapeutic Exercise: 2: right sidelying for IR 2# 1x20 4: sidelying ER with left hand support at elbow 2# [id number] guarding 5: supine triceps extension left6 hand holding right elbow 1# with guarding 1x15 6: orange rep band scapular retraction 2x15 7: right shoulder alphabet on countertop x1 9: shoulder lupillo for right shoulder elevation Skilled Intervention: Patient was educated in proper exercise technique and purpose for exercises. Reviewed and educated patient on additions/changes for home exercise program . Skilled judgment was provided in selection of appropriate interventions. Correct performance of therapeutic exercises was facilitated with verbal and visual cuing. Patient education as noted. Home Exercise Program Assigned: 1: add writing the alphabet on countertop Billing Therapeutic Exercise Treatment Minutes: 30 Total Treatment Time Minutes (timed/untimed): 30 Karlene Mai PT documented in this encounterSumma Health [facility]01-13-2023 Miscellaneous Notes* Telephone Encounter - Armida Oro MA - 10/28/2022 8:25 AM EST Pt was notified of the results. Pt verbalized understanding. Armida Oro MA * Telephone Encounter - Santa Barry APRN.THANG - 10/28/2022 7:11 AM EST negative for flu and COVID. Please notify thank you documented in this encounterSumma Health [facility]01-12-2023 History of Present illness Narrative* Keily Garcia APRN.THANG - 10/27/2022 11:25 AM EST SUBJECTIVE: Jasmin Hutchinson is a 71 year old female. Who presents today with headache sinus pressure in the forehead and vertigo. The vertigo is better today. The headache is a 4/10. Her symptoms started Monday. She has taken tylenol and it takes the headache away a little. She was given a script of valium in the ER for vertigo and it was helpful, but was to strong for her. She may have been exposed to others who are sick. She is concerned for the cause of the headache today. HPI PAST MEDICAL HISTORY Diagnosis Date Bicuspid aortic valve s/p aortic valve replacement 2016 Cervical spondylosis without myelopathy Disorder of thyroid pt denies Heart murmur Mixed hyperlipidemia Osteopenia FAMILY HISTORY Problem Relation Age of Onset Heart Mother [place] Hypertension Mother Obese other (Lung Cancer) Father Heart Sister Open Heart Surgery Social History Tobacco Use Smoking status: Never Smokeless tobacco: Never Vaping Use Vaping Use: Never used Substance Use Topics Alcohol use: No Drug use: No ALLERGIES Allergen Reactions Morphine Vomiting, Unknown Prednisone GI Upset Current Outpatient Medications Medication Sig Dispense Refill atorvastatin (LIPITOR) 20 mg tablet Take 20 mg by mouth once daily. ubidecarenone Q-10 10 mg cap Take by mouth twice daily. ergocalciferol(VITAMIN D 400 UNIT CAP) 2000iu per day 0 MULTIVITAMIN TAB Take one(1) tablet daily. 0 CALCIUM 600 1,500 MG TAB Take one(1) tablet two(2) times daily. 0 metoprolol succinate ER (TOPROL XL) 50 mg 24 hr tablet Take 1 tablet by mouth twice daily. 60 tablet 0 No current facility-administered medications for this visit. OBJECTIVE: BP 110/74 Pulse 92 Temp 36.5 C (97.7 F) (Tympanic) Resp 18 Wt 55 kg (121 lb 3.2 oz) SpO2 97% BMI 21.47 kg/m ROS: All systems reviewed and are otherwise negative Constitutional: Well developed, well nourished, A&O X3. 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 Skin: warm and dry with out rash, lesion or ecchymosis Psych: alert appropriate, speech clear Diagnostic testing: COVID/ Influenza A and B testing performed and results will be complete in the next 24-72 hours. The patient will be notified of the results in My Chart. MDM: Patient presented to the [facility] today for COVID and Influenza testing. Vital signs were evaluated and found to be within normal limits. Jasmin Hutchinson was in no acute distress. We discussed the COVID results will be back in the next 1-2 days. In accordance with the CDC guidelines, Jasmin Hutchinson was instructed to quarantine, if indicated, based on symptoms and exposure. We have discussed overthe counter medications to use for their symptoms. She may continue to use tylenol for her headacheand hydrate. She has a negative neuro exam. They will follow-up with their family doctor in the next 2-3 days. If symptoms worsen they will go straight to the emergency department for further evaluation and treatment. They voiced understandingof the plan of care and are in agreement. ASSESSMENT/PLAN: 1. Exposure to SARS-associated coronavirus - ICD9: V01.82, ICD10: Z20.828 - COVID WITH FLUA+B, ROUTINE Keily Garcia APRN.ECONOMIC RESEARCH ASSISTANT documented in this encounterSumma Health [facility]01-05-2023 NoteHNO ID: [id number] Author: Gurpreet Stewart MD Service: ? Author Type: Physician Type: Progress Notes Filed: 10/20/2022 1:24 PM Note Text: NEUROSURGERY POST-OP NOTE Gurpreet Stewart MD Date of visit: October 20, 2021 Patient Name: Ms.Myra Elvie Hutchinson Date of : 1950 Current Age: [age] year old Sex: female MRN/E# [id number] Last Office Visit: 09/01/2022 Postoperative follow up: Chief Complaint: Patient presents with: Established Patient; 8 week PO from C2-T2 PCDF ASSESSMENT: Surgery Date: 08/19/2022 Surgery Type: C2-T2 PCDF Pre-operative symptoms: bilateral neck pain and weakness and numbness in her right deltoid and biceps HPI: Progress: The patient presented to the office 09/01/2022 with x-ray imaging. She stated she had been doing well since surgery. She stated that her pain was well controlled. She was taking Tylenol for pain control. She complained of general feelings of weakness, especially in her upper extremities. She stated that she still had numbness and tingling in her hands. She stated that, in general, she did not feel she was having issues with her balance. She did have one fall since surgery. Her incision was dry and intact. Some incisional redness was present. Her miguelito were removed at this visit. The patient was ordered physical therapy for range of motion, balance, and core body strengthening. She was asked to follow up in [address] imaging of her cervical spine. The patient presents today with CT imaging. She states that she has been doing well since her last visit. She has been working with physical therapy and feels that it has helped her weakness in her arms. She plans to continue working with them and doing home exercises to improve strength and ROM. She continues to have numbness and tingling in both hands. She denies issues with balance, incontinence, or recent falls. She states that she is no longer in any pain. Her incision looks clean dry and intact without redness. She presents today for image review, evaluation, and plan of care. Brace type: None. None Postop pain control?: Controlled Postop pain control medications?: Acetaminophen REVIEW OF SYSTEMS Review of Systems Constitutional: Negative for chills, diaphoresis and fever. HENT: Negative for sinus pressure, sinus pain and trouble swallowing. Eyes: Negative for pain, redness and visual disturbance. Respiratory: Negative for cough, shortness of breath and wheezing. Cardiovascular: Negative for chest pain, palpitations and leg swelling. Gastrointestinal: Negative for constipation, diarrhea and nausea. Endocrine: Negative for cold intolerance and heat intolerance. Genitourinary: Negative for difficulty urinating, frequency and urgency. Musculoskeletal: Negative for back pain, gait problem and neck pain. Skin: Negative for color change, pallor and rash. Allergic/Immunologic: Negative for environmental allergies, food allergies and immunocompromised state. Neurological: Positive for weakness and numbness. Negative for headaches. Hematological: Does not bruise/bleed easily. Psychiatric/Behavioral: Negative for agitation, behavioral problems and confusion. PHYSICAL EXAM: Awake, Alert, Oriented x3 Cranial nerves grossly intact Follows commands in all extremities No drift Right-sided upper extremity proximal weakness 2 out of 5, distal right upper extremity full strength. The rest of her extremities is full strength Sensation intact to light touch Normal ambulation without assistance Incision: Dry and intact, without redness TESTING/IMAGING: CT CERVICAL SPINE performed on 10/11/2022. Findings were noted as: IMPRESSION: Extensive posterior decompression and instrumentation without complication. Now patent spinal canal and essentially patent neural foramina. PLAN: 1.) Activity: As tolerated 2.) Brace: None 3.) Scripts: Cervical CT and x-rays AP lateral Proper use and precautions discussed for prescribed medications. 4.) Follow up: 6 months 5.) Comments: Patient is doing quite well from her surgery. She still has residual proximal right arm weakness which is to be expected. It continues to slightly improved with physical therapy which she is going to continue. Her CT scan of her cervical spine shows no hardware abdomen abnormality and there is early signs of arthrodesis. I will see the patient back in 6 months with repeat x-rays and CT of the cervical spine. Attribution The following portions of the patient's history were reviewed, confirmed, and updated as necessary: allergies, current medications, past family history, past medical history, past social history, past surgical history, problem list, HPI, and ROS obtained by others. Some elements may be copied from a previous office note and have been reviewed/updated where appropriate. All portions reflect current medical decision making from today. The clinical and radiographic (more content not included)...[facility]01-05-2023 History of Present illness Narrative* Gurpreet Stewart MD - 10/20/2022 1:30 PM EST NEUROSURGERY POST-OP NOTE Gurpreet Stewart MD Date of visit: October 20, 2021 Patient Name: Ms.Myra Elvie Hutchinson Date of : 1950 Current Age: [age] year old Sex: female MRN/E# [id number] Last Office Visit: 09/01/2022 Postoperative follow up: Chief Complaint: Patient presents with: Established Patient; 8 week PO from C2-T2 PCDF ASSESSMENT: Surgery Date: 08/19/2022 Surgery Type: C2-T2 PCDF Pre-operative symptoms: bilateral neck pain and weakness and numbness in her right deltoid and biceps HPI: Progress: The patient presented to the office 09/01/2022 with x-ray imaging. She stated she had been doing well since surgery. She stated that her pain was well controlled. She was taking Tylenol forpain control. She complained of general feelings of weakness, especially in her upper extremities. She stated that she still had numbness and tingling in her hands. She stated that, in general, she did not feel she was having issues with her balance. She did have one fall since surgery. Her incision was dry and intact. Some incisional redness was present. Her miguelito were removed at this visit. The patient was ordered physical therapy for range of motion, balance, and core body strengthening. She was asked to follow up in [address] imaging of her cervical spine. The patient presents today with CT imaging. She states that she has been doing well since her last visit. She has been working with physical therapy and feels that it has helped her weakness in her arms. She plans to continue working with them and doing home exercises to improve strength and ROM. She continues to have numbness and tingling in both hands. She denies issues with balance, incontinence, or recent falls. She states that she is no longer in any pain. Her incision looks clean dry and intact without redness. She presents today for image review, evaluation, and plan of care. Brace type: None. None Postop pain control?: Controlled Postop pain control medications?: Acetaminophen REVIEW OF SYSTEMS Review of Systems Constitutional: Negative for chills, diaphoresis and fever. HENT: Negative for sinus pressure, sinus pain and trouble swallowing. Eyes: Negative for pain, redness and visual disturbance. Respiratory: Negative for cough, shortness of breath and wheezing. Cardiovascular: Negative for chest pain, palpitations and leg swelling. Gastrointestinal: Negative for constipation, diarrhea and nausea. Endocrine: Negative for cold intolerance and heat intolerance. Genitourinary: Negative for difficulty urinating, frequency and urgency. Musculoskeletal: Negative for back pain, gait problem and neck pain. Skin: Negative for color change, pallor and rash. Allergic/Immunologic: Negative for environmental allergies, food allergies and immunocompromised state. Neurological: Positive for weakness and numbness. Negative for headaches. Hematological: Does not bruise/bleed easily. Psychiatric/Behavioral: Negative for agitation, behavioral problems and confusion. PHYSICAL EXAM: Awake, Alert, Oriented x3 Cranial nerves grossly intact Follows commands in all extremities No drift Right-sided upper extremity proximal weakness 2 out of 5, distal right upper extremity full strength. The rest of her extremities is full strength Sensation intact to light touch Normal ambulation without assistance Incision: Dry and intact, without redness TESTING/IMAGING: CT CERVICAL SPINE performed on 10/11/2022. Findings were noted as: IMPRESSION: Extensive posterior decompression and instrumentation without complication. Now patent spinal canal and essentially patent neural foramina. PLAN: 1.) Activity: As tolerated 2.) Brace: None 3.) Scripts: Cervical CT and x-rays AP lateral Proper use and precautions discussed for prescribed medications. 4.) Follow up: 6 months 5.) Comments: Patient is doing quite well from her surgery. She still has residual proximal right arm weakness which is to be expected. It continues to slightly improved with physical therapy which she is going to continue. Her CT scan of her cervical spine shows no hardware abdomen abnormality andthere is early signs of arthrodesis. I will see the patient back in 6 months with repeat x-rays andCT of the cervical spine. Attribution The following portions of the patient's history were reviewed, confirmed, and updated as necessary:allergies, current medications, past family history, past medical history, past social history, past surgical history, problem list, HPI, and ROS obtained by others. Some elements may be copied from a previous office note and have been reviewed/updated where appropriate. All portions reflect current medical decision making from today. The clinical and radiographic findings as well as the risks, benefits and alternatives of treatmenthave been reviewed in detail with the patient. Advised to call the office if symptoms worsen or new symptoms develop.Patient expressed understanding and is in agreement with plan. Gurpreet Stewart MD Department of [facility]surgery [facility] [place] This note was partially generated using [employer] voice recognition system, and there may be some incorrect words, spellings, and punctuation that were not noted in checking the note before saving. documented in this encounterSumma Health [facility]12-27-2022 History of Present illness Narrative* Karlene Mai, PT - 10/11/2022 4:20 PM EST Episode Visit Count: 5 Therapist That Will Accept/Oversee The Plan Of Care: Karlene Mai PT Start of Care Date: 09/12/22 Onset Date: 08/19/22 Plan of Care Certification Date: 09/12/22 Next Certification Due Date: 10/24/22 Patient Identified by Name and Date of : Yes REHABILITATION AND SPORTS THERAPY PHYSICAL THERAPY PROGRESS REPORT PLAN OF CARE UPDATE: Assessment: Jasmin Hutchinson demonstrates moderate improvement in active use and control of right UE. She hasprogressed toward goals. Patient continues to present with impairments in ADL's, independencein exercise, overall function, and strength that interfere with ADL's . Current prognosis is good .She will benefit from continued skilled therapy services to meet the updated goals for this plan ofcare as noted below. Goals for Episode of Care: created on 09/12/22 through 10/24/22 updated 10/11/22 Randall in home exercise program./ partially achieved Patient will increase active ROM of right shoulder for elevation to 90-100 degrees to allow pt to to improve performance of ADLs./progressing Perform ADL's with right arm with decreased report of symptoms/pain in 4 weeks./ partially achieved Increased strength of right and left shoulders UE to 3+/5 for performance of ADL's / progressing Patient Goals: be able to walk the dog. Be able to raise arm up and use arms for ADL's./ partially achieved Planned Interventions, Frequency, and Duration: 1x/month, Three months Total Number of Visits Planned: 3 Patient to be seen for Therapeutic exercise (35441);Neuromuscular re-education ([id number]);Self-usp management ([id number]);Patient/Family/Caregiver Education PLAN FOR NEXT VISIT: Will progress resistance of exs if tolerated. SUBJECTIVE: Patient Reason for Visit: Pt with no pain today. Still with weakness of right arm . Reports that she is getting stronger.. Pain: Pain Pain Level: 0 Post Treatment Pain Post Treatment Pain Level: No Change PROMIS Scales T-scores: mean of general population = 50. 5 points is clinically meaningfully difference Percentiles provide an indication of how the patient's score ranks in relation to the general population. Higher percentile rankings indicate better function/quality of life. 50th percentile is the average of the general population and indicates half of respondents had a worse score. T-scores: mean of general population = 50. 5 points is clinically meaningfully difference Percentiles provide an indication of how the patient's score ranks in relation to the general population. Higher percentile rankings indicate better function/quality of life. 50th percentile is the average of the general population and indicates half of respondents had a worse score. OBJECTIVE MEASURES WITH LEVEL OF FUNCTION: UE AROM R Shoulder Flex: 38 Degrees R Shoulder ABduction: 37 Degrees R Shoulder Internal Rotation (Functional): 1 1/2 less left UE and Cervical Strength Strength Tested: Shoulder Functional Strength;Distal UE R Shoulder Flexion: 2-/5 R Shoulder Abduction (C5): 2-/5 R Shoulder Internal Rotation: 3+/5 R Shoulder External Rotation: 3-/5 R Elbow Extension (C7): 3/5 R Elbow Flexion (C6): 4+/5 R Wrist Extension: 3+/5 R Wrist Flexion: 3+/5 TREATMENT: Therapeutic Exercise: 1: forearm supination/ pronation 2: right sidelying for IR 2# 1x20 3: seated active ER, cues for form 1x15 4: sidelying ER with left hand support at elbow 2x15 5: supine triceps extension left6 hand holding right elbow 2x15 6: hand slide standing on table for flexion 2x10 7: active scapular retraction x20 8: supine fingers clasped assisted flexion to 90 degrees 2x10 9: right wrist flexion 1x10 extension 1x10 10: finger opposition B x3 each finger 11: used fine motor board for right ahnd x1 Skilled Intervention: Skilled judgment was provided in selection of appropriate interventions. Correct performance of therapeutic exercises was facilitated with verbal and visual cuing. Patient education as noted. Billing Therapeutic Exercise Treatment Minutes: 35 Total Treatment Time Minutes (timed/untimed): 35 Karlene Mai PT [facility] History of Present illness Narrative* Sobia Hamlin RT(R) - 10/11/2022 1:00 PM EST Radiology Service Progress Note PATIENT NAME: Jasmin Hutchinson DATE OF SERVICE: October 11, 2022 TIME: 3:50 PM PATIENT IDENTITY VERIFICATION COMPLETED USING TWO (2) IDENTIFIERS: Name and Date of confirmedby patient verbally. FALL SCREENING: Has the patient had 2 falls in the last year or 1 fall with injury or currently using an Ambulatory Assistive Device (Walker, Cane, Wheelchair, Crutches, etc.)? No PATIENT GENDER DATA: Female. status: : No status: NO. PATIENT RELEVANT IMPLANT DATA REVIEWED: Yes RADIOLOGY DEPARTMENT: CT; Exam(s) Completed: Spine PERIPHERAL IV DATA: Not applicable SIGNED BY: RT Marlon(R) October 11, 2022 3:50 PM documented in this encounterSum[facility]12-20-[facility]22 History of Present illness Narrative* Karlene Mai PT - 10/04/2022 4:45 PM EST Episode Visit Count: 4 Therapist That Will Accept/Oversee The Plan Of Care: Karlene Mai PT Start of Care Date: 09/12/22 Onset Date: 08/19/22 Plan of Care Certification Date: 09/12/22 Next Certification Due Date: 10/24/22 Patient Identified by Name and Date of : Yes REHABILITATION AND SPORTS THERAPY PHYSICAL THERAPY TREATMENT NOTE ASSESSMENT: Jasmin Hutchinson tolerated the session with no issues. She demonstrated improvements in control of flexion with right arm with left arm assist.. The patient will continue to benefit from ongoing skilled physical therapy to progress toward set goals. PLAN FOR NEXT VISIT: work on wrist and hand exs/ fine motor as needed SUBJECTIVE: Patient Reason for Visit: Pt reports that she continues to exercise 2x/day. feels that things are getting a little better. Notes that she still has difficulty with fine motor activities with hands Pain: Pain Pain Level: 0 Post Treatment Pain Post Treatment Pain Level: No Change OBJECTIVE MEASURES WITH LEVEL OF FUNCTION: fair antigravity control of ER sidelying TREATMENT: Therapeutic Exercise: 2: right sidelying for IR 2# 1x20 3: seated active ER, cues for form 1x15 4: sidelying ER with left hand support at elbow 1x15 5: supine triceps extension left6 hand holding right elbow 2x15 6: hand slide standing on table for flexion 2x10 7: active scapular retraction x20 8: supine fingers clasped assisted flexion to 90 degrees 2x10 9: education on practice of use of zipper , buttons, writing, tying shoe etc for fine motor tasks Skilled Intervention: Patient was educated in proper exercise technique and purpose for exercises. Reviewed and educated patient on additions/changes for home exercise program . Skilled judgment was provided in selection of appropriate interventions. Provided written instruction for home exercise program to facilitate proper performance and compliance. Correct performance of therapeutic exercises was facilitated with verbal and visual cuing. Patient education as noted. Home Exercise Program Assigned: 1: supine fingers clasped assisted flexion to 90 degrees 2x10 2: education on practice of use of zipper , buttons, writing, tying shoe etc for fine motor tasks Billing Therapeutic Exercise Treatment Minutes: 35 Total Treatment Time Minutes (timed/untimed): 35 Karlene Mai PT documented in this encounterSum[facility]12-06-[facility] History of Present illness Narrative* Karlene Mai PT - 09/20/2022 3:20 PM EST pisode Visit Count: 2 Therapist That Will Accept/Oversee The Plan Of Care: Karlene Mai PT Start of Care Date: 09/12/22 Onset Date: 08/19/22 Plan of Care Certification Date: 09/12/22 Next Certification Due Date: 10/24/22 Patient Identified by Name and Date of : Yes REHABILITATION AND SPORTS THERAPY PHYSICAL THERAPY TREATMENT NOTE ASSESSMENT: Jasmin Hutchinson tolerated the session with no issues. She demonstrated improvements in quality of movements for arm slides for shoulder flexion. The patient will continue to benefit from ongoing skilled physical therapy to progress toward set goals. PLAN FOR NEXT VISIT: Will trial wanleatha exs again. SUBJECTIVE: Patient Reason for Visit: Pt reports that she is doing well with exs. Likes that pulleythe best of the exs. Pain: Pain Pain Level: 0 Post Treatment Pain Post Treatment Pain Level: No Change OBJECTIVE MEASURES WITH LEVEL OF FUNCTION: Less scapular compensation with attempts at shoulder flexion TREATMENT: Therapeutic Exercise: 1: shoulder lupillo for right assisted elevation 2x10 2: right sidelying AROM for IR 2x10 3: seated active ER, cues for form 2x10 4: hand slide on thigh for flexion. 2x10 5: supine triceps extension left6 hand holding right elbow 2x10 6: rolling pin on table flexion / extension 2x10 7: active scapular retraction 8: wrist flexion / extension 1x10 9: forearm pronation / supination 1x10 Skilled Intervention: Patient was educated in proper exercise technique and purpose for exercises. Reviewed and educated patient on additions/changes for home exercise program . Skilled judgment was provided in selection of appropriate interventions. Provided written instruction for home exercise program to facilitate proper performance and compliance. Correct performance of therapeutic exercises was facilitated with verbal and visual cuing. Patient education as noted. Reviewed physician instructions of activity as tolerated no bending or lifting greater 10# Home Exercise Program Assigned: 1: active scapular retraction 2: rolling pin on table flexion / extension 2x10 3: supine triceps extension left6 hand holding right elbow 2x10 Billing Therapeutic Exercise Treatment Minutes: 35 Total Treatment Time Minutes (timed/untimed): 35 Karlene Mai PT documented in this encounterSum[facility]11-28-[facility] History of Present illness Narrative* Karlene Mai PT - 09/12/2022 4:17 PM EST Episode Visit Count: 1 Therapist That Will Accept/Oversee The Plan Of Care: Karlene Mai PT Start of Care Date: 09/12/22 Onset Date: 08/19/22 Plan of Care Certification Date: 09/12/22 Next Certification Due Date: 10/24/22 REHABILITATION AND SPORTS THERAPY PHYSICAL THERAPY EVALUATION PLAN OF CARE: Assessment: Jasmin Hutchinson presents with chief complaint of right UE/ shoulder weakness following cervical spinal fusion that interferes with reaching overhead;reaching behind back;use hand with arm at shoulder level . She presents with impairments in ADL's, independence in exercise, overall function, range of motion, and strength . Prognosis for therapy is Good due to: current objective clinical presentation . She will benefit from skilled therapy services to meet the goals established for thisplan of care as noted below. Assessment Fall Risk : Active at risk Goals for Episode of Care: created on 09/12/22 through 10/24/22 Randall in home exercise program. Patient will increase active ROM of right shoulder for elevation to 90-100 degrees to allow pt to to improve performance of ADLs. Perform ADL's with right arm with decreased report of symptoms/pain in 4 weeks. Increased strength of right and left shoulders UE to 3+/5 for performance of ADL's Patient Goals: be able to walk the dog. Be able to raise arm up and use arms for ADL's. Planned Interventions, Frequency, and Duration: Current Frequency: 1x/week Duration: 4 weeks Total Number of Visits Planned: 4 Planned Treatment Interventions: Therapeutic exercise (33469);Neuromuscular re- education ([id number]);Self-usp management ([id number]);Patient/Family/Caregiver Education PLAN FOR NEXT VISIT: Will work on ball rolling or circles on bed Patient demonstrates good understanding of plan of care and treatment. The above goals and plan of care were discussed and agreed upon by patient/family. SUBJECTIVE: Jasmin Hutchinson is a 71 year old female seen today for s/p C3-T1 posterior fusion. Pt in hospital for 5 days and 3 weeks of feeling sick from medication. Now feeling pretty good. Pt notes that she can not lift right arm currently. Both arms are weak. Pt is right hand dominant Patient Goals: be able to walk the dog. Be able to raise arm up and use arms for ADL's. Functional Limitations: reaching overhead;reaching behind back;use hand with arm at shoulder level Prior Level of Function: Independent without limitations Relevant History Right or Left Handed: Right Employment: Retired Recreation / Current Exercise: treadmill daily doing biceps curls with right UE 2# Home Environment Patient Lives With: Spouse Home Type: Ranch Entry To Home: Stairs;Without Rail Intake Information: Prescription present Previous Treatment: (walking on treadmill, use pilates ropes) Falls History # of falls in past year: 2 Pain: Pain Pain Level: 0 Post Treatment Pain Post Treatment Pain Level: No Change Post Treatment Pain Location: Arm - Right PROMIS Scales T-scores: mean of general population = 50. 5 points is clinically meaningfully difference Percentiles provide an indication of how the patient's score ranks in relation to the general population. Higher percentile rankings indicate better function/quality of life. 50th percentile is the average of the general population and indicates half of respondents had a worse score. T-scores: mean of general population = 50. 5 points is clinically meaningfully difference Percentiles provide an indication of how the patient's score ranks in relation to the general population. Higher percentile rankings indicate better function/quality of life. 50th percentile is the average of the general population and indicates half of respondents had a worse score. OBJECTIVE MEASURES WITH LEVEL OF FUNCTION: Posture / Alignment Posture: Rounded shoulders UE AROM R Shoulder Flex: 5 Degrees R Shoulder ABduction: 10 Degrees R Shoulder Internal Rotation (Functional): T12 R Shoulder External Rotation: 25 Degrees R Elbow Flexion: 140 Degrees R Forearm Supination: 90 Degrees R Forearm Pronation: 90 Degrees R Wrist Extension: (WFL) R Wrist Flexion: (WFL) L Shoulder Flex: 162 Degrees L Shoulder ABduction: 165 Degrees L Shoulder Internal Rotation (Functional): T12 L Shoulder External Rotation: 30 Degrees UE PROM R Shoulder Flex: 145 Degrees Mobility Supine To Sit: Independent Sit To Stand: Independent Gait Gait: Independent Gait Device: None Gait Observation: no deviations Functional Performance Test Results Assistive Device: None Timed Up and Go (sec): 8 sec 4 Stage Balance Test Narrow base of support (sec): 30 sec Semi-tandem base of support (sec): 30 sec Tandem base of support (sec): 20 sec Tinetti Assessment Tool Sitting balance: 1- Steady, safe Rises from chair: 2- Able without use of arms Attempts to rise: 2- Able to rise, 1 attempt Immediate standin- Steady without walker or other support Standing balance: 2- Narrow stance without support Nudged: 2- Stead Eyes closed: 1- Steady Turning 360 Continuous: 1- Continuous Turning 360 Steady: 1- Steady Sitting down: 2- Safe, smooth motion Balance Score (calculated): 16 Indication of gait: 1- No hesitancy R Step length and height: 1- Step through R L Step length and height: 1- Step through L R Foot clearance: 1- R foot clears L Foot clearance: 1- L foot clears Step symmetry: 1- R and L step length appear equal Step continuity: 1- Steps appear continuous Path: 2- Straight without aid Trunk: 2- No sway, flex or use of arms or aid Walk Time: 1- Heels amost touching while walking Gait Score (calculated): 12 Tinetti Assessment Tool Total Score (calculated): 28 Fall Risk:: > or equal to 24: Low Fall Risk Education: Education Learning Preferences: Demonstration;Explanation;Performance;Printed Materials Barriers: None Learning/educational needs: Home exercise program;Plan of Care Education Provided: Yes, see treatment interventions for education provided Education Provided To: Patient Education Mode/Type: Demonstration;Explanation/Discussion;Literature/Printed Materials;Performance Response to Education/Teach Back: States/Identifies;Return Demonstration TREATMENT: PT Treatment Interventions: Therapeutic Exercise Evaluation Therapeutic Exercise: 1: shoulder lupillo for right assisted elevation 2x10 2: right sidelying AROM for IR 1x10 3: seated active ER 1x10 4: hand slide on thigh for flexion. 2x10 Skilled Intervention: Patient was educated in proper exercise technique and purpose for exercises. Skilled judgment was provided in selection of appropriate interventions. Provided written instruction for home exercise program to facilitate proper performance and compliance. Correct performance of therapeutic exercises was facilitated with verbal and visual cuing. Educated patient on rationale for performing exercises in regards to ROM and function . Patient education as noted. Home Exercise Program Assigned: 1: as outlined above Billing * Evaluation Low Complexity: 1 Unit Therapeutic Exercise Treatment Minutes: 25 Total Treatment Time Minutes (timed/untimed): 45 Karlene Mai PT documented in this encounterSum[facility]11-28-[facility] History of Past illness Narrative* Problem Noted Date Resolved Date Spinal stenosis of cervical region 09/12/2022 12/27/2022 documented as of this encounter (statuses as of 12/27/2022) [facility] History of Past illness Narrative* Problem Noted Date Diagnosed Date Resolved Date Spinal stenosis of cervical region 09/12/2022 12/27/2022 documented as of this encounter (statuses as of 08/20/2023) [facility] History of Past illness Narrative* Problem Noted Date Diagnosed Date Resolved Date Spinal stenosis of cervical region 09/12/2022 12/27/2022 documented as of this encounter (statuses as of 08/30/2023) [facility] of Past illness Narrative* Problem Noted Date Diagnosed Date Resolved Date Spinal stenosis of cervical region 09/12/2022 12/27/2022 documented as of this encounter (statuses as of 08/30/2023) [facility] NoteHNO ID: [id number] Author: Gurpreet Stewart MD Service: ? Author Type: Physician Type: Progress Notes Filed: 09/01/2022 1:54 PM Note Text: NEUROSURGERY POST-OP NOTE Gurpreet Stewart MD Date of visit: September 01, 2022 Patient Name: Ms.Myra Elvie Hutchinson Date of : 1950 Current Age: [age] year old Sex: female MRN/E# [id number] Last Office Visit: 08/04/2022 Postoperative follow up: Chief Complaint: Patient presents with: Established Patient; PO C2-T2 PCDF ASSESSMENT: Surgery Date: 08/19/2022 Surgery Type: C2-T2 PCDF Pre-operative symptoms: bilateral neck pain and weakness and numbness in her right deltoid and biceps HPI: Progress: The patient presents today with x-ray imaging. She states she has been doing well since surgery. She states that her pain is well controlled. She takes Tylenol for pain control. She did complain of general feelings of weakness, especially in her upper extremities. She stated that she still had numbness and tingling in her hands. She stated that, in general, she did not feel she was having issues with her balance. She did have one fall since surgery. Her incision was dry and intact. Some incisional redness was present. Her miguelito were removed at this visit. She presents today for image review, evaluation, and plan of care. Brace type: None. None Postop pain control?: Controlled Postop pain control medications?: Acetaminophen REVIEW OF SYSTEMS Review of Systems Constitutional: Negative for chills, diaphoresis and fever. HENT: Negative for sinus pressure, sinus pain and trouble swallowing. Eyes: Negative for pain, redness and visual disturbance. Respiratory: Negative for cough, shortness of breath and wheezing. Cardiovascular: Negative for chest pain, palpitations and leg swelling. Gastrointestinal: Negative for constipation, diarrhea and nausea. Endocrine: Negative for cold intolerance and heat intolerance. Genitourinary: Negative for difficulty urinating, frequency and urgency. Musculoskeletal: Positive for neck pain. Negative for back pain and gait problem. Skin: Negative for color change, pallor and rash. Allergic/Immunologic: Negative for environmental allergies, food allergies and immunocompromised state. Neurological: Positive for weakness and numbness. Negative for headaches. Hematological: Does not bruise/bleed easily. Psychiatric/Behavioral: Negative for agitation, behavioral problems and confusion. PHYSICAL EXAM: The patient is at the bedside with her significant other She is awake alert oriented x3 She is able to follow commands in all extremities She still has right-sided deltoid and bicep weakness which was preoperatively around 3 out of 5 the rest of her motor groups are full strength Her sensation appears to be grossly intact Gait is normal Incision: Dry and intact, some erythema noted around incision TESTING/IMAGING: XR CERVICAL Lateral and AP Alignment: Stable. Hardware: Intact. No gross failure. Fusion status: No lali pseudoarthrosis PLAN: 1.) Activity: As tolerated and Avoid bending, lifting > 10 lbs 2.) None 3.) Scripts: None Proper use and precautions discussed for prescribed medications. 4.) Follow up: [address] of the cervical spine 5.) Comments: I would love the patient is to start engaging in physical therapy at this point in time for upper extremity range of motion, balance, and core body strengthening. Attribution The following portions of the patient's history were reviewed, confirmed, and updated as necessary: allergies, current medications, past family history, past medical history, past social history, past surgical history, problem list, HPI, and ROS obtained by others. Some elements may be copied from a previous office note and have been reviewed/updated where appropriate. All portions reflect current medical decision making from today. The clinical and radiographic findings as well as the risks, benefits and alternatives of treatment have been reviewed in detail with the patient. Advised to call the office if symptoms worsen or new symptoms develop.Patient expressed understanding and is in agreement with plan. Gurpreet Stewart MD Department of Neurosurgery [facility] This note was partially generated using Dragon voice recognition system, and there may be some incorrect words, spellings, and punctuation that were not noted in checking the note before saving.[facility] 09-01-2022 NoteHNO ID: [id number] Author: RT Marlyn(R) Service: Radiology Author Type: Technologist Type: Progress Notes Filed: 09/01/2022 12:33 PM Note Text: Radiology Service Progress Note PATIENT NAME: Jasmin Hutchinson DATE OF SERVICE: September 01, 2022 TIME: 12:33 PM PATIENT IDENTITY VERIFICATION COMPLETED USING TWO (2) IDENTIFIERS: Name and Date of confirmed by patient verbally and Name and Date of confirmed by identification band. FALL SCREENING: Has the patient had 2 falls in the last year or 1 fall with injury or currently using an Ambulatory Assistive Device (Walker, Cane, Wheelchair, Crutches, etc.)? Yes, Patient High Risk for Falls What interventions were put in place to prevent falls during this visit? Yellow Falls Risk Wristband Applied and Increased Observations by Caregivers PATIENT GENDER DATA: Female. status: : No status: NO. PATIENT RELEVANT IMPLANT DATA REVIEWED: Not Applicable RADIOLOGY DEPARTMENT: General X-ray: Exam(s) Completed: Spine X-Ray(s): Cervical AP / LAT PERIPHERAL IV DATA: Not applicable SIGNED BY: RT Marlyn(R) September 01, 2022 12:33 [facility]11-17-2022 History of Present illness Narrative* Gurpreet Stewart MD - 09/01/2022 1:30 PM EST NEUROSURGERY POST-OP NOTE Gurpreet Stewart MD Date of visit: September 01, 2022 Patient Name: Ms.Myra Elvie Hutchinson Date of : 1950 Current Age: [age] year old Sex: female MRN/E# [id number] Last Office Visit: 08/04/2022 Postoperative follow up: Chief Complaint: Patient presents with: Established Patient; PO C2-T2 PCDF ASSESSMENT: Surgery Date: 08/19/2022 Surgery Type: C2-T2 PCDF Pre-operative symptoms: bilateral neck pain and weakness and numbness in her right deltoid and biceps HPI: Progress: The patient presents today with x-ray imaging. She states she has been doing well since surgery. She states that her pain is well controlled. She takes Tylenol for pain control. She did complain of general feelings of weakness, especially in her upper extremities. She stated that she still had numbness and tingling in her hands. She stated that, in general, she did not feel she was having issues with her balance. She did have one fall since surgery. Her incision was dry and intact. Some incisional redness was present. Her miguelito were removed at this visit. She presents today for image review, evaluation, and plan of care. Brace type: None. None Postop pain control?: Controlled Postop pain control medications?: Acetaminophen REVIEW OF SYSTEMS Review of Systems Constitutional: Negative for chills, diaphoresis and fever. HENT: Negative for sinus pressure, sinus pain and trouble swallowing. Eyes: Negative for pain, redness and visual disturbance. Respiratory: Negative for cough, shortness of breath and wheezing. Cardiovascular: Negative for chest pain, palpitations and leg swelling. Gastrointestinal: Negative for constipation, diarrhea and nausea. Endocrine: Negative for cold intolerance and heat intolerance. Genitourinary: Negative for difficulty urinating, frequency and urgency. Musculoskeletal: Positive for neck pain. Negative for back pain and gait problem. Skin: Negative for color change, pallor and rash. Allergic/Immunologic: Negative for environmental allergies, food allergies and immunocompromised state. Neurological: Positive for weakness and numbness. Negative for headaches. Hematological: Does not bruise/bleed easily. Psychiatric/Behavioral: Negative for agitation, behavioral problems and confusion. PHYSICAL EXAM: The patient is at the bedside with her significant other She is awake alert oriented x3 She is able to follow commands in all extremities She still has right-sided deltoid and bicep weakness which was preoperatively around 3 out of 5 therest of her motor groups are full strength Her sensation appears to be grossly intact Gait is normal Incision: Dry and intact, some erythema noted around incision TESTING/IMAGING: XR CERVICAL Lateral and AP Alignment: Stable. Hardware: Intact. No gross failure. Fusion status: No lali pseudoarthrosis PLAN: 1.) Activity: As tolerated and Avoid bending, lifting > 10 lbs 2.) None 3.) Scripts: None Proper use and precautions discussed for prescribed medications. 4.) Follow up: [address] of the cervical spine 5.) Comments: I would love the patient is to start engaging in physical therapy at this point in time for upper extremity range of motion, balance, and core body strengthening. Attribution The following portions of the patient's history were reviewed, confirmed, and updated as necessary:allergies, current medications, past family history, past medical history, past social history, past surgical history, problem list, HPI, and ROS obtained by others. Some elements may be copied from a previous office note and have been reviewed/updated where appropriate. All portions reflect current medical decision making from today. The clinical and radiographic findings as well as the risks, benefits and alternatives of treatmenthave been reviewed in detail with the patient. Advised to call the office if symptoms worsen or new symptoms develop.Patient expressed understanding and is in agreement with plan. Gurpreet Stewart MD Department of Neurosurgery [facility] This note was partially generated using SynapSense voice recognition system, and there may be some incorrect words, spellings, and punctuation that were not noted in checking the note before saving. documented in this encounterSum[facility]11-17-2022 History of Present illness Narrative* Osmar Nava RT(R) - 09/01/2022 12:20 PM EST Radiology Service Progress Note PATIENT NAME: Jasmin Hutchinson DATE OF SERVICE: September 01, 2022 TIME: 12:33 PM PATIENT IDENTITY VERIFICATION COMPLETED USING TWO (2) IDENTIFIERS: Name and Date of confirmedby patient verbally and Name and Date of confirmed by identification band. FALL SCREENING: Has the patient had 2 falls in the last year or 1 fall with injury or currently using an Ambulatory Assistive Device (Walker, Cane, Wheelchair, Crutches, etc.)? Yes, Patient High Riskfor Falls What interventions were put in place to prevent falls during this visit? Yellow Falls Risk Wristband Applied and Increased Observations by Caregivers PATIENT GENDER DATA: Female. status: : No status: NO. PATIENT RELEVANT IMPLANT DATA REVIEWED: Not Applicable RADIOLOGY DEPARTMENT: General X-ray: Exam(s) Completed: Spine X-Ray(s): Cervical AP / LAT PERIPHERAL IV DATA: Not applicable SIGNED BY: RT Marlyn(R) September 01, 2022 12:33 PM documented in this encounterSumma Health [facility]11-15-2022 Miscellaneous Notes* Telephone Encounter - Howard Ly RN - 08/30/2022 4:24 PM EST PATIENT INFORMATION Record ID: [id number] Patient Name: [facility]: [facility] [place]: Neurological [place] Attending: Gurpreet Stewart Center: Spine INSTRUCTIONS All Clear SN to remind patient of next upcoming appointment date, time, location All Clear All Clear All Clear SURVEY INFORMATION Medical/Nurse Business Services Specialist Sales: Howard Ly 1. Your discharge instructions are important in guiding you through the recovery process. Is there anything I could help you clarify on your discharge instructions? (Standard Question) No 2. Do you have your follow up appointment related to your hospital stay scheduled within the next 30 days? (Standard Question) Yes 3. Do you have all the necessary equipment and supplies at home? (Standard Question) Yes 4. Many patients have concerns about their medications once they are home. Do you have any questions about getting or taking your medications? (Standard Question) No 5. Do you have any new or different symptoms? (Standard Question) No documented in this encounterSumma Health [facility]11-09-2022 Miscellaneous Notes* Telephone Encounter - Linnea Martinez RN - 08/24/2022 4:13 PM EST Spoke with patient's regarding xray orders to be completed prior to her upcoming appt. He stated that they could have these done before her appt. Let him know that these could be done at any outpatient [facility] center. Offered to give him the address to a [facility] radiology department close to their house. He asked if they could have the scans done the same day before her appointment at the hospital. Let him know that the x-rays could be completed with [facility] Radiology Department prior to the patient's appointment, but they would have to arrive 30- 40 minutes before her appointment to have them done. Let him know that the information desk could direct them to radiology where these xrays could be completed. Patient's verbalized understanding. Encouraged him to call our office with any further questions or concerns. Linnea Martinez RN documented in this encounterSumma Health [facility] Campus11-09-2022 Miscellaneous Notes* Telephone Encounter - Linnea Martinez RN - 08/24/2022 10:24 AM EST Left patient a VM regarding her upcoming appointment with Dr. Stewart. Patient will need to have her x-rays done prior to appointment 09/01/2022. Gave patient a number to reach back out to our office. Will attempt to contact patient again at a later time. Linnea Martinez RN documented in this encounterSumma Health [facility]11-08-2022 NoteHNO ID: [id number] Author: Luis M Corrales DO Service: Hospital Medicine Author Type: Physician Type: Progress Notes Filed: 08/23/2022 3:41 PM Note Text: DEPARTMENT OF HOSPITAL MEDICINE PROGRESS NOTE SERVICE DATE: 08/23/2022 SERVICE TIME: 3:37 PM Hospital Medicine/Primary Attending: Luis M Corrales DO NIGHT AND WEEKEND COVERAGE: After 7pm please page [phone] CHIEF COMPLAINT: no new complaints SUBJECTIVE: Pt seen and examined. Denies CP, SOB, NVD, headache, fever/chills or abdominal pain. OBJECTIVE: PHYSICAL EXAM: BP 136/79 Pulse 91 Temp (Src) 98.1 (Temporal) Resp 18 Ht 5' 3 (1.60m) Wt 124 lb 1.9 oz (56.3kg) SpO2 100% BMI 21.99 kg/(m2). O2 Therapy: Room Air GENERAL: AANDOx2, No acute distress, resting in bed LUNGS: no wheezes, ronchi, or rales CARDIAC: RRR, S1 and S2; no rubs, murmurs, or gallops ABDOMEN: soft, NT, nondistended, +bowel sounds EXTREMITIES: no clubbing, cyanosis or edema bilaterally NEURO: Sensation grossly intact, Cranial nerves II-XII intact, moves all 4 extremities, speech was clear and coherent MEDICATIONS: No current facility-administered medications for this encounter. DATA: Diagnostic tests reviewed for today's visit: CBC: No results for input(s): WBC, RBC, HB, HCT, PLT, MCV, MCH, MPV, RDW in the last 24 hours. Coags: No results for input(s): PT, INR, APTT in the last 24 hours. BMP: No results for input(s): NA, K, CHLOR, CO2, BUN, CREAT, GLUC in the last 24 hours. CMP: No results for input(s): NA, K, CHLOR, CO2, BUN, CREAT, GLUC, TPROT, CA, MG, ALBUMIN, TBILI, ALKPHOS, ALT, AST, ANION in the last 24 hours. Cardiac Enzymes: No results for input(s): CK, MB, CKMB, TROPT in the last 24 hours. Liver Function, Amylase, Lipase: No results for input(s): TPROT, ALB, ALT, AST, ALKPHOS, TBILI, AMYLASE, LIPASE, LACTATE in the last 24 hours. MG/PHOS: No results for input(s): MG, P in the last 24 hours. Renal Panel: No results for input(s): ALBUMIN, CREAT, BUN, GLUC, CA, P, CHLOR, K, CO2, NA in the last 24 hours. Heme: No results for input(s): RETICP, ABSRETIC, LD, ADARSH, FE, TIBC, TRANSFERSAT in the last 24 hours. No results found for: UALBCR Estimated Creatinine Clearance: 82.9 mL/min (A) (based on SCr of 0.53 mg/dL (L)). Problem List Cervical stenosis of spinal canal POA: Yes Assessment/Plan #Hyponatremia-improved with better PO intake - does not appear overtly volume overloaded -encourage PO intake -monitor fluid status clinically -stool softeners -daily BMP #Nausea, no vomiting- improved -continue Protonix for GI ppx and any posble GERD contributing to nausea -likely 2/2 pain medications and anesthesia, states she has history of nausea post op -passing gas, no clinical signs of obstruction -continue compazine PRN nausea -d/c IVF #Encephalopathy, likely metabolic, possible delirium component post op?-improved #Cervical myelopathy -POD#4 s/p C3-C7 decompression and fusion -encourage IS #Leukocytosis- Likely reactive from surgery. WBC trending down, afebrile. UA no sign of infection. No respiratory symptoms at this time #HTN- continue metoprolol on discharge, nurse BP check outpatient within 3-5 days #HLD-continue lipitor #Osteopenia -continue VitD and calcium VTE Prophylaxis: As per primary team Plan of care discussed with: Provider, RN, Patient, Care Management, and Surgery team SIGNATURE: Luis M Corrales DO PATIENT NAME: Jasmin Hutchinson DATE: August 23, 2022 TIME: 3:37 PM PAGER/CONTACT #: Team color pager Disclaimer: Portions of this note may have been generated using SynapSense voice recognition software. Reasonable efforts were made to correct any dictation errors that resulted due to the programming of this software but some may still be present. Please note, the time of this note does not reflect the time I saw this patient today, but the time of this documentation.[facility] 08-23-2022 NoteHNO ID: [id number] Author: Komal Foote RN Service: Care Management Author Type: Registered Nurse Type: Care Mgt Progress Note Filed: 08/23/2022 12:20 PM Note Text: CARE MANAGEMENT DISCHARGE NOTE SERVICE DATE: 08/23/2022 SERVICE TIME: 12:18 PM LOS: 4 days Admission Date: 08/19/2022 DISCHARGE ARRANGEMENT (list agency and phone number) Discharge Arrangement: Home with Self Care Provider Name: n/a Phone: n/a CAREGIVER ASSESSMENT: Caregiver is ready, willing and able to meet the patient's needs as recommended by the inter-professional team:: No Caregiver needed HANDOFF COMMUNICATION: Handoff to: Primary Care Physician Primary Care Physician Name/Phone: Dr. Nina Marroquin [phone] TRANSPORTATION ARRANGEMENTS: Transportation Arrangements: Car ADDITIONAL CONTACT RESOURCES: RN to provide walker script at [facility] Needs Prior to Discharge: Other: See Comment (notified neuro of need for walker script : declines ref here [facility] [place]) Caregiver is ready, willing and able to meet the patient's needs as recommended by the inter-professional team:: No Caregiver needed Transportation Arrangements: Car Patient agreeable to [facility] plan Aware spoke with neuro and no home therapy until after seen in office. Pt verbalized understanding. Has transportation at [facility]. Discussed with RN. [facility] updated. SIGNATURE: Komal Foote RN PATIENT NAME: Jasmin Hutchinson DATE: August 23, 2022 TIME: 12:18 PM PAGER/CONTACT #: [phone] 08-22-2022 NoteHNO ID: [id number] Author: Luis M Corrales DO Service: Hospital Medicine Author Type: Physician Type: Progress Notes Filed: 08/22/2022 3:34 PM Note Text: DEPARTMENT OF HOSPITAL MEDICINE PROGRESS NOTE SERVICE DATE: 08/22/2022 SERVICE TIME: 3:31 PM Hospital Medicine/Primary Attending: Luis M Corrales DO NIGHT AND WEEKEND COVERAGE: After 7pm please page [phone] CHIEF COMPLAINT: neck pain SUBJECTIVE: Pt seen and examined. States neck/shoulder pain controlled, denies CP, SOB, NVD, headache, fever/chills or abdominal pain today. Feels better overall today and more lucid. OBJECTIVE: PHYSICAL EXAM: BP 137/71 Pulse 94 Temp (Src) 97.2 (Oral) Resp 18 Ht 5' 3 (1.60m) Wt 124 lb 1.9 oz (56.3kg) SpO2 98% BMI 21.99 kg/(m2). O2 Therapy: Room Air GENERAL: AANDOx2, No acute distress, resting in bed LUNGS: no wheezes, ronchi, or rales CARDIAC: RRR, S1 and S2; no rubs, murmurs, or gallops ABDOMEN: soft, NT, ND, +BS EXTREMITIES: no clubbing, cyanosis or edema b/l NEURO: Sensation grossly intact, Cranial nerves II-XII intact, moves all 4 extremities, speech was clear and coherent MEDICATIONS: Current Facility-Administered Medications Medication Dose Route Frequency atorvastatin 20 mg tab(s) (LIPITOR) 20 mg ORAL DAILY sodium chloride 0.9 % (flush) 3-5 mL (BD POSIFLUSH) 3-5 mL INTRAVENOUS q 12 H NaCl 0.9% iv flush bag 20 mL INTRAVENOUS PRN oxyCODONE-acetaminophen 5-325 mg 1-2 tablet (PERCOCET) 1-2 tablet ORAL q 4 H PRN ondansetron 4 mg tab(s) (ZOFRAN) 4 mg ORAL q 6 H PRN Or ondansetron (PF) 4 mg injection (ZOFRAN) 4 mg INTRAVENOUS q 6 H PRN docusate sodium 100 mg cap(s) (COLACE) 100 mg ORAL BID polyethylene glycol 3350 17 g packet (MIRALAX, GLYCOLAX) 17 g ORAL DAILY bisacodyl 10 mg suppository (DULCOLAX) 10 mg RECTAL DAILY PRN acetaminophen 325-650 mg tab(s) (TYLENOL) 325-650 mg ORAL q 4 H PRN methocarbamol 750 mg tab(s) (ROBAXIN) 750 mg ORAL TID heparin 5,000 Units injection 5,000 Units SUBCUTANEOUS q 12 H prochlorperazine 5 mg injection (COMPAZINE) 5 mg INTRAVENOUS q [address] 40 mg tab(s) (PROTONIX) 40 mg ORAL DAILY (6 AM) metoprolol succinate ER 50 mg tab(s) (TOPROL XL) 50 mg ORAL BID DATA: Diagnostic tests reviewed for today's visit: CBC: Recent Labs 08/22/22415 WBC 11.13* RBC 4.16 HB 12.5 HCT 37.3 PLT 213 MCV 89.7 MCH 30.0 MPV 9.4 Coags: No results for input(s): PT, INR, APTT in the last 24 hours. BMP: Recent Labs 08/22/22415 NA 138 K 3.7 CHLOR 101 CO2 25 BUN 7 CREAT 0.53* GLUC 95 CMP: Recent Labs 08/22/22415 NA 138 K 3.7 CHLOR 101 CO2 25 BUN 7 CREAT 0.53* GLUC 95 CA 9.1 ANION 12 Cardiac Enzymes: No results for input(s): CK, MB, CKMB, TROPT in the last 24 hours. Liver Function, Amylase, Lipase: No results for input(s): TPROT, ALB, ALT, AST, ALKPHOS, TBILI, AMYLASE, LIPASE, LACTATE in the last 24 hours. MG/PHOS: No results for input(s): MG, P in the last 24 hours. Renal Panel: Recent Labs 08/22/22415 CREAT 0.53* BUN 7 GLUC 95 CA 9.1 CHLOR 101 K 3.7 CO2 25 NA 138 Heme: No results for input(s): RETICP, ABSRETIC, LD, ADARSH, FE, TIBC, TRANSFERSAT in the last 24 hours. No results found for: UALBCR Estimated Creatinine Clearance: 82.9 mL/min (A) (based on SCr of 0.53 mg/dL (L)). Problem List Cervical stenosis of spinal canal POA: Yes Assessment/Plan #Hyponatremia-improved with better PO intake - does not appear overtly volume overloaded -encourage PO intake -monitor fluid status clinically -stool softeners -daily BMP #Nausea, no vomiting- improved -continue Protonix for GI ppx and any posble GERD contributing to nausea -likely 2/2 pain medications and anesthesia, states she has history of nausea post op -passing gas, no clinical signs of obstruction -continue compazine PRN nausea -d/c IVF #Encephalopathy, likely metabolic, possible delirium component post op?-improved -defer to surgical team -she denies history of alcohol use #Cervical myelopathy -POD#3 s/p C3-C7 decompression and fusion -encourage IS -reviewed today's labs #Leukocytosis- Likely reactive from surgery. WBC trending down, afebrile. UA no sign of infection. No respiratory symptoms at this time, if develops cough, SOB or hypoxia, consider CXR at that time. -CBC in AM #HTN- continue home metoprolol, increase dose today. Stop IVF. Monitor BP closely. #HLD-continue lipitor #Osteopenia -continue VitD and calcium VTE Prophylaxis: As per primary team Plan of care discussed with: Provider, RN, Patient and Care Management SIGNATURE: Luis M Corrales DO PATIENT NAME: Jasmin Hutchinson DATE: August 22, 2022 TIME: 3:31 PM PAGER/CONTACT #: Team color pager Disclaimer: Portions of this note may have been generated using SynapSense voice recognition software. Reasonable efforts were made to correct any dictation errors that resulted due to the programmin (more content not included)...[facility]11-07-2022 Miscellaneous Notes* Telephone Encounter - LESLEY Astorga - 08/22/2022 3:18 PM EST ERROR documented in this encounterSumma Health [facility]11-07-2022 NoteHNO ID: [id number] Author: Elvira Parnell PA-C Service: Neurosurgery Author Type: Physician Business Services Specialist Sales Type: Progress Notes Filed: 08/22/2022 12:12 PM Note Text: Neurosurgery Progress Note SERVICE DATE: 08/22/2022 SUBJECTIVE: Sitting up in bed states feels much better today. Nausea much improved. Able to eat breakfast. Pain relatively controlled with Oxy. States paresthesias in hands and feet improved. OBJECTIVE: Vitals: Temp (24hrs), Av.4 ?C (97.5 ?F), Min:36 ?C (96.8 ?F), Max:37.2 ?C (99 ?F) BP 159/105 Pulse 80 Temp 36 ?C (96.8 ?F) (Oral) Resp 16 Ht 160 cm (5' 3) Wt 56.3 kg (124 lb 1.9 oz) SpO2 100% BMI 21.99 kg/m? O2 Therapy: Room Air IANDO: Date 08/21/22699 - 08/22/22 0659 08/22/22699 - 08/23/22 0659 Shift 2482-1558 9268-8590 6823-7537 24 Hour Total 7053-8573 4357-9239 1896-6022 24 Hour Total INTAKE Shift Total OUTPUT Tubes 45 40 85 Drain/Tube Output (Drain/Tube 08/19/22 1310 Hemovac Midline Posterior Neck Drain #1) 45 40 85 Shift Total 45 40 85 Weight (kg) 56.3 56.3 56.3 56.3 56.3 56.3 56.3 56.3 MEDICATIONS Current Facility-Administered Medications Medication Dose Route Frequency metoprolol succinate ER 50 mg tab(s) (TOPROL XL) 50 mg ORAL BID prochlorperazine 5 mg injection (COMPAZINE) 5 mg INTRAVENOUS q [address] 40 mg tab(s) (PROTONIX) 40 mg ORAL DAILY (6 AM) heparin 5,000 Units injection 5,000 Units SUBCUTANEOUS q 12 H atorvastatin 20 mg tab(s) (LIPITOR) 20 mg ORAL DAILY sodium chloride 0.9 % (flush) 3-5 mL (BD POSIFLUSH) 3-5 mL INTRAVENOUS q 12 H NaCl 0.9% iv flush bag 20 mL INTRAVENOUS PRN oxyCODONE-acetaminophen 5-325 mg 1-2 tablet (PERCOCET) 1-2 tablet ORAL q 4 H PRN ondansetron 4 mg tab(s) (ZOFRAN) 4 mg ORAL q 6 H PRN Or ondansetron (PF) 4 mg injection (ZOFRAN) 4 mg INTRAVENOUS q 6 H PRN docusate sodium 100 mg cap(s) (COLACE) 100 mg ORAL BID polyethylene glycol 3350 17 g packet (MIRALAX, GLYCOLAX) 17 g ORAL DAILY bisacodyl 10 mg suppository (DULCOLAX) 10 mg RECTAL DAILY PRN acetaminophen 325-650 mg tab(s) (TYLENOL) 325-650 mg ORAL q 4 H PRN methocarbamol 750 mg tab(s) (ROBAXIN) 750 mg ORAL TID Labs: Recent Labs 08/22/22 0416 08/21/22 0422 NA 138 138 K 3.7 4.2 CHLOR 101 105 CO2 25 23 BUN 7 10 CREAT 0.53* 0.59 GLUC 95 99 ANION 12 10 CA 9.1 8.6 WBC 11.13* 13.41* HB 12.5 13.0 HCT 37.3 38.6 PLT 213 224 Exam: GENERAL: Awake and alert; NAD; LIME; cooperative; pleasant NEURO: Orientedx3; speech clear and fluent; JENKINS; HEENT: Normocephalic; atraumatic LUNGS: Unlabored breathing NECK/BACK: Incision C/D/I DRAIN: 40cc out 8pm Sun; about 10cc in chamber today - will remove ASSESSMENT AND PLAN: 71 year old female hx cervical stenosis - s/p C3-T1 posterior fixation and fusion POD#3 - neuro improved postoperatively - pain control - Oxy and Tylenol prn; Robaxin scheduled - Zofran and/or Compazine for nausea - improving - will remove drain today - PT/OT - likely home tomorrow Parts of this note may have been copied from one of my previous notes and remain pertinent. The documentation has been reviewed and edited as necessary to support the clinical decision making for today's visit. SIGNATURE: Elvira Parnell PA-C PATIENT NAME: Jasmin Hutchinson DATE: August 22, 2022 TIME: 12:07 PM Pager: [phone]11-[facility] Miscellaneous Notes* Telephone Encounter - LESLEY Astorga - 08/22/2022 12:57 PM EST Welcome Home Call: [phone] a. Date and Time: 12:57 PM 08/22/2022 b. Contact name/relationship: patient c. Have you been active with any Home Care company in the last 60 days(such as help with bathing, filling medications, checking your blood pressure) ? No. d. Was patient given Flu shot this Season (After Jun,): No: Patient wants at next PCP visit e. [facility] will be providing your care, are you agreeable to starting these services? yes (yes or no) f. Do you have any upcoming appointments in the next few days, or restrictions to your schedule? No g. Caregiver: Yes - Caregiver name spouse Alec ; spoke with patient to confirm yes Please keep our your medications both over the counter and prescribed out for the home care to review, your hospital discharge instructions and write down any questions you might have. In order to maintain a safe environment for our caregivers, [facility] requires anyanimals or weapons present in the home be located in a secured location. Our clinicians will call you the night before or the morning of the appointment. Their # may come up restricted but they'll leave a VM for you. In case you have any questions or concerns in the meantime, our # is [phone], option 1 Thank you for your time and have a great day. - Patient states No travel or COVID contact and got a walker from PT already LESLEY Astorga documented in this encounterSumma Health [facility]11-07-2022 NoteHNO ID: [id number] Author: Komal Foote RN Service: Care Management Author Type: Registered Nurse Type: Care Mgt Progress Note Filed: 08/22/2022 10:44 AM Note Text: CARE MANAGEMENT PROGRESS NOTE SERVICE DATE: 08/22/2022 SERVICE TIME: 10:44 AM LOS: 3 days IMM Follow Up Copy Given: Yes Copy given to:: Patient (verbalized understanding) Method: In Person SIGNATURE: Komal Foote RN PATIENT NAME: Jasmin Hutchinson DATE: August 22, 2022 TIME: 10:44 AM PAGER/CONTACT #: [phone] 08-22-2022 NoteHNO ID: [id number] Author: Komal Foote RN Service: Care Management Author Type: Registered Nurse Type: Care Mgt Initial Assessment Filed: 08/22/2022 10:44 AM Note Text: CARE MANAGEMENT: ASSESSMENT AND DISCHARGE PLAN SERVICE DATE: August 22, 2022 SERVICE TIME: 10:42 AM PRIMARY CARE PHYSICIAN: Nina Marroquin MD Primary Contact: Extended Emergency Contact Information Primary Emergency Contact: Alec Hutchinson Address: [address] [place] [id number] Relation: Spouse Secondary Emergency Contact: Allen Vargas Mobile Relation: Son ADMISSION STATUS: Inpatient Insurance Provider: MEDICARE A AND B NEEDS PRIOR TO DISCHARGE Needs Prior to Discharge: Home Care Order POTENTIAL TRANSITION PLANS Home Care;Home OT/PT Based on clinical judgement, Care Management will address the following needs: Functional;Medical Patient's perception of need for this admission: neck surgery ADVANCE DIRECTIVES Current Advance Directive: None Facility Security Officer Attempted to Assist with AD Completion: Yes Action: Education Provided MS/BEHAVIOR Baseline Mental Status Prior to this Illness what was the patient's Baseline Mental Status?: Alert AND Oriented Prior to this illness, has anyone described the patient having any of the following behaviors?: Not Applicable Relationship of the informant to the patient:: Self READMISSION Last Discharge Date: 06/25/18 Is this Within the Past 30 days? From what level of care did patient present?: Home Last discharge within 30 days: No PATIENT SCREEN Patient/Engineering Technical Writer Stated Goals: To improve my functional status;To return home to life as it was Under the care of a PCP?: Yes, External Provider Provider Name: Dr. Nina Marroquin Last Known Visit: last week Does the patient have transportation upon discharge?: Yes Situation: spouse Use of any community resources?: No Does the patient have a stable and supportive living arrangement and home setting?: Yes Situation: resides with spouse Are there any potential risks or gaps identified by risk/functional/fall,etc. scores in the EMR?: No Any potential risks related to substance abuse and/or behavioral health?: No Based on clinical judgement, Care Management will address the following needs: Functional;Medical CAREGIVER ASSESSMENT Caregiver is ready, willing and able to meet the patient's needs as recommended by the inter-professional team:: No Caregiver needed MEDICAL Medical Needs: Two or more chronic diseases Health Issues Impacting Discharge Plan: Newly diagnosed Newly Diagnosed: c3-7 decomp and fusion Medication Adherance I am convinced of the importance of my prescription medication: 0 - Agree Completely I worry that my prescription medication will do more harm than good to me : 0 - Disagree Completely I feel financially burdened by my [id number] expenses for my prescription medication:: 0 - Disagree Completely Risk Score: 0 Patient is categorized as: Low risk < 2 FUNCTIONAL How do you manage to accomplish the following: Independent: Ambulation;Bathe/Shower;Transportation to appointments/community;Dress;Meals/Meal Prep;Going to the bathroom Services/Needs//Equipment Does Patient Currently Receive Any Community Services or Home Care?: None Equipment Prior to Admission: None Has the Patient Been in a Long Term Facility in the Past 30 days?: No No social discharge barriers identified at this time. No behavioral/cognitive discharge barriers identified at this time. FREEDOM OF CHOICE EXPLAINED: [place] Given: Yes Level of Care Discussed: Home Care Financial Disclosure Provided: Yes Provider List: Home Care Provider list within the patient's requested geographic area shared with the patient/family: Yes of zip code: [facility] Are you interested in bedside delivery of your medications? 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 Denies dme or hhc prior. can provide transportation. Has pcp and script coverage and uses [facility] in [place] Agreeable to home care and any agency in network that can provide needed services. Needs hhc orders. SIGNATURE: Komal Foote RN PATIENT NAME: Jasmin Hutchinson DATE: August 22, 2022 TIME: 10:42 AM CONTACT #: [phone] NoteHNO ID: [id number] Author: Luis M Corrales DO Service: Hospital Medicine Author Type: Physician Type: Progress Notes Filed: 08/21/2022 2:03 PM Note Text: DEPARTMENT OF HOSPITAL MEDICINE PROGRESS NOTE SERVICE DATE: 08/21/2022 SERVICE TIME: 1:57 PM Hospital Medicine/Primary Attending: Luis M Corrales DO NIGHT AND WEEKEND COVERAGE: After 7pm please page [phone] CHIEF COMPLAINT: nausea SUBJECTIVE: Pt seen and examined. States she has some mild nausea, occurs after surgeries. Denies CP, SOB, vomiting, diarrhea, headache, fever or abdominal pain. OBJECTIVE: PHYSICAL EXAM: BP 162/84 Pulse 79 Temp (Src) 98.4 (Oral) Resp 18 Ht 5' 3 (1.60m) Wt 124 lb 1.9 oz (56.3kg) SpO2 97% BMI 21.99 kg/(m2). O2 Therapy: Room Air GENERAL: AANDOx2, No acute distress SKIN: Warm, dry intact, no open lesions, no rashs NECK: No JVD, Supple, no adenopathy LUNGS: no wheezes, ronchi, or rales CARDIAC: RRR, S1 and S2; no rubs, murmurs, or gallops ABDOMEN: Abdomen soft, non-tender, BS normal, No masses or organomegaly EXTREMITIES: no clubbing, cyanosis or edema NEURO: Sensation grossly intact, Cranial nerves II-XII intact, moves all 4 extremities, speech was clear and coherent MEDICATIONS: Current Facility-Administered Medications Medication Dose Route Frequency atorvastatin 20 mg tab(s) (LIPITOR) 20 mg ORAL DAILY metoprolol succinate ER 25 mg tab(s) (TOPROL XL) 25 mg ORAL BID sodium chloride 0.9 % (flush) 3-5 mL (BD POSIFLUSH) 3-5 mL INTRAVENOUS q 12 H NaCl 0.9% iv flush bag 20 mL INTRAVENOUS PRN NaCl 0.45% iv infusion 100 mL/hr INTRAVENOUS CONTINUOUS oxyCODONE-acetaminophen 5-325 mg 1-2 tablet (PERCOCET) 1-2 tablet ORAL q 4 H PRN ondansetron 4 mg tab(s) (ZOFRAN) 4 mg ORAL q 6 H PRN Or ondansetron (PF) 4 mg injection (ZOFRAN) 4 mg INTRAVENOUS q 6 H PRN docusate sodium 100 mg cap(s) (COLACE) 100 mg ORAL BID polyethylene glycol 3350 17 g packet (MIRALAX, GLYCOLAX) 17 g ORAL DAILY bisacodyl 10 mg suppository (DULCOLAX) 10 mg RECTAL DAILY PRN acetaminophen 325-650 mg tab(s) (TYLENOL) 325-650 mg ORAL q 4 H PRN methocarbamol 750 mg tab(s) (ROBAXIN) 750 mg ORAL TID heparin 5,000 Units injection 5,000 Units SUBCUTANEOUS q 12 H HYDROmorphone (PF) 0.2 mg injection (DILAUDID) 0.2 mg INTRAVENOUS q 4 H PRN prochlorperazine 5 mg injection (COMPAZINE) 5 mg INTRAVENOUS q [address] 40 mg tab(s) (PROTONIX) 40 mg ORAL DAILY (6 AM) DATA: Diagnostic tests reviewed for today's visit: CBC: Recent Labs 08/21/22421 WBC 13.41* RBC 4.31 HB 13.0 HCT 38.6 PLT 224 MCV 89.6 MCH 30.2 MPV 9.4 Coags: No results for input(s): PT, INR, APTT in the last 24 hours. BMP: Recent Labs 08/21/22421 NA 138 K 4.2 CHLOR 105 CO2 23 BUN 10 CREAT 0.59 GLUC 99 CMP: Recent Labs 08/21/22421 NA 138 K 4.2 CHLOR 105 CO2 23 BUN 10 CREAT 0.59 GLUC 99 CA 8.6 ANION 10 Cardiac Enzymes: No results for input(s): CK, MB, CKMB, TROPT in the last 24 hours. Liver Function, Amylase, Lipase: No results for input(s): TPROT, ALB, ALT, AST, ALKPHOS, TBILI, AMYLASE, LIPASE, LACTATE in the last 24 hours. MG/PHOS: No results for input(s): MG, P in the last 24 hours. Renal Panel: Recent Labs 08/21/22421 CREAT 0.59 BUN 10 GLUC 99 CA 8.6 CHLOR 105 K 4.2 CO2 23 NA 138 Heme: No results for input(s): RETICP, ABSRETIC, LD, ADARSH, FE, TIBC, TRANSFERSAT in the last 24 hours. No results found for: UALBCR Estimated Creatinine Clearance: 74.4 mL/min (based on SCr of 0.59 mg/dL). Problem List Cervical stenosis of spinal canal POA: Yes Assessment/Plan #Hyponatremia-improved with better PO intake - does not appear overtly volume overloaded -encourage PO intake -monitor fluid status clinically -stool softeners -daily BMP #Nausea, no vomiting -add Protonix for GI ppx and any posble GERD contributing to nausea -likely 2/2 pain medications and anesthesia, states she has history of nausea post op -passing gas, no clinical signs of obstruction -continue compazine PRN nausea #Encephalopathy, likely metabolic, possible delirium component post op? -defer to surgical team -she denies history of alcohol use #Cervical myelopathy -POD#2 s/p C3-C7 decompression and fusion -encourage IS -reviewed today's labs #Leukocytosis- Likely reactive from surgery. WBC trending down, afebrile. UA no sing of infection. No respiratory symptoms at this time, if develops cough, SOB or hypoxia, consider CXR at that time. -CBC in AM #HTN- continue home metoprolol. Monitor BP closely. #HLD-continue lipitor #Osteopenia -continue VitD and calcium VTE Prophylaxis: As per primary team Plan of care discussed with: Provider, RN, Patient SIGNATURE: Luis M Corrales DO PATIENT NAME: Jasmin Hutchinson DATE: August 21, 2022 TIME: 1:57 PM PAGER/CONTACT #: Team color pager Disclaimer: Portions of this note may have been generated using [employer]ap[employer]ense (more content not included)...[facility]11-06-2022 NoteHNO ID: [id number] Author: Frances Anders APRN.ECONOMIC RESEARCH ASSISTANT Service: Neurosurgery Author Type: Nurse Practitioner Type: Progress Notes Filed: 08/21/2022 11:54 AM Note Text: Neurosurgery Progress Note SERVICE DATE: 08/21/2022 SUBJECTIVE: NAEON. Patient reports persistent nausea. States pain is controlled with current pain regimen and she just wants to sleep. Has not been able to get out of bed with therapy d/t nausea. OBJECTIVE: Vitals: Temp (24hrs), Av.8 ?C (98.3 ?F), Min:36.5 ?C (97.7 ?F), Max:37.2 ?C (99 ?F) BP 162/84 Pulse 79 Temp 36.9 ?C (98.4 ?F) (Oral) Resp 18 Ht 160 cm (5' 3) Wt 56.3 kg (124 lb 1.9 oz) SpO2 97% BMI 21.99 kg/m? O2 Therapy: Room Air IANDO: Date 08/20/22 07 - 08/21/22 0659 08/21/22 07 - 08/22/22 0659 Shift 0839-5577 4825-9361 0613-8657 24 Hour Total 3059-1167 7136-7119 7750-1744 24 Hour Total INTAKE Shift Total OUTPUT Urine 1400 1000 1000 3400 Output ( External Collection Device 08/20/22 0145 Assessment) 1400 1000 1000 3400 Tubes 150 45 195 Drain/Tube Output (Drain/Tube 08/19/22 1310 Hemovac Midline Posterior Neck Drain #1) 150 45 195 Shift Total 1400 1150 1045 3595 Weight (kg) 56.3 56.3 56.3 56.3 56.3 56.3 56.3 56.3 MEDICATIONS Current Facility-Administered Medications Medication Dose Route Frequency prochlorperazine 5 mg injection (COMPAZINE) 5 mg INTRAVENOUS q 6 H PRN heparin 5,000 Units injection 5,000 Units SUBCUTANEOUS q 12 H HYDROmorphone (PF) 0.2 mg injection (DILAUDID) 0.2 mg INTRAVENOUS q 4 H PRN atorvastatin 20 mg tab(s) (LIPITOR) 20 mg ORAL DAILY metoprolol succinate ER 25 mg tab(s) (TOPROL XL) 25 mg ORAL BID sodium chloride 0.9 % (flush) 3-5 mL (BD POSIFLUSH) 3-5 mL INTRAVENOUS q 12 H NaCl 0.9% iv flush bag 20 mL INTRAVENOUS PRN NaCl 0.45% iv infusion 100 mL/hr INTRAVENOUS CONTINUOUS oxyCODONE-acetaminophen 5-325 mg 1-2 tablet (PERCOCET) 1-2 tablet ORAL q 4 H PRN ondansetron 4 mg tab(s) (ZOFRAN) 4 mg ORAL q 6 H PRN Or ondansetron (PF) 4 mg injection (ZOFRAN) 4 mg INTRAVENOUS q 6 H PRN docusate sodium 100 mg cap(s) (COLACE) 100 mg ORAL BID polyethylene glycol 3350 17 g packet (MIRALAX, GLYCOLAX) 17 g ORAL DAILY bisacodyl 10 mg suppository (DULCOLAX) 10 mg RECTAL DAILY PRN acetaminophen 325-650 mg tab(s) (TYLENOL) 325-650 mg ORAL q 4 H PRN methocarbamol 750 mg tab(s) (ROBAXIN) 750 mg ORAL TID Labs: Recent Labs 08/21/22 0422 08/20/22 0340 NA 138 134* K 4.2 4.4 CHLOR 105 98 CO2 23 23 BUN 10 11 CREAT 0.59 0.58 GLUC 99 129* ANION 10 13 CA 8.6 8.9 WBC 13.41* 19.68* HB 13.0 12.8 HCT 38.6 37.2 PLT 224 263 Exam: GENERAL: Drowsy, anxious NEURO: Orientedx3; speech clear and fluent; JENKINS; improved sensation to bilat hands and feet. HEENT: Normocephalic; atraumatic; perrl/eomi; no facial droop LUNGS: Unlabored breathing NECK/BACK: Incision C/D/I DRAIN: 45 ml overnight, bloody CARDIAC: Rate and rhythm as above ABDOMEN: Soft, non-tender, non-distended EXTREMITIES: No deformities, No edema SKIN: Skin color normal; Temperature normal; no rashes or lesions ASSESSMENT AND PLAN: Jasmin Hutchinson is a 71 year old female POD#2 posterior cervical decompression and fusion -Neuro as above -Pain control: scheduled Robaxin, PRN Percocet, Dilaudid for breakthrough pain -Nausea management: zofran, compazine -Diet: regular diet -Dressing(s): maintain dry dressing -Drain(s): maintain drain to suction and record output every four hours -Activity/bracing: no brace needed, encourage OOB activity and ambulation -Encourage IS every hour -DVT ppx: subq Heparin -PT/OT recommending home discharge Parts of this note may have been copied from one of my previous notes and remain pertinent. The documentation has been reviewed and edited as necessary to support the clinical decision making for today's visit. SIGNATURE: Frances Anders APRN.CNP PATIENT NAME: Jasmin Hutchinson DATE: August 21, 2022 TIME: 11:42 AM [facility]: [phone] NoteHNO ID: [id number] Author: Mariusz Valle APRN.THANG Service: Neurosurgery Author Type: Nurse Practitioner Type: Progress Notes Filed: 08/20/2022 7:16 PM Note Text: Neurosurgery Progress Note SERVICE DATE: 08/20/2022 SUBJECTIVE: NAEON OBJECTIVE: Vitals: Temp (24hrs), Av.8 ?C (98.3 ?F), Min:36.5 ?C (97.7 ?F), Max:37.3 ?C (99.1 ?F) BP 134/81 Pulse 77 Temp 37.1 ?C (98.8 ?F) (Oral) Resp 18 Ht 160 cm (5' 3) Wt 56.3 kg (124 lb 1.9 oz) SpO2 98% BMI 21.99 kg/m? O2 Therapy: Room Air IANDO: Date 08/19/22 1500 - 08/20/22 0659 08/20/22 0700 - 08/21/22 0659 Shift 0558-9820 8402-0403 24 Hour Total 3356-7278 1789-4071 0230-8581 24 Hour Total INTAKE PO 70 70 PO 70 70 IV 250 2041.9 Volume (mL) 91.9 Volume (mL) (ceFAZolin in D5W 100 mL (ANCEF)) 100 Volume (mL) (lactated ringers iv infusion) 500 Volume (mL) (NaCl 0.9% iv infusion) 600 Volume (mL) (lactated ringers iv infusion) 250 250 Volume (mL) (lactated ringers iv infusion) 500 Shift Total 320 2111.9 OUTPUT Urine 1050 1450 1400 1400 OR Urine Output 400 Output ([REMOVED] Indwelling Urinary Catheter 08/19/22 1015 Admission to Hospital [facility] 16 Fr 08/19/223) 1050 1050 Output ( External Collection Device 08/20/22 0145 Assessment) 1400 1400 Tubes 70 250 320 Drain/Tube Output (Drain/Tube 08/19/22 1310 Hemovac Midline Posterior Neck Drain #1) 70 250 320 Blood 200 Estimated Blood loss 200 Shift Total 0840 267 1852 1400 1400 Weight (kg) 56.3 56.3 56.3 56.3 56.3 56.3 56.3 Medications: Current Facility-Administered Medications Medication Dose Route Frequency atorvastatin 20 mg tab(s) (LIPITOR) 20 mg ORAL DAILY metoprolol succinate ER 25 mg tab(s) (TOPROL XL) 25 mg ORAL BID sodium chloride 0.9 % (flush) 3-5 mL (BD POSIFLUSH) 3-5 mL INTRAVENOUS q 12 H NaCl 0.9% iv flush bag 20 mL INTRAVENOUS PRN NaCl 0.45% iv infusion 100 mL/hr INTRAVENOUS CONTINUOUS oxyCODONE-acetaminophen 5-325 mg 1-2 tablet (PERCOCET) 1-2 tablet ORAL q 4 H PRN ondansetron 4 mg tab(s) (ZOFRAN) 4 mg ORAL q 6 H PRN Or ondansetron (PF) 4 mg injection (ZOFRAN) 4 mg INTRAVENOUS q 6 H PRN docusate sodium 100 mg cap(s) (COLACE) 100 mg ORAL BID polyethylene glycol 3350 17 g packet (MIRALAX, GLYCOLAX) 17 g ORAL DAILY bisacodyl 10 mg suppository (DULCOLAX) 10 mg RECTAL DAILY PRN acetaminophen 325-650 mg tab(s) (TYLENOL) 325-650 mg ORAL q 4 H PRN methocarbamol 750 mg tab(s) (ROBAXIN) 750 mg ORAL TID Labs: Recent Labs 08/20/22 0340 NA 134* K 4.4 CHLOR 98 CO2 23 BUN 11 CREAT 0.58 GLUC 129* ANION 13 CA 8.9 WBC 19.68* HB 12.8 HCT 37.2 PLT 263 Imaging: Completed cervical upright Exam: GENERAL: No distress, Alert and oriented x 3 NEURO: improved numbness and tingling in the HEENT: normocephalic, atraumatic, CDI posterior incision NECK/BACK:incision clean and dry LUNGS: Unlabored breathing CARDIAC: Regular rate and rhythm as above ABDOMEN: Soft, non-tender, non-distended EXTREMITIES: JENKINS, No deformities, No edema SKIN: Skin color, texture, turgor normal, No rashes or lesions Drain: 250 out in 24 hours ASSESSMENT AND PLAN: Active Hospital Problems Diagnosis Date Noted Cervical stenosis of spinal canal 08/19/2022 Jasmin Hutchinson is a 71 year old female who presents POD 1 after posterior cervical fusion. -Neuro intact, improved function and sensation -Pain control: DC VISITING NURSE and start oral meds -Imaging: completed -Diet: regular -encourage IS -encourage OOB and up to chair, -appreciate PT recs -Dressing(s): CDI reinforce if necessary -Drain(s): 250 out, drain and record q4 hours -Activity/bracing: none required -Dispo: encourage increased ambulation -DVT ppx: heparin 5,000q12 Portions of text from this note were copied. All relevant information was reviewed and updated accordingly on 08/20/2022 SIGNATURE: Mariusz Valle APRN.CNP PATIENT NAME: Jasmin Hutchinson DATE: August 20, 2022 TIME: 7:03 PM Pager: [phone]22 NoteHNO ID: [id number] Author: Tonya Tavares RN Service: ? Author Type: Registered Nurse Type: Nursing Progress Note Filed: 08/19/2022 10:22 PM Note Text: Removed indwelling casas at 1953 had 250 mL out before removal. Pt tolerated well.[facility]11-04-2022 NoteHNO ID: [id number] Author: Phil Goldman APRN.CRNA Service: Anesthesiology Author Type: Nurse House Nurse Type: Anesthesia Procedure Notes Filed: 08/19/2022 10:55 AM Note Text: ANESTHESIOLOGY PROCEDURE NOTE Airway General Information Procedure Start Time/Medication Administration: 08/19/2022 10:05 AM Patient location during procedure: OR Timeout Performed Pre-procedure: timeout performed Consent Obtained: Yes Patient identity confirmed: arm band and patient Staffing BATCH FREEZER OPERATOR: Phil Goldman APRN.BATCH FREEZER OPERATOR SRNA: SAMY Hurst Performed by: SAMY and BATCH FREEZER OPERATOR Indications and Patient Condition Indications for airway management: anesthesia and airway protection Preoxygenated: yes anesthesia circuit Patient position: sniffing Method: asleep Cricoid Pressure: No Manual In-Line Stabilization: No Difficult Mask: No Final Airway Details Final airway type: endotracheal airway Final Endotracheal Airway: ETT Cuffed: yes Successful intubation technique: video laryngoscopy Devices used: Glidescope Endotracheal tube insertion site: oral Blade: Elisa Blade size: #3 ETT size (mm): 7.0 Measured from: lips Measurement (cm): 20 Placement verified by: chest auscultation and capnometry Cormack-Lehane Classification: grade I - full view of glottis Failed airway: no Unrecognized esophageal intubation: no Airway not difficult SIGNATURE: Phil Goldman APRN.CRNA PATIENT NAME: Jasmin Hutchinson DATE: August 19, 2022 TIME: 10:54 AM CSN: [id number]-01-2022 Miscellaneous Notes* Telephone Encounter - Linnea Martinez RN - 08/16/2022 3:[address] Donahue's office (cardiology) and spoke with Ramon to request cardiac clearance be faxed over prior to patient's upcoming surgery 08/19/2022. Per Ramon, patient is cleared by their officeand she has been trying to fax the clearance to us, but she does not think she has the correct fax number. Gave Ramon front fax number: [phone]. Ramon was appreciative. Requested my name and number in case she had any more questions or was not able to send fax. Information provided. Linnea Martinez RN documented [facility]Sum[facility]-31-2022 Miscellaneous Notes* Telephone Encounter - Linnea Martinez RN - 08/15/2022 1:29 PM EDT Called patient regarding presurgical testing results. Patient UA showed some abnormal results, urine culture showed three or more urogenital jamil organisms. No predominating uropathogen. Let patient know that I did notify Talita Thao APRN, CNP of these results. After speaking with her, let patient know that the specimen was likely contaminated. WBCs were 8.64. Nitrites were negative on UA. Patient denied any fevers, chills, or other signs of infection. Let patient know that no further testing was indicated. Patient appreciated update. Patient did verify time of her surgery. Let patient know that surgery was scheduled for 0940 on Friday, August 19, 2022. She was to arrive at 0740. Patient appreciated update. Encouraged patient to notify our office with any questions or concerns. Linnea Martinez RN documented in this encounterSum[facility]10-28-2022 NoteHNO ID: [id number] Author: Maine Goodwin APRN.THANG Service: Anesthesiology Author Type: Nurse Practitioner Type: Progress Notes Filed: 08/12/2022 12:50 PM Note Text: Summary: Anesthesia Red dot follow up: Anesthesia reviewed red dot concerns and case. Anesthesia reviewed echo in chart from 08/25/21 and EKG 08/10/22. METS 5.50. Per Dr. Rene ok to proceed with planned procedure. I faxed a request to the surgeon's office requesting a copy of the medical and cardiac clearance to be faxed to [phone] or scanned into [employer]. Aleat please follow up regarding medical clearance. [facility]10-27-2022 NoteHNO ID: [id number] Author: Nataliia Mesa Service: ? Author Type: ? Type: Nursing Progress Note Filed: 08/11/2022 4:40 PM Note Text: Kathleen from blood bank called regarding pt type AND screen paper question need to filled out before surgery [id number]10-26-2022 Note HNO ID: [id number] Author: Benny Saldivar APRN.CNP Service: ? Author Type: Nurse Practitioner Type: Progress Notes Filed: 08/10/2022 11:07 AM Note Text: RED DOT and ORANGE DOT: Please review confirmed EKG from PST visit with anesthesia. Unconfirmed EKG results: NSR, right atrial enlargement, LBBB. Last EKG from histopath tech office from 2016 obtained and on chart for comparison. EKG from PST visit was faxed to patient's histopath tech, Dr. Donahue for review. Pt has upcoming appointment for cardiac clearance on 08/15/22. Patient has the following medical conditions which may affect nasim-operative course: -Hyperlipidemia- taking Atorvastatin -Hx of bicuspid aortic valve/aortic stenosis s/p Aortic valve replacement 2015 (pig valve)- followed by Dr. Donahue last ov- 08/18/21- on chart; last ECHO 08/25/21 (records received from histopath tech and place on chart)- left ventricular systolic function normal, EF 65%, moderate tricuspid valve insufficiency, stable appearing bioprosthetic aortic valve, mild to moderate aortic stenosis; last EKG from 2015 received and placed on chart; pt can do > 5.5 METS without SOB or chest pain, pt walks her dog daily 2-3 miles; surgeon requested cardiac clearance- pt has appointment scheduled 08/15/22 for clearance, pt instructed to obtain ASA instructions from surgeon and prescribing physician Medical clearance requested from Dr. Marroquin by surgeon. Pt had appointment 08/08/22. CC OCCUPATIONAL HEALTH AND SAFETY MANAGER please obtain. Cardiac clearance requested from Dr. Donahue by surgeon. Pt has appointment scheduled for 08/15/22. CC OCCUPATIONAL HEALTH AND SAFETY MANAGER please obtain.[facility]10-26-2022 Miscellaneous Notes* Addendum Note - Benny Saldivar APRN.CNP - 08/10/2022 11:42 AM EDTAddended by: BENNY SALDIVAR on: 08/10/2022 11:42 AM Modules accepted: Orders documented in this encounterSum[facility]10-26-2022 History of Present illness Narrative* Benny Saldivar APRN.CNP - 08/10/2022 11:01 AM EDT RED DOT and ORANGE DOT: Please review confirmed EKG from PST visit with anesthesia. Unconfirmed EKG results: NSR, right atrial enlargement, LBBB. Last EKG from histopath tech office from 2015 obtained and on chart for comparison. EKG from PST visit was faxed to patient's histopath tech, Dr. Donahue for review. Pt has upcoming appointment for cardiac clearance on 08/15/22. Patient has the following medical conditions which may affect nasim-operative course: -Hyperlipidemia- taking Atorvastatin -Hx of bicuspid aortic valve/aortic stenosis s/p Aortic valve replacement 2015 (pig valve)- followed by Dr. Donahue last ov- 08/18/21- on chart; last ECHO 08/25/21 (records received from histopath tech and place on chart)- left ventricular systolic function normal, EF 65%, moderate tricuspid valve in sufficiency, stable appearing bioprosthetic aortic valve, mild to moderate aortic stenosis; last EKG from 2015 received and placed on chart; pt can do > 5.5 METS without SOB or chest pain, pt walks her dog daily 2-3 miles; surgeon requested cardiac clearance- pt has appointment scheduled 08/15/22 for clearance, pt instructed to obtain ASA instructions from surgeon and prescribing physician Medical clearance requested from Dr. Marroquin by surgeon. Pt had appointment 08/08/22. CC OCCUPATIONAL HEALTH AND SAFETY MANAGER please obtain. Cardiac clearance requested from Dr. Donahue by surgeon. Pt has appointment scheduled for 08/15/22. CC OCCUPATIONAL HEALTH AND SAFETY MANAGER please obtain. documented in this encounterSum[facility]10-26-2022 History and physical note * Benny Saldivar APRN.THANG - 08/10/2022 10:40 AM EDT HISTORY AND PHYSICAL EXAMINATION SERVICE DATE: 08/10/2022 SERVICE TIME: 1040 PRIMARY CARE PHYSICIAN: Nata Welsh CNP REASON FOR VISIT: Jasmin Hutchinson is a 71 year old female who is scheduled for * No surgery found * at the request of Dr. Gurpreet Stewart for. My final recommendation will be communicated back to the requesting physician by way of shared medical record or letter.Visit type: H&P Subjective The patient has the following: ACTIVE PROBLEM LIST OSTEOPENIA Other and Unspecified Hyperlipidemia Bicuspid Aortic Valve COVID-19 Immunization Status Overdue - COVID-19 VACCINE (1) Overdue - never done No completion, postpone, frequency change, or communication history exists for this topic. CHIEF COMPLAINT: Right arm numbness and tingling HPI: 71 year old female presents with c/o right arm numbness and tingling which started in November2021. She c/o right arm weakness. Pt also c/o left hand and bilateral feet numbness and tingling. She had an MRI in April. She is here for pre-surgical testing. She has been diagnosed with cervical spondylosis and plans to have surgical intervention with Dr. Stewart on 08/19/22. Pt is active. She walks her dog 2-3 miles daily. She only c/o bilateral hand numbness today, but denies pain today. Pt states her symptoms have actually improved a bit since November. She does not take medication for pain. REVIEW OF SYSTEMS: General: Negative for weight loss, malaise, or fevers Neurological: No neurological symptoms or problems; no hx of seizure or stroke Respiratory: Negative for current cough, wheezing, dyspnea or recent pneumonia; no hx of asthma, COPD or ARIE Cardiovascular: No hx of HTN, chest pain, palpitations, CHF, IA, cardiac surgery or stents Positive for: hyperlipidemia and murmur/valvular heart disease (s/p aortic valve replacement 2015) GI: Negative for nausea, vomiting, abdominal pain, diarrhea, constipation or bloody stool : Negative for dysuria, urinary frequency, urgency or incontinence, kidney stones, or CKD Endocrine: No hx of Diabetes or thyroid disease Hematology: No hx of bleeding or clotting disorder, no hx of hematological symptoms or problems Oncology: No history of oncological symptoms or problems Psych: No history of psychiatric symptoms or problems. Musculoskeletal: See HPI; +osteopenia Skin: Negative for lesions, rash or itching PAST MEDICAL HISTORY Diagnosis Date Bicuspid aortic valve s/p aortic valve replacement 2015 Cervical spondylosis without myelopathy Disorder of thyroid pt denies Heart murmur Mixed hyperlipidemia Osteopenia PAST SURGICAL HISTORY Procedure Laterality Date COLONOSCOPY FLX DX W/COLLJ SPEC WHEN PFRMD 06/25/2018 Colonoscopy HEART VALVE REPLACEMENT 09/16/2016 aortic valve replacement- pig valve FAMILY HISTORY Problem Relation Age of Onset Heart Mother IA Hypertension Mother Obese other (Lung Cancer) Father Heart Sister Open Heart Surgery Social History Tobacco Use Smoking status: Never Smokeless tobacco: Never Vaping Use Vaping Use: Never used Substance Use Topics Alcohol use: No Drug use: No Prior to Admission medications as of 08/10/22 1030 Medication Sig Last Dose Taking aspirin 81 mg chewable tablet Take 81 mg by mouth once daily. Yes metoprolol succinate ER (TOPROL XL) 25 mg 24 hr tablet Take 25 mg by mouth twice daily. Yes atorvastatin (LIPITOR) 20 mg tablet Take 20 mg by mouth once daily. Yes ubidecarenone Q-10 10 mg cap Take by mouth twice daily. Yes ergocalciferol(VITAMIN D 400 UNIT CAP) 2000iu per day Yes OMEGA 3 550 MG CAP Take one(1) tablet daily. Yes MULTIVITAMIN TAB Take one(1) tablet daily. Yes CALCIUM 600 1,500 MG TAB Take one(1) tablet two(2) times daily. Yes No medication comments found. ALLERGIES Allergen Reactions Morphine Vomiting, Unknown Prednisone GI Upset Objective PHYSICAL EXAM: General: alert and oriented and healthy appearance. No acute distress. Skin: normal color, no rash or lesions. HEENT: EOM intact. Normocephalic/atraumatic; pharynx clear. Cardiovascular: RRR, +2-3/6 murmur . Respiratory: normal breath sounds, no wheezes or crackles. No chest wall deformity or tenderness. Abdomen: bowel sounds present and soft. Nontender, no masses or organomegaly . Extremities: no deformity, no edema or tenderness, no joint swelling or clubbing. 2+ pedal pulses bilaterally . Neurological: normal cognition and motor skills. Gait normal. No weakness or sensory deficit. PAIN ASSESSMENT: VITALS: BP 145/77 Pulse 88 Temp 99 Resp 18 Ht 5' 3 (1.60m) Wt 120 lb (54.4kg) SpO2 96[RA]% BMI 21.26 kg/(m^2). Diagnostic tests reviewed for today's visit: Lab Value Units Date High Low HB No results within date range. HCT No results within date range. WBC No results within date range. PLT No results within date range. NA No results within date range. K No results within date range. GLUC No results within date range. BUN No results within date range. CREAT No results within date range. PTSEC No results within date range. INR No results within date range. APTT No results within date range. ALT No results within date range. AST No results within date range. TBILI No results within date range. TSH No results within date range. Lab Value Units Date High Low HCGQT No results within date range. UHCG No results within date range. HCG, BODY* No results within date range. Lab Value Units Date High Low ABORHD No results within date range. ABSCREEN No results within date range. No results found for: HBA1C No results found for this or any previous visit (from the past 8760 hour(s)). No results found for this or any previous visit (from the past 09698 hour(s)). Assessment No problem-specific Assessment & Plan notes found for this encounter. [place]ae[place] Activity Status Index: METS: Climb a flight of stairs or walk up a hill (5.50 METs) DASI Score: 5.5 Patient denies any chest pain or undue shortness of breath with the above physical activity. ARISCAT Score: Age: 51-80 Preoperative SpO2: >=96% Respiratory infection in the last month: No Preoperative anemia: No Surgical incision: peripheral Duration of surgery: >3 hrs Emergency procedure: No ARISCAT Score: 26 ANESTHESIA FINDINGS: Intubation History: Significant Anesthesia Considerations: no family history of problems with anesthesia. potential postop nausea/vomiting Airway History: I - PHYSICAL EVALUATION DENTAL Dental findings: teeth intact. II - ANESTHESIA PLAN Anesthetic Plan: general Prepared for Surgery: CONSULTS: Planned Anesthetic: general The Following Tests/Procedures Have Been Initiated: Orders Placed This Encounter Confirm Blood Type Order Comments: Draw separate from TSCR Standing Status: Future Standing Expiration Date: 10/05/2022 Order Specific Question: Did Blood Bank direct you to place this order: Answer: No - Presurgical Workflow Implantable Devices: aortic valve replacement- pig valve Patient has the following medical conditions which may affect nasim-operative course: -Hyperlipidemia- taking Atorvastatin -Hx of bicuspid aortic valve/aortic stenosis s/p Aortic valve replacement 2015 (pig valve)- followed by Dr. Donahue last ov- 08/18/21- on chart; last ECHO 08/25/21 (records received from histopath tech and place on chart)- left ventricular systolic function normal, EF 65%, moderate tricuspid valve in sufficiency, stable appearing bioprosthetic aortic valve, mild to moderate aortic stenosis; last EKG from 2016 received and placed on chart; pt can do > 5.5 METS without SOB or chest pain, pt walks her dog daily 2-3 miles; surgeon requested cardiac clearance- pt has appointment scheduled 08/15/22 for clearance, pt instructed to obtain ASA instructions from surgeon and prescribing physician PLAN: Procedure Diagnosis: Preoperative clearance [Z01.818];Spinal stenosis of cervical region [M48.02];Other abnormal findings in urine [R82.998];Edema, unspecified type [R60.9];Injury, unspecified, initial encounter [T14.90XA] Planned Procedure: C3-T1 Posterior Cervical Decompression and fusion; possible adjacent levels Planned Anesthetic: General CONSULTS: Medical clearance requested from Dr. Marroquin by surgeon. Pt had appointment 08/08/22. [facility] OCCUPATIONAL HEALTH AND SAFETY MANAGER please obtain. Cardiac clearance requested from Dr. Donahue by surgeon. Pt has appointment scheduled for 08/15/22. [facility] OCCUPATIONAL HEALTH AND SAFETY MANAGER please obtain. The Following Tests/Procedures Have Been Initiated: EKG, CXR, MRSA, CBC, CMP, T&S, PT, PTT, UA, Urine culture ordered in Epic per surgeon. [place] ordered per OCCUPATIONAL HEALTH AND SAFETY MANAGER. COVID TESTING- scheduled for 08/16/22 1030 [place]. Pt instructed to call surgeon's office for instructions/verification. Instructions Given to Patient: Instructions located in the after visit summary. Patient given verbal and written preop instructions and voices comprehension and compliance. SIGNATURE: Benny Saldivar APRN.CNP PATIENT NAME: Jasmin Hutchinson DATE: August 10, 2022 TIME: 1040 PAGER/CONTACT #: documented in this encounterSum[facility]-26-[facility]22 Instructions* Patient Instructions* Benny Saldivar APRN.CNP - 08/10/2022 8:09 AM EDT PATIENT PREOPERATIVE INSTRUCTIONS Gurpreet Stewart MD has scheduled you for your procedure at this surgery center: [facility]: [phone], [address] [phone] Please read below carefully for your personalized instructions. Date of Surgery:08/19/22 Arrival Time for Surgery: 7:40 am Time of surgery:9:40 am Please be aware that emergency situations arise, which may delay or change your surgical time. If this happens, we will notify you as soon as possible and regret any inconvenience. Blood Thinning Medications: -Stop NSAIDS (Ibuprofen, Advil, Aleve, Motrin, Celebrex, Mobic, Voltaren , Diclofenac etc.) 7 days before surgery, as directed by your surgeon. - If you take any of the following blood thinners, please contact your surgeon and the physician who prescribes it for you in order to get perioperative instructions as soon as possible Blood thinners: Aspirin,Coumadin, Plavix, Eliquis, Pradaxa, Xarelto, Lovenox, Brilinta, Effient, Savaysa, etc. - Stop Vitamin E, fish oil, Ginko, [place]'s Wort, flax seed oil, multivitamins, CBD oil, marijuana and other over the counter herbals and dietary supplements 7 days before surgery. This would not apply to cancer patients who are prescribed Marinol or any other prescription form of marijuana or CBD. Pain Medications: - You may take Tylenol (Acetaminophen) or any of your current prescribed pain medications that do not contain aspirin or NSAIDS as needed. Dietary Restrictions: - No solid food after midnight. - You may have 12 ounces of clear liquids (water, clear juices such as apple juice or Gatorade, carbonated beverages) until 4 hours before scheduled surgery. Diabetic Patients: - Check your blood sugar the morning of surgery. - Call your PCP or asset recovery specialist for insulin instructions for the day before surgery and the day of surgery. -If you are taking the following medications for Type 2 diabetes: Canagliflozin (INVOKANA), dapagliflozin (FARXIGA), and empagliflozin (JARDIANCE) should each be discontinued at least 3 days before scheduled surgery. Ertugliflozin (STEGLATRO) should be discontinued at least four days before scheduled surgery. Medications: Approved medications to take the morning of surgery with a sip of water: Metoprolol Please obtain Aspirin instructions from prescribing physician and surgeon. If you take any medications for erectile dysfunction-Cialis (Tadalafil), Levitra, Staxyn (Vardenafil) Viagra (Sildenenafil please do not take these for 48 hours before surgery. If you start any new medications after today's visit, please contact the surgeon's office. Important Reminders: - If you have a stimulator, implant or pump that requires a remote please bring the remote with youday of surgery. - If you use CPAP/BIPAP, bring the machine with you to the surgery center. - If you are prescribed inhalers for breathing, continue using them AND bring them to the surgery center. - Candy, mints, gum and tobacco products are NOT permitted the morning of surgery. - Hearing aids, dentures and glasses may be worn the morning of surgery. - NO jewelry, body piercings, makeup, hairpins or contacts are to be worn the day of surgery. - NO lotion, creams, powders or deodorants on the skin the day of surgery -Orthopedic patients having surgery [facility] listed as outpatient should bring their walker into the building. -Orthopedic patients having surgery [facility] listed as to be admitted should leave their walkers in the car or with a family member. - You will need to have someone else (Family or friend) drive you home once discharged from the hospital. You cannot take a cab or Uber. You are not allowed to drive yourself home after surgery. -If you are undergoing an outpatient procedure you must have someone drive you home and stay with you for 24 hours. Your surgery may be cancelled if you do not have someone to drive you home or take care of you for 24 hours. If you develop symptoms such as a fever, cold, or flu, or have other changes to your health within TWO DAYS of scheduled surgery or the morning of surgery, please contact the surgery center above. Personal Belongings: - Leave ALL valuables and money at home or with family members. - You will need a form of ID and insurance card to check in the morning of surgery. - You will have to wear a hospital gown during your stay but if you wish to bring undergarments forafter surgery you may. Our anesthesia department recommends reading Prepare for Surgery, Heal Faster: A Guide of [employer] by Kathy Haskins prior to surgery. Benny Saldivar APRN.THANG documented in this encounterSum[facility]10-20-2022 NoteHNO ID: [id number] Author: Gurpreet Stewart MD Service: ? Author Type: Physician Type: Progress Notes Filed: 08/04/2022 2:45 PM Note Text: NEUROSURGERY CONSULT NOTE Gurpreet Stewart MD Date of visit: August 04, 2022 Patient Name: Ms.Myra Elvie Hutchinson Date of : 1950 Current Age: [age] year old Sex: female MRN/E# [id number] Chief Complaint: Bilateral hand numbness and right arm weakness HISTORY OF PRESENT ILLNESS : The patient is a 71 year old, female with a past medical history of osteopenia, HLD, aortic stenosis, and prosthetic aortic valve who is self referred for neurosurgical evaluation of her cervical spine. She presents to the office today with MRI and x-ray imaging. She states that she started having numbness and tingling in her entire right arm into her right hand. She also noticed numbness and tingling in her left hand and both feet. She denies any neck pain, incontinence, weakness, or recent falls. She denies issues with dexterity. On exam, she has bilateral positive De La Garza's signs. She is hyperreflexic in her bilateral upper extremities. She presents today for image review, evaluation and plan of care. Symptoms: right arm and hand numbness and tingling, left hand numbness and tingling, bilateral feet numbness and tingling. DERMATOMAL DISTRIBUTION: Nondermatomal PREVIOUS CONSERVATIVE TREATMENTS: ibuprofen PREVIOUS SURGERY: no previous spine surgery Surgical Risk Factors: Smoking Status: no Diabetic: no Antiplatelet/anticoagulant: YES ASA 81MG Alcohol: no BMI: 22.31 PAIN EVALUATION 08/04/2022 1341 Pain Level: 2 Pain Location: Neck Description: Aching;Sore Duration Units: Months Frequency: Intermittent Intervention/Comfort measure: Medication PAST MEDICAL HISTORY Diagnosis Date Disorder of bone and cartilage, unspecified osteopenia Heart murmur PAST SURGICAL HISTORY Procedure Laterality Date COLONOSCOPY FLX DX W/COLLJ SPEC WHEN PFRMD 06/25/2018 Colonoscopy HEART VALVE REPLACEMENT 09/16/2016 pig valve FAMILY HISTORY Problem Relation Age of Onset Heart Mother IA Hypertension Mother Obese other (Lung Cancer) Father Heart Sister Open Heart Surgery ALLERGIES Allergen Reactions Morphine Vomiting, Unknown Prednisone GI Upset Current Outpatient Medications Medication Sig Dispense Refill aspirin 81 mg chewable tablet Take 81 mg by mouth once daily. metoprolol succinate ER (TOPROL XL) 25 mg 24 hr tablet Take 25 mg by mouth twice daily. atorvastatin (LIPITOR) 20 mg tablet Take 20 mg by mouth once daily. ubidecarenone Q-10 10 mg cap Take by mouth twice daily. ergocalciferol(VITAMIN D 400 UNIT CAP) 2000iu per day 0 OMEGA 3 550 MG CAP Take one(1) tablet daily. 0 MULTIVITAMIN TAB Take one(1) tablet daily. 0 CALCIUM 600 1,500 MG TAB Take one(1) tablet two(2) times daily. 0 No current facility-administered medications for this visit. REVIEW OF SYSTEMS Review of Systems OBJECTIVE: BP 140/69 Pulse 81 Ht 5' 2 (1.58m) Wt 122 lb (55.3kg) SpO2 97% BMI 22.31 kg/(m2). PHYSICAL EXAM: Patient is awake alert oriented x3 sitting at the bedside with her friend Cranials grossly intact Able to follow commands no extremities She is 3 out of 5 strength in her right deltoid, 4 out of 5 in her right biceps. She is full strength in all other extremities Positive left hand Dayday Normal gait Data Review IMAGING STUDIES: MRI CERVICAL performed in April 2022: Shows multilevel cervical spondylosis with severe stenosis at C4-5 with cord signal change. 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 ASSESSMENT/PLAN: Mrs. Hutchinson is a 71-year-old female with a past medical history of cardiac surgery with valve replacement currently on aspirin who presents with several month history of intermittent but recently progressing bilateral hand numbness. She states that her right arm is unable to lift over her head but she is not troubled by that. She still enjoys walking and exercising. Her MRI scan is worrisome for severe cervical spine stenosis at C4-5 with swan-neck deformity and cord signal change. I counseled the patient that she is at high risk of progressive loss of function of her upper extremities as well as her lower extremities and I recommended surgical intervention in the form of a C3 to T1 decompression and fusion possible other levels. The patient will need cardiology medical clearance in the interim. The risks of the surgery which include but not limited to bleeding, infection, spinal fluid leak, spinal cord or nerve root injury, hardware failure requiring reoperation, prolonged dependence on the ventilator, prolonged ICU course, injury to vascular artery causing posterior fossa stroke, coma, even . We will plan to operate within the next 2 to 3 weeks once all her clearance has been coordinated and there is availability on our schedule. Pat (more content not included)...[facility]10-20-[facility] History of Present illness Narrative* Gurpreet Stewart MD - 08/04/2022 2:30 PM EDT NEUROSURGERY CONSULT NOTE Gurpreet Stewart MD Date of visit: August 04, 2022 Patient Name: Ms.Myra Elvie Hutchinson Date of : 1950 Current Age: [age] year old Sex: female MRN/E# [id number] Chief Complaint: Bilateral hand numbness and right arm weakness HISTORY OF PRESENT ILLNESS : The patient is a 71 year old, female with a past medical history of osteopenia, HLD, aortic stenosis, and prosthetic aortic valve who is self referred for neurosurgical evaluation of her cervical spine. She presents to the office today with MRI and x-ray imaging. She states that she started having numbness and tingling in her entire right arm into her right hand. She also noticed numbness and tingling in her left hand and both feet. She denies any neck pain, incontinence, weakness, or recent falls. She denies issues with dexterity. On exam, she has bilateral positive De La Garza's signs. She is hyperreflexic in her bilateral upper extremities. She presents today for image review, evaluation and plan of care. Symptoms: right arm and hand numbness and tingling, left hand numbness and tingling, bilateral feetnumbness and tingling. DERMATOMAL DISTRIBUTION: Nondermatomal PREVIOUS CONSERVATIVE TREATMENTS: ibuprofen PREVIOUS SURGERY: no previous spine surgery Surgical Risk Factors: Smoking Status: no Diabetic: no Antiplatelet/anticoagulant: YES ASA 81MG Alcohol: no BMI: 22.31 PAIN EVALUATION 08/04/2022 1341 Pain Level: 2 Pain Location: Neck Description: Aching;Sore Duration Units: Months Frequency: Intermittent Intervention/Comfort measure: Medication PAST MEDICAL HISTORY Diagnosis Date Disorder of bone and cartilage, unspecified osteopenia Heart murmur PAST SURGICAL HISTORY Procedure Laterality Date COLONOSCOPY FLX DX W/COLLJ SPEC WHEN PFRMD 06/25/2018 Colonoscopy HEART VALVE REPLACEMENT 09/16/2016 pig valve FAMILY HISTORY Problem Relation Age of Onset Heart Mother IA Hypertension Mother Obese other (Lung Cancer) Father Heart Sister Open Heart Surgery ALLERGIES Allergen Reactions Morphine Vomiting, Unknown Prednisone GI Upset Current Outpatient Medications Medication Sig Dispense Refill aspirin 81 mg chewable tablet Take 81 mg by mouth once daily. metoprolol succinate ER (TOPROL XL) 25 mg 24 hr tablet Take 25 mg by mouth twice daily. atorvastatin (LIPITOR) 20 mg tablet Take 20 mg by mouth once daily. ubidecarenone Q-10 10 mg cap Take by mouth twice daily. ergocalciferol(VITAMIN D 400 UNIT CAP) 2000iu per day 0 OMEGA 3 550 MG CAP Take one(1) tablet daily. 0 MULTIVITAMIN TAB Take one(1) tablet daily. 0 CALCIUM 600 1,500 MG TAB Take one(1) tablet two(2) times daily. 0 No current facility-administered medications for this visit. REVIEW OF SYSTEMS Review of Systems OBJECTIVE: BP 140/69 Pulse 81 Ht 5' 2 (1.58m) Wt 122 lb (55.3kg) SpO2 97% BMI 22.31 kg/(m^2). PHYSICAL EXAM: Patient is awake alert oriented x3 sitting at the bedside with her friend Cranials grossly intact Able to follow commands no extremities She is 3 out of 5 strength in her right deltoid, 4 out of 5 in her right biceps. She is full strength in all other extremities Positive left hand Dayday Normal gait Data Review IMAGING STUDIES: MRI CERVICAL performed in April 2022: Shows multilevel cervical spondylosis with severe stenosis at C4-5 with cord signal change. 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 ASSESSMENT/PLAN: Mrs. Hutchinson is a 71-year-old female with a past medical history of cardiac surgery with valve replacement currently on aspirin who presents with several month history of intermittent but recently progressing bilateral hand numbness. She states that her right arm is unable to lift over her head but she is not troubled by that. She still enjoys walking and exercising. Her MRI scan is worrisome for severe cervical spine stenosis at C4-5 with swan-neck deformity and cord signal change. I counseled the patient that she is at high risk of progressive loss of function of her upper extremities as well as her lower extremities and I recommended surgical intervention in the form of a C3 to T1 decompression and fusion possible other levels. The patient will need cardiology medical clearance in the interim. The risks of the surgery which include but not limited to bleeding, infection, spinal fluid leak, spinal cord or nerve root injury, hardware failure requiring reoperation, prolonged dependenceon the ventilator, prolonged ICU course, injury to vascular artery causing posterior fossa stroke, coma, even . We will plan to operate within the next 2 to 3 weeks once all her clearance has been coordinated and there is availability on our schedule. Patient will need cervical x-rays with flexion-extension as well as CT scan for preoperative planning. Attribution: The following portions of the patient's history were reviewed, confirmed, and updated as necessary:allergies, current medications, past family history, past medical history, past social history, past surgical history, problem list, HPI, and ROS obtained by others. Some elements may be copied from a previous office note and have been reviewed/updated where appropriate. All portions reflect current medical decision making from today. The clinical and radiographic findings as well as the risks, benefits and alternatives of treatmenthave been reviewed in detail with the patient. Advised to call the office if symptoms worsen or new symptoms develop.Patient expressed understanding and is in agreement with plan. Gurpreet Stewart MD Department of Neurosurgery [facility] This note was partially generated using [employer] voice recognition system, and there may be some incorrect words, spellings, and punctuation that were not noted in checking the note before saving. documented in this encounterSumma [facility]10-18-2022 Miscellaneous Notes* Telephone Encounter - Linnea Martinez RN - 08/02/2022 11:00 AM EDT Called patient to see what imaging she had done that she would be bringing in to her appointment. Patient gave her the phone because she could not hear me and did not have her hearing aids in. Patient's states that she had an MRI done and they would bring her imaging to Dr. Ni day of surgery. Clarified with patient that they were not having surgery with Dr. Stewart on . Patient's was confused and stated that the doctor they saw in [place] told them that her imaging looked bad and she would need surgery. He stated that he thought that she would be having surgery on 08/04/2022 and that was what the appointment was for. I let patient's know that this was just an appointment for us to evaluate his and review her imaging to come up with a plan going forward. We could not tell them if she would need surgery or not until we had seen her in the office. Let patient's know that x-rays were ordered to be completed prior to their visit. Theycould have these done in the radiology department at [facility] then come to the [facility] for their ap pointment. Reiterated to them that the patient would not be having surgery on 08/04/2022. Gave them the address to the [facility] and directions to our office. Patient's appreciated the clarification. Told them to feel free to call our office with any further questions or concerns. iLnnea Martinez RN [facility]* Diagnosis Onset Date Resolution Status Neuropathy acute Mixed hyperlipidemia chronic History of aortic valve repl acement with bioprosthetic valve June, resolved Encounter to establish care noneactive Abnormality of gait and mobility chronic Myelopathy chronic Polyneuropathy chronic [facility] Work Phone: 1(246) 769-563209-01-2016 Evaluation note* Diagnosis Onset Date Resolution Status Cervical myelopathy acute Preop exam for internal medicine acute Mixed hyperlipidemia chronic Polyneuropathy chronic History of aortic valve repl acement with bioprosthetic valve June, resolved Nonrheumatic mitral (valve) insufficiency acute Nonrheumatic mitral (valve) prolapse acute Preoperative cardiovascular examination acute Aortic stenosis chronic Mixed hyperlipidemia chronic History of aortic valve repl acement with bioprosthetic valve June, resolved Cervical myelopathy acute Neuropathy acute Sleep difficulties acute [facility] Work Phone: 1([phone]) 492-810309-01-2016 Evaluation note* Diagnosis Onset Date Resolution Status Aortic insufficiency acute Nonrheumatic mitral (valve) insufficiency acute Myelopathy chronic Polyneuropathy chronic History of aortic valve repl acement with bioprosthetic valve June, resolved Bilateral primary osteoarthritis of knee acute Right knee pain acute [facility] Work Phone: 1(679) 709-578809-01-2016 Evaluation note* Diagnosis Onset Date Resolution Status Nonrheumatic mitral (valve) prolapse acute Mixed hyperlipidemia chronic History of aortic valve repl acement with bioprosthetic valve June, resolved [facility] Work Phone: Evaluation note* Diagnosis Cervical spondylosis- Primary Cervical spondylosis without myelopathy Spinal stenosis in cervical region Spinal stenosis of cervical region Spinal stenosis in cervical region Spinal stenosis of thoracic region [facility] Cervical spondylosis without myelopathy- Primary Cervical spondylosis without myelopathy [facility] Diagnosis Preoperative clearance- Primary Preoperative examination, unspecified Spinal stenosis in cervical region Spinal stenosis of cervical region Spinal stenosis in cervical region Cervical spondylosis Cervical spondylosis without myelopathy Other abnormal findings in urine Edema, unspecified type Injury, unspecified, initial encounter Cervical spondylosis without myelopathy [facility] Preop testing- Primary Preoperative examination, unspecified Spinal stenosis of cervical region [M48.02 (ICD-10-CM)] Spinal stenosis in cervical region Other hyperlipidemia [E78.49 (ICD-10-CM)] H/O bicuspid aortic valve [Z87.74 (ICD-10-CM)] Personal history of other diseases of circulatory system History of aortic stenosis [Z86.79 (ICD-10-CM)] Personal history of other diseases of circulatory system Cervical spondylosis without myelopathy [facility] Diagnosis Spinal stenosis in cervical region Spinal stenosis of thoracic region Cervical spondylosis without myelopathy [facility] Diagnosis Spinal stenosis of cervical region- Primary Spinal stenosis in cervical region [facility] Diagnosis Post-operative pain Other acute postoperative pain [facility] Diagnosis Spinal stenosis of cervical region Spinal stenosis in cervical region Spinal stenosis of cervical region- Primary Spinal stenosis in cervical region [facility] Diagnosis Spinal stenosis of cervical region- Primary Spinal stenosis in cervical region Spinal stenosis of cervical region- Primary Spinal stenosis in cervical region [facility] Diagnosis Spinal stenosis of cervical region- Primary Spinal stenosis in cervical region Spinal stenosis of cervical region- Primary Spinal stenosis in cervical region [facility] Diagnosis Spinal stenosis of cervical region- Primary Spinal stenosis in cervical region Spinal stenosis of cervical region- Primary Spinal stenosis in cervical region [facility] Diagnosis Spinal stenosis of cervical region- Primary Spinal stenosis in cervical region [facility] Diagnosis Exposure to SARS-associated coronavirus- Primary [facility]* Diagnosis Spinal stenosis of cervical region- Primary Spinal stenosis in cervical region [facility] Diagnosis Spinal stenosis of cervical region- Primary Spinal stenosis in cervical region [facility] Diagnosis Spinal stenosis of cervical region Spinal stenosis in cervical region [facility]* Diagnosis Onset Date Resolution Status Bilateral primary osteoarthritis of knee acute Right knee pain acute [facility] Work Phone: Evaluation note* Diagnosis Arthrodesis status [facility]* Diagnosis Spinal stenosis of cervical region Spinal stenosis in cervical region [facility] Diagnosis Bicuspid aortic valve- Primary Congenital insufficiency of aortic valve HYPERLIPIDEMIA NEC/NOS Other and unspecified hyperlipidemia OSTEOPENIA Disorder of bone and cartilage, unspecified Annual physical exam Routine general medical examination at a [facility] care facility Impacted cerumen of right ear- Primary Impacted cerumen documented in this encounter [facility] Discharge instructions Additional Instructions CT brain negative. Labs stable. Better on reevaluation with medications. Medicine as needed. Return if any worsening symptoms.[facility] Work Phone: Instructions* Name Dates Details Patient Instructions Indication:BMI 20.0-20.9, adult Start:06-Sep-2021 Instruction Type:Provider Instructions for Treatment How to Access Health Informa tion Online using Patient Portal and [employer] Apps Indication:BMI 20.0-20.9, adult Start:06-Sep-2021 Instruction Type:Patient Education Patient Instructions Indication:BMI 20.0-20.9, adult Start:01-Jun-2021 Instruction Type:Provider Instructions for Treatment How to Access Health Informa tion Online using Patient Portal and [employer] Apps Indication:BMI 20.0-20.9, adult Start:01-Jun-2021 Instruction Type:Patient Education How to access health informa tion online Indication:Hypercholesterolemia Start:09-Aug-2016 Instruction Type:Patient Education How to access health informa tion online - Detail Indication:Hypercholesterolemia Start:09-Aug-2016 Instruction Type:Patient Education Patient Instructions Indication:Hypercholesterolemia Start:09-Aug-2016 Instruction Type:Provider Instructions for Treatment How to access health informa tion online Indication:Dysuria Start:24-Jun-2016 Instruction Type:Patient Education How to access health informa tion online - Detail Indication:Dysuria Start:24-Jun-2016 Instruction Type:Patient Education Patient Instructions Indication:Dysuria Start:24-Jun-2016 Instruction Type:Provider Instructions for Treatment DISCONTINUED - LIPID PANEL ( [id number]) Indication:Hypercholesterolemia Start:18-Mar-2016 Instruction Type:Patient Education How to access health informa tion online Indication:Murmur Start:02-Mar-2016 Instruction Type:Patient Education How to access health informa tion online - Detail Indication:Murmur Start:02-Mar-2016 Instruction Type:Patient Education Patient Instructions Indication:Murmur Start:02-Mar-2016 Instruction Type:Provider Instructions for Treatment [facility] Work Phone: Instructions* Name Dates Details Patient Instructions Indication:BMI 20.0-20.9, adult Start:06-Sep-2021 Instruction Type:Provider Instructions for Treatment How to Access Health Informa tion Online using Patient Portal and [employer] Apps Indication:BMI 20.0-20.9, adult Start:06-Sep-2021 Instruction Type:Patient Education Patient Instructions Indication:BMI 20.0-20.9, adult Start:01-Jun-2021 Instruction Type:Provider Instructions for Treatment How to Access Health Informa tion Online using Patient Portal and [employer] Apps Indication:BMI 20.0-20.9, adult Start:01-Jun-2021 Instruction Type:Patient Education How to access health informa tion online Indication:Hypercholesterolemia Start:09-Aug-2016 Instruction Type:Patient Education How to access health informa tion online - Detail Indication:Hypercholesterolemia Start:09-Aug-2016 Instruction Type:Patient Education Patient Instructions Indication:Hypercholesterolemia Start:09-Aug-2016 Instruction Type:Provider Instructions for Treatment How to access health informa tion online Indication:Dysuria Start:24-Jun-2016 Instruction Type:Patient Education How to access health informa tion online - Detail Indication:Dysuria Start:24-Jun-2016 Instruction Type:Patient Education Patient Instructions Indication:Dysuria Start:24-Jun-2016 Instruction Type:Provider Instructions for Treatment DISCONTINUED - LIPID PANEL ( [id number]) Indication:Hypercholesterolemia Start:18-Mar-2016 Instruction Type:Patient Education How to access health informa tion online Indication:Murmur Start:02-Mar-2016 Instruction Type:Patient Education How to access health informa tion online - Detail Indication:Murmur Start:02-Mar-2016 Instruction Type:Patient Education Patient Instructions Indication:Murmur Start:02-Mar-2016 Instruction Type:Provider Instructions for Treatment [facility] Work Phone: Instructions* Name Dates Details Patient Instructions Indication:Preop examination Start:10-Aug-2022 Instruction Type:Provider Instructions for Treatment How to Access Health Informa tion Online using Patient Portal and [employer]rd [employer] Apps Indication:Preop examination Start:10-Aug-2022 Instruction Type:Patient Education Patient Instructions Indication:BMI 20.0-20.9, adult Start:06-Sep-2021 Instruction Type:Provider Instructions for Treatment How to Access Health Informa tion Online using Patient Portal and [employer] Apps Indication:BMI 20.0-20.9, adult Start:06-Sep-2021 Instruction Type:Patient Education Patient Instructions Indication:BMI 20.0-20.9, adult Start:01-Jun-2021 Instruction Type:Provider Instructions for Treatment How to Access Health Informa tion Online using Patient Portal and [employer] Apps Indication:BMI 20.0-20.9, adult Start:01-Jun-2021 Instruction Type:Patient Education How to access health informa tion online Indication:Hypercholesterolemia Start:09-Aug-2016 Instruction Type:Patient Education How to access health informa tion online - Detail Indication:Hypercholesterolemia Start:09-Aug-2016 Instruction Type:Patient Education Patient Instructions Indication:Hypercholesterolemia Start:09-Aug-2016 Instruction Type:Provider Instructions for Treatment How to access health informa tion online Indication:Dysuria Start:24-Jun-2016 Instruction Type:Patient Education How to access health informa tion online - Detail Indication:Dysuria Start:24-Jun-2016 Instruction Type:Patient Education Patient Instructions Indication:Dysuria Start:24-Jun-2016 Instruction Type:Provider Instructions for Treatment DISCONTINUED - LIPID PANEL ( [id number]) Indication:Hypercholesterolemia Start:18-Mar-2016 Instruction Type:Patient Education How to access health informa tion online Indication:Murmur Start:02-Mar-2016 Instruction Type:Patient Education How to access health informa tion online - Detail Indication:Murmur Start:02-Mar-2016 Instruction Type:Patient Education Patient Instructions Indication:Murmur Start:18-May-2016 Instruction Type:Provider Instructions for Treatment [facility] Work Phone: reason for referral (narrative)* Diagnostic Procedure Only (Routine) - Closed Specialty Diagnoses / Procedures Referred By Contac t Referred To Contact XR IMAGING Diagnoses Post-operative pain Procedures XR CERV GENERAL 2V AP/LAT RADEX SPINE CERVICAL 2 OR 3 VIEWS Ak Provider Adult 1 [place] [address] Xr Imaging Referral ID Status Reason Start Date Expiration Date V isits Requested Visits Authorized [id number] Closed Auto-Generate d Referral 09/06/2022 09/22/2023 1 1 [facility] for referral (narrative)* Diagnostic Procedure Only (Routine) - Pending Review Specialty Diagnoses / Procedures Referred By Contac t Referred To Contact XR IMAGING Diagnoses Spinal stenosis of cervical region Procedures XR CERV GENERAL 2V AP/LAT RADEX SPINE CERVICAL 2 OR 3 VIEWS Gurpreet Stewart MD [address] [place] [address] Xr Imaging Referral ID Status Reason Start Date Expiration Date Visits Requested Visits Authorized [id number] Pending Review Auto-Generat ed Referral 10/20/2022 10/02/2023 1 1 * MRI/CT (Routine) - Authorized Specialty Diagnoses / Procedures Referred By Contac t Referred To Contact CT IMAGING Diagnoses Spinal stenosis of cervical region Procedures CT CERVICAL SPINE WO IVCON CT CERVICAL SPINE W/O CONTRAST MATERIAL Gurpreet Stewart MD [address] [place] [address] Ct Imaging Referral ID Status Reason Start Date Expiration Date Visits Requested Visits Authorized [id number] Authorized Auto-Generat ed Referral 10/20/2022 10/02/2023 1 1 [facility] for referral (narrative)* Diagnostic Procedure Only (Routine) - Closed Specialty Diagnoses / Procedures Referred By Contac t Referred To Contact XR IMAGING Diagnoses Spinal stenosis of cervical region Procedures XR CERV GENERAL 2V AP/LAT RADEX SPINE CERVICAL 2 OR 3 VIEWS Gurpreet Stewart MD [address] [place] [address] [place] [address] Referral ID Status Reason Start Date Expiration Date V isits Requested Visits Authorized [id number] Closed Auto-Generate d Referral 10/20/2022 10/02/2023 1 1 [facility] for referral (narrative)No reason for referral [facility]: Reason for visit Narrative* Diagnostic Procedure Only (Routine) - Closed Specialty Diagnoses / Procedures Referred By Contac t Referred To Contact XR IMAGING Diagnoses Post-operative pain Procedures XR CERV GENERAL 2V AP/LAT RADEX SPINE CERVICAL 2 OR 3 VIEWS Ak Provider Adult [address] [place] [address] Xr Imaging Referral ID Status Reason Start Date Expiration Date V isits Requested Visits Authorized [id number] Closed Auto-Generate d Referral 09/06/2022 09/22/2023 1 1 [facility] for visit Narrative* Diagnostic Procedure Only (Routine) - Closed Specialty Diagnoses / Procedures Referred By Contac t Referred To Contact XR IMAGING Diagnoses Spinal stenosis of cervical region Procedures XR CERV GENERAL 2V AP/LAT RADEX SPINE CERVICAL 2 OR 3 VIEWS Gurpreet Stewart MD [address] [place] [address] [place] [address] Referral ID Status Reason Start Date Expiration Date V isits Requested Visits Authorized [id number] Closed Auto-Generate d Referral 10/20/2022 10/02/2023 1 1 [facility] Chief Complaint and Reason for Visit Chief Complaint COMMISSARY ASSISTANT, EST. CARE, PT NE EDS NPP NERVE DAMAGE HANDS EORDER Reason for Visit Neuropathy Mixed hyperlipidemia History of aortic valve replacement with bioprosthetic valve Encounter to establish care Abnormality of gait and mobility Myelopathy Polyneuropathy Chief Complaint COMMISSARY ASSISTANT, EST. CARE, PT NE EDS NPP NERVE DAMAGE HANDS EORDER MYELOPATHY Reason for Visit Neuropathy Mixed hyperlipidemia History of aortic valve replacement with bioprosthetic valve Encounter to establish care Abnormality of gait and mobility Myelopathy Polyneuropathy Chief Complaint COMMISSARY ASSISTANT, EST. CARE, PT NE EDS NPP NERVE DAMAGE HANDS EORDER MYELOPATHY BILAT UPPER POLYNEUROPATHY Reason for Visit Neuropathy Mixed hyperlipidemia History of aortic valve replacement with bioprosthetic valve Encounter to establish care Abnormality of gait and mobility Myelopathy Polyneuropathy Chief Complaint Surgery Clearance [facility] FU vertigo dizzy Reason for Visit Cervical myelopathy Preop exam for internal medicine Mixed hyperlipidemia Polyneuropathy History of aortic valve replacement with bioprosthetic valve Nonrheumatic mitral (valve) insufficiency Nonrheumatic mitral (valve) prolapse Preoperative cardiovascular examination Aortic stenosis Mixed hyperlipidemia History of aortic valve replacement with bioprosthetic valve Cervical myelopathy Neuropathy Sleep difficulties Chief Complaint 1 Y FU SCREENING/E ORDERS Sore Rt Ankle Reason for Visit Aortic insufficiency Nonrheumatic mitral (valve) insufficiency Myelopathy Polyneuropathy History of aortic valve replacement with bioprosthetic valve Bilateral primary osteoarthritis of knee Right knee pain Chief Complaint Sore Rt Ankle E-ORDER Reason for Visit Bilateral primary os teoarthritis of knee Right knee pain Chief Complaint E-ORDER 1 y fu PREV PFM PT CP Reason for Visit Nonrheumatic mitral (valve) prolapse Mixed hyperlipidemia History of aortic valve replacement with bioprosthetic valve Chief Complaint Admit Date 1 Y FU December 13, 2024 1:16pm eorders January 03, 2025 8:0 6am Reason for Visit Admit Date Mixed hyperlipidemia December 13, 2024 1:16pm Nonrheumatic mitral (valve) prolapse Feb ruary 2024 1:16pm History of aortic valve repl acement with bioprosthetic valve December 13, 2024 1:16pm Chief Complaint Admit Date 1 Y FU December 13, 2024 1:16pm eorders January 03, 2025 8:0 6am PRESENCE OF XENOGENIC HEART VALVE January 13, 2025 1:45pm Family History No Family History Records Found Relationship Condition Age at Onset Recorded Date/T chiki mother Coronary artery disease Unknown sister History of open heart surgery Unknown Advance Directives No Advanced Directives Records Found Advance Directive Response Recorded Date/ Time Advance Directives No May 03 4:15pm Living Will No October 6th, 201 6 1:13pm Power of Assistant Engineer No July 21, 016 1:13pm Advance Directive Response Recorded Date/ Time Advance Directives No August 24, 2022 1:40pm Living Will No October 21 3 6:37am Power of Assistant Engineer No October 21 023 6:37am Advance Directive Response Recorded Date/ Time Advance Directives No August 24, 2022 2:40pm Living Will No October 21 3 7:37am Power of Assistant Engineer No October 21 023 7:37am Advance Directive Response Recorded Date/ Time Living Will No October 21 3 7:37am Do you have a Healthcare Power of Assistant Engineer? No October 21, 2022 7:37am Advance Directives No August 24, 2022 2:40pm Reason for Referral Specialty Diagnoses / Procedures Referred By Contac t Referred To Contact CT IMAGING Diagnoses Spinal stenosis of thoracic region Procedures CT THORACIC SPINE WO IVCON CT THORACIC SPINE W/O CONTRAST MATERIAL Gurpreet Stewart MD [id number] Imaging Referral ID Status Reason Start Date Expiration Date Visits Requested Visits Authorized [id number] Pending Review Auto-Generat ed Referral 2 09/03/2023 1 1 Specialty Diagnoses / Procedures Referred By Contac t Referred To Contact CT IMAGING Diagnoses Spinal stenosis in cervical region Procedures CT CERVICAL SPINE WO IVCON CT CERVICAL SPINE W/O CONTRAST MATERIAL Gurpreet Stewart MD [address] [place] [address] Ct Imaging Referral ID Status Reason Start Date Expiration Date Visits Requested Visits Authorized [id number] Pending Review Auto-Generat ed Referral 2 09/03/2023 1 1 Specialty Diagnoses / Procedures Referred By Contac t Referred To Contact XR IMAGING Diagnoses Cervical spondylosis Spinal stenosis in cervical region Procedures XR CERV OTHER 4V AP/LAT/FLX/EXT RADEX SPINE CERVICAL 4 OR 5 VIEWS Gurpreet Stewart MD [address] [place] [address] Xr Imaging Referral ID Status Reason Start Date Expiration Date Visits Requested Visits Authorized [id number] Pending Review Auto-Generat ed Referral 2 09/01/2023 1 1 Specialty Diagnoses / Procedures Referred By Contac t Referred To Contact Cardiology Diagnoses Preoperative clearance Spinal stenosis of cervical region Procedures CONSULT TO CARDIOLOGY OFFICE/OUTPATIENT NEW HIGH MDM 60-74 MINUTES Gurpreet Stewart MD [address] [place] [address] Referral ID Status Reason Start Date Expiration Date Visits Requested Visits Authorized [id number] Authorized PCP Requested Referral 2 08/05/2023 1 1 Specialty Diagnoses / Procedures Referred By Contac t Referred [facility] Diagnoses Preoperative clearance Spinal stenosis of cervical region Procedures ECG COMPLETE ECG ROUTINE ECG W/LEAST 12 LDS W/I&R Gurpreet Stewart MD [address] [place] [address] [facility] [address] [place] [address] Referral ID Status Reason Start Date Expiration Date Visits Requested Visits Authorized [id number] Pending Review Auto-Generat ed Referral 2 08/05/2023 1 1 Referral ID Status Reason Start Date Expiration Date V isits Requested Visits Authorized [id number] Closed Auto-Generate d Referral 08/04/2022 09/03/2023 1 1 Referral ID Status Reason Start Date Expiration Date V isits Requested Visits Authorized [id number] Closed Auto-Generate d Referral 08/04/2022 09/03/2023 1 1 Specialty Diagnoses / Procedures Referred By Contac t Referred To Contact CT IMAGING Diagnoses Spinal stenosis of cervical region Procedures CT CERVICAL SPINE WO IVCON CT CERVICAL SPINE W/O CONTRAST MATERIAL Gurpreet Stewart MD [address] [place] [address] Ct Imaging Referral ID Status Reason Start Date Expiration Date Visits Requested Visits Authorized [id number] Authorized Auto-Generat ed Referral 2 10/01/2023 1 1 Specialty Diagnoses / Procedures Referred By Contac t Referred To Contact [facility] Diagnoses Spinal stenosis of cervical region Procedures CONSULT TO PHYSICAL THERAPY PHYSICAL THERAPY EVALUATION HIGH COMPLEX 45 MINS Gurpreet Stewart MD [address] [place] [address] [facility] [place] [address] Referral ID Status Reason Start Date Expiration Date Visits Requested Visits Authorized [id number] Authorized PCP Requested Referral Auto-Generate d Referral 2 09/01/2023 99 99 Specialty Diagnoses / Procedures Referred By Contac t Referred To Contact [facility] Diagnoses Spinal stenosis of cervical region Procedures PT REHAB FOLLOW UP ORDER THERAPEUTIC EXERCISES RE, EA 15 MIN. Pt [facility] [address] [place] [address] [facility] [place] [address] Referral ID Status Reason Start Date Expiration Date Visits Requested Visits Authorized [id number] Pending Review PCP Requested Referral Auto-Generate d Referral 2 01/09/2023 1 1 Specialty Diagnoses / Procedures Referred By Contac t Referred To Contact CT IMAGING Diagnoses Spinal stenosis of cervical region Procedures CT CERVICAL SPINE WO IVCON CT CERVICAL SPINE W/O CONTRAST MATERIAL Gurpreet Stewart MD [address] [place] [address] [facility] Referral ID Status Reason Start Date Expiration Date V isits Requested Visits Authorized [id number] Closed Auto-Generate d Referral 09/01/2022 10/01/2023 1 1 Referral ID Status Reason Start Date Expiration Date V isits Requested Visits Authorized [id number] Closed Auto-Generate d Referral 10/20/2022 10/02/2023 1 1 Specialty Diagnoses / Procedures Referred By Contac t Referred To Contact CT IMAGING Diagnoses Arthrodesis status Procedures CT CERVICAL SPINE WO IVCON CT CERVICAL SPINE W/O CONTRAST MATERIAL Gurpreet Stewart MD [address] [place] [address] [place] [address] Referral ID Status Reason Start Date Expiration Date V isits Requested Visits Authorized [id number] Closed Auto-Generate d Referral 03/02/2023 03/31/2024 1 1 Summary Purpose Additional Source Comments Goals (unrecognized section and content) Goals may be documented in a n alternate sectionGoals may be documented in an alternate sectionGoals may be documented in an alternate sectionGoals may be documented in an alternate sectionGoals may be documented in an alternate sectionGoals may be documented in an alternate sectionGoals may be documented in an alternate sectionGoals may be documented in an alternate sectionGoals may be documented in an alternate section Source Comments (unrecognize d section and content) In the event this informatio n is protected by the Federal Confidentiality of Alcohol and Drug Abuse Patient Records regulations: The Federal rules restrict any use of the information to criminally investigate or prosecute any alcohol or drug abuse patient.[facility] CampusIn the event this information is protected by the Federal Confidentiality of Alcohol and Drug Abuse Patient Records regulations: The Federal rules restrict any use of the information to criminally investigate or prosecute any alcohol or drug abuse patient.[facility] CampusIn the event this information is protected by the Federal Confidentiality of Alcohol and Drug Abuse Patient Records regulations: The Federal rules restrict any use of the information to criminally investigate or prosecute any alcohol or drug abuse patient.[facility] CampusIn the event this information is protected by the Federal Confidentiality of Alcohol and Drug Abuse Patient Records regulations: The Federal rules restrict any use of the information to criminally investigate or prosecute any alcohol or drug abuse patient.[facility] CampusIn the event this information is protected by the Federal Confidentiality of Alcohol and Drug Abuse Patient Records regulations: The Federal rules restrict any use of the information to criminally investigate or prosecute any alcohol or drug abuse patient.[facility] CampusIn the event this information is protected by the Federal Confidentiality of Alcohol and Drug Abuse Patient Records regulations: The Federal rules restrict any use of the information to criminally investigate or prosecute any alcohol or drug abuse patient.[facility] CampusIn the event this information is protected by the Federal Confidentiality of Alcohol and Drug Abuse Patient Records regulations: The Federal rules restrict any use of the information to criminally investigate or prosecute any alcohol or drug abuse patient.[facility] CampusIn the event this information is protected by the Federal Confidentiality of Alcohol and Drug Abuse Patient Records regulations: The Federal rules restrict any use of the information to criminally investigate or prosecute any alcohol or drug abuse patient.[facility] CampusIn the event this information is protected by the Federal Confidentiality of Alcohol and Drug Abuse Patient Records regulations: The Federal rules restrict any use of the information to criminally investigate or prosecute any alcohol or drug abuse patient.[facility] CampusIn the event this information is protected by the Federal Confidentiality of Alcohol and Drug Abuse Patient Records regulations: The Federal rules restrict any use of the information to criminally investigate or prosecute any alcohol or drug abuse patient.[facility] CampusIn the event this information is protected by the Federal Confidentiality of Alcohol and Drug Abuse Patient Records regulations: The Federal rules restrict any use of the information to criminally investigate or prosecute any alcohol or drug abuse patient.[facility] CampusIn the event this information is protected by the Federal Confidentiality of Alcohol and Drug Abuse Patient Records regulations: The Federal rules restrict any use of the information to criminally investigate or prosecute any alcohol or drug abuse patient.[facility] CampusIn the event this information is protected by the Federal Confidentiality of Alcohol and Drug Abuse Patient Records regulations: The Federal rules restrict any use of the information to criminally investigate or prosecute any alcohol or drug abuse patient.[facility] CampusIn the event this information is protected by the Federal Confidentiality of Alcohol and Drug Abuse Patient Records regulations: The Federal rules restrict any use of the information to criminally investigate or prosecute any alcohol or drug abuse patient.[facility] CampusIn the event this information is protected by the Federal Confidentiality of Alcohol and Drug Abuse Patient Records regulations: The Federal rules restrict any use of the information to criminally investigate or prosecute any alcohol or drug abuse patient.[facility] CampusIn the event this information is protected by the Federal Confidentiality of Alcohol and Drug Abuse Patient Records regulations: The Federal rules restrict any use of the information to criminally investigate or prosecute any alcohol or drug abuse patient.[facility] CampusIn the event this information is protected by the Federal Confidentiality of Alcohol and Drug Abuse Patient Records regulations: The Federal rules restrict any use of the information to criminally investigate or prosecute any alcohol or drug abuse patient.[facility] CampusIn the event this information is protected by the Federal Confidentiality of Alcohol and Drug Abuse Patient Records regulations: The Federal rules restrict any use of the information to criminally investigate or prosecute any alcohol or drug abuse patient.[facility] CampusIn the event this information is protected by the Federal Confidentiality of Alcohol and Drug Abuse Patient Records regulations: The Federal rules restrict any use of the information to criminally investigate or prosecute any alcohol or drug abuse patient.[facility] CampusIn the event this information is protected by the Federal Confidentiality of Alcohol and Drug Abuse Patient Records regulations: The Federal rules restrict any use of the information to criminally investigate or prosecute any alcohol or drug abuse patient.[facility] CampusIn the event this information is protected by the Federal Confidentiality of Alcohol and Drug Abuse Patient Records regulations: The Federal rules restrict any use of the information to criminally investigate or prosecute any alcohol or drug abuse patient.[facility] CampusIn the event this information is protected by the Federal Confidentiality of Alcohol and Drug Abuse Patient Records regulations: The Federal rules restrict any use of the information to criminally investigate or prosecute any alcohol or drug abuse patient.[facility] CampusIn the event this information is protected by the Federal Confidentiality of Alcohol and Drug Abuse Patient Records regulations: The Federal rules restrict any use of the information to criminally investigate or prosecute any alcohol or drug abuse patient.[facility] CampusIn the event this information is protected by the Federal Confidentiality of Alcohol and Drug Abuse Patient Records regulations: The Federal rules restrict any use of the information to criminally investigate or prosecute any alcohol or drug abuse patient.[facility] CampusIn the event this information is protected by the Federal Confidentiality of Alcohol and Drug Abuse Patient Records regulations: The Federal rules restrict any use of the information to criminally investigate or prosecute any alcohol or drug abuse patient.[facility] CampusIn the event this information is protected by the Federal Confidentiality of Alcohol and Drug Abuse Patient Records regulations: The Federal rules restrict any use of the information to criminally investigate or prosecute any alcohol or drug abuse patient.[facility] CampusIn the event this information is protected by the Federal Confidentiality of Alcohol and Drug Abuse Patient Records regulations: The Federal rules restrict any use of the information to criminally investigate or prosecute any alcohol or drug abuse patient.[facility] CampusIn the event this information is protected by the Federal Confidentiality of Alcohol and Drug Abuse Patient Records regulations: The Federal rules restrict any use of the information to criminally investigate or prosecute any alcohol or drug abuse patient.[facility] CampusIn the event this information is protected by the Federal Confidentiality of Alcohol and Drug Abuse Patient Records regulations: The Federal rules restrict any use of the information to criminally investigate or prosecute any alcohol or drug abuse patient.[facility] Reason for Visit (unrecogniz ed section and content) Reason Comments PT Discharge Specialty Diagnoses / Procedures Referred By Contac t Referred To Contact [facility] Diagnoses Spinal stenosis of cervical region Procedures CONSULT TO PHYSICAL THERAPY PHYSICAL THERAPY EVALUATION HIGH COMPLEX 45 MINS [place], Enyinna, MD [address] [place] [address] [facility] [address] [address] Referral ID Status Reason Start Date Expiration Date Visits Requested Visits Authorized [id number] Authorized PCP Requested Referral Auto-Generate d Referral 09/01/2023 99 99 Reason Comments Physical Therapy Reason Comments Orders Reason Comments New Patient Specialty Diagnoses / Procedures Referred By Contac t Referred To Contact CT IMAGING Diagnoses Spinal stenosis in cervical region Procedures CT CERVICAL SPINE WO IVCON CT CERVICAL SPINE W/O CONTRAST MATERIAL Gurpreet Stewart MD [address] [place] [address] Ct Imaging Referral ID Status Reason Start Date Expiration Date V isits Requested Visits Authorized [id number] Closed Auto-Generate d Referral 08/04/2022 09/03/2023 1 1 Reason Comments Patient Update Reason Comments Home Care Confirmation Call Reason Comments Opened In Error Reason Comments Orders Appointment Reason Comments Follow Up All Clear Reason Comments Established Patient Reason Comments PT Eval Reason Comments PT Progress Note Specialty Diagnoses / Procedures Referred By Contac t Referred To Contact [facility] Diagnoses Spinal stenosis of cervical region Procedures CONSULT TO PHYSICAL THERAPY PHYSICAL THERAPY EVALUATION HIGH COMPLEX 45 MINS Gurpreet Stewart MD [address] [place] [address] [facility] [address] [address] Reason Comments Headache Nasal congestion, x1 day. Reason Comments Results Reason Comments PT Progress Note Reason Comments Radiology CT Specialty Diagnoses / Procedures Referred By Contac t Referred To Contact CT IMAGING Diagnoses Spinal stenosis of cervical region Procedures CT CERVICAL SPINE WO IVCON CT CERVICAL SPINE W/O CONTRAST MATERIAL Gurpreet Stewart MD [address] [place] [address] [place] [address] Referral ID Status Reason Start Date Expiration Date V isits Requested Visits Authorized [id number] Closed Auto-Generate d Referral 09/01/2022 10/01/2023 1 1 Referral ID Status Reason Start Date Expiration Date V isits Requested Visits Authorized [id number] Closed Auto-Generate d Referral 10/20/2022 10/02/2023 1 1 Specialty Diagnoses / Procedures Referred By Contalexx t Referred To Contact CT IMAGING Diagnoses Arthrodesis status Procedures CT CERVICAL SPINE WO IVCON CT CERVICAL SPINE W/O CONTRAST MATERIAL Gurpreet Stewart MD [address] [place] [address] [place] [address] Referral ID Status Reason Start Date Expiration Date V isits Requested Visits Authorized [id number] Closed Auto-Generate d Referral 03/02/2023 03/31/2024 1 1 Reason Comments Ear Problem right ear feels plug ged x 1 day Care Teams (unrecognized sec tion and content) Manager Money Relationship Specialty Start Date End Date Nata Welsh, ECONOMIC RESEARCH ASSISTANT [address] [facility] [address] [place] [address] PCP - General Internal Medicine 06/13/18 Manager Money Relationship Specialty Start Date End Date Nata Welsh, ECONOMIC RESEARCH ASSISTANT [address] [facility] [address] [place] [address] PCP - General Internal Medicine 06/13/18 Manager Money Relationship Specialty Start Date End Date Nata Welsh, ECONOMIC RESEARCH ASSISTANT [address] [facility] [address] [place] [address] PCP - General Internal Medicine 06/13/18 Jose Luis Donahue [facility] [place] [address] PCP - cardiology Cardiology 08/05/22 Manager Money Relationship Specialty Start Date End Date MariiafsanehsterlingNata, ECONOMIC RESEARCH ASSISTANT [address] [facility] [address] [place] [address] PCP - General Internal Medicine 06/13/[address] [place] [address] PCP - cardiology Cardiology 08/05/22 Manager Money Relationship Specialty Start Date End Date Jose Luis [address] [place] [address] PCP - cardiology Cardiology 08/05/22 Nina Marroquin MD [address] [facility] [place] [address] PCP - General Internal Medicine 08/09/22 Manager Money Relationship Specialty Start Date End Date Jose Luis [address] [place] [address] PCP - cardiology Cardiology 08/05/22 Nina Marroquin MD [address] [facility] [place] [address] PCP - General Internal Medicine 08/09/22 Manager Money Relationship Specialty Start Date End Date Jose Luis Donah[place] [place] [address] PCP - cardiology Cardiology 08/05/22 Nina Marroquin MD [address] [facility] [place] [address] PCP - General Internal Medicine 08/09/22 Manager Money Relationship Specialty Start Date End Date Jose Luis Donahue [address] [place] [address] PCP - cardiology Cardiology 08/05/22 Nina Marroquin MD [address] [facility] [place] [address] PCP - General Internal Medicine 08/09/22 Manager Money Relationship Specialty Start Date End Date Sheebajames Jose Luis Interiano [address] [facility] [place] [address] PCP - cardiology Cardiology 08/05/22 Nina Marroquin MD [address] [facility] [place] [address] PCP - General Internal Medicine 08/09/22 Gurpreet Stewart MD [address] [place] [address] Home Care Provider Neurosurgery 08/22/22 Manager Money Relationship Specialty Start Date End Date Sheebajames Jose Luis Interiano [address] [facility] [place] [address] PCP - cardiology Cardiology 08/05/22 Nina Marroquin MD [address] [facility] [place] [address] PCP - General Internal Medicine 08/09/22 Gurpreet Stewart MD [address] [place] [address] Home Care Provider Neurosurgery 08/22/22 Manager Money Relationship Specialty Start Date End Date Sheebajames Jose Luis Interina[address] [facility] [place] [address] PCP - cardiology Cardiology 08/05/22 Nina Marroquin MD [address] [facility] [place] [address] PCP - General Internal Medicine 08/09/22 Gurpreet Stewart MD [address] [place] [address] Home Care Provider Neurosurgery 08/22/22 Manager Money Relationship Specialty Start Date End Date Sheebajames Jose Luis Mcpherson [address] [place] [address] PCP - cardiology Cardiology 08/05/22 Nina Marroquin MD [address] [facility] [place] [address] PCP - General Internal Medicine 08/09/22 Gurpreet Stewart MD [address] [place] [address] Home Care Provider Neurosurgery 08/22/22 Manager Money Relationship Specialty Start Date End Date Godfrey Jose Luis Mcpherson [address] [facility] [place] [address] PCP - cardiology Cardiology 08/05/22 Nina Marroquin MD [address] [facility] [place] [address] PCP - General Internal Medicine 08/09/22 Gurpreet Stewart MD [address] [place] [address] Home Care Provider Neurosurgery 08/22/22 Manager Money Relationship Specialty Start Date End Date Sheebajames Jose Luis Mcpherson [address] [facility] [place] [address] PCP - cardiology Cardiology 08/05/22 Nina Marroquin MD [address] [facility] [place] [address] PCP - General Internal Medicine 08/09/22 Gurpreet Stewart MD [address] [place] [address] [place] [address] Home Care Provider Neurosurgery 08/22/22 Manager Money Relationship Specialty Start Date End Date Sheebajames Jose Luis Interiano [address] [place] [address] PCP - cardiology Cardiology 08/05/22 Nina Marroquin MD [address] [facility] [place] [place] [address] PCP - General Internal Medicine 08/09/22 Gurpreet Stewart MD [address] [place] [address] Home Care Provider Neurosurgery 08/22/22 Manager Money Relationship Specialty Start Date End Date Jose Luis Donahue Or[address] [facility] [place] [address] PCP - cardiology Cardiology 08/05/22 Nina Marroquin MD [address] [facility] [place] [address] PCP - General Internal Medicine 08/09/22 Gurpreet Stewart MD [address] [place] [address] Home Care Provider Neurosurgery 08/22/22 Manager Money Relationship Specialty Start Date End Date Sheebajames Jose Luis Itner[address] [facility] [place] [address] PCP - cardiology Cardiology 08/05/22 Nina Marroquin MD [address] [facility] [place] [place] [address] PCP - General Internal Medicine 08/09/22 Gurpreet Stewart MD [address] [place] [address] Home Care Provider Neurosurgery 08/22/22 Manager Money Relationship Specialty Start Date End Date Jose Luis Donahue [address] [place] [address] PCP - cardiology Cardiology 08/05/22 Nina Marroquin MD [address] [facility] [place] [place] [address] PCP - General Internal Medicine 08/09/22 Gurpreet Stewart MD [address] [place] [address] Home Care Provider Neurosurgery 08/22/22 Manager Money Relationship Specialty Start Date End Date Sheebajames Jose Luis Ordaz [address] [place] [address] PCP - cardiology Cardiology 08/05/22 Nina Marroquin MD [address] [facility] [place] [address] [facility] [place] [address] PCP - General Internal Medicine 08/09/22 Gurpreet Stewart MD [address] [place] [address] Home Care Provider Neurosurgery 08/22/22 Team Status: Active Member Role Status Dates Nata Welsh COMMISSARY ASSISTANT, COMMISSARY ASSISTANT-C Family Provider Active Dr. Nina Marroquin MD Primary Care Provider Active Team Status: Inactive Member Role Status Dates Nata Welsh NP, COMMISSARY ASSISTANT-C Referring Provider Active Dr. Nina Marroquin MD Primary Care Provider, [facility] Provider Active Team Status: Active Member Role Status Dates Dr. Nina Marroquin MD Primary Care Provider Active Dr. Yonas Woods MD Attending Provider Active Team Status: Inactive Member Role Status Dates Dr. Nina Marroquin MD Primary Care Provider, Attendi ng Provider Active Team Status: Inactive Member Role Status Dates Dr. Nina Marroquin MD Primary Care Pro vider, Attending Provider, Referring Provider Active Manager Money Relationship Specialty Start Date End Date Jose Luis Donahue [address] [place] [phone] PCP - Cardiology Cardiology 08/05/22 Nina Marroquin MD [address] [facility] [place] [address] PCP - General Internal Medicine 08/09/22 Gurpreet Stewart MD [address] [place] [id number] Home Care Provider Neurosurgery 08/22/22 Manager Money Relationship Specialty Start Date End Date Jose Luis Donahue MD [address] [place] [phone] PCP - Cardiology Cardiology 08/05/22 Nina Marroquin MD [address] [facility] [place] [address] [place] [address] PCP - General Internal Medicine 08/09/22 Gurpreet Stewart MD [address] [place], [place] [phone] Home Care Provider Neurosurgery 08/22/22 Manager Money Relationship Specialty Start Date End Date Jose Luis Donahue MD [address] [place] [phone] PCP - Cardiology Cardiology 08/05/22 Nina Marroquin MD [address] [place] [address] PCP - General Internal Medicine 08/09/22 Gurpreet Stewart MD [address] [place] [address] Home Care Provider Neurosurgery 08/22/22 Team Status: Inactive Member Role Status Dates Dr. Nina Marroquin MD Primary Care Provider, Referri ng Provider Active Dr. Yonas Woods MD Attending Provider Active Team Status: Inactive Member Role Status Dates Dr. Nina Marroquin MD Primary Care Provider Active Dr. Yonas Woods MD Attending Provider, Referring Pro vider Active Team Status: Active Member Role Status Dates Dr. Nina Marroquin MD Primary Care Provider Active Team Status: Inactive Member Role Status Dates Dr. Nina Marroquin MD Primary Care Provider Active Start: December 13, 2024 End: December 13, 2024 Dr. Nina Marroquin MD Referring Provider Active Start: December 13, 2024 End: December 13, 2024 Sal Orellana COMMISSARY ASSISTANT, COMMISSARY ASSISTANT-C Attending Provider Active S tart: December 13, 2024 End: December 13, 2024 Team Status: Inactive Member Role Status Dates Dr. Nina Marroquin MD Primary Care Provider Active Start: January 03, 2025 End: January 03, 2025 Sal Orellana COMMISSARY ASSISTANT, COMMISSARY ASSISTANT-C Attending Provider Active S tart: January 03, 2025 End: January 03, 2025 Sal Orellana COMMISSARY ASSISTANT, COMMISSARY ASSISTANT-C Referring Provider Active S tart: January 03, 2025 End: January 03, 2025 Team Status: Inactive Member Role Status Dates Dr. Nina Marroquin MD Primary Care Provider Active Start: January 13, 2025 End: January 13, 2025 Sal Orellana COMMISSARY ASSISTANT, COMMISSARY ASSISTANT-C Attending Provider Active S tart: January 13, 2025 End: January 13, 2025 Sal Orellana COMMISSARY ASSISTANT, COMMISSARY ASSISTANT-C Referring Provider Active S tart: January 13, 2025 End: January 13, 2025 Team Status: Active Member Role Status Dates Dr. Nina Marroquin MD Primary Care Provider Active Start: January 13, 2025 Dr. Yonas Woods MD Attending Provider Active S tart: January 13, 2025 Manager Money Relationship Specialty Start Date End Date Jose Luis Donahue MD PCP - Cardiology Cardiology 08/05/22 Nina Marroquin MD [address] [place] [address] PCP - General Internal Medicine 08/09/22 Gurpreet Stewart MD [address] [place] [address] Home Care Provider Neurosurgery 08/22/22 INFORMATION SOURCE (unrecogn ized section and content) DATE CREATED AUTHOR 08/10/2022 [facility] DATE CREATED AUTHOR AUTHOR'S ORGANIZ ATION 03/01/2023 [facility] DATE CREATED AUTHOR AUTHOR'S ORGANIZ ATION 01/18/2025 [facility] DATE CREATED AUTHOR AUTHOR'S ORGANIZ ATION 02/26/[address] [facility] [address] [facility] FOR RECORDS PERTAINING TO PATIENTS WHO ARE OR HAVE BEEN ENROLLED IN A CHEMICAL DEPENDENCY/SUBSTANCEABUSE PROGRAM, SOME INFORMATION MAY BE OMITTED. This clinical summary was aggregated from multiple sources. Caution should be exercised in using it in the provision of clinical care. This summary normalizes information from multiple sources, and as a consequence, information in this document may materially change the coding, format and clinical context of patient data. In addition, data may be omitted in some cases. CLINICAL DECISIONS SHOULD BE BASED ON THE PRIMARY CLINICAL RECORDS. [employer] provides no warranty or guarantee of the accuracy or completeness of information in this document.
== END | disposition home or self-care (01) ==
LOC: OPBI 15:49
PROVIDERS: PCP Internal Medicine; Referring Provider Internal Medicine; Visit Provider Internal Medicine
DX: Z12.31 Encounter for screening mammogram for malignant neoplasm of breast (principal)
CPT/HCPCS: 77063; 77067